=== PATIENT | female | born 1945 | race Caucasian/White ===

== ENCOUNTER → 2017-11-04 13:08 | Outpatient (CLI) | payer MEDICARE, OTHER, SELFPAY ==
--- NOTE | 2017-11-04 | DI.RAD.S_ITS ---
PROCEDURE: XR CHEST 2V INDICATIONS: FEVER/FATIGUE TECHNIQUE: 2 views of the chest were acquired. COMPARISON: [facility], , CHEST 2 VIEW, 04/10/2016, 11:17. FINDINGS: Surgical changes and devices: None. Lungs and pleura: No pleural effusions or pneumothorax. Lungs are clear. Mediastinum: Mediastinal contours are normal. Heart size is normal. Aortic calcification. Bones and chest wall: No suspicious bony abnormalities. Lower thoracic spondylosis. Soft tissues appear unremarkable. IMPRESSION: No acute cardiopulmonary abnormality Dictated by: Lazarus Roper M.D. on 11/04/2017 at 14:12 Approved by: Lazarus Roper M.D. on 11/04/2017 at 14:13
== END ==
PROVIDERS: PCP Physician Assistant; Visit Provider Physician Assistant
DX: R53.83 Other fatigue (principal); R50.9 Fever, unspecified; M47.814 Spondylosis without myelopathy or radiculopathy, thoracic region
CPT/HCPCS: 71046

== ENCOUNTER → 2018-01-07 14:06 | Outpatient (CLI) | payer MEDICARE, OTHER, SELFPAY ==
--- NOTE | 2018-01-07 | DI.RAD.S_ITS ---
PROCEDURE: XR FOOT RT MIN 3V INDICATIONS: GANGLION RIGHT ANKLE AND FOOT TECHNIQUE: 3 views of the foot were acquired. COMPARISON: [facility], , FOOT 3V RIGHT, 01/15/2017, 9:04. FINDINGS: Bones: No fractures or dislocations. No suspicious bony lesions. First metatarsal-phalangeal and diffuse interphalangeal degenerative joint disease. No focal osseous destruction is seen. There is pes cavus appearance all weight-bearing views would be more consistent mild spurring of the posterior calcaneus. There is also tarsometatarsal joint degeneration Soft tissues: No tibiotalar joint effusion. Achilles tendon appears normal. IMPRESSION: Chronic degenerative changes as above. If there is clinical necessity, contrast-enhanced MRI of the foot could be performed to better assess soft tissues. Dictated by: Jose Reaves M.D. on 01/07/2018 at 14:45 Approved by: Jose Reaves M.D. on 01/07/2018 at 14:48
== END ==
PROVIDERS: Family Provider Podiatrist; PCP Physician Assistant; Visit Provider Physician Assistant
DX: M67.471 Ganglion, right ankle and foot (principal); M19.071 Primary osteoarthritis, right ankle and foot
CPT/HCPCS: 73630

== ENCOUNTER → 2018-01-19 09:35 | Outpatient (CLI) | payer MEDICARE, OTHER, SELFPAY ==
--- NOTE | 2018-01-19 | DI.US.S_ITS ---
PROCEDURE: US EXTREMITY NONVASC LOWER RT INDICATIONS: PAIN AND SWELLING RIGHT FOOT TECHNIQUE: Real-time scanning was performed of the right foot between the first and second metatarsals, with image documentation. COMPARISON: [facility], [place], XR FOOT RT MIN 3V, 01/07/2018, 13:49. FINDINGS: No ultrasound abnormalities are identified and are of interest. No soft tissue mass or fluid collection. IMPRESSION: Normal ultrasound exam in the area of interest. Dictated by: Sharonda Jimenez M.D. on 01/19/2018 at 10:42 Approved by: Sharonda Jimenez M.D. on 01/19/2018 at 10:43
[2018-01-19 10:31] LABS: Uric Acid 3.3 mg/dL (2.5-6.2)
== END ==
PROVIDERS: Family Provider Podiatrist; PCP Physician Assistant; Visit Provider Podiatrist
DX: M79.671 Pain in right foot (principal); M79.89 Other specified soft tissue disorders; M10.9 Gout, unspecified
CPT/HCPCS: 36415; 76882; 84550

== ENCOUNTER → 2018-04-09 12:56 | Outpatient (CLI) | payer MEDICARE, OTHER, SELFPAY ==
--- NOTE | 2018-04-09 | DI.CT.S_ITS ---
PROCEDURE: CT CHEST W CON INDICATIONS: COUGH TECHNIQUE: After the administration of intravenous contrast, 5 mm thick sections acquired from the pulmonary apices to the posterior costophrenic angles. 7 mm thick coronal and sagittal MIP reformats were acquired. For radiation dose reduction, the following was used: automated exposure control, adjustment of mA and/or kV according to patient size. COMPARISON: None. FINDINGS: Image quality: Excellent. Lungs and pleura: No acute air space opacities. No pleural effusions or pneumothorax. Central and peripheral airways are patent and normal in caliber. Mediastinum: Heart size is normal. No pericardial effusion. No mediastinal or hilar adenopathy by size criteria. Thoracic aorta and central pulmonary arteries are normal in size. Esophagus is normal in caliber. No hiatal hernia. Bones and chest wall: No suspicious bony lesions. No vertebral body compression fractures. No axillary or supraclavicular adenopathy by size criteria. Thyroid gland contains a multitude of small nodules, and is asymmetrically enlarged right on the left than the right with secondary narrowing of the transverse dimension of the trachea through this area, without likelihood of aerodynamically significant stenosis. Abdomen: Visualized upper abdominal solid organs appear normal. Upper abdominal bowel loops are normal in caliber. Prior cholecystectomy. IMPRESSION: A pulmonary source for recurrent cough is not identified. Note is made of asymmetric enlargement of the thyroid gland, left greater than right, by a multitude of small nodules with secondary mild stenosis of the transverse dimension of the upper trachea in this area. Followup thyroid ultrasound is recommended. Impingement on the trachea by the thyroid gland may explain the cough symptoms reported by the patient. Dictated by: Braulio Anaya M.D. on 04/09/2018 at 14:10 Approved by: Braulio Anaya M.D. on 04/09/2018 at 14:13
== END ==
PROVIDERS: Family Provider Otolaryngology Facial Plastic Surgery; PCP Physician Assistant; Visit Provider Physician Assistant
DX: R05 Cough (principal); E04.2 Nontoxic multinodular goiter; J39.8 Other specified diseases of upper respiratory tract
CPT/HCPCS: 71260; Q9967

== ENCOUNTER → 2018-04-23 09:48 | Outpatient (CLI) | payer MEDICARE, OTHER, SELFPAY ==
--- NOTE | 2018-04-23 | DI.US.S_ITS ---
PROCEDURE: US THYROID INDICATIONS: THYROID NODULE TECHNIQUE: Real-time scanning was performed of the thyroid gland, with image documentation. COMPARISON: None. FINDINGS: Right: Thyroid lobe measures 5.0 x 1.8 x 1.8 cm, and is homogeneous in echotexture. Left: Thyroid lobe measures 5.5 x 2.4 x 2.0 cm, and is homogenous in echotexture. Isthmus: 4.0 mm thick. Nodule number: 1 Location: Right mid lateral Size: 1.8 x 0.9 x 1.0 cm. Composition: Predominant solid Echogenicity: Hypoechoic Shape: wider than tall. Margins: Smooth Echogenic foci: None Total points: 4 ACR TI-RADS category: Moderately suspicious Nodule number: 2 Location: Right mid Size: 0.8 x 0.6 x 0.6 cm. Composition: Predominately solid Echogenicity: Isoechoic Shape: wider than tall. Margins: Smooth Echogenic foci: Punctate internal echogenic foci Total points: 6 ACR TI-RADS category: Moderately suspicious Nodule number: 3 Location: Right inferior Size: 1.2 x 0.6 x 1.6 cm. Composition: Predominately solid Echogenicity: Isoechoic Shape: wider than tall. Margins: Smooth Echogenic foci: Internal echogenic punctate foci. Total points: 6 ACR TI-RADS category: Moderately suspicious Nodule number: 4 Location: Left mid inferior Size: 4.3 x 2.2 x 2.0 cm. Composition: Predominately solid Echogenicity: Isoechoic Shape: wider than tall. Margins: Smooth Echogenic foci: Internal echogenic punctate foci Total points: 6 ACR TI-RADS category: Moderately suspicious Nodule number: 5 Location: Left superior Size: 1.0 x 0.8 x 0.7 cm. Composition: Spongiform Echogenicity: Hypoechoic Shape: wider than tall. Margins: Smooth Echogenic foci: Internal echogenic punctate foci Total points: 5 ACR TI-RADS category: Moderately suspicious Nodule number: 6 Location: Left inferior Size: 0.8 x 0.8 x 0.7 cm. Composition: Predominately solid Echogenicity: Isoechoic Shape: wider than tall. Margins: Smooth Echogenic foci: Internal echogenic punctate foci Total points: 6 ACR TI-RADS category: Moderately suspicious IMPRESSION: Bilateral thyroid nodules as above. Recommend sonographically directed fine needle aspiration of the # 4 left mid inferior nodule and continued sonographic surveillance of the additional nodules as detailed below. ACR TI-RADS definitions and recommendations: TI-RADS 1 (benign): 0 points. FNA not needed. TI-RADS 2 (not suspicious): 2 points. FNA not needed. TI-RADS 3 (mildly suspicious): 3 points. * FNA if 2.5 cm or larger, follow up if 1.5 cm or larger (at 1, 3, and 5 years). TI-RADS 4 (moderately suspicious): 4-6 points. * FNA if 1.5 cm or larger, follow up if 1 cm or larger (at 1, 2, 3, and 5 years). TI-RADS 5 (highly suspicious): 7 points or more. * FNA if 1 cm or larger, follow up if 0.5 cm or larger (every year for 5 years). Dictated by: Donal BARBOSA Interpreted: Manuel Cobian MD on 04/23/2018 at 12:05 Approved by: Manuel Cobian M.D. on 04/23/2018 at 14:28
== END ==
PROVIDERS: Family Provider Otolaryngology Facial Plastic Surgery; PCP Physician Assistant; Visit Provider Physician Assistant
DX: E04.2 Nontoxic multinodular goiter (principal)
CPT/HCPCS: 76536

== ENCOUNTER → 2018-11-24 08:30 | Outpatient (CLI) | payer MEDICARE, OTHER, SELFPAY ==
--- NOTE | 2018-11-24 | DI.NM.S_ITS ---
PROCEDURE: NM BONE 3 PHASE RADIOPHARMACEUTICAL: 21.0 mCi Tc-99m MDP IV. INDICATIONS: STRESS FRACTURE RIGHT TECHNIQUE: Multiple bone scintigrams were obtained after intravenous injection of Tc-99m MDP, including flow, blood pool, and delayed images centered to the region of interest. COMPARISON: [facility], [place], XR FOOT 3 VIEWS WEIGHT BEARING RIGHT, 11/08/2018, 10:37. [facility], [place], XR FOOT 3+ VIEWS RIGHT, 10/22/2018, 13:15. FINDINGS: There is asymmetric hyperperfusion of the right hindfoot and midfoot on flow imaging. There is asymmetrically increased blood pool activity/hyperemia in the right hindfoot and midfoot. Delayed bone phase imaging demonstrates diffuse asymmetrically increased radiotracer uptake within the right hindfoot and midfoot, with greatest focal uptake at the right second and third cuneiforms. IMPRESSION: Hyperperfusion, hyperemia, and delayed bone radionuclide uptake within the right hindfoot and midfoot compatible with potential right midfoot or hindfoot stress fracture with resultant altered biomechanics. Radiotracer uptake is greatest at the second and third cuneiforms of the right foot; suggest correlation with point tenderness for further evaluation. Dictated by: Robel Vega M.D. on 11/24/2018 at 17:43 Approved by: Robel Vega M.D. on 11/24/2018 at 18:03
== END ==
PROVIDERS: PCP Internal Medicine; Visit Provider Podiatrist
DX: M84.374A Stress fracture, right foot, initial encounter for fracture (principal)
CPT/HCPCS: 78315; A9503

== ENCOUNTER → 2019-06-20 10:51 | Outpatient (CLI) | payer MEDICARE, OTHER, SELFPAY ==
--- NOTE | 2019-06-20 | DI.RAD.S_ITS ---
PROCEDURE: XR CHEST 2V INDICATIONS: chronic cough TECHNIQUE: 2 views of the chest were acquired. COMPARISON: [facility], [place], XR CHEST 2V, 11/04/2017, 12:51. FINDINGS: Surgical changes and devices: None. Lungs and pleura: Lungs are clear. No pleural effusions or pneumothorax. Lungs are hyperinflated suggestive of COPD. Mediastinum: Mediastinal contours are normal. Heart size is normal. Bones and chest wall: No suspicious bony abnormalities. Soft tissues appear unremarkable. IMPRESSION: No acute pulmonary process. Dictated by: Della Russell M.D. on 06/20/2019 at 16:02 Approved by: Della Russell M.D. on 06/20/2019 at 16:02
== END ==
PROVIDERS: PCP Student in an Organized Health Care Education/Training Program; Referring Provider Student in an Organized Health Care Education/Training Program; Visit Provider Student in an Organized Health Care Education/Training Program
DX: R05 Cough (principal)
CPT/HCPCS: 71046

== ENCOUNTER 2019-07-19 11:44 | Day surgery (SDC) | payer MEDICARE, OTHER, SELFPAY ==
--- NOTE | 2019-07-19 | PATH_ITS ---
[facility] Accession Number: [id number] . 01 Material submitted: . colon - COLON POLYP AT 55 CM . 02 Diagnosis: Colon at 55 cm, Polyp: Tubular adenoma. MRV 07/20/2019 1215 Local . 02 Electronically signed: . Kush Frances MD, PhD, Pathologist NPI- [id number] . 01 Gross description: . COLON POLYP AT 55 CM: Received in formalin is 1 fragment(s) of wang, soft tissue measuring 0.2 x 0.2 x 0.2 cm submitted entirely in 1 cassette(s) /[facility] [place] 07/19/2019 2109 Local . 02 Pathologist provided ICD-10: D12.6 . 02 CPT . 505899 Performed at: 01 [facility] [address] [place] [address], [place], [place] [id number] MD David Pederson MD Phone: [phone] Performed at: 02 [facility] [address] [place], [place] [id number] MD Neelam Faria MD Phone: [phone]
[2019-07-19 12:18] VITALS: BMI 21.5
[2019-07-19 12:24] VITALS: BP 144/79; PULSE 93; RESP 18; TEMP 37.1; O2SAT 98
[2019-07-19] MEDS: SODIUM CHLORIDE 0.9% 1,000 ML 200 ML IV (12:33)
--- NOTE | 2019-07-19 12:55 | PM.HP.1 ---
History of Present Illness History of Present Illness Date Patient Seen: 07/19/19 Time Patient Seen: 12:55 Chief complaint: [id number] Narrative: This is a 73-year-old woman with history of arthritis, knee replacement, shoulder surgery, gallbladder surgery. She had a prior colonoscopy roughly 10 years ago which was normal. She is here for follow-up screening colonoscopy. She denies any melena, hematochezia, unexplained weight loss, or unexplained abdominal pain. She denies any significant family history of colon cancers or colon polyps. She says she feels well and denies any active medical problems. ROS: Thirteen system review is otherwise negative other than as mentioned below and in HPI. PE: GENERAL: Well groomed and cooperative. Appears stated age. Answers questions promptly and appropriately. Vital signs noted. HENT: Normocephalic, atraumatic. Hearing intact. Oral mucosa is pink and moist. EYES: Conjunctiva pink, sclera white, no periorbital swelling. CARDIOVASCULAR: Regular rate. No pedal edema. RESPIRATORY: Non-tachypneic, breathing comfortably on room air. GASTROINTESTINAL: Abdomen soft and non-distended GENITALURINARY: No flank tenderness. MUSCULOSKELETAL: Equal tone and mass bilaterally. SKIN: Warm, dry, soft, appropriate color for ethnicity. No other lesions, rashes, or wounds. NEURO: Alert and Oriented X 3. No gross sensory deficits, or cognitive issues. PSYCH: Appropriate affect and mood. Patient History Family & Social History Social History: household members spouse Tobacco & Substance use: Smoking Status Never smoker alcohol intake current alcohol intake frequency 0-2 drinks per day Substance Use Type does not use Meds Home Medications and Allergies Home Medications Medication Instructions Recorded Confirmed Type tramadol 50 mg PO QID #0 05/14/12 07/19/19 History mirabegron [Myrbetriq] 50 mg PO DAILY 07/19/19 07/19/19 History ropinirole 0.5 mg PO BEDTIME 07/19/19 07/19/19 History trazodone 150 mg PO BEDTIME 07/19/19 07/19/19 History Allergies Allergy/AdvReac Type Severity Reaction Status Date / Time Penicillins Allergy Unknown Rash Verified 07/19/19 12:13 Exam Vital Signs (past 8 hours): - 07/19/19 12:24 Temperature 98.8 F Pulse Rate 93 H Respiratory Rate 18 Blood Pressure 144/79 H Pulse Oximetry 98 Oxygen Delivery Method Room Air Assessment & Plan Assessment and plan (1) At average risk for colon cancer: Current visit: Yes Status: Acute Assessment & Plan narrative: Risks and benefits of screening colonoscopy and possible polypectomy were discussed with the patient including risk of bleeding, perforation, need for additional procedures, risks of anesthesia. The patient desires to proceed with the colonoscopy procedure. Time Spent With Patient Time with patient: 15-24 minutes Quality VTE Deep Vein Thrombosis/Pulmonary Embolism Present on Admission: No
--- NOTE | 2019-07-19 13:21 | PM.OP.ENDO ---
Operative Date/Time/Diagnoses Date of procedure: 07/19/19 Time of procedure: 13:21 Pre-op diagnosis: Average risk for colon cancer, due for follow-up screening colonoscopy Post-op diagnosis: other (One tiny polyp, extensive diverticulosis, with thickening of the colon consistent with history of diverticulitis) Procedure & Clinicians Study performed: Screening colonoscopy, polypectomy with cold forceps Same procedure as scheduled: Yes Indications: Average risk for colon cancer, due for screening colonoscopy Surgeon: Marla Astorga Procedure Notes SCOAP/Timeout: Performed Procedure in detail: The patient was brought to the room and placed in left lateral decubitus position with all bony prominences padded. A time-out was performed and then the patient was given procedural sedation starting with 2 mg of Versed and [100] mcg of fentanyl. Total of 4 mg of Versed and 150 micro g of fentanyl were given for the entire procedure. Vitals were monitored throughout the procedure and remained stable. Once adequately sedated the procedure was begun. A rectal exam was performed revealing [no abnormalities]. The colonoscope was then introduced to the rectum and advanced to the cecum in the usual fashion. []The cecum was identified by the appendiceal orifice, the mucosal tri-fold, and the ileocecal valve. A small polyp was seen at 55 cm, and was removed entirely with forceps. The scope was then retracted while rotating side to side and examining each mucosal fold. There was diverticulosis throughout the colon, with significant diverticulosis in the descending and sigmoid colon, with thickening of the sigmoid colon and evidence of prior episodes of diverticulitis. [] At the conclusion of the procedure retroflexion was performed and [small grade 1-2 internal hemorrhoids without stigmata of bleeding were seen]. The scope was then withdrawn from the rectum the procedure was concluded. The patient tolerated the procedure well and was transferred to the PACU in stable condition. Scope withdrawal time: 8 Sedation minutes: 20 Findings: diverticulosis and polyp Specimen(s): other (Polyp from 55 cm) Complications: none Impression: Extensive diverticulosis with evidence of prior diverticulitis Post-procedure Recommendations: Colonscopy in 10 years (Is healthy enough for colonoscopy at that time) and Start medication(s) (Use a fiber supplement such as Metamucil or Benefiber to help bulk up the stool make it easier for the colon to pass, with a goal of reducing formation of diverticulosis and episodes of diverticulitis) Follow up: as needed Disposition: PACU
[2019-07-19] MEDS: ONDANSETRON 4 MG/2 ML INJ IV (13:23)
[2019-07-19] MEDS: fentaNYL 250 MCG/5 ML INJ IV (13:24)
[2019-07-19] MEDS: MIDAZOLAM 5 MG/5 ML VIAL IV (13:24)
[2019-07-19 13:25] VITALS: BP 115/66; PULSE 77; RESP 21; TEMP 36.2; O2SAT 98
[2019-07-19 13:30] VITALS: BP 121/66; PULSE 88; RESP 13; O2SAT 98
[2019-07-19 13:36] VITALS: BP 119/69; PULSE 89; RESP 15; O2SAT 98
[2019-07-19 13:51] VITALS: BP 120/59; PULSE 75; RESP 17; O2SAT 98
[2019-07-19 14:05] VITALS: BP 124/71; PULSE 76; RESP 14; TEMP 36.6; O2SAT 97
--- NOTE | 2019-07-19 14:12 | SUR.PHASEII ---
Patient denies pain or nausea at this time. VSS. GCS 15. Awaiting to arrive so that patient can be discharged home.
== END 2019-07-19 14:37 | disposition home or self-care (01) ==
PROVIDERS: PCP Student in an Organized Health Care Education/Training Program; Referring Provider Student in an Organized Health Care Education/Training Program; Visit Provider Surgery
PROC: 0DJD8ZZ Inspection of Lower Intestinal Tract, Via Natural or Artificial Opening Endoscopic (ICD-10-PCS; CPT 45378; principal; 2019-07-19 13:00)
DX: Z12.11 Encounter for screening for malignant neoplasm of colon (principal); K57.30 Diverticulosis of large intestine without perforation or abscess without bleeding; D12.6 Benign neoplasm of colon, unspecified
CPT/HCPCS: 45380; 99152; J2250; J2405; J3010

== ENCOUNTER → 2019-11-10 18:30 | Outpatient (ROUT) | payer MEDICARE, OTHER, SELFPAY ==
[2019-11-10 18:46] LABS: BUN Creatinine Ratio 29.9 (6-22); Blood Urea Nitrogen 20 mg/dL (7-17); Calcium 9.1 mg/dL (8.4-10.2); Carbon Dioxide 27 mmol/L (22-32); Chloride 102 mmol/L (98-107); Estimated Glomerular Filt Rate > 60.0 mL/min (>60); Glucose 112 mg/dL (80-110); HEMOLYSIS < 15 (0-50); Potassium 4.2 mmol/L (3.4-5.1); Sodium 136 mmol/L (137-145)
[2019-11-10 18:54] LABS: Add Manual Diff / Slide Review NO; Basophils Absolute Auto 0 /uL (0-100); Basophils Percent Auto 0.2 % (0-2); Eosinophils Absolute Auto 0 /uL (0-450); Eosinophils Percent Auto 0.9 % (2-4); Hematocrit 43.3 % (36-46); Hemoglobin 14.9 g/dL (12.0-16.0); Lymphocytes Absolute Auto 900 /uL (1100-4500); Lymphocytes Percent Auto 23.2 % (25-40); Mean Corpuscular HGB Conc 34.5 % (30-36); Mean Corpuscular Hemoglobin 30.8 PG (26-34); Mean Corpuscular Volume 89.4 fL (80-100); Monocytes Absolute Auto 400 /uL (0-900); Monocytes Percent Auto 10.4 % (3-14); Neutrophils Absolute Auto 2600 /uL (1500-7000); Neutrophils Percent Auto 65.3 % (50-75); Platelet Count 176 X10^3/uL (150-400); Red Blood Cell Count 4.85 X10^6/uL (4.0-5.2); Red Cell Distribution Width 13.2 % (11.6-14.8); White Blood Cell Count 3.9 X10^3/uL (4.5-11.0)
== END ==
PROVIDERS: PCP Student in an Organized Health Care Education/Training Program; Visit Provider Student in an Organized Health Care Education/Training Program
DX: Z01.818 Encounter for other preprocedural examination (principal)
CPT/HCPCS: 36415; 80048; 85025

== ENCOUNTER → 2019-12-06 13:55 | Outpatient (CLI) | payer MEDICARE, OTHER, SELFPAY ==
[2019-12-08 03:05] LABS: COVID19 Sendout Not Detected (Not Detect)
== END ==
PROVIDERS: PCP Student in an Organized Health Care Education/Training Program; Visit Provider Physician Assistant
DX: Z01.812 Encounter for preprocedural laboratory examination (principal)
CPT/HCPCS: 87635

== ENCOUNTER 2019-12-09 07:43 | Day surgery (SDC) | payer MEDICARE, OTHER, SELFPAY ==
[2019-12-07 07:16] VITALS: BMI 21.7
[2019-12-09] VITALS (8 sets, daily range): BP systolic 104–147; BP diastolic 44–87; PULSE 86–101; RESP 12–16; TEMP 36.3–36.8; O2SAT 95–99; BMI 22.3
--- NOTE | 2019-12-09 | DI.RAD.S_ITS ---
PROCEDURE: XR FOOT RT MIN 3V INDICATIONS: FLATFOOT REPAIR TECHNIQUE: 9 views of the foot were acquired. COMPARISON: [facility], , XR FOOT RT MIN 3V, 01/07/2018, 13:49. [facility], , FOOT 3V RIGHT, 01/15/2017, 9:04. FINDINGS: Bones: No fractures or dislocations. No suspicious bony lesions. The 9 images show cannulated cancellous screws establishing fusion across to ostea out a me at the posterior calcaneus and also metatarsal base cancellous fixation screws establishing anatomic fusion between the tarsal-metatarsal articulations of the 1st, 2nd and 3rd rays. Soft tissues: No tibiotalar joint effusion. Achilles tendon appears normal. IMPRESSION: Podiatry related fusion fixation devices establishing normal alignment postoperatively. Dictated by: Braulio Anaya M.D. on 12/09/2019 at 12:51 Approved by: Braulio Anaya M.D. on 12/09/2019 at 12:53
[2019-12-09] MEDS: LACTATED RINGERS 1,000 ML 42 ML IV ×2 (08:27→13:04)
--- NOTE | 2019-12-09 08:56 | PM.PREOP ---
Pre-operative Note COVID-19 COVID-19 status: Negative Interval Note History & Physical reviewed/Exam performed by Physician: Yes Changes to H&P: No
[2019-12-09] MEDS: MIDAZOLAM 2 MG/2 ML VIAL IV ×2 (09:03→09:09)
[2019-12-09] MEDS: fentaNYL 100 MCG/2 ML INJ 50 MCG IV ×2 (09:03→09:14)
--- NOTE | 2019-12-09 09:19 | P.OP_ITS ---
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 These are reasonably flexible hindfoot and posterior tibialis tendon dysfunction. She has failed conservative treatment with orthotics and braces. She has desired operative treatment. The risks and benefits of the procedure have been discussed with the patient even opportunity to ask questions. The risks of surgery include but are not limited to infection, malunion, nonunion, over correction, under correction, wound healing problems persistence of pain, damage to nerves and blood vessels, posttraumatic arthritis, DVT, PE, cardiopulmonary complications and . The patient expressed a thorough understanding of the risks and benefits of surgery and has elected to proceed. Consent was signed in the office. She has been counseled the importance of elevation above the heart level for the 1st 2 weeks after surgery to minimize swelling and pain. Surgeon: Pat Castellanos Licensing And Registration Director: Good Nathan Anesthesia Type: General and Peripheral nerve block Operative Notes Findings: Examination under anesthesia the knee flexed and extended demonstrated a Achilles contracture. Gerardo Achilles lengthening was completed. Medial displaced calcaneus osteotomy was completed stabilized by 2 x 6.7 Arthrex cannulated screws. FDL transfer was completed and held in place with a 4.75 bio tenodesis screw through the navicular. The spring ligament was inspected and was intact. The 1st 2nd and 3rd tarsometatarsal joints were prepared and fused with 4.0 cannulated screws. 5 cc of cortical fibers were used for aloe graft bone graft to aid fusion. Care was taken to plantar flex the 1st tarsometatarsal joint infusion position to correct the forefoot supination. Closure Type: primary Specimen(s): none sent Prosthetic devices, grafts, tissues, transplants, or devices: Arthrex 6.7 mm can nulated screws (50 and 55 mm) Arthrex 4.0 mm cannulated screws x 4 Arthrex 4.75 bio tenodesis screw Estimated Blood Loss (mL): 25 Blood products transfused: none Tourniquet time (min): 130 Procedure in detail: Patient was seen in the preoperative area the site of surgery was marked informed consent confirmed. The patient underwent a regional block with the anesthesia team for postoperative pain control. Patient was then brought back to the operating room by the anesthesia team positioned supine on the operative table. All bony prominences were well-padded. Well-padded thigh tourniquet was placed. An SCD was placed on the contralateral lower extremity. A ipsilateral thigh bump was placed. The right lower extremity prepped and draped in the standard sterile fashion. A formal time-out procedure was performed confirming the patient's side and site of surgery administration of appropriate preoperative antibiotics. All were in agreement. Implants were in the room accounted for. Attention was turned to the right lower extremity. Bony landmarks and planned incision was drawn out on the foot. A lap was then placed over the zarco. The Esmarch was used for exsanguination the tourniquet raised on the thigh to 250 mm mercury. The stayed there for 130 minutes and was then let down and not re- inflated. Tendo-Achilles lengthening: Exam under anesthesia was completed patient had a Achilles contracture demonstrated by no appreciable change in dorsiflexion with knee flexion and knee extension once the hindfoot valgus was corrected. Therefore a Mitchell style lengthening of the tendo Achilles tendon was completed with the 3 small incisions the distal and proximal most were taken through the midline and then to the outside and the middle incision was taken through the middle of the tendon and cut the medial 50%. This set lowered a audible and palpable stretch and we were able to get 20? of dorsiflexion with the knee extended. Again of no examined under anesthesia and there was adequate motion of the hindfoot to support the joint sparing osteotomy correction. Medial displacement calcaneal osteotomy: Attention was then turned to the medial displacement calcaneal osteotomy. An oblique incision was made along the lateral border of the calcaneus staying posterior to the sural nerve and peroneal tendons. Dissection was carried through the skin and subcutaneous tissue and down bluntly to the lateral wall calcaneus. Subperiosteal dissection was then completed for exposure and baby Hohmann retractors were placed around the calcaneus. A osteotomy across the calcaneus was completed using a K-wire as a guidewire. This was also checked on fluoroscopy. This was taken gently through the medial wall completed with the osteotomes. A Halstad was then used to release the periosteum medially. The calcaneus was translated approximately 8 mm. The slight was then percutaneously fixed with 2 x 6.7 mm Arthrex cannulated screws. Excellent fixation was obtained. Guidewires were removed and the excess bone from the distal fragment was then trimmed and saved for bone graft and then impacted appropriately. X-rays in at calcaneal asked heel and lateral confirmed adequate hardware placement. The tissues were closed with 2 O Vicryl suture, 4 0 Monocryl and 3 O nylon suture. Percutaneous posterior sites were closed with 3 O nylon. FDL tendon transfer: Attention was then turned to the medial aspect of the foot and the FDL tendon transfer. The leg was externally rotated and a medial incision was made along the course of the posterior tibialis tendon extending distally along the medial border toward the 1st TMT joint. A tenosynovectomy of the posterior tibial tendon was performed and the tendon sheath opened. There was mild tendinosis that was debrided but the overall width and size of the tendon was not too disease so this was preserved. The FDL was exposed just deep to the posterior tibialis tendon and was followed distally to the knot of Reid. Careful coagulation of vessels in this area was completed using the Bovie cautery. The FDL was isolated and harvested and tagged with a fiber loop. This fit easily through a 5 mm Sizer with trimming. Dissection was made and completed on the navicular and a guide wire and a 5 mm tunnel were made across the navicular with the pin at exiting out the dorsum of the foot. Was confirmed on fluoroscopy to be well away from the joint surfaces. This was then over drawn with a 5 mm drill and 4.75 bio tenodesis screw was selected for an interference screw. Of note on the exposure inspection of the spring ligament was completed and this was found to be intact. Next the fiber loops of for the FDL tendon transfer were brought through the navicular now dorsally and then the of tendon was brought into the drill hole. This was held tight correcting the deformity and then the bio tenodesis screw was secured. This provided a stable repair and set the tension. Motion fixation was excellent. The patient was noted to have residual supination so plantar flexion 1st TMT fusions were going to be planned. At the end of the procedure the posterior tibialis tendon was found to have decent excursion so this was tenodesed to the FDL. Midfoot fusions 1st through 3rd tarsometatarsal fusion: Inter 2 complete maximal as skin bridges the a medial incision was extended distally to accommodate the 1st TMT fusion and then a separate dorsal incision centered over the lateral aspect of the 3rd tarsometatarsal joint was utilized to access the 2nd and 3rd tarsometatarsal joints. Dissections were taken down through the skin and subcutaneous tissues. The tendons were protected dorsally at the 1st TMT joint. The cartilage was removed with more bone removed plantarly for plantar flexion are fusion. The joints sites were prepped thoroughly with the bur drill and then secured with the DBS bone fibers and tendon place with guidewires for the 4 0 cannulated screws. Similar procedure was completed for the 2nd and 3rd tarsometatarsal joints through this hole dorsal lateral incision. Again these were found to be extremely arthritic joints and the osteophytes to remove the bone surfaces were prepared using a bone bur and the 2 other drill. Then a DCS fibers were placed in. The 2nd and 3rd tarsometatarsal joints were transfixed with a single 4.0 mm cannulated lag screws and the 1st tarsometatarsal joint was stabilized with 2 cross 4.0 cannulated lag screws. This obtained excellent fixation and alignment. Current was released and hemostasis was achieved. Gelfoam and thrombin were used. A 2 O Vicryl 4 0 Monocryl and 3 O nylon was used for skin closure. Sterile bulky dressing was placed with Xeroform gauze and Webril focally Gramajo dressing and a posterior and U splint. Patient was woken from anesthesia and taken to recovery room in good condition. There no immediate complications from this procedure. All counts were correct. Additional 20 cc of 0.5% Marcaine was injected for local anesthetic. Complications: none Post-operative Condition: stable Plan for aftercare: Nonweightbearing right lower extremity minimum 8 weeks. Elevate above the heart level 1st 2 weeks after surgery strictly. Will start taking aspirin 325 mg on postop day 1 for DVT prophylaxis. Sutures will remain minimum 2 weeks but to not uncommon to remain 4-5 weeks if necessary.
--- NOTE | 2019-12-09 09:33 | SUR.PREOP ---
902 medicated as ordered for nerve block by Dr. Ruffin. Pt in sinus rhythm (continuous monitoring). On o2 at 2lNP, maintained sat of 99%, HR 90-91, bp stable. Error in printing strips. Pt was awake, drowsy, responsive throughout the procedure without complaints of pain. procedure end 924. Taken to the OR shortly after. pt comfortable, talking. Stable
[2019-12-09] MEDS: CEFAZOLIN 2 GM/100 ML FROZ.PIGGY IV (09:40)
--- NOTE | 2019-12-09 10:22 | SUR.OPER ---
Supine on padded OR bed, head on pillow, arms secured on padded arm boards at <90 degrees abduction, legs uncrossed, safety belt at abdomen, right leg prepped in sterile field stacked on blankets, bump under right hip, tape over blanket over left lower leg.
[2019-12-09] MEDS: BUPIVACAINE 0.25% W/ EPI 30 ML VIAL INJ (10:34)
--- NOTE | 2019-12-09 12:12 | PM.PROC.1 ---
Procedures Date/Time Date of procedure: 12/09/19 Time of procedure: 09:23 Nerve Block Time out performed: Yes Amount of anesthesia used (mL): 20 Nerve blocks: other (Sciatic/Popliteal Nerve Block) Procedure successful: Yes Patient tolerated procedure: well Complications: none Additional comments: Patient for surgical correction of right flat foot deformity, acquired. Surgeon requests nerve block for post op pain relief. Discussed this option with patient, including procedure, risks and benefits. Questions answered and patient signed consent for the procedure. Procedure: Right Sciatic (popliteal) nerve block. Indication: Post op pain relief. Patient placed in prone postion, monitors and O2 per NC applied. IV sedation titrated: total given was fentanyl 100mck and midazolam 2mg. Site and side reconfirmed and landmarks identified. Chloroprep applied and sterile drape placed. Ultrasound visualization utilized as well as nerve stimulator. Lidocaine 1% local wheal with 25g needle. 50mm 22g sheath needle advanced to achieve + twitch; optimized needle position to get twitch (dorsiflexion) to 5mAmp. Negative 2ml test dose after negative aspiration. Total volume of 20 ml given: Ropivacaine 0.5%-17ml and Lidocaine 2% with epinephrine-3ml. Patient tolerated the procedure well without complications.
[2019-12-09] MEDS: THROMBIN (RECOMBINANT) 5,000 UNIT VIAL 5000 UNIT TOP (12:30)
--- NOTE | 2019-12-09 14:10 | SUR.PHASEII ---
Pt rcvd in pacu 2 in stable condition, VSS, wanting to sleep for now. denies pain or nausea but refuses po fluids for now.
--- NOTE | 2019-12-09 14:34 | SUR.PHASEII ---
Pt awake now and drinking po fluids without problems, all dc instructions and rxs given and pt verbalizes understanding. VSS and pt states would like to try go home, ride called. able to move right foot but not toes yet, right foot normal temp and 2t capillary refill toes.
--- NOTE | 2019-12-09 14:55 | SUR.PHASEII ---
Pt assisted to get dressed now sitting up back in bed with right foot elevated on pillows waiting for to arrive
--- NOTE | 2019-12-09 15:22 | SUR.PHASEII ---
Pt dcd in stable condition via wc to curbside private vehicle and .
== END 2019-12-09 15:23 | disposition home or self-care (01) ==
PROVIDERS: PCP Student in an Organized Health Care Education/Training Program; Referring Provider Orthopaedic Surgery Foot and Ankle Surgery; Visit Provider Orthopaedic Surgery Foot and Ankle Surgery
PROC: (CPT 28735; principal; 2019-12-09 07:45)
PROC: (CPT 27691; 2019-12-09 07:45)
DX: M21.41 Flat foot [pes planus] (acquired), right foot (principal); M76.829 Posterior tibial tendinitis, unspecified leg; M19.072 Primary osteoarthritis, left ankle and foot; M67.01 Short Achilles tendon (acquired), right ankle
CPT/HCPCS: 28730; 27691; 28300; 64450; 73630; 76000; J0690; J1100; J2250; J2405; J2704; J3010

== ENCOUNTER 2020-12-28 19:58 | Emergency (ER) | payer MEDICARE, OTHER, SELFPAY ==
--- NOTE | 2020-12-28 20:20 | DI.RAD.S_ITS ---
PROCEDURE: XR SHOULDER RT MIN 2V INDICATIONS: fall with deformity TECHNIQUE: 3 views of the shoulder were acquired. COMPARISON: [facility], CR, XR CHEST 2V, 06/20/2019, 10:51. FINDINGS: Suboptimal evaluation secondary to positioning. Bones: No definite fracture seen. There is superior subluxation of the lateral clavicle relative to the acromion measuring almost 1 shaft width. Soft tissues: No suspicious soft tissue calcifications. IMPRESSION: Superior subluxation of the lateral clavicle relative to the acromion suggestive of AC separation injury. Dictated by: Jose Reaves M.D. on 12/28/2020 at 21:07 Approved by: Jose Reaves M.D. on 12/28/2020 at 21:08
[2020-12-28 20:23] VITALS: BP 135/65; PULSE 83; RESP 17; TEMP 36.6; O2SAT 98; BMI 23.6
[2020-12-28 20:42] LABS: COVID19 -Nasal RAPID Negative (Negative)
--- NOTE | 2020-12-28 21:14 | ED.FALL ---
HPI - Fall General Chief Complaint: Fall Stated Complaint: Dislocated Shoulder Time Seen by Provider: 12/28/20 20:10 Source: patient Mode of arrival: Ambulatory History of Present Illness HPI Narrative: Patient is a 75-year-old female who admits to drinking some alcohol this evening when she tripped and fell landing on her shoulder. She states that she had surgery on her foot over a year ago and has had some difficulty ambulating since then. No head injury no loss consciousness. Complaining of a left shoulder injury only. No numbness or tingling in her hand no injury in her elbow or wrist. Related Data Home Medications Medication Instructions Recorded Confirmed mirabegron 50 mg tablet,extended 50 mg PO DAILY 07/19/19 12/07/19 release 24 hr (Myrbetriq) ropinirole 0.5 mg tablet 0.5 mg PO BEDTIME 07/19/19 12/07/19 trazodone 150 mg tablet 150 mg PO BEDTIME 07/19/19 12/07/19 Previous Rx's Medication Instructions Recorded ondansetron 4 mg disintegrating 4 mg PO Q8H PRN #7 tab 12/09/19 tablet oxycodone 5 mg tablet 5 mg PO Q4H PRN #42 tab 12/09/19 hydrocodone 5 mg-acetaminophen 325 1 tab PO Q6H PRN #10 tab 12/28/20 mg tablet Allergies Allergy/AdvReac Type Severity Reaction Status Date / Time Penicillins Allergy Unknown Rash Verified 12/06/19 14:34 Review of Systems Review of Systems Narrative: GENERAL: Denies chills, fatigue, malaise, fever, sweats, travel HEENT: Denies sinus pain, ear pain, sore throat, difficulty swallowing, neck pain RESPIRATORY: Denies dyspnea, cough, wheezing, hemoptysis, sputum. CARDIOVASCULAR: Denies chest pain, palpitations, orthopnea, edema GASTROINTESTINAL: Denies nausea, vomiting, abdominal pain, diarrhea, constipation, melena. : Denies dysuria, frequency, incontinence, hematuria, urinary retention, flank pain. MUSCULOSKELETAL: See HPI SKIN: No rash, no erythema, no pruritus NEUROLOGIC: Denies weakness, dizziness, headache, numbness, change in speech, confusion PSYCHIATRIC: No concerning psychosocial issues. 12 point review of systems is negative except for those stated above and HPI Patient History Medical History (Updated 08/20/21 @ 23:02 by Emmy Chand DO) Arthritis Surgical History (Updated 12/07/19 @ 07:32 by Tiara Horton RN) History of knee replacement Hx of appendectomy Hx of arthroscopic knee surgery Hx of cholecystectomy Hx of colonoscopy Hx of shoulder surgery Social History household members: spouse Smoking Status: Never smoker alcohol intake: current Smoking Status: Never smoker alcohol intake frequency: 0-2 drinks per day Substance Use Type: does not use Exam Initial Vital Signs Initial Vital Signs: Vital Signs Temperature 97.9 F 12/28/20 20:23 Pulse Rate 83 12/28/20 20:23 Respiratory Rate 17 12/28/20 20:23 Blood Pressure 135/65 12/28/20 20:23 Pulse Oximetry 98 12/28/20 20:23 GENERAL: Alert 75-year-old no acute distress HEENT: Head atraumatic,EOMI, pupils reactive, face symmetric, [moist] mucous membranes CARDIOVASCULAR: Regular rate and rhythm without murmurs, rubs or gallops. RESPIRATORY: Breath sounds equal bilaterally, no wheezes rales or rhonchi. ABDOMEN: Soft, nontender. Normoactive bowel sounds all 4 quadrants. No guarding or rebound. EXTREMITIES: Normal range of motion, no clubbing or edema. Neurovascularly intact Slight step-off between clavicle and shoulder. Pain with shoulder movement sensation and deltoid intact. Flexion extend elbow without difficulty wrist is within normal limits strong distal radial pulse is noted. She states it hurts her shoulder when my stethoscope rest on the right side of her chest. NEUROLOGICAL: Alert and oriented x4.Normal gait and speech. SKIN: Warm, dry, no laceration, no petechiae, no rashes or lesions. Course Orders Ordered: ED Orders 12/28/20 20:20 XR shoulder RT min 2V Stat 12/28/20 20:25 COVID19 -Nasal swab/Pre-Proc Stat Discontinued Medications Hydrocodone Bitart/Acetaminophen (Hydrocodone/Acet 5/325 Prepack) 1 bottle MISC SEEINSTR ONE Stop: 12/28/20 23:15 Last Admin: 12/28/20 23:21 Dose: 1 bottle Documented by: CARMENZA Ketorolac Tromethamine (Ketorolac 30 Mg/Ml Vial) 15 mg IV NOW ONE Stop: 12/28/20 21:23 Last Admin: 12/28/20 21:33 Dose: 15 mg Documented by: CARMENZA Morphine Sulfate (Morphine 2 Mg/Ml Inj) 2 mg IV NOW ONE Stop: 12/28/20 21:23 Last Admin: 12/28/20 21:34 Dose: 2 mg Documented by: CARMENZA Morphine Sulfate (Morphine 2 Mg/Ml Inj) 2 mg IV NOW ONE Stop: 12/28/20 22:38 Last Admin: 12/28/20 22:43 Dose: 2 mg Documented by: CARMENZA Vital Signs Vital signs: Vital Signs - 8 hr 12/28/20 20:23 12/28/20 21:38 12/28/20 22:46 Temperature 97.9 F Pulse Rate 83 87 84 Respiratory Rate 17 Blood Pressure 135/65 139/66 Pulse Oximetry 98 97 99 12/28/20 23:13 Temperature Pulse Rate 80 Respiratory Rate 16 Blood Pressure 130/60 Pulse Oximetry 94 MDM - Fall Lab Data Labs: Lab Results 12/28/20 Range/Units 20:25 SARS-CoV-2 (PCR) Negative (Negative) Imaging Data Extremity x-ray #1: Radiologist's Impression: PROCEDURE: XR SHOULDER RT MIN 2V INDICATIONS: fall with deformity TECHNIQUE: 3 views of the shoulder were acquired. COMPARISON: [facility], CR, XR CHEST 2V, 06/20/2019, 10:51. FINDINGS: Suboptimal evaluation secondary to positioning. Bones: No definite fracture seen. There is superior subluxation of the lateral clavicle relative to the acromion measuring almost 1 shaft width. Soft tissues: No suspicious soft tissue calcifications. IMPRESSION: Superior subluxation of the lateral clavicle relative to the acromion suggestive of AC separation injury. Dictated by: Jose Reaves M.D. on 12/28/2020 at 21:07 [facility] Narrative Medical decision making narrative: Patient is put in a sling given Toradol and 2 doses of morphine along with the prepack. Pain is overall better controlled. She is ambulatory to the restroom. At this time no fracture or dislocation she does have an AC separation. Recommend orthopedics outpatient follow-up. Discharge Plan Departure Patient Disposition: Home Clinical Impression: AC separation Qualifiers: Encounter type: initial encounter Laterality: right Qualified Code(s): S43.101A - Unspecified dislocation of right acromioclavicular joint, initial encounter Instructions: DI for AC Joint Separation Activity Restrictions/Additional Instructions: *You have been diagnosed with right AC joint separation *What to do: At this time there are no broken bones. Your shoulder has but at this time does not need any procedure. Please follow-up with orthopedics. Wear sling as needed for pain and comfort. Be sure to take arm out and move around a few times a day. May ice 20-30 minutes at a time. *Continue to take medications as directed Danevang 1 tablet every 6 hours if needed for severe pain do not combine with tramadol *Follow up with your primary care provider in 2-3 days May call Orthopedics on Thursday to schedule follow-up appointment in 1-2 weeks *Return to ER if you should have increasing pain numbness tingling weakness or any new, worsening or concerning symptoms CONTROLLED SUBSTANCE DISCHARGE (Narcotoic/benzodiazepine/Flexeril/Phenergan) 1. You have been prescribed narcotic medications, it does have acetaminophen/Tylenol/paracetamol in it, DO NOT TAKE MORE THAN 4,00mg in 24 hours of Tylenol. TRAMADOL DOES NOT CONTAIN TYLENOL 2. Please understand that we cannot provide further refills of narcotics, benzodiazepines or controlled substances through the ED and her pain management will need to be through your provider. 3. While on these medications you cannot drive or operate heavy machinery. 4. You cannot sign legal documents or perform any duties such as this. 5. As long as you're taking opiate pain medications he should also be taking a stool softener such as Colace, Dulcolax, MiraLAX or prune juice, to help avoid constipation. Prescriptions: New hydrocodone-acetaminophen 5-325 mg tablet 1 tab PO Q6H PRN (Reason: pain) Qty: 10 RF: 0 No Action trazodone 150 mg Tablet 150 mg PO BEDTIME RF: 0 ropinirole 0.5 mg Tablet 0.5 mg PO BEDTIME RF: 0 Myrbetriq 50 mg Tablet Extended Release 24 Hr 50 mg PO DAILY RF: 0 oxycodone 5 mg tablet 5 mg PO Q4H PRN (Reason: pain) Qty: 42 RF: 0 ondansetron 4 mg tablet,disintegrating 4 mg PO Q8H PRN (Reason: nausea and vomiting) Qty: 7 RF: 1 Referrals: [facility] [Provider Group] Cinthia Beatty PA-C [Primary Care Provider] -
[2020-12-28] MEDS: KETOROLAC 30 MG/ML VIAL 15 MG IV (21:33)
[2020-12-28] MEDS: MORPHINE 2 MG/ML INJ IV ×2 (21:34→22:43)
[2020-12-28 21:38] VITALS: BP 139/66; PULSE 87; O2SAT 97
[2020-12-28 22:46] VITALS: PULSE 84; O2SAT 99
[2020-12-28 23:13] VITALS: BP 130/60; PULSE 80; RESP 16; O2SAT 94
[2020-12-28] MEDS: HYDROCODONE/ACET 5/325 PREPACK 1 BOTTLE MISC (23:21)
== END 2020-12-28 23:43 | disposition home or self-care (01) ==
PROVIDERS: Emergency Provider Emergency Medicine; PCP Student in an Organized Health Care Education/Training Program
DX: S43.101A Unspecified dislocation of right acromioclavicular joint, initial encounter (principal); W19.XXXA Unspecified fall, initial encounter; Z20.822 Contact with and (suspected) exposure to COVID-19
CPT/HCPCS: 36415; 73030; 87635; 96374; 96375; 96376; 99284; C9803; J1885; J2270

== ENCOUNTER → 2021-01-11 13:07 | Outpatient (CLI) | payer MEDICARE, OTHER, SELFPAY ==
[2021-01-11 14:24] LABS: Uric Acid 3.4 mg/dL (2.5-6.2)
== END ==
PROVIDERS: PCP Student in an Organized Health Care Education/Training Program; Referring Provider Podiatrist; Visit Provider Podiatrist
DX: M10.9 Gout, unspecified (principal)
CPT/HCPCS: 36415; 84550

== ENCOUNTER → 2021-03-07 14:34 | Outpatient (CLI) | payer MEDICARE, OTHER, SELFPAY ==
--- NOTE | 2021-03-07 14:36 | DI.CT.S_ITS ---
PROCEDURE: CT LE RT WO CON INDICATIONS: RIGHT FOOT SWELLING TECHNIQUE: Noncontrast 1-1.5 mm axial sections acquired from above the tibiotalar joint to the bottom of the calcaneus, with coronal and sagittal reformats. COMPARISON: [facility], CR, XR FOOT 3+ VIEWS RIGHT, 12/13/2020, 14:14. FINDINGS: Image quality: Excellent. Bones: There is extensive diffuse osteopenia and decreased bone mineralization. Postsurgical changes related to screw arthrodesis of multiple tarsal metatarsal joints again noted and unchanged alignment. There appears to be bridging ossification. Calcaneal osteotomy also noted with intact screw fixation. There is bridging ossification. Hardware appears intact. Evaluation for hardware loosening is suboptimal secondary to severe decreased bone mineralization. No definite focal osseous destruction or acute fracture seen although suboptimal evaluation secondary to osteopenia. Unfused accessory navicular incidentally noted.. Residual metallic density measuring 2 mm seen in the soft tissues between the 3rd and 4th metatarsals on image 102/3. Soft tissues: There is diffuse muscle atrophy. Subcutaneous edema throughout the hindfoot. No focal fluid collection identified. Severe 1st MTP joint degeneration. IMPRESSION: Severely suboptimal examination secondary to decreased bone mineralization and postsurgical changes. No definite focal bone destruction to suggest advanced osteomyelitis although if there is persistent clinical concern consider further evaluation with triple phase bone scan. Dictated by: Jose Reaves M.D. on 03/07/2021 at 17:06 Approved by: Jose Reaves M.D. on 03/07/2021 at 17:11
== END ==
PROVIDERS: PCP Student in an Organized Health Care Education/Training Program; Referring Provider Podiatrist; Visit Provider Podiatrist
DX: M79.89 Other specified soft tissue disorders (principal); M85.871 Other specified disorders of bone density and structure, right ankle and foot; M19.071 Primary osteoarthritis, right ankle and foot
CPT/HCPCS: 73700

== ENCOUNTER → 2021-03-20 10:50 | Outpatient (CLI) | payer MEDICARE, OTHER, SELFPAY | PROVIDERS: PCP Student in an Organized Health Care Education/Training Program; Visit Provider Urology | DX: N39.0 Urinary tract infection, site not specified (principal); N32.81 Overactive bladder; R35.1 Nocturia; R35.0 Frequency of micturition | CPT/HCPCS: 81002; 87086; 99215 ==

== ENCOUNTER → 2021-09-02 13:23 | Outpatient (CLI) | payer MEDICARE, OTHER, SELFPAY ==
--- NOTE | 2021-09-02 | DI.RAD.S_ITS ---
PROCEDURE: XR LUMBAR SPINE 2-3V INDICATIONS: LOW BACK PAIN TECHNIQUE: 3 views of the lumbar spine were acquired. COMPARISON: [facility], , L-SPINE 2-3 VIEWS, 06/16/2012, 12:49. FINDINGS: Bones: 5 [id number] vertebrae are present. Grade 1 anterolisthesis at L4-5 redemonstrated, measuring approximately 6 mm which appears increased from the prior study. There is also minimal anterolisthesis at L3-L4 which is new from the prior study. Minimal retrolisthesis at L1-L2 and L2-L3 appear similar to the prior exam. There is multilevel disc space narrowing throughout the lumbar spine including moderate to severe degeneration at L5-S1 with endplate sclerosis, osteophytosis, and vacuum disc phenomenon which appears increased from the prior study. There is mild to moderate facet arthropathy in the lower lumbar spine which appears increased. No vertebral body compression fractures. No suspicious bony lesions. Soft tissues: Overlying bowel gas pattern is normal. No suspicious soft tissue calcifications. IMPRESSION: 1. Grade 1 anterolisthesis at L4-5 appears increased from the prior study. 2. New minimal anterolisthesis at L3-L4. 3. Multilevel degenerative disc disease including moderate to severe degeneration at L5-S1 appears increased from the prior study. 4. Mild to moderate facet arthropathy in the lower lumbar spine also appears increased. Dictated by: David Bailey M.D. on 09/02/2021 at 17:16 Approved by: David Bailey M.D. on 09/02/2021 at 17:19
== END ==
PROVIDERS: PCP Student in an Organized Health Care Education/Training Program; Referring Provider Student in an Organized Health Care Education/Training Program; Visit Provider Student in an Organized Health Care Education/Training Program
DX: M51.37 Other intervertebral disc degeneration, lumbosacral region (principal); M51.36 Other intervertebral disc degeneration, lumbar region; M47.816 Spondylosis without myelopathy or radiculopathy, lumbar region; M43.16 Spondylolisthesis, lumbar region; M54.50 Low back pain, unspecified; G89.29 Other chronic pain
CPT/HCPCS: 72100

== ENCOUNTER 2021-10-05 11:59 | Emergency (ER) | payer MEDICARE, OTHER, SELFPAY ==
[2021-10-05 12:02] VITALS: BP 142/75
[2021-10-05 12:06] VITALS: BP 142/75; PULSE 82; RESP 16; TEMP 36.4; O2SAT 100; BMI 23.1
--- NOTE | 2021-10-05 12:06 | DI.RAD.S_ITS ---
PROCEDURE: XR LUMBAR SPINE 2-3V INDICATIONS: back pain, bending over, low back SI region TECHNIQUE: 3 views of the lumbar spine were acquired. COMPARISON: [facility], , XR LUMBAR SPINE 2-3V, 09/02/2021, 13:45. FINDINGS: Bones: 5 [id number] vertebrae are present. There is trace anterolisthesis of L4 on L5 and trace retrolisthesis L3 on L4. Moderate to severe disc space narrowing is present L4-5, L5-S1 with moderate to severe foraminal narrowing at L3-4, L5-S1. No vertebral body compression fractures. No suspicious bony lesions. Soft tissues: Overlying bowel gas pattern is normal. No suspicious soft tissue calcifications. IMPRESSION: Degenerative changes most notable at L5-S1, stable compared to prior exam. Dictated by: Della Russell M.D. on 10/05/2021 at 12:30 Approved by: Della Russell M.D. on 10/05/2021 at 12:31
--- NOTE | 2021-10-05 12:06 | ED.BACK ---
HPI - Back Pain/Injury General Chief Complaint: Back Pain/Injury Stated Complaint: back pain Time Seen by Provider: 10/05/21 12:06 Source: patient Mode of arrival: EMS Limitations: no limitations History of Present Illness HPI Narrative: This is a 75-year-old female who presents with low back pain. Patient states she is on tramadol daily and Tylenol but no other daily medications. She has had prior orthopedic surgeries on her foot but denies any back surgeries. She has had some mild discomfort in the past but today bent over while sitting in a chair had sudden pain in her low back SI region and was unable to ambulate. She denies any radiation down her legs. No numbness or tingling. No weakness. She states she was not able to ambulate secondary to pain. No loss of bowel or bladder control. No saddle anesthesia. She has not had significant issues in the past. She has had a x-ray month or 2 ago and told she had some changes. She chest states she is allergic to penicillin. Her primary care is Cinthia Beatty. She lives independently with her spouse and walks without a walker. Related Data Home Medications Medication Instructions Recorded Confirmed ropinirole 1 mg tablet 1 mg PO BID tab 03/20/21 06/12/21 tramadol 50 mg tablet 50 mg PO QID tab 03/20/21 06/12/21 trazodone 100 mg tablet 300 mg PO DAILY tab 03/20/21 06/12/21 eszopiclone 3 mg tablet mg PO 06/12/21 06/12/21 Previous Rx's Medication Instructions Recorded diazepam 5 mg tablet (Valium) 5 mg PO TID PRN #10 tab 10/05/21 Allergies Allergy/AdvReac Type Severity Reaction Status Date / Time Penicillins Allergy Unknown Rash Verified 06/12/21 15:34 Review of Systems Review of Systems ROS Unobtainable: All systems reviewed & are unremarkable except as noted in HPI and below Patient History Medical History Arthritis Nocturia Overactive bladder Urinary frequency Surgical History History of knee replacement Hx of appendectomy Hx of arthroscopic knee surgery Hx of cholecystectomy Hx of colonoscopy Hx of shoulder surgery Social History (Reviewed 05/28/22 @ 12:08 by NIHARIKA Hernadez marital status: number of children: 2 household members: spouse 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 HEENT: Head normocephalic, atraumatic, EOMI, pupils reactive, face symmetric, moist mucous membranes NECK: Supple, full range of motion CARDIOVASCULAR: Regular rate and rhythm without murmurs, rubs or gallops. RESPIRATORY: Breath sounds equal bilaterally, no wheezes rales or rhonchi. ABDOMEN: Soft, nontender. Normoactive bowel sounds all 4 quadrants. No guarding or rebound, rigidity, no mass : No CVA tenderness BACK: No cervical, thoracic or lumbar vertebral point tenderness. Discomfort over the right SI, lumbar region none over the bone. Has mildly decreased range of motion. Patient's gait is not tested. No saddle anesthesia. Muscle strength is 5/5 in lower extremities, no increased pain with leg lift,. DTRs are 2/4 and lower extremities. Dorsalis pedis and tibialis pulses are 2+ and lower extremities. Sensation is intact in the lower extremities. EXTREMITIES: Normal range of motion, no clubbing or edema. Neurovascularly intact NEUROLOGICAL: Cranial nerves II through XII grossly intact. Moving all extremities SKIN: Warm, dry, no petechiae, no rashes or lesions. Initial Vital Signs Initial Vital Signs: Vital Signs Blood Pressure 142/75 H 10/05/21 12:02 Course Orders Ordered: Discontinued Medications Diazepam (Diazepam 5 Mg Tablet) 5 mg PO NOW ONE Stop: 10/05/21 12:07 Last Admin: 10/05/21 12:35 Dose: 5 mg Documented by: ROLANDO Ketorolac Tromethamine (Ketorolac 30 Mg/Ml Vial) 30 mg IM NOW ONE Stop: 10/05/21 12:07 Last Admin: 10/05/21 12:34 Dose: 30 mg Documented by: ROLANDO Reevaluation(s) Reevaluation #1: Patient ambulating in department and to bathroom. Patient is feeling improved. Sitting on the edge of the bed comfortably when I go to re-evaluate her. We did discuss return precautions, red flag symptoms. She was supposed to be set up for cortisone injections after seeing Dr. Cobian from Orthopedic surgery likely with the physiatry or PMR doc and name was given help her set this up. Time: 14:01 Vital Signs Vital signs: Vital Signs - 8 hr 10/05/21 12:02 10/05/21 12:06 10/05/21 12:08 Temperature 97.6 F Pulse Rate 82 82 Respiratory Rate 16 Blood Pressure 142/75 H 142/75 H Pulse Oximetry 100 99 10/05/21 12:30 10/05/21 13:00 10/05/21 13:30 Temperature Pulse Rate 79 78 77 Respiratory Rate Blood Pressure Pulse Oximetry 100 99 100 MDM - Back Pain/Injury Imaging Data Lspine xray: Radiologist's Impression: [address] [address] XRay Report Signed Patient: Mery Reed MR#: [id number] : 1945 Acct:[id number] Age/Sex: 75 / F Date of Service: 10/05/21 Loc: ED Accession Number: [id number] ?? Procedure: XR lumbar spine 2-3V Ordering Provider: Shira Benoit D.O. PROCEDURE:? XR LUMBAR SPINE 2-3V ? INDICATIONS:? back pain, bending over, low back SI region ? TECHNIQUE:? 3 views of the lumbar spine were acquired.? ? COMPARISON:? [facility], CR, XR LUMBAR SPINE 2-3V, 09/02/2021, 13:45. ? FINDINGS:? ? Bones:? 5 [id number] vertebrae are present.? There is trace anterolisthesis of L4 on L5 and trace retrolisthesis L3 on L4.? Moderate to severe disc space narrowing is present L4-5, L5-S1 with moderate to severe foraminal narrowing at L3-4, L5-S1.? No vertebral body compression fractures.? No suspicious bony lesions.? ? Soft tissues:? Overlying bowel gas pattern is normal.? No suspicious soft tissue calcifications.? ? ? IMPRESSION:? Degenerative changes most notable at L5-S1, stable compared to prior exam. ? ? Dictated by: Della Russell M.D. on 10/05/2021 at 12:30 ? ? Approved by: Della Russell M.D. on 10/05/2021 at 12:31 [facility] Narrative Medical decision making narrative: This is a 75-year-old female with acute onset of low back pain while bending over in a chair. Patient has pain but no radiation, no weakness, numbness or tingling. Patient does take tramadol for chronic hip pain but no other prescription medications. No acute changes on imaging. Patient does not have any other red flag symptoms. She is much improved after Valium and Toradol plan for ibuprofen/Tylenol in her home tramadol as well as as needed via Valium. Return precautions discussed all questions answered. Discharge Plan Departure Patient Disposition: Home Clinical Impression: Low back pain Instructions: DI for Low Back Pain Activity Restrictions/Additional Instructions: Follow up with your physician. Below is included the contact number for pain management who does provide injections into the back. This is likely who Dr. Dai was referring to. You may take Tylenol up to a 1000 mg every 6 hours and/or ibuprofen up to 600 mg every 6 hours. You can continue to take your regular tramadol 1 tablet every 6 hours as needed with both of these medications. You can take Valium 1 tablet every 8 hours as needed for muscle relaxation. This medication can make you sleepy do not drive, perform hazardous activities or make any major decisions while taking it. Tramadol and Valium can together make you very sleepy so use these together with caution. Prescription sent to [facility] in [place]. Please return for fevers, rapidly worsening symptoms, loss of bowel or bladder control, new weakness, loss of sensation in the to lift move your leg, inability ambulate or other new or concerning symptoms. Prescriptions: New diazepam [Valium] 5 mg tablet 5 mg PO TID PRN (Reason: muscle spasm) Qty: 10 0RF No Action eszopiclone 3 mg tablet PO 0RF trazodone 100 mg tablet 300 mg PO DAILY 0RF tramadol 50 mg tablet 50 mg PO QID 0RF ropinirole 1 mg tablet 1 mg PO BID 0RF Referrals: Cinthia Beatty PA-C [Primary Care Provider] -
[2021-10-05 12:08] VITALS: PULSE 82; O2SAT 99
[2021-10-05 12:30] VITALS: PULSE 79; O2SAT 100
[2021-10-05] MEDS: KETOROLAC 30 MG/ML VIAL IM (12:34)
[2021-10-05] MEDS: diazePAM 5 MG TABLET PO (12:35)
[2021-10-05 13:00] VITALS: PULSE 78; O2SAT 99
[2021-10-05 13:30] VITALS: PULSE 77; O2SAT 100
--- NOTE | 2021-10-05 13:51 | PC.NURSE ---
ambulated with steady gait to bathroom. Reports improvement of pain
== END 2021-10-05 14:10 | disposition home or self-care (01) ==
PROVIDERS: Emergency Provider Emergency Medicine; PCP Student in an Organized Health Care Education/Training Program
DX: M54.50 Low back pain, unspecified (principal)
CPT/HCPCS: 72100; 96372; 99283; 99284; J1885

== ENCOUNTER 2021-12-05 19:11 | Observation (INO) | payer MEDICARE, OTHER, SELFPAY ==
--- NOTE | 2021-12-05 19:05 | DI.RAD.S_ITS ---
PROCEDURE: XR CHEST 1V INDICATIONS: chest pain TECHNIQUE: One view of the chest was acquired. COMPARISON: [facility], CT, CT HEAD/BRAIN WO CON, 12/05/2021, 19:17. [facility], CR, XR CHEST 2V, 06/20/2019, 10:51. FINDINGS: Surgical changes and devices: None. Lungs and pleura: On this semiupright portable chest examination, no large pneumothorax or large pleural effusions are seen. No focal infiltrates are seen. Mediastinum: Mediastinal contours appear normal. Heart size is normal. Atherosclerotic calcification of the aortic arch is noted. Bones and chest wall: No suspicious bony lesions. Age-appropriate bony degenerative changes are seen. Overlying soft tissues appear unremarkable. IMPRESSION: Unremarkable portable chest study for age. Dictated by: Triston Ivory M.D. on 12/05/2021 at 18:43 Approved by: Triston Iovry M.D. on 12/05/2021 at 18:46
--- NOTE | 2021-12-05 19:05 | DI.CT.S_ITS ---
PROCEDURE: CT HEAD/BRAIN WO CON INDICATIONS: dizzy, not feeling right TECHNIQUE: Noncontrast 4.5 mm thick angled axial sections acquired from the foramen magnum to the vertex, with coronal and sagittal reformats. For radiation dose reduction, the following was used: automated exposure control, adjustment of mA and/or kV according to patient size. COMPARISON: [facility], CR, XR CHEST 1V, 12/05/2021, 19:37. [facility], MR, BRAIN (IAC) W&WO CONTRAST, 08/31/2012, 10:20. FINDINGS: Image quality: Excellent. CSF spaces: Basal cisterns are patent. No extra-axial fluid collections. The ventricles are symmetric in size and shape. Brain: No intracranial bleeds or masses. There is cerebral volume loss for age, with resultant ventricular and sulcal prominence. There are periventricular and deep white matter chronic small vessel ischemic changes. There is intracranial internal carotid artery atherosclerosis. Skull and face: Calvarium and visualized facial bones appear intact, without suspicious lesions. Sinuses: Visualized sinuses and mastoids are clear. IMPRESSION: Unremarkable noncontrast head CT for age. Dictated by: Triston Ivory M.D. on 12/05/2021 at 18:46 Approved by: Triston Ivory M.D. on 12/05/2021 at 18:47
[2021-12-05 19:14] VITALS: BP 124/62; PULSE 72; RESP 18; TEMP 36.9; O2SAT 98; BMI 21.2
--- NOTE | 2021-12-05 19:23 | ED.SYNCOPE ---
HPI - Syncope General Chief Complaint: Dizziness Stated Complaint: Dizziness Time Seen by Provider: 12/05/21 19:22 Source: EMS Mode of arrival: EMS History of Present Illness HPI narrative: 76-year-old female nonsmoker with history of nocturia and overactive bladder presents by EMS for evaluation of a dizzy episode and near syncope while sitting at a table preparing to have dinner. She denies any obvious provoking symptoms such as standing up, turning her head. She denies any recent illness and felt fine prior to this episode. She has had no changes in her medications. She denies any chest pain or shortness of breath. She denies any exertional symptoms and has had no decreased exercise tolerance over the past few days to weeks. She denies nausea, vomiting or diarrhea. She is had no change in her diet or appetite but does admit that over the last year she is lost about 10 lb without effort. She states it seemed that sitting up made her worse Related Data Home Medications Medication Instructions Recorded Confirmed ropinirole 1 mg tablet 2 mg PO DAILY 03/20/21 12/05/21 tramadol 50 mg tablet 50 mg PO QID PRN Pain (Scale Score 03/20/21 12/05/21 1-3) trazodone 100 mg tablet 100 mg PO BEDTIME 03/20/21 12/05/21 eszopiclone 3 mg tablet 3 mg PO BEDTIME PRN Sleep 06/12/21 12/05/21 Allergies Allergy/AdvReac Type Severity Reaction Status Date / Time Penicillins Allergy Unknown Rash Verified 12/05/21 19:17 Review of Systems Review of Systems Narrative: GENERAL: See HPI HEENT: Denies sinus pain, ear pain, sore throat, difficulty swallowing, dizziness. RESPIRATORY: See HPI CARDIOVASCULAR: See HPI GASTROINTESTINAL: Denies nausea, vomiting, abdominal pain, diarrhea, constipation, melena. : Denies dysuria, frequency, incontinence, hematuria, urinary retention. MUSCULOSKELETAL: denies weakness, joint pain, or bony pain SKIN: Denies rash, skin lesions, or other NEUROLOGIC: Denies weakness, headache, numbness, change in speech, confusion, seizures, incoordination. PSYCHIATRIC: No concerning psychosocial issues. 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 Well-developed patient, in mild distress. GCS 15 HEAD: Atraumatic. Normocephalic. EYES: Pupils equal round and reactive. Extraocular motions intact. No scleral icterus. No injection or drainage. ENT: Nose without bleeding, purulent drainage. Throat without erythema, tonsillar hypertrophy or exudate. Airway patent. NECK: Trachea midline. Non tender CARDIOVASCULAR: Regular rate and rhythm without murmurs, gallops, or rubs. RESPIRATORY: Clear to auscultation. Breath sounds equal bilaterally. No wheezes, rales, or rhonchi. GASTROINTESTINAL: Abdomen soft, non-tender, nondistended. EXTREMITIES: No edema or joint tenderness. BACK: Nontender without deformity or crepitance. No flank tenderness. NEURO: AOx3. SKIN: No rash or erythema of visible areas Initial Vital Signs Initial Vital Signs: Vital Signs Temperature 98.4 F 12/05/21 19:14 Pulse Rate 72 12/05/21 19:14 Respiratory Rate 18 12/05/21 19:14 Blood Pressure 124/62 12/05/21 19:14 Pulse Oximetry 98 12/05/21 19:14 Oxygen Delivery Method 12/05/21 19:14 Course Orders Ordered: ED Orders 12/05/21 19:45 Complete Blood Count AUTO DIFF Stat Comprehensive Metabolic Panel Stat D Dimer Stat Lipase Stat NT-proBNP (BNP-Adult 18+) Stat Procalcitonin Stat Prothrombin Time INR Stat Troponin & CK Cardiac Panel Stat 12/05/21 21:57 COVID19 -Nasal RAPID/Pre-Proc Stat 12/05/21 22:07 EC echo doppler complete Urgent 12/06/21 05:00 Basic Metabolic Panel Routine Complete Blood Count AUTO DIFF Routine Troponin I Routine Acetaminophen (Acetaminophen 325 Mg Tablet) 650 mg PO Q6HR PRN PRN Reason: Fever/Mild Pain (1-3) Heparin Sodium (Porcine) (Heparin 5,000 Unit/Ml Vial) 5,000 unit SUBCUT BID [place] Ondansetron HCl (Ondansetron 4 Mg/2 Ml Inj) 4 mg IV Q8HR PRN PRN Reason: Nausea And Vomiting Ropinirole HCl (Ropinirole 1 Mg Tablet) 2 mg PO DAILY [place] Trazodone HCl (Trazodone 100 Mg Tablet) 100 mg PO BEDTIME [place] Last Admin: 12/06/21 00:14 Dose: 100 mg Documented By: Zolpidem Tartrate (Zolpidem 5 Mg Tablet) 5 mg PO BEDTIME PRN PRN Reason: Sleep Last Admin: 12/06/21 00:14 Dose: 5 mg Documented By: Discontinued Medications Sodium Chloride (Normal Saline 0.9%) 1,000 mls @ 1,000 mls/hr IV BOLUS ONE Stop: 12/05/21 20:04 Last Infusion: 12/05/21 20:42 Dose: 0 mls/hr Documented By: Admin: 12/05/21 19:38 Dose: 1,000 mls/hr Documented By: [facility] Vital Signs Vital signs: Vital Signs - 8 hr 12/05/21 21:00 12/05/21 21:30 12/05/21 22:00 Pulse Rate 78 78 79 Respiratory Rate 18 Blood Pressure 155/74 H 134/69 148/77 H Pulse Oximetry 99 99 99 Oxygen Delivery Method Room Air Room Air Room Air MDM - Syncope Lab Data Result diagrams: 12/05/21 19:45 12/05/21 19:45 Labs: Lab Results 12/05/21 12/05/21 12/05/21 Range/Units 19:45 19:45 19:45 WBC 5.0 (4.5-11.0) X10^3/uL RBC 4.30 (4.0-5.2) X10^6/uL Hgb 13.1 (12.0-16.0) g/dL Hct 39.1 (36-46) % MCV 90.9 (80-100) fL MCH 30.5 (26-34) PG MCHC 33.5 (30-36) % RDW 12.6 (11.6-14.8) % Plt Count 213 (150-400) X10^3/uL Neut % (Auto) 56.1 (50-75) % Lymph % (Auto) 29.1 (25-40) % Island % (Auto) 10.5 (3-14) % Eos % (Auto) 3.7 (2-4) % Baso % (Auto) 0.6 (0-2) % Neut # (Auto) 2800 (7201-2362) /uL Lymph # (Auto) 1500 (4724-0590) /uL [place] # (Auto) 500 (0-900) /uL Eos # (Auto) 200 (0-450) /uL Baso # (Auto) 0 (0-100) /uL PT 10.8 (10.1-12.7) SECONDS INR 1.0 (0.9-1.3) D-Dimer < 200 (<230) ng/mL Sodium 139 (137-145) mmol/L Potassium 4.1 (3.4-5.1) mmol/L Chloride 105 (98-107) mmol/L Carbon Dioxide 22 (22-32) mmol/L BUN 26 H (7-17) mg/dL Creatinine 0.54 (0.52-1.04) mg/dL Estimated GFR > 60 (>60) mL/min BUN/Creatinine Ratio 48.1 H (6-22) Glucose 89 (80-110) mg/dL Calcium 8.6 (8.4-10.2) mg/dL Total Bilirubin 0.5 (0.2-1.3) mg/dL AST 34 (14-36) IU/L ALT 16 (<35) IU/L Alkaline Phosphatase 71 (38-126) U/L Total Creatine Kinase < 20 L (30-135) U/L CK-MB (CK-2) TNP CK-MB (CK-2) Rel Index TNP Troponin I < 0.012 (0.01-0.034) ng/mL NT-Pro-B Natriuret Pep (<450) pg/mL Total Protein 6.4 (6.3-8.2) g/dL Albumin 4.0 (3.5-5.0) g/dL Globulin 2.4 (1.7-4.1) g/dL Albumin/Globulin Ratio 1.7 (1.0-2.8) Lipase 49 (23-300) U/L Procalcitonin 0.05 (<0.5) ng/mL SARS-CoV-2 (PCR) (Negative) 12/05/21 12/05/21 Range/Units 19:45 21:57 WBC (4.5-11.0) X10^3/uL RBC (4.0-5.2) X10^6/uL Hgb (12.0-16.0) g/dL Hct (36-46) % MCV (80-100) fL MCH (26-34) PG MCHC (30-36) % RDW (11.6-14.8) % Plt Count (150-400) X10^3/uL Neut % (Auto) (50-75) % Lymph % (Auto) (25-40) % Island % (Auto) (3-14) % Eos % (Auto) (2-4) % Baso % (Auto) (0-2) % Neut # (Auto) (7390-8643) /uL Lymph # (Auto) (9596-0046) /uL Island # (Auto) (0-900) /uL Eos # (Auto) (0-450) /uL Baso # (Auto) (0-100) /uL PT (10.1-12.7) SECONDS INR (0.9-1.3) D-Dimer (<230) ng/mL Sodium (137-145) mmol/L Potassium (3.4-5.1) mmol/L Chloride (98-107) mmol/L Carbon Dioxide (22-32) mmol/L BUN (7-17) mg/dL Creatinine (0.52-1.04) mg/dL Estimated GFR (>60) mL/min BUN/Creatinine Ratio (6-22) Glucose (80-110) mg/dL Calcium (8.4-10.2) mg/dL Total Bilirubin (0.2-1.3) mg/dL AST (14-36) IU/L ALT (<35) IU/L Alkaline Phosphatase (38-126) U/L Total Creatine Kinase (30-135) U/L CK-MB (CK-2) CK-MB (CK-2) Rel Index Troponin I (0.01-0.034) ng/mL NT-Pro-B Natriuret Pep 60 (<450) pg/mL Total Protein (6.3-8.2) g/dL Albumin (3.5-5.0) g/dL Globulin (1.7-4.1) g/dL Albumin/Globulin Ratio (1.0-2.8) Lipase (23-300) U/L Procalcitonin (<0.5) ng/mL SARS-CoV-2 (PCR) Negative (Negative) Imaging Data Chest x-ray: Radiologist's Impression: Close Chest X-Ray (Signed) Triston Ivory - 12/05/[address] 12/05/21 Launch?[place] [address] XRay Report Signed Patient: Mery Reed MR#: [id number] : 1945 Acct:[id number] Age/Sex: 76 / F Date of Service: 12/05/21 Loc: ED Accession Number: [id number] ?? Procedure: XR chest 1V Ordering Provider: Nathen Neff D.O. PROCEDURE:? XR CHEST 1V ? INDICATIONS:? chest pain ? TECHNIQUE:? One view of the chest was acquired.? ? COMPARISON:? [facility], CT, CT HEAD/BRAIN WO CON, 12/05/2021, 19:17. ? [facility], CR, XR CHEST 2V, 06/20/2019, 10:51. ? FINDINGS:? ? Surgical changes and devices:? None.? ? Lungs and pleura:? On this semiupright portable chest examination, no large pneumothorax or large pleural effusions are seen.? No focal infiltrates are seen.? ? Mediastinum:? Mediastinal contours appear normal.? Heart size is normal.? Atherosclerotic calcification of the aortic arch is noted.? ? Bones and chest wall:? No suspicious bony lesions.? Age-appropriate bony degenerative changes are seen. ? Overlying soft tissues appear unremarkable.? IMPRESSION:? Unremarkable portable chest study for age. ? ? Dictated by: Triston Ivory M.D. on 12/05/2021 at 18:43 ? ? Approved by: Triston Ivory M.D. on 12/05/2021 at 18:46 ? CT scan - head: Radiologist's Impression: [address] [id number] Scan ReportSigned Patient: Whitney Meyer#: [id number]: 5Acct:[id number]/Sex: 66 / MDate of Service: 12/05/21Loc: EDAccession Number: [id number] Procedure: CT Stroke Ordering Provider: Shira Benoit D.O. PROCEDURE: CT STROKE INDICATIONS: Positive BE-FAST, Stroke symptoms TECHNIQUE: Noncontrast 4.5 mm thick angled axial sections acquired from the foramen magnum to the vertex, with coronal reformats. For radiation dose reduction, the following was used: automated exposure control, adjustment of mA and/or kV according to patient size. COMPARISON: None. FINDINGS: Image quality: Excellent. CSF spaces: Basal cisterns are patent. No extra-axial fluid collections. The ventricles are symmetric in size and shape. Brain: No intracranial bleeds or masses. There is mild cerebral volume loss for age, with resultant ventricular and sulcal prominence. There are periventricular and deep white matter chronic small vessel ischemic changes. There is intracranial internal carotid artery atherosclerosis. Skull and face: Calvarium and visualized facial bones appear intact, without suspicious lesions. Sinuses: There is a small mucous retention cyst in the right maxillary sinus. The mastoids are clear. IMPRESSION: 1. No acute intracranial abnormalities. 2. Cerebral volume loss and chronic microvascular ischemic changes. 3. A mucous retention cyst in the right maxillary sinus. The result was discussed with Dr. Benoit. This study fulfills neurological imaging criteria for inclusion or exclusion of acute stroke therapies based on available published neurological guidelines. Dictated by: Sharonda Jimenez M.D. on 12/05/2021 at 16:23 Approved by: Sharonda Jimenez M.D. on 12/05/2021 at 16:25 [facility] Narrative Medical decision making narrative: 76-year-old female presents with syncope that is unprovoked. She had been in her normal state of health and without any obvious cause, while sitting at a dinner table had syncopal/unresponsive episode that resolve after seconds. EKG shows no obvious block or arrhythmia, labs are unremarkable and physical exam has no significant findings. Unprovoked syncope under these circumstances is concerning for concerning rhythm and patient will require hospitalization for telemetry and further evaluation Discharge Plan Departure Patient Disposition: Admitted As Inpatient Clinical Impression: Syncope and collapse Admit Date/Time: 12/05/21 22:09 Admit Provider: Juve Zazueta
[2021-12-05] MEDS: SODIUM CHLORIDE 0.9% 1,000 ML 1000 ML IV (19:38)
[2021-12-05 19:55] LABS: Add Manual Diff / Slide Review NO; Basophils Absolute Auto 0 /uL (0-100); Basophils Percent Auto 0.6 % (0-2); Eosinophils Absolute Auto 200 /uL (0-450); Eosinophils Percent Auto 3.7 % (2-4); Hematocrit 39.1 % (36-46); Hemoglobin 13.1 g/dL (12.0-16.0); Lymphocytes Absolute Auto 1500 /uL (1100-4500); Lymphocytes Percent Auto 29.1 % (25-40); Mean Corpuscular HGB Conc 33.5 % (30-36); Mean Corpuscular Hemoglobin 30.5 PG (26-34); Mean Corpuscular Volume 90.9 fL (80-100); Monocytes Absolute Auto 500 /uL (0-900); Monocytes Percent Auto 10.5 % (3-14); Neutrophils Absolute Auto 2800 /uL (1500-7000); Neutrophils Percent Auto 56.1 % (50-75); Platelet Count 213 X10^3/uL (150-400); Red Cell Distribution Width 12.6 % (11.6-14.8)
[2021-12-05 20:04] LABS: Prothrombin Time 10.8 SECONDS (10.1-12.7)
[2021-12-05 20:09] LABS: Alanine Aminotransferase 16 IU/L (<35); Albumin Globulin Ratio 1.7 (1.0-2.8); Alkaline Phosphatase 71 U/L (38-126); Aspartate Aminotransferase 34 IU/L (14-36); BUN Creatinine Ratio 48.1 (6-22); Bilirubin Total 0.5 mg/dL (0.2-1.3); Blood Urea Nitrogen 26 mg/dL (7-17); Calcium 8.6 mg/dL (8.4-10.2); Carbon Dioxide 22 mmol/L (22-32); Chloride 105 mmol/L (98-107); Creatine Kinase < 20 U/L (30-135); Estimated Glomerular Filt Rate > 60 mL/min (>60); Globulin 2.4 g/dL (1.7-4.1); Glucose 89 mg/dL (80-110); HEMOLYSIS 48 (0-50); Lipase 49 U/L (23-300); Potassium 4.1 mmol/L (3.4-5.1); Sodium 139 mmol/L (137-145); Total Protein 6.4 g/dL (6.3-8.2)
[2021-12-05 20:13] LABS: D Dimer < 200 ng/mL (<230)
[2021-12-05 20:18] LABS: NT-proBNP (BNP-Adult 18+) 60 pg/mL (<450)
[2021-12-05 20:20] LABS: Troponin I < 0.012 ng/mL (0.01-0.034)
[2021-12-05 20:25] LABS: Procalcitonin 0.05 ng/mL (<0.5)
[2021-12-05 21:00] VITALS: BP 155/74; PULSE 78; O2SAT 99
[2021-12-05 21:30] VITALS: BP 134/69; PULSE 78; O2SAT 99
[2021-12-05 22:00] VITALS: BP 148/77; PULSE 79; RESP 18; O2SAT 99
--- NOTE | 2021-12-05 22:07 | DI.ECHO.S_ITS ---
[place] +---------+ Hospital +---------+ : : [address] : : : : [id number] : : : : Phone: [phone]+ Echocardiogram Report + + :Name: ROSE MARIE MATIAS Study Date: 12/06/2021 Height: 68 in : :[facility] ReadingLocation: Weight: 140 lb : : Gender: Female BSA: 1.8 m2 : :: 1945 Age: 76 yrs BP: 124/64 mmHg: :Reason For Study: Syncope : :Ordering Physician: : :MINE SANZ Performed By: Yemi Hurd : :Referring: MINE SANZ : + + Interpretation Summary 1) Normal left ventricular thickness, size, wall motion, and systolic function (EF 55-60%). 2) Normal right ventricular size and function. 3) No significant valvular abnormalities. 4) No prior Echo available for comparison. Procedure: A two-dimensional transthoracic echocardiogram with color flow and Doppler was performed. The study quality was technically adequate. There is no prior echocardiogram noted for this patient. The patient was in normal sinus rhythm during the exam. Left Ventricle: The left ventricle is normal in size and wall thickness. Left ventricular systolic function is normal. The ejection fraction is estimated to be 55-60%. There are no focal wall motion abnormalities. Diastolic parameters suggest probable normal left ventricular diastolic function and normal filling pressures. Right Ventricle: The right ventricle is normal in size and function. Atria: Both atria are normal in size. The interatrial septum grossly appears intact with no obvious evidence for an atrial septal defect. Mitral Valve: There is mild mitral annular calcification. There is trace mitral regurgitation. Aortic Valve: The aortic valve is normal in structure and function. There is no aortic valve stenosis. No aortic regurgitation is present. Tricuspid Valve: The tricuspid valve is normal in structure and function. There is a trace or physiologic amount of tricuspid regurgitation. The right ventricular systolic pressure is estimated to be at least 32 mmHg based on an estimated right atrial pressure of 3 mm Hg. Pulmonic Valve: The pulmonic valve is not well visualized. There is no pulmonic valvular regurgitation. Great Vessels: The aortic root is normal size. The ascending aorta could not be visualized. The IVC is of normal diameter and collapses greater than 50% with a sniff. This suggests a low right atrial pressure of 3 mm Hg. Pericardium/ Pleura There is no pericardial effusion. There is no pleural effusion. MMode/2D Measurements & Calculations LVIDd: 4.2 cm LVOT diam: 2.0 cm LVIDs: 3.0 cm Ao root diam: 2.8 cm FS: 28.0 % IVSd: 1.0 cm LVPWd: 0.91 cm LV sanchez. diameter/BSA (cm/m^2): 2.4 LV sys. diameter/BSA (cm/m^2): 1.7 LA A2 area: 17.8 cm2 RA long axis: 4.7 cm LA A4 area: 17.7 cm2 RA area: 10.6 cm2 LA length (vol): 5.8 cm RA vol: 20.0 ml LA vol: 46.4 ml RA : 11.4 ml/m2 LA vol index: 26.4 ml/m2 TAPSE: 2.2 cm Doppler Measurements & Calculations Ao V2 max: 129.3 cm/sec LVOT Max Matty: 112.7 cm/sec Ao V2 mean: 88.3 cm/sec LV V1 max P.1 mmHg Ao max P.7 mmHg LV V1 VTI: 24.0 cm Ao mean P.5 mmHg ROVERTO(I,D): 2.8 cm2 Ao V2 VTI: 25.9 cm ROVERTO(V,D): 2.6 cm2 sev ratio: 0.93 ROVERTO indexed to BSA (cm^2/m^2): 1.6 MV E max matty: 88.7 cm/sec TR max matty: 267.4 cm/sec MV A max matty: 98.1 cm/sec TR max P.6 mmHg MV E/A: 0.90 Med Peak E' Matty: 8.4 cm/sec E/E' med: 10.5 Lat Peak E' Matty: 8.4 cm/sec E/E' lat: 10.5 E/e' average: 10.5 MV dec time: 0.23 sec SV(LVOT): 72.6 ml Reading Physician:08:58 AM
[2021-12-05 22:16] LABS: COVID19 -Nasal RAPID Negative (Negative)
[2021-12-05 22:30] VITALS: BP 155/78; BP 157/77; BP 159/76; PULSE 84; PULSE 86; PULSE 94; RESP 14; TEMP 36.2; O2SAT 97
[2021-12-05 22:59] VITALS: BMI 19.8
--- NOTE | 2021-12-05 23:44 | PM.HP.1 ---
History of Present Illness History of Present Illness Date Patient Seen: 12/05/21 Time Patient Seen: 22:00 Chief complaint: Dizziness Narrative: Ms. Reed is a 76W with PMH urinary incontinence, restless leg syndrome who presents with dizziness and near syncope. She states she was seated and eating dinner and without provocation she felt significant dizziness and either passed out briefly or nearly passed out. She had no chest pain, palpitations, shortness of breath. She has been eating and drinking normal amounts. She has not felt dehydrated or spent much time outside in the heat. In the ED workup was done, vitals were unremarkable. Labs notable for WBC 5.0, hgb 13.1, plts 213, BUN 26, creatinine 0.54. Troponin negative. Procal negative. Chest xray negative. CT head negative. EKG showed normal sinus rhythm. She was ordered for IV fluid and admitted for further treatment. Family history: denies any cardiac history in family Patient History Medical History Arthritis Nocturia Overactive bladder Urinary frequency Surgical History History of knee replacement Hx of appendectomy Hx of arthroscopic knee surgery Hx of cholecystectomy Hx of colonoscopy Hx of shoulder surgery Family & Social History Social History: household members spouse Prior Living Arrangements House Safety & Behavioral: Feels Safe in Current Yes Environment Been Physically Hurt or No Threatened By a Person Tobacco & Substance use: Smoking Status Never smoker alcohol intake current alcohol intake frequency 0-2 drinks per day Substance Use Type does not use Meds Home Medications and Allergies Home Medications Medication Instructions Recorded Confirmed Type ropinirole 1 mg tablet 2 mg PO DAILY 03/20/21 12/05/21 History tramadol 50 mg tablet 50 mg PO QID PRN Pain (Scale Score 03/20/21 12/05/21 History 1-3) trazodone 100 mg tablet 100 mg PO BEDTIME 03/20/21 12/05/21 History eszopiclone 3 mg tablet 3 mg PO BEDTIME PRN Sleep 06/12/21 12/05/21 History Allergies Allergy/AdvReac Type Severity Reaction Status Date / Time Penicillins Allergy Unknown Rash Verified 12/05/21 19:17 Review of Systems Review of Systems Narrative: 14 systems reviewed and negative aside from what is noted in HPI Exam Vital Signs (past 8 hours): - 12/05/21 19:14 12/05/21 21:00 12/05/21 21:30 Temperature 98.4 F Pulse Rate 72 78 78 Pulse Rate [Orthostatic Lying] Pulse Rate [Orthostatic Sitting] Pulse Rate [Orthostatic Standing] Respiratory Rate 18 Blood Pressure 124/62 155/74 H 134/69 Blood Pressure [Orthostatic Lying] Blood Pressure [Orthostatic Sitting] Blood Pressure [Orthostatic Standing] Pulse Oximetry 98 99 99 Oxygen Delivery Method Room Air Room Air Room Air Oxygen Flow Rate 12/05/21 22:00 12/05/21 22:30 12/05/21 22:30 Temperature 97.1 F L Pulse Rate 79 84 Pulse Rate [Orthostatic Lying] 84 Pulse Rate [Orthostatic Sitting] 86 Pulse Rate [Orthostatic Standing] 94 H Respiratory Rate 18 14 Blood Pressure 148/77 H 157/77 H Blood Pressure [Orthostatic Lying] 157/77 H Blood Pressure [Orthostatic Sitting] 159/76 H Blood Pressure [Orthostatic Standing] 155/78 H Pulse Oximetry 99 97 Oxygen Delivery Method Room Air Oxygen Flow Rate 0 Oxygen Delivery Method Room Air Oxygen Flow Rate 0 Narrative Exam Narrative: GEN: no acute distress HEENT: moist mucous membranes, PERRL NECK: trachea midline, no JVD PULM: clear bilaterally, no wheezes, rhonchi, rales CV: regular rate and rhythm, no murmurs ABD: soft, nontender, nondistended, no organomegaly EXT: warm and well perfused with no edema NEURO: awake, alert, oriented, no focal deficits Objective Labs Result Diagrams: 12/05/21 19:45 12/05/21 19:45 Labs: Laboratory Results - last 24 hr 12/05/21 12/05/21 12/05/21 19:45 19:45 19:45 WBC 5.0 RBC 4.30 Hgb 13.1 Hct 39.1 MCV 90.9 MCH 30.5 MCHC 33.5 RDW 12.6 Plt Count 213 Neut % (Auto) 56.1 Lymph % (Auto) 29.1 [place] % (Auto) 10.5 Eos % (Auto) 3.7 Baso % (Auto) 0.6 Neut # (Auto) 2800 Lymph # (Auto) 1500 [place] # (Auto) 500 Eos # (Auto) 200 Baso # (Auto) 0 PT 10.8 INR 1.0 D-Dimer < 200 Sodium 139 Potassium 4.1 Chloride 105 Carbon Dioxide 22 BUN 26 H Creatinine 0.54 Estimated GFR > 60 BUN/Creatinine Ratio 48.1 H Glucose 89 Calcium 8.6 Total Bilirubin 0.5 AST 34 ALT 16 Alkaline Phosphatase 71 Total Creatine Kinase < 20 L CK-MB (CK-2) TNP CK-MB (CK-2) Rel Index TNP Troponin I < 0.012 NT-Pro-B Natriuret Pep Total Protein 6.4 Albumin 4.0 Globulin 2.4 Albumin/Globulin Ratio 1.7 Lipase 49 Procalcitonin 0.05 SARS-CoV-2 (PCR) 12/05/21 12/05/21 19:45 21:57 WBC RBC Hgb Hct MCV MCH MCHC RDW Plt Count Neut % (Auto) Lymph % (Auto) [place] % (Auto) Eos % (Auto) Baso % (Auto) Neut # (Auto) Lymph # (Auto) [place] # (Auto) Eos # (Auto) Baso # (Auto) PT INR D-Dimer Sodium Potassium Chloride Carbon Dioxide BUN Creatinine Estimated GFR BUN/Creatinine Ratio Glucose Calcium Total Bilirubin AST ALT Alkaline Phosphatase Total Creatine Kinase CK-MB (CK-2) CK-MB (CK-2) Rel Index Troponin I NT-Pro-B Natriuret Pep 60 Total Protein Albumin Globulin Albumin/Globulin Ratio Lipase Procalcitonin SARS-CoV-2 (PCR) Negative Assessment & Plan Assessment & Plan narrative: Ms. Reed is a 76W who presents with syncopal or near syncopal episode. 1. Dizziness -no obvious provoking factors -BUN is slightly high, may be slightly dehydrated -did have bradycardia per report prior to arrival possibly due to significant arrhythmia or bradycardia from vasovagal cause -trend troponins -keep on telemetry -ECHO ordered CODE: Full Proxy: Magno Ferris, I have utilized all available resources to reconcile the patient's home medications. Time Spent With Patient Critical Care time: I spent a total of [] minutes of critical care time on this patient's care today; this time is exclusive of procedural time.
[2021-12-06] MEDS: ZOLPIDEM 5 MG TABLET PO (00:14)
[2021-12-06] MEDS: TRAZODONE 100 MG TABLET PO (00:14)
[2021-12-06 02:00] VITALS: BP 148/68; PULSE 88; RESP 18; TEMP 36.4; O2SAT 96
[2021-12-06 06:04] LABS: Add Manual Diff / Slide Review NO; Basophils Absolute Auto 0 /uL (0-100); Basophils Percent Auto 0.5 % (0-2); Eosinophils Absolute Auto 200 /uL (0-450); Eosinophils Percent Auto 2.9 % (2-4); Hemoglobin 12.4 g/dL (12.0-16.0); Lymphocytes Absolute Auto 1700 /uL (1100-4500); Lymphocytes Percent Auto 29.5 % (25-40); Mean Corpuscular HGB Conc 34.6 % (30-36); Mean Corpuscular Hemoglobin 31.1 PG (26-34); Mean Corpuscular Volume 89.9 fL (80-100); Monocytes Absolute Auto 500 /uL (0-900); Monocytes Percent Auto 8.8 % (3-14); Neutrophils Absolute Auto 3300 /uL (1500-7000); Neutrophils Percent Auto 58.3 % (50-75); Platelet Count 198 X10^3/uL (150-400); Red Cell Distribution Width 12.3 % (11.6-14.8); White Blood Cell Count 5.6 X10^3/uL (4.5-11.0)
[2021-12-06 06:20] VITALS: BP 124/64; PULSE 81; RESP 16; TEMP 36.4; O2SAT 97
[2021-12-06 06:47] LABS: BUN Creatinine Ratio 41.3 (6-22); Blood Urea Nitrogen 19 mg/dL (7-17); Calcium 8.1 mg/dL (8.4-10.2); Carbon Dioxide 25 mmol/L (22-32); Chloride 107 mmol/L (98-107); Estimated Glomerular Filt Rate > 60 mL/min (>60); Glucose 94 mg/dL (80-110); HEMOLYSIS < 15 (0-50); Potassium 3.9 mmol/L (3.4-5.1); Sodium 137 mmol/L (137-145)
[2021-12-06 06:56] LABS: Troponin I < 0.012 ng/mL (0.01-0.034)
[2021-12-06 07:36] VITALS: O2SAT 98
[2021-12-06 07:55] VITALS: BP 147/76; PULSE 83; RESP 16; TEMP 36.6; O2SAT 98
--- NOTE | 2021-12-06 08:51 | CM.DANOTE ---
DCP: Case received, EMR reviewed and met with patient. Introduced self and role. Was able to obtain information regarding patient's baseline activity level prior to hospitalization. DCP assessment completed with information currently available. Patient is a 76 year old female who admitted yesterday evening to the care of the hospitalist team. PCP: Dr. Beatty Payer: confirmed: Medicare/[facility]. Patient came to the hospital via ambulance secondary to having dizziness, near syncope episode, while patient was having dinner. Patient denied any recent illness prior to this episode. Patient is admitted for her dizziness, and is expected to have an echo today, and her troponin will be monitored. Met with patient in her room. She was sitting up in bed, alert and oriented. She resides in [place] with her spouse, Magno Ferris. She is independent at her baseline, and drives. P: DCP to continue to follow. Patient should be able to go home when she is deemed medically stable. Mily Morales RN/Portfolio Assistant Discharge Planning/Care Management CM Discharge Assessment Start: 12/06/21 08:48 Freq: Status: Active Protocol: Document 12/06/21 08:48 (Rec: 12/06/21 08:51 [id number]) Discharge Planning Assessment Assigned Detention Deputy Mily Morales RN/Portfolio Assistant Advance Directives? Yes Advance Directives on File No History Provided By Patient,Medical Record Prior Living Arrangements House Household Members spouse Type of transporation used prior to Drives own vehicle admit Independent with ADL's Yes Is patient alert and oriented? Yes Caregiver for Another No Barriers to Discharge No Discharge Plan Home Transportation Arrangement Spouse Referrals Initiated None needed Whiteboard Updated in Patient Room with Yes name and ext. # of Detention Deputy Review Status In Process Next Review Type Continued Stay Review
--- NOTE | 2021-12-06 10:37 | P.DS_ITS ---
History of Present Illness History of Present Illness Date Patient Seen: 12/06/21 Chief complaint: Dizziness Narrative: Per Dr. Zazueta, Emma Reed is a 76W with H urinary incontinence, restless leg syndrome who presents with dizziness and near syncope. She states she was seated and eating dinner and without provocation she felt significant dizziness and either passed out briefly or nearly passed out. She had no chest pain, palpitations, shortness of breath. She has been eating and drinking normal amounts. She has not felt dehydrated or spent much time outside in the heat. In the ED workup was done, vitals were unremarkable. Labs notable for WBC 5.0, hgb 13.1, plts 213, BUN 26, creatinine 0.54. Troponin negative. Procal negative. Chest xray negative. CT head negative. EKG showed normal sinus rhythm. She was ordered for IV fluid and admitted for further treatment. Family history: denies any cardiac history in family Discharge Providers Provider Date of admission: 12/05/21 22:09 Discharge Date: 12/06/21 Primary care physician: Cinthia Beatty PA-C Discharge provider: Garfield Garcia DO Summary Hospital Course Discharge Diagnosis: 1. possible cardiac syncope or dizziness Hospital Course: This is a 76-year-old female who was admitted for further evaluation of possible cardiac syncope or presyncope. Symptoms over the course of her stay, and her cardiogram showed no significant valvular disease and her ejection fraction was within normal limits. Telemetry monitoring showed normal sinus rhythm without any significant events. The patient is discharged home the following morning after completion of her echocardiogram. Follow-up with her primary care prov ider for possible Holter monitoring as an outpatient. Exam Vital Signs (past 8 hours): - 12/06/21 06:20 12/06/21 07:36 12/06/21 07:55 Temperature 97.5 F L 98 F Pulse Rate 81 83 Respiratory Rate 16 16 Blood Pressure 124/64 147/76 H Pulse Oximetry 97 98 98 Oxygen Delivery Method Room Air Oxygen Flow Rate 0 Oxygen Delivery Method Room Air Oxygen Flow Rate 0 Narrative Exam Narrative: GEN: no acute distress HEENT: moist mucous membranes NECK: trachea midline, no JVD PULM: clear bilaterally, no wheezes, rhonchi, rales CV: regular rate and rhythm, no murmurs ABD: soft, nontender, nondistended, no organomegaly EXT: warm and well perfused with no edema NEURO: awake, alert, oriented, no focal deficits Objective Labs Result Diagrams: 12/06/21 05:46 12/06/21 05:46 Labs: Laboratory Results - last 24 hr 12/05/21 12/05/21 12/05/21 19:45 19:45 19:45 WBC 5.0 RBC 4.30 Hgb 13.1 Hct 39.1 MCV 90.9 MCH 30.5 MCHC 33.5 RDW 12.6 Plt Count 213 Neut % (Auto) 56.1 Lymph % (Auto) 29.1 [place] % (Auto) 10.5 Eos % (Auto) 3.7 Baso % (Auto) 0.6 Neut # (Auto) 2800 Lymph # (Auto) 1500 [place] # (Auto) 500 Eos # (Auto) 200 Baso # (Auto) 0 PT 10.8 INR 1.0 D-Dimer < 200 Sodium 139 Potassium 4.1 Chloride 105 Carbon Dioxide 22 BUN 26 H Creatinine 0.54 Estimated GFR > 60 BUN/Creatinine Ratio 48.1 H Glucose 89 Calcium 8.6 Total Bilirubin 0.5 AST 34 ALT 16 Alkaline Phosphatase 71 Total Creatine Kinase < 20 L CK-MB (CK-2) TNP CK-MB (CK-2) Rel Index TNP Troponin I < 0.012 NT-Pro-B Natriuret Pep Total Protein 6.4 Albumin 4.0 Globulin 2.4 Albumin/Globulin Ratio 1.7 Lipase 49 Procalcitonin 0.05 SARS-CoV-2 (PCR) 12/05/21 12/05/21 12/06/21 19:45 21:57 05:46 WBC 5.6 RBC 4.00 Hgb 12.4 Hct 36.0 MCV 89.9 MCH 31.1 MCHC 34.6 RDW 12.3 Plt Count 198 Neut % (Auto) 58.3 Lymph % (Auto) 29.5 [place] % (Auto) 8.8 Eos % (Auto) 2.9 Baso % (Auto) 0.5 Neut # (Auto) 3300 Lymph # (Auto) 1700 [place] # (Auto) 500 Eos # (Auto) 200 Baso # (Auto) 0 PT INR D-Dimer Sodium Potassium Chloride Carbon Dioxide BUN Creatinine Estimated GFR BUN/Creatinine Ratio Glucose Calcium Total Bilirubin AST ALT Alkaline Phosphatase Total Creatine Kinase CK-MB (CK-2) CK-MB (CK-2) Rel Index Troponin I NT-Pro-B Natriuret Pep 60 Total Protein Albumin Globulin Albumin/Globulin Ratio Lipase Procalcitonin SARS-CoV-2 (PCR) Negative 12/06/21 12/06/21 05:46 05:46 WBC RBC Hgb Hct MCV MCH MCHC RDW Plt Count Neut % (Auto) Lymph % (Auto) [place] % (Auto) Eos % (Auto) Baso % (Auto) Neut # (Auto) Lymph # (Auto) [place] # (Auto) Eos # (Auto) Baso # (Auto) PT INR D-Dimer Sodium 137 Potassium 3.9 Chloride 107 Carbon Dioxide 25 BUN 19 H Creatinine 0.46 L Estimated GFR > 60 BUN/Creatinine Ratio 41.3 H Glucose 94 Calcium 8.1 L Total Bilirubin AST ALT Alkaline Phosphatase Total Creatine Kinase CK-MB (CK-2) CK-MB (CK-2) Rel Index Troponin I < 0.012 NT-Pro-B Natriuret Pep Total Protein Albumin Globulin Albumin/Globulin Ratio Lipase Procalcitonin SARS-CoV-2 (PCR) PFSH Medical History Arthritis Nocturia Overactive bladder Urinary frequency Surgical History History of knee replacement Hx of appendectomy Hx of arthroscopic knee surgery Hx of cholecystectomy Hx of colonoscopy Hx of shoulder surgery Social History marital status: number of children: 2 household members: spouse 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 Unclear as to what the cause is at this time but your heart monitor while here showed no abnormal activity and your echocardiogram or heart ultrasound is normal. Please follow up with your primary care provider in the next couple of weeks as she may recommend a heart monitor (holter) to see over a longer period of time if there is an arrythmia. Discharge orders & Medications Prescriptions: Continued eszopiclone 3 mg tablet 3 mg PO BEDTIME PRN (Reason: Sleep) trazodone 100 mg tablet 100 mg PO BEDTIME tramadol 50 mg tablet 50 mg PO QID PRN (Reason: Pain (Scale Score 1-3)) ropinirole 1 mg tablet 2 mg PO DAILY Follow up/Referrals: Cinthia Beatty PA-C [Primary Care Provider] - Diet/Activity/Treatments Diet: Diet as Tolerated Activity: As tolerated Visit Report/Discharge Packet Instructions: DI for Syncope in Adults (Fainting), Fainting, How to Prevent Falls Discharge Data Primary Care Provider: Cinthia Beatty Attending Provider: Juve Zazueta
--- NOTE | 2021-12-06 11:16 | PC.NURSE ---
Addendum entered by Lea Hadley R.N. 12/06/21 11:56: Left unit via WC at approx 1150. Her Spouse came up to the room. ROSANNA Woo took Pt to car. Original Note: Day shift: paperwork signed and all questions answered. VS remain WNL. RA 98%. OOB to BR with no light headedness. Denies pain, chest pain, and nausea. She called her Spouse but he didn't answer. He will be the one picking her up today. Awaiting his arrival. Will continue to monitor Pt at this time.
== END 2021-12-06 11:56 | disposition home or self-care (01) ==
LOC: ED 21:20 → AC 22:10
PROVIDERS: Admitting Provider Internal Medicine; Emergency Provider Emergency Medicine; PCP Student in an Organized Health Care Education/Training Program; Referring Provider Emergency Medicine; Visit Provider Internal Medicine
DX: R42 Dizziness and giddiness (principal); R55 Syncope and collapse; Z20.822 Contact with and (suspected) exposure to COVID-19
CPT/HCPCS: 36415; 70450; 71045; 80048; 80053; 82550; 83690; 83880; 84145; 84484; 85025; 85379; 85610; 87635; 93005; 93306; 96360; 99284; C9803; G0378

== ENCOUNTER → 2021-12-11 12:23 | Outpatient (CLI) | payer MEDICARE, OTHER, SELFPAY ==
[2021-12-05 22:59] VITALS: BMI 19.8
--- NOTE | 2021-12-11 12:25 | DI.CT.S_ITS ---
PROCEDURE: CT ABDOMEN PELVIS W CON INDICATIONS: Generalized abdominal pain TECHNIQUE: After the administration of oral and intravenous contrast, axial sections were acquired from the lung bases to the pubic symphysis. Coronal and sagittal reformats were performed. For radiation dose reduction, the following was used: automated exposure control, adjustment of mA and/or kV according to patient size. COMPARISON:[facility], CT, ABDOMEN/PELVIS WITH CONTRAST, 05/14/2012, 12:09. FINDINGS: Image quality: Excellent. Lung bases: No pleural effusion. ABDOMEN: Liver: Unremarkable. Gallbladder: Surgically absent. Biliary ducts: Similar prominence of the extrahepatic bile duct measuring up to 9 mm with tapering of the duct distally and absence of intrahepatic ductal dilation. This is probably related to the postcholecystectomy state. Pancreas: Unremarkable. Spleen: Unremarkable. Adrenal Glands: Unremarkable. Kidneys and Ureters: No hydronephrosis. Approximately 4 small nonobstructing stones present within the right kidney, in the range of 2-3 mm in size. Scattered subcentimeter hypodensities are present which are too small to characterize but are statistically likely to represent benign cysts. Stomach and Bowel: No evidence of mechanical bowel obstruction. Severe predominantly sigmoid colonic diverticulosis without evidence of acute diverticulitis. Peritoneum: No abnormal intraperitoneal fluid. No free air. Ventral Wall: No hernia. Abdominal Nodes: No retroperitoneal or mesenteric adenopathy by size criteria. Vessels: Aorta and inferior vena cava are normal in size. PELVIS: Pelvic Organs: Unremarkable. Bladder: Unremarkable. Pelvic Nodes: No enlarged lymph nodes. Miscellaneous: No inguinal hernias are seen. Bones: Multilevel degenerative change of the visualized spine. Grade 1 anterolisthesis of L4 on L5. IMPRESSION: 1. No acute abnormality visualized within the abdomen or pelvis. 2. Severe colonic diverticulosis without evidence of acute diverticulitis. 3. Several small nonobstructing right renal stones are present. No hydronephrosis. Dictated by: Danyel Gentile M.D. on 12/11/2021 at 17:32 Approved by: Danyel Gentile M.D. on 12/11/2021 at 17:47
== END ==
PROVIDERS: PCP Student in an Organized Health Care Education/Training Program; Referring Provider Student in an Organized Health Care Education/Training Program; Visit Provider Student in an Organized Health Care Education/Training Program
DX: K57.30 Diverticulosis of large intestine without perforation or abscess without bleeding (principal); N20.0 Calculus of kidney; R10.84 Generalized abdominal pain; R63.4 Abnormal weight loss; R11.0 Nausea
CPT/HCPCS: 74177; Q9967

== ENCOUNTER 2021-12-27 09:02 | Emergency (ER) | payer MEDICARE, OTHER, SELFPAY ==
[2021-12-27 09:10] VITALS: BP 154/75; PULSE 86; RESP 14; TEMP 37.1; O2SAT 97; BMI 18.8
--- NOTE | 2021-12-27 09:38 | DI.RAD.S_ITS ---
PROCEDURE: XR ABDOMEN MIN 2V INDICATIONS: pain ? constipation TECHNIQUE: 2 views of the abdomen were acquired. COMPARISON: [facility], CT, CT ABDOMEN PELVIS W CON, 12/11/2021, 13:50. FINDINGS: Surgical changes and devices: Cholecystectomy clips are seen. Bowel: No pneumoperitoneum. The bowel gas pattern is normal. There is a ubta-ic-wrdrnvir amount of stool seen within the colon. Soft tissues: No masses; visualized solid organ contours appear normal in size. No suspicious abdominal calcifications. Bones: No suspicious bony abnormalities. Age-appropriate bony degenerative changes are seen. IMPRESSION: There is a nonobstructive bowel gas pattern. A wabc-li-qzmovefc amount of stool is seen within colon, which may be related to mild constipation. Postoperative and degenerative changes are seen. Dictated by: Triston Ivory M.D. on 12/27/2021 at 9:07 Approved by: Triston Ivory M.D. on 12/27/2021 at 9:09
--- NOTE | 2021-12-27 11:12 | ED_ITS ---
HPI - Abdominal Pain General Chief Complaint: Abdominal Pain Stated Complaint: enema - sent by Dr. Beatty Time Seen by Provider: 12/27/21 09:38 Source: patient Mode of arrival: Ambulatory History of Present Illness HPI narrative: Patient is a 76-year-old healthy female who presents with abdominal pain and pressure ongoing for last 4 months. She feels like she has not had a bowel movement for the last 4 months she takes MiraLax daily. She finally went to her primary care provider today who said that she needed to go to the emergency department for evaluation and enema. She denies any rectal pressure or pain. No nausea or vomiting although she says she is belching a lot. No chest pain shortness breath palpitations fever or chills. Related Data Home Medications Medication Instructions Recorded Confirmed ropinirole 1 mg tablet 2 mg PO DAILY 03/20/21 12/05/21 tramadol 50 mg tablet 50 mg PO QID PRN Pain (Scale Score 03/20/21 12/05/21 1-3) trazodone 100 mg tablet 100 mg PO BEDTIME 03/20/21 12/05/21 eszopiclone 3 mg tablet 3 mg PO BEDTIME PRN Sleep 06/12/21 12/05/21 Previous Rx's Medication Instructions Recorded lactulose 10 gram/15 mL oral 10 g (15 mL) PO DAILY PRN 12/27/21 solution constipation #237 mL lactulose 10 gram/15 mL oral 10 g (15 mL) PO DAILY PRN 12/27/21 solution constipation #473 mL Allergies Allergy/AdvReac Type Severity Reaction Status Date / Time Penicillins Allergy Unknown Rash Verified 12/27/21 09:15 Review of Systems Review of Systems Narrative: GENERAL: Denies chills, fatigue, malaise, fever, sweats, travel HEENT: Denies sinus pain, ear pain, sore throat, difficulty swallowing, neck pain RESPIRATORY: Denies dyspnea, cough, wheezing, hemoptysis, sputum. CARDIOVASCULAR: Denies chest pain, palpitations, orthopnea, edema GASTROINTESTINAL: see HPI : Denies dysuria, frequency, incontinence, hematuria, urinary retention, flank pain. MUSCULOSKELETAL: Denies weakness, joint pain, or bony pain SKIN: No rash, no erythema, no pruritus NEUROLOGIC: Denies weakness, dizziness, headache, numbness, change in speech, confusion PSYCHIATRIC: No concerning psychosocial issues. 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 HEENT: Head atraumatic,EOMI, pupils reactive, face symmetric, moist mucous membranes CARDIOVASCULAR: Regular rate and rhythm without murmurs, rubs or gallops. RESPIRATORY: Breath sounds equal bilaterally, no wheezes rales or rhonchi. ABDOMEN: Soft, nontender. Minimal suprapubic EXTREMITIES: Normal range of motion, no clubbing or edema. Neurovascularly intact NEUROLOGICAL: Alert and oriented x4.Normal gait and speech. SKIN: Warm, dry, no laceration, no petechiae, no rashes or lesions. Course Orders Ordered: ED Orders 12/27/21 09:38 XR abdomen min 2V Stat 12/27/21 11:19 CT abdomen pelvis wo con Stat 12/27/21 11:45 CBC Auto Diff [Complete Blood Count AUTO DIFF] Stat CMP [Comprehensive Metabolic Panel] Stat Lipase Stat Vital Signs Vital signs: Vital Signs - 8 hr 12/27/21 09:10 Temperature 98.7 F Pulse Rate 86 Respiratory Rate 14 Blood Pressure 154/75 H Pulse Oximetry 97 Oxygen Delivery Method Room Air MDM - Abdominal Pain Lab Data Result diagrams: 12/27/21 11:45 12/27/21 11:45 Labs: Lab Results 12/27/21 12/27/21 Range/Units 11:45 11:45 WBC 5.6 (4.5-11.0) X10^3/uL RBC 4.48 (4.0-5.2) X10^6/uL Hgb 13.7 (12.0-16.0) g/dL Hct 40.1 (36-46) % MCV 89.5 (80-100) fL MCH 30.7 (26-34) PG MCHC 34.3 (30-36) % RDW 12.4 (11.6-14.8) % Plt Count 173 (150-400) X10^3/uL Neut % (Auto) 81.5 H (50-75) % Lymph % (Auto) 12.4 L (25-40) % [place] % (Auto) 5.6 (3-14) % Eos % (Auto) 0.2 L (2-4) % Baso % (Auto) 0.3 (0-2) % Neut # (Auto) 4600 (2828-1751) /uL Lymph # (Auto) 700 L (3478-9134) /uL [place] # (Auto) 300 (0-900) /uL Eos # (Auto) 0 (0-450) /uL Baso # (Auto) 0 (0-100) /uL Sodium 137 (137-145) mmol/L Potassium 4.1 (3.4-5.1) mmol/L Chloride 104 (98-107) mmol/L Carbon Dioxide 28 (22-32) mmol/L BUN 21 H (7-17) mg/dL Creatinine 0.58 (0.52-1.04) mg/dL Estimated GFR > 60 (>60) mL/min BUN/Creatinine Ratio 36.2 H (6-22) Glucose 86 (80-110) mg/dL Calcium 8.7 (8.4-10.2) mg/dL Total Bilirubin 0.7 (0.2-1.3) mg/dL AST 21 (14-36) IU/L ALT 13 (<35) IU/L Alkaline Phosphatase 66 (38-126) U/L Total Protein 6.6 (6.3-8.2) g/dL Albumin 3.9 (3.5-5.0) g/dL Globulin 2.7 (1.7-4.1) g/dL Albumin/Globulin Ratio 1.4 (1.0-2.8) Lipase 22 L (23-300) U/L Imaging Data Abdominal x-ray: Radiologist's Impression: XRay Report Signed Patient: Mery Reed MR#: [id number] : 1945 Acct:[id number] Age/Sex: 76 / F Date of Service: 12/27/21 Loc: ED Accession Number: [id number] ?? Procedure: XR abdomen min 2V Ordering Provider: Emmy Chand D.O. PROCEDURE:? XR ABDOMEN MIN 2V ? INDICATIONS:? pain ? constipation ? TECHNIQUE:? 2 views of the abdomen were acquired.? ? COMPARISON:? [facility], CT, CT ABDOMEN PELVIS W CON, 12/11/2021, 13:50. ? FINDINGS:? Surgical changes and devices:? Cholecystectomy clips are seen.? ? Bowel:? No pneumoperitoneum.? The bowel gas pattern is normal.? There is a gntu-zr-igiycglp amount of stool seen within the colon. ? Soft tissues:? No masses; visualized solid organ contours appear normal in size.? No suspicious abdominal calcifications.? ? Bones:? No suspicious bony abnormalities.? Age-appropriate bony degenerative changes are seen. ? ? IMPRESSION:? There is a nonobstructive bowel gas pattern. ? A ewlb-ce-txgxjfdk amount of stool is seen within colon, which may be related to mild constipation.? ? Postoperative and degenerative changes are seen.? ? ? Dictated by: Triston Ivory M.D. on 12/27/2021 at 9:07 ? ? CT scan - abdomen/pelvis: Radiologist's Impression: Signed Patient: Mery Reed MR#: [id number] : 1945 Acct:[id number] Age/Sex: 76 / F Date of Service: 12/27/21 Loc: ED Accession Number: [id number] ?? Procedure: CT abdomen pelvis wo con Ordering Provider: Emmy Chand D.O. PROCEDURE:? CT ABDOMEN PELVIS WO CON ? INDICATIONS:? pain x 4 months and constipation ? ? TECHNIQUE:? Noncontrast 5 mm thick sections acquired from the diaphragms to the symphysis.? 5 mm coronal and sagittal reformats were then performed.? For radiation dose reduction, the following was used:? automated exposure control, adjustment of mA and/or kV according to patient size.? ? COMPARISON:? None. ? FINDINGS:? Image quality:? Excellent.? ? ABDOMEN:? Lung bases:? Dependent atelectasis in posterior aspect of bilateral lung bases are seen.? Heart size is mildly enlarged, no pericardial effusion.? ? Solid organs:? Liver is normal in size.? Gallbladder surgically absent.? Pancreas is normal in contours.? Spleen is normal in size.? No adrenal nodules.? Bilateral kidneys are normal in size.? No hydronephrosis.? Bilateral nonobstructing renal calculi are seen measures up to 3 mm in size in midpole of right kidney.? No perinephric fat stranding or fluid. ? Peritoneum and bowel:? There is no bowel obstruction.? No stomach or small bowel wall thickening.? Extensive colonic diverticulosis is seen without colonic wall thickening or mesenteric fat stranding.? No abscess collection.? No free fluid or free air.? Postsurgical changes also seen in right lower quadrant abdomen which may chip david prior appendectomy.? Moderate fecal stasis throughout the colon is seen. ? ? Nodes and vessels:? No retroperitoneal or mesenteric adenopathy by size criteria.? Aorta and inferior vena cava are normal in caliber.? ? Miscellaneous:? No ventral hernias.? ? ? PELVIS:? Genitourinary:? Bladder wall thickness is normal.? ? Miscellaneous:? No inguinal hernias or adenopathy.? ? Bones:? No suspicious bony lesions.? Minimal anterolisthesis of L4 on L5 is seen measures 4 mm in distance.? Degenerative endplate changes at L4-5 and L5-S1 levels are seen.? No vertebral body compression fractures.? ? IMPRESSION:? 1.? Mild to moderate constipation.? No bowel obstruction or abnormal bowel wall thickening.? Extensive colonic diverticulosis without CT evidence of acute diverticulitis.? No free fluid or free air. 2. Bilateral nonobstructing renal calculi.? No hydronephrosis or hydroureter.? Normal appearing urinary bladder. 3.? Prior cholecystectomy.? 4. Degenerative disc disease in lower lumbar spine as above.? ? ? Dictated by: Manuel Cobian M.D. on 12/27/2021 at 11:53 ? ? Approved by: Manuel Cobian M.D. on 12/27/2021 at 12:05 ? [facility] Narrative Medical decision making narrative: Patient complains of constipation for last 4 months. X-ray shows mild constipation. She overall appears well abdomen is really not distended or very painful. Concern for possible other etiology. CT confirms constipation blood work is overall reassuring. Discharge Plan Departure Patient Disposition: Home Clinical Impression: Constipation Instructions: DI for Constipation Activity Restrictions/Additional Instructions: *You have been diagnosed with constipation *What to do: Increase your water intake along with fruits and vegetables. Walking also help constipation. *Continue to take medications as directed Lactulose 10 g once a day as needed for constipation--> SENT TO [facility] *Follow up with your primary care provider in 2-3 days or call [phone] *Return to ER if you should have persistent vomiting increasing abdominal pain fever or any new, worsening or concerning symptoms Prescriptions: New lactulose 10 gram/15 mL solution 10 g PO DAILY PRN (Reason: constipation) Qty: 473 0RF lactulose 10 gram/15 mL solution 10 g PO DAILY PRN (Reason: constipation) Qty: 237 0RF No Action eszopiclone 3 mg tablet 3 mg PO BEDTIME PRN (Reason: Sleep) trazodone 100 mg tablet 100 mg PO BEDTIME tramadol 50 mg tablet 50 mg PO QID PRN (Reason: Pain (Scale Score 1-3)) ropinirole 1 mg tablet 2 mg PO DAILY Referrals: Cinthia Beatty PA-C [Primary Care Provider] - Visit Report Forms: Patient Portal/API
--- NOTE | 2021-12-27 11:19 | DI.CT.S_ITS ---
PROCEDURE: CT ABDOMEN PELVIS WO CON INDICATIONS: pain x 4 months and constipation ? TECHNIQUE: Noncontrast 5 mm thick sections acquired from the diaphragms to the symphysis. 5 mm coronal and sagittal reformats were then performed. For radiation dose reduction, the following was used: automated exposure control, adjustment of mA and/or kV according to patient size. COMPARISON: None. FINDINGS: Image quality: Excellent. ABDOMEN: Lung bases: Dependent atelectasis in posterior aspect of bilateral lung bases are seen. Heart size is mildly enlarged, no pericardial effusion. Solid organs: Liver is normal in size. Gallbladder surgically absent. Pancreas is normal in contours. Spleen is normal in size. No adrenal nodules. Bilateral kidneys are normal in size. No hydronephrosis. Bilateral nonobstructing renal calculi are seen measures up to 3 mm in size in midpole of right kidney. No perinephric fat stranding or fluid. Peritoneum and bowel: There is no bowel obstruction. No stomach or small bowel wall thickening. Extensive colonic diverticulosis is seen without colonic wall thickening or mesenteric fat stranding. No abscess collection. No free fluid or free air. Postsurgical changes also seen in right lower quadrant abdomen which may indicate prior appendectomy. Moderate fecal stasis throughout the colon is seen. Nodes and vessels: No retroperitoneal or mesenteric adenopathy by size criteria. Aorta and inferior vena cava are normal in caliber. Miscellaneous: No ventral hernias. PELVIS: Genitourinary: Bladder wall thickness is normal. Miscellaneous: No inguinal hernias or adenopathy. Bones: No suspicious bony lesions. Minimal anterolisthesis of L4 on L5 is seen measures 4 mm in distance. Degenerative endplate changes at L4-5 and L5-S1 levels are seen. No vertebral body compression fractures. IMPRESSION: 1. Mild to moderate constipation. No bowel obstruction or abnormal bowel wall thickening. Extensive colonic diverticulosis without CT evidence of acute diverticulitis. No free fluid or free air. 2. Bilateral nonobstructing renal calculi. No hydronephrosis or hydroureter. Normal appearing urinary bladder. 3. Prior cholecystectomy. 4. Degenerative disc disease in lower lumbar spine as above. Dictated by: Manuel Cobian M.D. on 12/27/2021 at 11:53 Approved by: Manuel Cobian M.D. on 12/27/2021 at 12:05
[2021-12-27 12:04] LABS: Add Manual Diff / Slide Review NO; Basophils Absolute Auto 0 /uL (0-100); Basophils Percent Auto 0.3 % (0-2); Eosinophils Absolute Auto 0 /uL (0-450); Eosinophils Percent Auto 0.2 % (2-4); Hematocrit 40.1 % (36-46); Hemoglobin 13.7 g/dL (12.0-16.0); Lymphocytes Absolute Auto 700 /uL (1100-4500); Lymphocytes Percent Auto 12.4 % (25-40); Mean Corpuscular HGB Conc 34.3 % (30-36); Mean Corpuscular Hemoglobin 30.7 PG (26-34); Mean Corpuscular Volume 89.5 fL (80-100); Monocytes Absolute Auto 300 /uL (0-900); Monocytes Percent Auto 5.6 % (3-14); Neutrophils Absolute Auto 4600 /uL (1500-7000); Neutrophils Percent Auto 81.5 % (50-75); Platelet Count 173 X10^3/uL (150-400); Red Blood Cell Count 4.48 X10^6/uL (4.0-5.2); Red Cell Distribution Width 12.4 % (11.6-14.8); White Blood Cell Count 5.6 X10^3/uL (4.5-11.0)
[2021-12-27 12:24] LABS: Alanine Aminotransferase 13 IU/L (<35); Albumin 3.9 g/dL (3.5-5.0); Albumin Globulin Ratio 1.4 (1.0-2.8); Alkaline Phosphatase 66 U/L (38-126); Aspartate Aminotransferase 21 IU/L (14-36); BUN Creatinine Ratio 36.2 (6-22); Bilirubin Total 0.7 mg/dL (0.2-1.3); Blood Urea Nitrogen 21 mg/dL (7-17); Calcium 8.7 mg/dL (8.4-10.2); Carbon Dioxide 28 mmol/L (22-32); Chloride 104 mmol/L (98-107); Estimated Glomerular Filt Rate > 60 mL/min (>60); Globulin 2.7 g/dL (1.7-4.1); Glucose 86 mg/dL (80-110); HEMOLYSIS < 15 (0-50); Lipase 22 U/L (23-300); Potassium 4.1 mmol/L (3.4-5.1); Sodium 137 mmol/L (137-145); Total Protein 6.6 g/dL (6.3-8.2)
== END 2021-12-27 13:18 | disposition home or self-care (01) ==
PROVIDERS: Emergency Provider Emergency Medicine; PCP Student in an Organized Health Care Education/Training Program
DX: K59.00 Constipation, unspecified (principal)
CPT/HCPCS: 36415; 74019; 74176; 80053; 83690; 85025; 99281; 99284

== ENCOUNTER 2022-01-02 08:59 | Emergency (ER) | payer MEDICARE, OTHER, SELFPAY ==
[2022-01-02 09:03] VITALS: BP 143/60; PULSE 97; RESP 14; TEMP 36.8; O2SAT 98; BMI 18.8
--- NOTE | 2022-01-02 09:17 | ED.ABDPAIN ---
HPI - Abdominal Pain General Chief Complaint: Abdominal Pain Stated Complaint: CONSTIPATED 5 MONTHS Time Seen by Provider: 01/02/22 09:07 Source: patient Mode of arrival: Ambulatory History of Present Illness HPI narrative: Patient is a 76-year-old female presents for the 2nd time this week for constipation. She states that she is convinced she has not had a bowel movement for 5 months last week it was for 4 months. She actually had a complete workup 6 days ago including x-ray CT and blood work. She was given a prescription for lactulose. She says she is taking 1 tbsp a day (15mL) and he says it is not working she says that she has not had a bowel movement. She feels like she has pressure in her rectum. She has no nausea no vomiting. Her abdomen is not distended. She continues to eat and drink. Related Data Home Medications Medication Instructions Recorded Confirmed ropinirole 1 mg tablet 2 mg PO DAILY 03/20/21 12/05/21 tramadol 50 mg tablet 50 mg PO QID PRN Pain (Scale Score 03/20/21 12/05/21 1-3) trazodone 100 mg tablet 100 mg PO BEDTIME 03/20/21 12/05/21 eszopiclone 3 mg tablet 3 mg PO BEDTIME PRN Sleep 06/12/21 12/05/21 Previous Rx's Medication Instructions Recorded lactulose 10 gram/15 mL oral 10 g (15 mL) PO DAILY PRN 12/27/21 solution constipation #237 mL lactulose 10 gram/15 mL oral 10 g (15 mL) PO DAILY PRN 12/27/21 solution constipation #473 mL lactulose 10 gram/15 mL oral 15 ml PO TID PRN constipation #473 01/02/22 solution mL Allergies Allergy/AdvReac Type Severity Reaction Status Date / Time Penicillins Allergy Unknown Rash Verified 01/02/22 09:06 Review of Systems Review of Systems Narrative: GENERAL: Denies chills,fever HEENT: Denies throat pain RESPIRATORY: Denies dyspnea, cough, wheezing CARDIOVASCULAR: Denies chest pain, palpitations GASTROINTESTINAL: PH MUSCULOSKELETAL: Denies extremity pain, injury SKIN: No rash, no laceration, no pruritus NEUROLOGIC: Denies weakness, dizziness, headache, numbness 8 point review of systems is negative except for those stated above and HPI Patient History Medical History Arthritis Nocturia Overactive bladder Urinary frequency Surgical History History of knee replacement Hx of appendectomy Hx of arthroscopic knee surgery Hx of cholecystectomy Hx of colonoscopy Hx of shoulder surgery Social History marital status: number of children: 2 household members: spouse 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 HEENT: Head atraumatic,EOMI, pupils reactive, face symmetric, moist mucous membranes CARDIOVASCULAR: Regular rate and rhythm without murmurs, rubs or gallops. RESPIRATORY: Breath sounds equal bilaterally, no wheezes rales or rhonchi. ABDOMEN: Soft, nontender. Normoactive bowel sounds all 4 quadrants. No guarding or rebound. No distention EXTREMITIES: Normal range of motion, no clubbing or edema. Neurovascularly intact NEUROLOGICAL: Alert and oriented x4.Normal gait and speech. SKIN: Warm, dry, no laceration, no petechiae, no rashes or lesions. Course Orders Ordered: Discontinued Medications Magnesium Citrate (Magnesium Citrate 300 Ml Solution) 300 ml PO NOW ONE Stop: 01/02/22 10:36 Last Admin: 01/02/22 11:26 Dose: Not Given Documented By: ANGIE Mineral Oil (Mineral Oil 1 Each Enema) 1 each VT NOW ONE Stop: 01/02/22 09:26 Last Admin: 01/02/22 10:08 Dose: 1 each Documented By: ANGIE Vital Signs Vital signs: Vital Signs - 8 hr 01/02/22 09:03 Temperature 98.3 F Pulse Rate 97 H Respiratory Rate 14 Blood Pressure 143/60 H Pulse Oximetry 98 Oxygen Delivery Method Room Air MDM - Abdominal Pain MDM Narrative Medical decision making narrative: Patient has had ongoing constipation. She had a full workup a few days ago. Not convinced that she has not had a bowel movement in 4-5 months. He adamantly soft nontender and nondistended without nausea or vomiting. She she is given an enema which was unsuccessful in the ED. She was put on lactulose daily. Will increase the lactulose and add magnesium citrate, unfortunately apparently there is a shortage of magnesium citrate. At this time she needs further outpatient follow-up, possible colonoscopy. Discharge Plan Departure Patient Disposition: Home Clinical Impression: Constipation Instructions: DI for Constipation Activity Restrictions/Additional Instructions: *You have been diagnosed with constipation *What to do: Increased water intake, increase fiber increased movement. Please see your primary care provider about this. You may need a colonoscopy and GI referral if this does not work *Continue to take medications as directed Lactulose you may take 15 mL (1 tbsp) up to 3 times a day as needed untill bowel movement-> SENT TO [facility] Magnesium citrate 1 bottle *Follow up with your primary care provider in 2-3 days or call [phone] *Return to ER if you should have any new, worsening or concerning symptoms Prescriptions: New lactulose 10 gram/15 mL solution 15 ml PO TID PRN (Reason: constipation) Qty: 473 0RF No Action lactulose 10 gram/15 mL solution 10 g PO DAILY PRN (Reason: constipation) Qty: 473 0RF lactulose 10 gram/15 mL solution 10 g PO DAILY PRN (Reason: constipation) Qty: 237 0RF eszopiclone 3 mg tablet 3 mg PO BEDTIME PRN (Reason: Sleep) trazodone 100 mg tablet 100 mg PO BEDTIME tramadol 50 mg tablet 50 mg PO QID PRN (Reason: Pain (Scale Score 1-3)) ropinirole 1 mg tablet 2 mg PO DAILY Referrals: Cinthia Beatty PA-C [Primary Care Provider] - Visit Report Forms: Patient Portal/API
[2022-01-02] MEDS: MINERAL OIL 1 EACH ENEMA PR (10:08)
== END 2022-01-02 10:45 | disposition home or self-care (01) ==
PROVIDERS: Emergency Provider Emergency Medicine; PCP Student in an Organized Health Care Education/Training Program
DX: K59.00 Constipation, unspecified (principal)
CPT/HCPCS: 99283; 99284

== ENCOUNTER → 2022-09-02 10:36 | Outpatient (CLI) | payer MEDICARE, OTHER, SELFPAY ==
[2022-03-24 14:52] VITALS: BMI 19.8
--- NOTE | 2022-09-02 | DI.RAD.S_ITS ---
PROCEDURE: XR SACRUM COCCYX MIN 2V INDICATIONS: Sacrococcygeal disorders, not elsewhere classified TECHNIQUE: 3 views of the sacrum and coccyx acquired. COMPARISON: [facility] [place], CR, XR PELVIS WITH LATERAL HIP RIGHT, 07/31/2017, 14:22. CR, XR LUMBAR SPINE 2-3V, 10/05/2021, 12:05. FINDINGS: Bones: No fractures or dislocations. No suspicious bony lesions. Mild periarticular sclerosis and small periarticular osteophytes ([place] grade 2). No bony erosion or ankylosis. Soft tissues: Visualized bowel gas pattern is normal. No suspicious soft tissue densities. IMPRESSION: [place] grade 2 SI joint. No ankylosis. Dictated by: Sharonda Jimenez M.D. on 09/02/2022 at 13:14 Approved by: Sharonda Jimenez M.D. on 09/02/2022 at 13:18
== END ==
PROVIDERS: PCP Student in an Organized Health Care Education/Training Program; Referring Provider Student in an Organized Health Care Education/Training Program; Visit Provider Student in an Organized Health Care Education/Training Program
DX: M53.3 Sacrococcygeal disorders, not elsewhere classified (principal)
CPT/HCPCS: 72220

== ENCOUNTER 2022-10-13 14:49 | Emergency (ER) | payer MEDICARE, OTHER, SELFPAY ==
[2022-03-24 14:52] VITALS: BMI 19.8
[2022-10-13 15:08] VITALS: BP 146/69; PULSE 94; RESP 16; TEMP 36.8; O2SAT 99; BMI 17.0
--- NOTE | 2022-10-13 15:16 | DI.RAD.S_ITS ---
PROCEDURE: XR ACUTE ABDOMEN SERIES INDICATIONS: c/o no bm x 6 days TECHNIQUE: One view chest and two views of the abdomen were acquired. COMPARISON: None. FINDINGS: Surgical changes and devices: None. Chest: Hyperinflation and chronic interstitial changes present. Atherosclerotic vascular calcification noted in the aortic arch. Abdomen: Moderate fecal debris throughout the colon. Surgical clips present in the right upper quadrant. Bones: No suspicious bony lesions. Generalized decreased osseous mineralization noted. IMPRESSION: Moderate fecal debris without evidence of obstruction Approved by: Jeremiah Grady M.D. on 10/13/2022 at 16:47
[2022-10-13 18:30] VITALS: BP 151/67; PULSE 100; RESP 20; O2SAT 98
--- NOTE | 2022-10-13 19:38 | ED_ITS ---
HPI - General Adult General Chief complaint: Abdominal Pain Stated complaint: walk in clinic ref bowel obstruction Time Seen by Provider: 10/13/22 18:31 Source: patient Mode of arrival: Ambulatory History of Present Illness HPI narrative: 76-year-old woman who comes in complaining of abdominal pain with no bowel movement essentially for the last 2 weeks. She has been using MiraLax daily and is noted some slightly runny stool but certainly not feeling that she is completely evacuated. She does not report that constipation is a usual problem for her. There has been no new medications changes otherwise. She complains of no fevers, cough, chills. She is had no abdominal surgeries to suggest possibility of bowel obstruction. No complaints of unintentional weight gain or weight loss recently. Related Data Home Medications Medication Instructions Recorded Confirmed ropinirole 1 mg tablet 2 mg PO DAILY 03/20/21 03/27/22 tramadol 50 mg tablet 50 mg PO QID PRN Pain (Scale Score 03/20/21 03/27/22 1-3) trazodone 100 mg tablet 100 mg PO BEDTIME 03/20/21 03/27/22 eszopiclone 3 mg tablet 3 mg PO BEDTIME PRN Sleep 06/12/21 03/27/22 Allergies Allergy/AdvReac Type Severity Reaction Status Date / Time Penicillins Allergy Unknown Rash Verified 10/13/22 15:13 Review of Systems Review of Systems Narrative: Remainder of complete review of systems is otherwise unremarkable except for that included in the HPI. 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: Never smoker alcohol intake: current caffeine: Yes Type(s) of exercise: walking frequency: daily Smoking Status: Never smoker alcohol intake frequency: 0-2 drinks per day Alcohol type: hard liquor Substance Use Type: does not use Exam Initial Vital Signs Initial Vital Signs: Vital Signs Temperature 98.2 F 10/13/22 15:08 Pulse Rate 94 H 10/13/22 15:08 Respiratory Rate 16 10/13/22 15:08 Blood Pressure 146/69 H 10/13/22 15:08 Pulse Oximetry 99 10/13/22 15:08 Oxygen Delivery Method Room Air 10/13/22 15:08 General: Alert appropriate in no acute distress Respiratory: Able to speak in full sentences, no obvious respiratory distress Skin: No obvious rashes, warm and dry Abdomen: Mild diffuse tenderness to palpation without rebound or guarding. Abdomen overall is soft. Neurologic: Grossly intact no obvious asymmetries or abnormalities Psych: appropriate insight and affect, cooperative Course Orders Ordered: Discontinued Medications Magnesium Citrate (Magnesium Citrate 300 Ml Solution) 300 ml PO NOW ONE Stop: 10/13/22 19:39 Last Admin: 10/13/22 19:46 Dose: 300 ml Documented By: Vital Signs Vital signs: Vital Signs - 8 hr 10/13/22 15:08 10/13/22 18:30 Temperature 98.2 F Pulse Rate 94 H 100 H Respiratory Rate 16 20 Blood Pressure 146/69 H 151/67 H Pulse Oximetry 99 98 Oxygen Delivery Method Room Air Room Air Medical Decision Making Lab Data Labs: Urine Dip Bedside Urine Glucose Negative Bedside Urine Bilirubin - Negative Bedside Urine Ketone - Negative Urine Specific [place] 1.015 Bedside Urine Occult Blood - Negative Bedside Urine pH 6.0 Bedside Urine Protein - Negative Bedside Urine Urobilinogen - Negative Bedside Urine Nitrite - Negative Bedside Urine Leukocytes - Negative Esterase Point of care testing: Urine Dip Bedside Urine Glucose Negative Bedside Urine Bilirubin - Negative Bedside Urine Ketone - Negative Urine Specific [place] 1.015 Bedside Urine Occult Blood - Negative Bedside Urine pH 6.0 Bedside Urine Protein - Negative Bedside Urine Urobilinogen - Negative Bedside Urine Nitrite - Negative Bedside Urine Leukocytes - Negative Esterase MDM Narrative Medical decision making narrative: CC: Abdominal pain with constipation for 2 weeks. This is an acute problem uncertain prognosis Data collected from: patient, Differential considered: Constipation, bowel obstruction, neoplastic process Exam documented above, pertinent findings include: Mild abdominal tenderness without rebound or guarding Lab Test are not indicated with today's visitIndependently reviewed EKG as above Imaging studies independently reviewed: Upright abdominal x-ray suggest quite a bit of stool in the right side of the colon with gas in the rectum. Discussion: 76-year-old woman with 2 weeks of constipation. She does not report the urge to defecate or stool feeling like it is in her rectum. Abdominal x-ray with confirm this. We talked about the use of magnesium citrate to try to mobilize some of the stool in the right side of her colon. We also talked about increasing MiraLax and the fact there really is no upper limit to MiraLax dosing. We also discussed the importance of returning to the emergency department if she continues to have no bowel movement. If the magnesium citrate is ineffective then more thorough workup including blood work and advanced gerry ging of the abdomen would likely be appropriate. She understands questions are answered and is safe for discharge home Discharge Plan Departure Patient Disposition: Home Clinical Impression: Constipation Qualifiers: Constipation type: unspecified constipation type Qualified Code(s): K59.00 - Constipation, unspecified Abdominal pain Qualifiers: Abdominal location: generalized Qualified Code(s): R10.84 - Generalized abdominal pain Instructions: DI for Constipation Activity Restrictions/Additional Instructions: Thank you for coming in today With no bowel movement in almost 2 weeks certainly makes sense that you are having some abdominal pain. The x-ray of your abdomen suggested quite a bit of stool particularly on the right side of your colon. I have given you a bottle of magnesium citrate, I would recommend drinking the entire bottle this evening and expecting significant results in terms of bowel movements in relieving your abdominal pain. If this is not effective, then a more complete workup is going to be required. This would involve returning to the emergency department, blood work and an abdominal CT to make sure there isn't some type of process that is obstructing your bowels and causing your constipation. After the magnesium citrate has done its job, it is okay to continue using MiraLax daily. You can not overdose on MiraLax. Taking 1 scoop a day is absolutely appropriate and if you have not had a bowel movement that day I would recommend taking a 2nd. If you go another day then take 3 scoops, and so on. Again, if your symptoms are worse, your pain is uncontrolled or your developing new findings you do need to return to the emergency department I wish you the best Prescriptions: No Action eszopiclone 3 mg tablet 3 mg PO BEDTIME PRN (Reason: Sleep) trazodone 100 mg tablet 100 mg PO BEDTIME tramadol 50 mg tablet 50 mg PO QID PRN (Reason: Pain (Scale Score 1-3)) ropinirole 1 mg tablet 2 mg PO DAILY Referrals: Cinthia Beatty PA-C [Primary Care Provider] - Stand Alone Forms: Patient Portal/API
[2022-10-13] MEDS: MAGNESIUM CITRATE 300 ML SOLUTION PO (19:46)
== END 2022-10-13 19:47 | disposition home or self-care (01) ==
PROVIDERS: Emergency Provider Emergency Medicine; PCP Student in an Organized Health Care Education/Training Program
DX: R10.84 Generalized abdominal pain (principal); K59.00 Constipation, unspecified
CPT/HCPCS: 74022; 81003; 99283

== ENCOUNTER → 2022-10-21 13:51 | Outpatient (CLI) | payer MEDICARE, OTHER, SELFPAY ==
[2022-03-24 14:52] VITALS: BMI 19.8
--- NOTE | 2022-10-21 | DI.CT.S_ITS ---
PROCEDURE: CT ABDOMEN PELVIS W CON INDICATIONS: Constipation, Left lower quadrant pain TECHNIQUE: After the administration of oral and intravenous contrast, axial sections were acquired from the lung bases to the pubic symphysis. Coronal and sagittal reformats were performed. For radiation dose reduction, the following was used: automated exposure control, adjustment of mA and/or kV according to patient size. COMPARISON:[facility], CT, CT ABDOMEN PELVIS W CON, 12/11/2021, 13:50. FINDINGS: Image quality: Excellent. Lung bases: Lung bases are clear. Heart size is normal. Solid organs: Liver: The liver has no mass or intrahepatic biliary ductal dilatation. The portal vein and hepatic veins are patent. Biliary: Status post cholecystectomy. Pancreas: The pancreas has no mass or ductal dilatation. There is no surrounding inflammation. Spleen: Normal size. There are no masses. Adrenals: No hypertrophy or nodules. Kidneys: No obstructive calculus or hydronephrosis. Subcentimeter hypodensity in the right lateral midpole is unchanged. No cystic mass. Multiple punctate nonobstructing calcifications in the right kidney. Peritoneum and bowel: The distal esophagus and stomach are normal. The small bowel has a normal caliber and appearance. The terminal ileum is normal. The large bowel has diverticulosis with no evidence of diverticulitis. There is increased stool throughout the large bowel consistent with constipation. Status post appendectomy. No free fluid or air. Nodes and vessels: No retroperitoneal or mesenteric adenopathy by size criteria. The aorta has atherosclerosis with no aneurysmal dilatation. Miscellaneous: No abdominal wall mass or hernia. PELVIS: Genitourinary: The bladder has no wall thickening or mass. No bladder calcifications. Bones: Degenerative disc disease of L5-S1. Diffuse disc bulge of L4-5. No vertebral body compression fractures. IMPRESSION: 1. No acute abnormality of the abdomen or pelvis. 2. Constipation. 3. Sigmoid diverticulosis without evidence of acute diverticulitis. Dictated by: Daren Wilson M.D. on 10/21/2022 at 16:36 Approved by: Daren Wilson M.D. on 10/21/2022 at 16:49
== END ==
PROVIDERS: PCP Student in an Organized Health Care Education/Training Program; Referring Provider Internal Medicine; Visit Provider Internal Medicine
DX: K59.00 Constipation, unspecified (principal); R10.32 Left lower quadrant pain; Z90.49 Acquired absence of other specified parts of digestive tract; K57.30 Diverticulosis of large intestine without perforation or abscess without bleeding
CPT/HCPCS: 74177; Q9967

== ENCOUNTER → 2022-10-29 14:04 | Outpatient (CLI) | payer MEDICARE, OTHER, SELFPAY ==
[2022-03-24 14:52] VITALS: BMI 19.8
--- NOTE | 2022-10-29 | DI.US.S_ITS ---
PROCEDURE: US PERIPH VENOUS LOW EXTREM LT INDICATIONS: LEFT FOOT SWELLING TECHNIQUE: Real-time imaging, as well as color and pulse Doppler interrogation, were performed of the lower extremity deep veins from the inguinal ligament to the popliteal fossa. COMPARISON: None. FINDINGS: The common femoral, femoral and popliteal veins are normally compressible, and free of intraluminal thrombus. Color and pulse Doppler demonstrate normal phasic intraluminal flow. There is normal augmentation response to distal compression maneuver. IMPRESSION: Negative for deep venous thrombosis. Dictated by: Triston Ivory M.D. on 10/29/2022 at 15:27 Approved by: Triston Ivory M.D. on 10/29/2022 at 15:29
== END ==
PROVIDERS: PCP Student in an Organized Health Care Education/Training Program; Referring Provider Internal Medicine; Visit Provider Internal Medicine
DX: R22.42 Localized swelling, mass and lump, left lower limb (principal)
CPT/HCPCS: 93971

== ENCOUNTER → 2022-11-18 13:22 | Outpatient (CLI) | payer MEDICARE, OTHER, SELFPAY ==
[2022-03-24 14:52] VITALS: BMI 19.8
--- NOTE | 2022-11-18 | DI.MRI.S_ITS ---
PROCEDURE: MRFOOT LT WO CON INDICATIONS: Arthropathy TECHNIQUE: Noncontrast sagittal T1 spin echo and T2 fast spin echo with fat saturation, long-axis T1 spin echo and STIR, short-axis T1 spin echo and T2 fast spin echo with fat saturation through the forefoot. COMPARISON: [facility], CR, XR FOOT 3+ VIEWS LEFT, 10/23/2022, 9:37. [facility], CR, XR FOOT 3+ VIEWS LEFT, 11/07/2022, 10:42. FINDINGS: Image quality: Excellent. Bones and joints: No bone marrow contusions or metatarsal stress fractures. The sesamoid bones appear in expected positions, without internal edema. Mild degenerative changes at the 1st metatarsophalangeal joint and throughout the interphalangeal joints of the toes. No intraosseous lesions. Soft tissues: Nonspecific subcutaneous edema throughout the dorsum of the foot. The visualized plantar foot muscles demonstrate normal signal and bulk. Visualized flexor and extensor tendons appear intact, without tenosynovitis. The distal insertions of the peroneus brevis and longus tendons appear intact. The principal Lisfranc ligament appears intact. No soft tissue ganglion cysts or bursal fluid collections. Sagittal images demonstrate no evidence for plantar plate tears. IMPRESSION: 1. Mild nonspecific subcutaneous soft tissue edema throughout the dorsum of the foot. No acute trabecular bone injury. No significant ligament or tendon injury. 2. Mild degenerative changes at the 1st metatarsophalangeal joint and the interphalangeal joints of the toes. Approved by: Danyel Urbina M.D. on 11/19/2022 at 10:13
--- NOTE | 2022-11-18 | DI.MRI.S_ITS ---
PROCEDURE: MR ANKLE LT WO CON INDICATIONS: Arthropathy TECHNIQUE: Noncontrast sagittal T1 spin echo and T2 fast spin echo with fat saturation, axial proton density fast spin echo and T2 fast spin echo with fat saturation, coronal T1 spin echo and T2 fast spin echo with fat saturation through the ankle/hindfoot. COMPARISON: [facility], CR, XR ANKLE 3+ VIEWS LEFT, 10/23/2022, 9:37. [facility], CR, XR FOOT 3+ VIEWS LEFT, 10/23/2022, 9:37. [facility], CR, XR FOOT 3+ VIEWS LEFT, 11/07/2022, 10:42. FINDINGS: Image quality: Excellent. Bones and joints: No bone marrow contusions or fractures. No hindfoot coalitions. No osteochondral injuries of the talar dome. Mild nonspecific subcutaneous soft tissue edema is seen surrounding the ankle. Medial structures: The deep and superficial layers of the deltoid ligament appear intact. The spring ligament components are intact. The posterior tibialis, flexor digitorum longus, and flexor hallucis longus tendons are intact. The posterior tibial neurovascular bundle appears normal within the tarsal tunnel, without extrinsic mass effect. Lateral structures: Remote prior low-grade sprain of the anterior talofibular ligament. The calcaneofibular ligament and the posterior talofibular ligament are intact. The anterior and posterior tibiofibular ligaments appear intact. The peroneus longus and brevis tendons demonstrate normal location and morphology. The sinus tarsi demonstrates normal fatty signal. Anterior structures: The tibialis anterior, extensor hallucis longus, and extensor digitorum longus tendons appear intact. The dorsal talonavicular ligament appears intact. Posterior and plantar structures: Nonedematous plantar and posterior calcaneal enthesophytes. Achilles tendon is intact. Mild thickening of the proximal plantar fascia without surrounding edema. No abductor digiti quinti muscle atrophy to suggest Blanca neuropathy. IMPRESSION: 1. Mild nonspecific subcutaneous edema surrounding the ankle. No acute trabecular bone injury. No significant tendon injury is seen. 2. Remote prior low-grade sprain of the anterior talofibular ligament. 3. Mild chronic proximal plantar fasciitis. Approved by: Danyel Urbina M.D. on 11/19/2022 at 10:13
== END ==
PROVIDERS: PCP Student in an Organized Health Care Education/Training Program; Referring Provider Podiatrist; Visit Provider Podiatrist
DX: S93.492A Sprain of other ligament of left ankle, initial encounter (principal); M72.2 Plantar fascial fibromatosis; M12.9 Arthropathy, unspecified
CPT/HCPCS: 73718; 73721

== ENCOUNTER → 2022-12-18 13:10 | Outpatient (CLI) | payer MEDICARE, OTHER, SELFPAY ==
[2022-03-24 14:52] VITALS: BMI 19.8
[2022-12-18 14:21] LABS: Add Manual Diff / Slide Review NO; Basophils Absolute Auto 0 /uL (0-100); Basophils Percent Auto 0.3 % (0-2); Eosinophils Absolute Auto 100 /uL (0-450); Eosinophils Percent Auto 1.6 % (2-4); Hematocrit 41.3 % (36-46); Hemoglobin 13.6 g/dL (12.0-16.0); Lymphocytes Absolute Auto 1100 /uL (1100-4500); Mean Corpuscular HGB Conc 33.1 % (30-36); Mean Corpuscular Hemoglobin 29.9 PG (26-34); Mean Corpuscular Volume 90.3 fL (80-100); Monocytes Absolute Auto 500 /uL (0-900); Monocytes Percent Auto 8.9 % (3-14); Neutrophils Absolute Auto 4100 /uL (1500-7000); Neutrophils Percent Auto 70.2 % (50-75); Platelet Count 186 X10^3/uL (150-400); Red Blood Cell Count 4.57 X10^6/uL (4.0-5.2); Red Cell Distribution Width 12.9 % (11.6-14.8); White Blood Cell Count 5.8 X10^3/uL (4.5-11.0)
[2022-12-18 14:46] LABS: Alanine Aminotransferase 14 IU/L (<35); Albumin 4.1 g/dL (3.5-5.0); Albumin Globulin Ratio 1.6 (1.0-2.8); Alkaline Phosphatase 64 U/L (38-126); Aspartate Aminotransferase 22 IU/L (14-36); Bilirubin Total 0.4 mg/dL (0.2-1.3); Blood Urea Nitrogen 25 mg/dL (7-17); Calcium 8.8 mg/dL (8.4-10.2); Carbon Dioxide 32 mmol/L (22-32); Chloride 100 mmol/L (98-107); Estimated Glomerular Filt Rate > 60 mL/min (>60); Globulin 2.6 g/dL (1.7-4.1); Glucose 98 mg/dL (80-110); HEMOLYSIS 16 (0-50); Potassium 4.2 mmol/L (3.4-5.1); Sodium 137 mmol/L (137-145); Total Protein 6.7 g/dL (6.3-8.2)
[2022-12-18 15:02] LABS: Free T4, Direct Thyroxine 1.02 ng/dL (0.78-2.19)
[2022-12-18 15:16] LABS: Thyroid Stimulating Hormone 2.15 uIU/mL (0.47-4.68)
== END ==
PROVIDERS: PCP Student in an Organized Health Care Education/Training Program; Referring Provider Internal Medicine Endocrinology, Diabetes & Metabolism; Visit Provider Internal Medicine Endocrinology, Diabetes & Metabolism
DX: E05.90 Thyrotoxicosis, unspecified without thyrotoxic crisis or storm (principal)
CPT/HCPCS: 36415; 80053; 84439; 84443; 85025

== ENCOUNTER → 2023-01-26 10:49 | Outpatient (CLI) | payer MEDICARE, OTHER, SELFPAY ==
[2022-03-24 14:52] VITALS: BMI 19.8
--- NOTE | 2023-01-26 | DI.CT.S_ITS ---
PROCEDURE: CT ABDOMEN PELVIS W CON INDICATIONS: lower abdominal pain TECHNIQUE: After the administration of intravenous contrast, axial sections acquired from the lung bases to the pubic symphysis. Coronal and sagittal reformats were performed. For radiation dose reduction, the following was used: automated exposure control, adjustment of mA and/or kV according to patient size. COMPARISON: [facility], CT, CT ABDOMEN PELVIS W CON, 10/21/2022, 15:28. FINDINGS: Lower thorax: The lung bases are clear. Heart size normal. No hiatal hernia. Liver: Normal in size and attenuation. No contour deformity present. Biliary system: Cholecystectomy. No intra or extrahepatic bile duct dilation. Pancreas: Unremarkable without mass or inflammation evident. Spleen: Normal in size and density. Adrenals: Normal morphology and density. Reproductive system: Unremarkable as visualized. Urinary system: Normal renal size and attenuation. Small bilateral renal cysts measure less than 1 cm. Nonobstructing right renal calculi, unchanged. No renal calculi, hydronephrosis, or solid mass present. Urinary bladder unremarkable. Gastrointestinal system: The bowel is unremarkable without evidence of bowel obstruction or inflammation. The stomach appears unremarkable. Multiple diverticula arise from the colon without evidence of diverticulitis. Moderate fecal debris throughout the colon Appendix: Appendectomy Peritoneal spaces: No mesenteric or retroperitoneal adenopathy. No free air. No free fluid. Vasculature: Aortic atherosclerotic vascular calcification noted without evidence of aneurysm. Auto text kidneys Abdominal wall: Abdominal wall intact without evidence of ventral or inguinal hernias. Musculoskeletal: Normal bone mineralization. Degenerative disc disease and arthropathy noted in lower lumbar spine. Moderate L4-5 central stenosis. No acute fractures. IMPRESSION: 1. Colonic diverticulosis and moderate fecal debris throughout the colon without evidence of acute diverticulitis 2. Additional chronic findings as above Approved by: Jeremiah Grady M.D. on 01/26/2023 at 16:19
[2023-01-26 11:45] LABS: Estimated Glomerular Filt Rate > 60 mL/min (>60)
== END ==
PROVIDERS: Radiology Diagnostic Radiology; PCP Student in an Organized Health Care Education/Training Program; Referring Provider Internal Medicine; Visit Provider Internal Medicine
DX: K57.90 Diverticulosis of intestine, part unspecified, without perforation or abscess without bleeding (principal); R10.30 Lower abdominal pain, unspecified; M51.36 Other intervertebral disc degeneration, lumbar region; M47.816 Spondylosis without myelopathy or radiculopathy, lumbar region; M48.061 Spinal stenosis, lumbar region without neurogenic claudication; I70.0 Atherosclerosis of aorta; N28.1 Cyst of kidney, acquired; N20.0 Calculus of kidney; Z90.49 Acquired absence of other specified parts of digestive tract
CPT/HCPCS: 36415; 74177; 82565; Q9967

== ENCOUNTER 2023-03-22 09:34 | Emergency (ER) | payer MEDICARE, OTHER, SELFPAY ==
[2022-03-24 14:52] VITALS: BMI 19.8
[2023-03-22] VITALS (20 sets, daily range): BP systolic 151–180; BP diastolic 70–103; PULSE 79–101; RESP 13–29; TEMP 36.8; O2SAT 97–99; BMI 19.6
--- NOTE | 2023-03-22 10:06 | DI.RAD.S_ITS ---
PROCEDURE: XR CHEST 1V INDICATIONS: chest pain TECHNIQUE: One view of the chest was acquired. COMPARISON: [facility], CR, XR CHEST 1V, 12/05/2021, 19:37. FINDINGS: Surgical changes and devices: None. Lungs and pleura: Lungs are clear. No pleural effusions or pneumothorax. Mediastinum: Mediastinal contours appear normal. Heart size is normal. Bones and chest wall: No suspicious bony lesions. Overlying soft tissues appear unremarkable. IMPRESSION: No acute cardiopulmonary findings Approved by: Jeremiah Grady M.D. on 03/22/2023 at 9:44
[2023-03-22 10:12] LABS: Ictotest Urine Negative (Negative)
--- NOTE | 2023-03-22 10:14 | PC.NURSE ---
Strong pedal pulses auscultated by doppler as pt's feet are too tender to touch.
[2023-03-22 10:20] LABS: Add Manual Diff / Slide Review NO; Basophils Absolute Auto 0 /uL (0-100); Basophils Percent Auto 0.6 % (0-2); Eosinophils Absolute Auto 100 /uL (0-450); Eosinophils Percent Auto 1.3 % (2-4); Hematocrit 40.1 % (36-46); Hemoglobin 13.4 g/dL (12.0-16.0); Lymphocytes Absolute Auto 1300 /uL (1100-4500); Mean Corpuscular HGB Conc 33.6 % (30-36); Mean Corpuscular Hemoglobin 29.9 PG (26-34); Mean Corpuscular Volume 89.2 fL (80-100); Monocytes Absolute Auto 400 /uL (0-900); Monocytes Percent Auto 9.1 % (3-14); Neutrophils Absolute Auto 3000 /uL (1500-7000); Platelet Count 153 X10^3/uL (150-400); Red Blood Cell Count 4.49 X10^6/uL (4.0-5.2); Red Cell Distribution Width 13.7 % (11.6-14.8); White Blood Cell Count 4.8 X10^3/uL (4.5-11.0)
[2023-03-22 10:26] LABS: Bacteria Urine Occasional (0-1); Calcium Oxalate Crystals Urine Moderate; RBC Urine 0-1/HPF (0-5/HPF); Squamous Epithelial Cell Urine 1-5 /HPF (0-5/HPF); WBC Urine 0-1/HPF (0-5/HPF)
[2023-03-22 10:28] LABS: INR 0.9 (0.9-1.3); Prothrombin Time 10.5 SECONDS (10.1-12.7)
[2023-03-22 10:31] LABS: PTT Partial Thromboplastin Tim 27 SECONDS (26-36)
[2023-03-22 10:33] LABS: Alanine Aminotransferase 15 IU/L (<35); Albumin 3.9 g/dL (3.5-5.0); Albumin Globulin Ratio 1.4 (1.0-2.8); Alkaline Phosphatase 82 U/L (38-126); Aspartate Aminotransferase 22 IU/L (14-36); BUN Creatinine Ratio 46.2 (6-22); Bilirubin Total 0.6 mg/dL (0.2-1.3); Blood Urea Nitrogen 24 mg/dL (7-17); Calcium 8.9 mg/dL (8.4-10.2); Carbon Dioxide 32 mmol/L (22-32); Chloride 101 mmol/L (98-107); Creatine Kinase 23 U/L (30-135); Estimated Glomerular Filt Rate > 60 mL/min (>60); Globulin 2.8 g/dL (1.7-4.1); Glucose 110 mg/dL (80-110); HEMOLYSIS < 15 (0-50); Lipase 27 U/L (23-300); Magnesium 2.1 mg/dL (1.6-2.3); Potassium 3.7 mmol/L (3.4-5.1); Sodium 136 mmol/L (137-145); Total Protein 6.7 g/dL (6.3-8.2)
--- NOTE | 2023-03-22 10:37 | ED.EXTPRO ---
HPI - Extremity Problem General Chief complaint: Extremity Problem,Nontraumatic Stated complaint: Swollen Feet and Legs 1 month Time Seen by Provider: 03/22/23 09:54 Source: patient Mode of arrival: Ambulatory History of Present Illness HPI Narrative: Patient is a 77-year-old female history of overactive bladder presenting today with ongoing leg swelling. She reports it as progressively gotten worse over the last 1 week. It started just in her feet it has gone up into her legs. Her legs are extremely sensitive to touch mildly erythematous. She denies any fever or chills. She is no history of congestive heart failure. He denies any orthopnea shortness of breath with exertion or chest pain. She denies any fever or chills. She states that she is able to get around her house but it is difficult to walk. She is able to sleep in a bed. She does not notice any difference between when she goes to bed and when she wakes up in the morning if the swelling has gone down. She denies any abdominal pain swelling nausea or vomiting. Related Data Home Medications Medication Instructions Recorded Confirmed ropinirole 1 mg tablet 2 mg PO DAILY 03/20/21 03/27/22 tramadol 50 mg tablet 50 mg PO QID PRN Pain (Scale Score 03/20/21 03/27/22 1-3) trazodone 100 mg tablet 100 mg PO BEDTIME 03/20/21 03/27/22 eszopiclone 3 mg tablet 3 mg PO BEDTIME PRN Sleep 06/12/21 03/27/22 Previous Rx's Medication Instructions Recorded furosemide 20 mg tablet (Lasix) 20 mg PO DAILY #3 tabs 03/22/23 Allergies Allergy/AdvReac Type Severity Reaction Status Date / Time Penicillins Allergy Unknown Rash Verified 03/22/23 09:45 Review of Systems Review of Systems ROS Unobtainable: All systems reviewed & are unremarkable except as noted in HPI and below Patient History Medical History Obstructive sleep apnea of adult PVCs (premature ventricular contractions) Urinary frequency Nocturia Overactive bladder Arthritis Surgical History Hx of appendectomy Hx of colonoscopy Hx of cholecystectomy Hx of shoulder surgery Hx of arthroscopic knee surgery History of knee replacement Social History (Reviewed 03/22/23 @ 10:39 by NIHARIKA Cervantes marital status: number of children: 2 household members: spouse 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 Status: Never smoker alcohol intake: current caffeine: Yes Type(s) of exercise: walking frequency: daily Smoking Status: Never smoker alcohol intake frequency: 0-2 drinks per day Alcohol type: hard liquor Substance Use Type: does not use Exam Initial Vital Signs Initial Vital Signs: Vital Signs Temperature 98.3 F 03/22/23 09:40 Pulse Rate 99 H 03/22/23 09:40 Respiratory Rate 18 03/22/23 09:40 Blood Pressure 169/70 H 03/22/23 09:40 Pulse Oximetry 97 03/22/23 09:40 Oxygen Delivery Method Room Air 03/22/23 09:40 GENERAL: Alert pleasant well-appearing 77-year-old female HEENT: Head atraumatic,EOMI, pupils reactive, face symmetric, CARDIOVASCULAR: Regular rate and rhythm without murmurs, rubs or gallops. RESPIRATORY: Breath sounds equal bilaterally, no wheezes rales or rhonchi. Speaks in full sentences no respiratory distress ABDOMEN: Soft, nontender. Normoactive bowel sounds all 4 quadrants. No guarding or rebound. EXTREMITIES: No gross bony deformities. Significant bilateral lower extremity edema +3. She is extremely sensitive to touch. There is some mild the nursing staff was unable to palpate distal pedal pulses but due to pain but they were easily dopplered. NEUROLOGICAL: Alert and oriented x4.Normal gait and speech. C SKIN: Warm, dry, no laceration, no petechiae, no rashes or lesions. Course Orders Ordered: ED Orders 03/22/23 10:00 Ictotest Urine Stat Urine Microscopic Stat 03/22/23 10:06 XR chest 1V Stat EKG-12 Lead Stat 03/22/23 10:13 Complete Blood Count AUTO DIFF Stat Comprehensive Metabolic Panel Stat D Dimer Stat Lipase Stat Magnesium Stat NT-proBNP (BNP-Adult 18+) Stat PTT Partial Thromboplastin Jony Stat Prothrombin Time INR Stat TSH w/ Reflex to FT4 Stat Troponin & CK Cardiac Panel Stat Discontinued Medications Aspirin (Aspirin 81 Mg Chew Tab) 324 mg PO NOW ONE Stop: 03/22/23 10:07 Last Admin: 03/22/23 11:28 Dose: Not Given Documented By: REX Furosemide (Furosemide 40 Mg/4 Ml Vial) 20 mg IV NOW ONE Stop: 03/22/23 11:12 Last Admin: 03/22/23 11:20 Dose: 20 mg Documented By: REX Vital Signs Vital signs: Vital Signs - 8 hr 03/22/23 09:40 03/22/23 09:58 03/22/23 10:00 Temperature 98.3 F Pulse Rate 99 H 94 H Pulse Rate [Bilateral Dorsalis Pedis] Respiratory Rate 18 17 Blood Pressure 169/70 H 168/79 H Pulse Oximetry 97 99 Oxygen Delivery Method Room Air 03/22/23 10:00 03/22/23 10:12 03/22/23 10:12 Temperature Pulse Rate 92 H 87 Pulse Rate [Bilateral Dorsalis Pedis] Respiratory Rate 14 21 Blood Pressure 162/77 H Pulse Oximetry 99 99 Oxygen Delivery Method 03/22/23 10:15 03/22/23 10:15 03/22/23 10:21 Temperature Pulse Rate 86 Pulse Rate [Bilateral Dorsalis Pedis] 80 Respiratory Rate 18 Blood Pressure 158/76 H Pulse Oximetry 99 Oxygen Delivery Method 03/22/23 10:30 03/22/23 10:30 03/22/23 10:45 Temperature Pulse Rate 89 Pulse Rate [Bilateral Dorsalis Pedis] Respiratory Rate 17 Blood Pressure 156/79 H 155/78 H Pulse Oximetry 99 Oxygen Delivery Method 03/22/23 10:45 03/22/23 11:00 03/22/23 11:00 Temperature Pulse Rate 79 83 Pulse Rate [Bilateral Dorsalis Pedis] Respiratory Rate 13 17 Blood Pressure 153/72 H Pulse Oximetry 98 99 Oxygen Delivery Method 03/22/23 11:15 03/22/23 11:15 03/22/23 11:30 Temperature Pulse Rate 80 84 Pulse Rate [Bilateral Dorsalis Pedis] Respiratory Rate 13 24 Blood Pressure 154/78 H Pulse Oximetry 99 99 Oxygen Delivery Method 03/22/23 11:30 03/22/23 11:37 03/22/23 11:37 Temperature Pulse Rate 88 Pulse Rate [Bilateral Dorsalis Pedis] Respiratory Rate 21 Blood Pressure 151/78 H 180/79 H Pulse Oximetry 97 Oxygen Delivery Method 03/22/23 11:45 03/22/23 11:45 03/22/23 11:57 Temperature Pulse Rate 81 Pulse Rate [Bilateral Dorsalis Pedis] Respiratory Rate 17 Blood Pressure 165/82 H 171/103 H Pulse Oximetry 97 Oxygen Delivery Method 03/22/23 11:57 03/22/23 12:00 03/22/23 12:00 Temperature Pulse Rate 87 83 Pulse Rate [Bilateral Dorsalis Pedis] Respiratory Rate 29 H 20 Blood Pressure 180/94 H Pulse Oximetry 97 98 Oxygen Delivery Method 03/22/23 12:14 03/22/23 12:15 03/22/23 12:30 Temperature Pulse Rate 87 86 Pulse Rate [Bilateral Dorsalis Pedis] Respiratory Rate 23 20 Blood Pressure 176/101 H Pulse Oximetry 98 98 Oxygen Delivery Method 03/22/23 12:30 03/22/23 12:45 03/22/23 12:45 Temperature Pulse Rate 85 Pulse Rate [Bilateral Dorsalis Pedis] Respiratory Rate 20 Blood Pressure 168/80 H 163/77 H Pulse Oximetry 98 Oxygen Delivery Method 03/22/23 13:00 03/22/23 13:00 Temperature Pulse Rate 101 H Pulse Rate [Bilateral Dorsalis Pedis] Respiratory Rate 24 Blood Pressure 166/76 H Pulse Oximetry 98 Oxygen Delivery Method MDM - Extremity (Nontraumatic) Lab Data 03/22/23 10:13 03/22/23 10:13 Labs: Lab Results 03/22/23 03/22/23 Range/Units 10:00 10:13 WBC 4.8 (4.5-11.0) X10^3/uL RBC 4.49 (4.0-5.2) X10^6/uL Hgb 13.4 (12.0-16.0) g/dL Hct 40.1 (36-46) % MCV 89.2 (80-100) fL MCH 29.9 (26-34) PG MCHC 33.6 (30-36) % RDW 13.7 (11.6-14.8) % Plt Count 153 (150-400) X10^3/uL Neut % (Auto) 62.0 (50-75) % Lymph % (Auto) 27.0 (25-40) % [place] % (Auto) 9.1 (3-14) % Eos % (Auto) 1.3 L (2-4) % Baso % (Auto) 0.6 (0-2) % Neut # (Auto) 3000 (3508-1747) /uL Lymph # (Auto) 1300 (8179-2138) /uL [place] # (Auto) 400 (0-900) /uL Eos # (Auto) 100 (0-450) /uL Baso # (Auto) 0 (0-100) /uL PT 10.5 (10.1-12.7) SECONDS INR 0.9 (0.9-1.3) APTT 27 (26-36) SECONDS D-Dimer 251 (<500) ng/ml Sodium 136 L (137-145) mmol/L Potassium 3.7 (3.4-5.1) mmol/L Chloride 101 (98-107) mmol/L Carbon Dioxide 32 (22-32) mmol/L BUN 24 H (7-17) mg/dL Creatinine 0.52 (0.52-1.04) mg/dL Estimated GFR > 60 (>60) mL/min BUN/Creatinine Ratio 46.2 H (6-22) Glucose 110 (80-110) mg/dL Calcium 8.9 (8.4-10.2) mg/dL Magnesium 2.1 (1.6-2.3) mg/dL Total Bilirubin 0.6 (0.2-1.3) mg/dL AST 22 (14-36) IU/L ALT 15 (<35) IU/L Alkaline Phosphatase 82 (38-126) U/L Total Creatine Kinase 23 L (30-135) U/L Troponin I < 0.012 (0.01-0.034) ng/mL NT-Pro-B Natriuret Pep 152 (<450) pg/mL Total Protein 6.7 (6.3-8.2) g/dL Albumin 3.9 (3.5-5.0) g/dL Globulin 2.8 (1.7-4.1) g/dL Albumin/Globulin Ratio 1.4 (1.0-2.8) Lipase 27 (23-300) U/L TSH 2.50 (0.47-4.68) uIU/mL Ur Bilirubin Confirm Negative (Negative) Urine RBC 0-1/hpf (0-5/HPF) Urine WBC 0-1/hpf (0-5/HPF) Ur Squamous Epith Cells 1-5 /hpf (0-5/HPF) Calcium Oxalate Crystal Moderate H Urine Bacteria Occasional (0-1) (None) Urine Dip Bedside Urine Glucose Negative Bedside Urine Bilirubin + 1 Bedside Urine Ketone - Negative Urine Specific [place] 1.030 Bedside Urine Occult Blood - Negative Bedside Urine pH 6.0 Bedside Urine Protein +/- 15 Bedside Urine Urobilinogen - Negative Bedside Urine Nitrite - Negative Bedside Urine Leukocytes +/- 15 Esterase Imaging Data Chest x-ray: Radiologist's Impression: PROCEDURE: XR CHEST 1V INDICATIONS: chest pain TECHNIQUE: One view of the chest was acquired. COMPARISON: [facility], CR, XR CHEST 1V, 12/05/2021, 19:37. FINDINGS: Surgical changes and devices: None. Lungs and pleura: Lungs are clear. No pleural effusions or pneumothorax. Mediastinum: Mediastinal contours appear normal. Heart size is normal. Bones and chest wall: No suspicious bony lesions. Overlying soft tissues appear unremarkable. IMPRESSION: No acute cardiopulmonary findings Approved by: Jeremiah Grady M.D. on 03/22/2023 at 9:44 ECG Data Interpretation: Sinus rhythm rate 88 MD interval 160 QRS [address] changes MDM Narrative Medical decision making narrative: Patient is 77-year-old female with history of overactive bladder presenting today with significant swelling of lower extremities. They are quite swollen tender to touch. She is no history of congestive heart failure no difficulty breathing. Blood work has been reviewed: No leukocytosis no anemia thrombocytopenia, sodium 136 potassium 3.7 chloride 1 0 CO2 32 BUN 24 creatinine 0.52 which is baseline, negative troponin TSH 2.5 BNP 152. D-dimer is also undetectable Urinalysis shows calcium oxalate crystals and occasional bacteria no leukocytes no nitrates Chest x-ray negative At this time patient clinically presents with fluid retention in her lower extremities. There is some very mild erythema that I think is likely secondary to swelling. She is responded well to 20 mg Lasix. No evidence of congestive heart failure at this time. Urinalysis is not convincing of a UTI at this time. She also has no abdominal pain nausea or vomiting to suggest kidney stone. At this time I think reasonable to start Lasix 20 mg once a day for couple days and have her follow-up. D-dimer is negative this is highly unusual presentation for DVT and do not believe she needs an ultrasound. Considered antibiotics however she has no fever or chills. She also has no leukocytosis, also erythema is just very mild bilaterally. Discharge Plan Departure Patient Disposition: Home Clinical Impression: Bilateral lower extremity edema Instructions: DI for Peripheral Edema -- Bilateral Activity Restrictions/Additional Instructions: *You have been diagnosed with lower extremity edema *What to do: At this time will hold off antibiotics. I do recommend compression socks if you are able. Will try a couple days of a water pill. He will urinate quite a bit but this should help the swelling. Please have your electrolytes and legs rechecked this week with your primary care provider *Continue to take medications as directed Lasix 20 mg once a day for 3 days--> SEnt to ny negin crow *Follow up with your primary care provider in 2-3 days or call [phone] *Return to ER if you should have increasing swelling redness pain fever inability to walk chest pain shortness of breath or any new, worsening or concerning symptoms Prescriptions: New furosemide [Lasix] 20 mg tablet 20 mg PO DAILY Qty: 3 0RF No Action eszopiclone 3 mg tablet 3 mg PO BEDTIME PRN (Reason: Sleep) trazodone 100 mg tablet 100 mg PO BEDTIME tramadol 50 mg tablet 50 mg PO QID PRN (Reason: Pain (Scale Score 1-3)) ropinirole 1 mg tablet 2 mg PO DAILY Referrals: Cinthia Beatty PA-C [Primary Care Provider] - Stand Alone Forms: Patient Portal/API
[2023-03-22 10:42] LABS: NT-proBNP (BNP-Adult 18+) 152 pg/mL (<450)
[2023-03-22 10:45] LABS: Troponin I < 0.012 ng/mL (0.01-0.034)
[2023-03-22 10:58] LABS: D Dimer 251 ng/ml (<500)
[2023-03-22] MEDS: FUROSEMIDE 40 MG/4 ML VIAL 20 MG IV (11:20)
== END 2023-03-22 13:14 | disposition home or self-care (01) ==
PROVIDERS: Emergency Provider Emergency Medicine; PCP Student in an Organized Health Care Education/Training Program
DX: R60.0 Localized edema (principal); R07.9 Chest pain, unspecified
CPT/HCPCS: 36415; 71045; 80053; 81003; 81015; 82550; 83690; 83735; 83880; 84443; 84484; 85025; 85379; 85610; 85730; 93005; 93010; 96374; 99284; J1940

== ENCOUNTER 2023-04-09 18:15 | Emergency (ER) | payer MEDICARE, OTHER, SELFPAY ==
[2022-03-24 14:52] VITALS: BMI 19.8
[2023-04-09] VITALS (10 sets, daily range): BP systolic 106–136; BP diastolic 57–70; PULSE 80–88; RESP 14–21; TEMP 36.4–36.5; O2SAT 95–99; BMI 21.5
--- NOTE | 2023-04-09 18:33 | DI.RAD.S_ITS ---
PROCEDURE: XR CHEST 1V INDICATIONS: fall TECHNIQUE: One view of the chest was acquired. COMPARISON: [facility], CR, XR CHEST 1V, 03/22/2023, 10:28. FINDINGS: Surgical changes and devices: None. Lungs and pleura: Lungs are clear. No pleural effusions or pneumothorax. Mediastinum: Mediastinal contours appear normal. Heart size is normal. Bones and chest wall: No suspicious bony lesions. Overlying soft tissues appear unremarkable. IMPRESSION: No acute cardiopulmonary abnormality is seen. Dictated by: Jarrod Vidal M.D. on 04/09/2023 at 19:36 Approved by: Jarrod Vidal M.D. on 04/09/2023 at 19:37
--- NOTE | 2023-04-09 18:33 | DI.CT.S_ITS ---
PROCEDURE: CT HEAD/BRAIN WO CON INDICATIONS: fall TECHNIQUE: Noncontrast 4.5 mm thick angled axial sections acquired from the foramen magnum to the vertex, with coronal and sagittal reformats. For radiation dose reduction, the following was used: automated exposure control, adjustment of mA and/or kV according to patient size. COMPARISON: [facility], CT, CT CERVICAL SPINE WO CON, 04/09/2023, 18:49. [facility], CT, CT HEAD/BRAIN WO CON, 12/05/2021, 19:17. FINDINGS: Image quality: Mild streak artifact can be seen through the skull base. CSF spaces: Basal cisterns are patent. No extra-axial fluid collections. The ventricles are symmetric in size and shape. Brain: No intracranial bleeds or masses. There is cerebral volume loss for age, with resultant ventricular and sulcal prominence. There are periventricular and deep white matter chronic small vessel ischemic changes. There is intracranial internal carotid artery atherosclerosis. Skull and face: Mild right temporal and right superior scalp hematoma can be seen. No associated calvarial fracture can be seen. Calvarium and visualized facial bones appear intact, without suspicious lesions. Sinuses: Visualized sinuses and mastoids are clear. IMPRESSION: No acute intracranial pathology. No acute intracranial hemorrhage is seen. Right-sided scalp hematomas, without fracture identified. Dictated by: Triston Ivory M.D. on 04/09/2023 at 17:58 Approved by: Triston Ivory M.D. on 04/09/2023 at 18:00
--- NOTE | 2023-04-09 18:33 | DI.CT.S_ITS ---
PROCEDURE: CT CERVICAL SPINE WO CON INDICATIONS: fall TECHNIQUE: Noncontrast 3 mm thick sections acquired from the skull base to the T4 level. Sagittal and coronal reformats were then constructed. For radiation dose reduction, the following was used: automated exposure control, adjustment of mA and/or kV according to patient size. COMPARISON: None. FINDINGS: Image quality: There is artifact associated with the metallic dental work. Bones: No fractures or dislocations. Visualized superior ribs are intact. Focal degenerative change is seen involving the C1-C2 interface anteriorly. There is at least moderate disc space narrowing seen at C5-C6 and C6-C7. Soft tissues: Prevertebral soft tissues are normal in thickness. No paravertebral hematomas. No apical pneumothoraces. IMPRESSION: Negative for acute cervical spine fracture. Cervical spine degenerative changes are seen, which are worst inferiorly. Dictated by: Triston Ivory M.D. on 04/09/2023 at 18:00 Approved by: Tritson Ivory M.D. on 04/09/2023 at 18:02
--- NOTE | 2023-04-09 18:39 | ED_ITS ---
HPI - Fall General Chief Complaint: Fall Stated Complaint: GLF Time Seen by Provider: 04/09/23 18:16 Source: patient, family and EMS Mode of arrival: EMS History of Present Illness HPI Narrative: Patient is a 77-year-old female with chronic pain history of chronic opiate use, urinary frequency, PVCs presenting today with slurring speech and ground level fall. reports that he got home he noticed that she had some garbled speech was shows a little bit more than normal she went to the bathroom and fell down. There is no obvious injury from the fall. She is not on anticoagulation. She is awake alert oriented but does have some slurring of speech she is able to follow commands. No facial droop. I previously saw her on March 21 with bilateral peripheral edema. No history of congestive heart failure. She was given a couple days of Lasix legs today are mildly swollen but overall look improved. She does have a bruise on her right medial knee and right anterior smith. He reports that the knee seems new but the smith is from a garbage can couple days ago Related Data Home Medications Medication Instructions Recorded Confirmed ropinirole 1 mg tablet 2 mg PO DAILY 03/20/21 03/27/22 tramadol 50 mg tablet 50 mg PO QID PRN Pain (Scale Score 03/20/21 03/27/22 1-3) trazodone 100 mg tablet 100 mg PO BEDTIME 03/20/21 03/27/22 eszopiclone 3 mg tablet 3 mg PO BEDTIME PRN Sleep 06/12/21 03/27/22 Previous Rx's Medication Instructions Recorded furosemide 20 mg tablet (Lasix) 20 mg PO DAILY #3 tabs 03/22/23 Allergies Allergy/AdvReac Type Severity Reaction Status Date / Time Penicillins Allergy Unknown Rash Verified 04/09/23 18:29 Patient History Medical History Obstructive sleep apnea of adult PVCs (premature ventricular contractions) Urinary frequency Nocturia Overactive bladder Arthritis Surgical History Hx of appendectomy Hx of colonoscopy Hx of cholecystectomy Hx of shoulder surgery Hx of arthroscopic knee surgery History of knee replacement Social History marital status: number of children: 2 household members: spouse 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 HEENT: Head atraumatic,EOMI, pupils reactive, face symmetric, moist mucous membranes CARDIOVASCULAR: Regular rate and rhythm without murmurs, rubs or gallops. RESPIRATORY: Breath sounds equal bilaterally, no wheezes rales or rhonchi. ABDOMEN: Soft, nontender. Normoactive bowel sounds all 4 quadrants. No guarding or rebound. EXTREMITIES: Normal range of motion, no clubbing or edema. Neurovascularly intact NEUROLOGICAL: Alert and oriented x4.Normal gait, slight slurring of speech Cranial nerves II through XII grossly intact. Bilateral ataxia with both arms and legs, strength equal bilaterally, no dysarthria or aphasia, sensation in tact to soft touch bilaterally, no visual changes, no facial droop SKIN: Warm, dry, no laceration, no petechiae, no rashes or lesions. Course Orders Ordered: ED Orders 04/09/23 18:33 CT cervical spine wo con Stat CT head/brain wo con Stat Chest [XR chest 1V] Stat 04/09/23 19:00 Complete Blood Count AUTO DIFF Stat Comprehensive Metabolic Panel Stat ETOH [Ethanol (ETOH)] Stat Lipase Stat NT-proBNP (BNP-Adult 18+) Stat PTT Partial Thromboplastin Jony Stat Prothrombin Time INR Stat Troponin & CK Cardiac Panel Stat 04/09/23 19:12 EKG-12 Lead Stat 04/09/23 19:50 Urine Drug Screen, Rapid Stat Vital Signs Vital signs: Vital Signs - 8 hr 04/09/23 19:30 04/09/23 19:30 04/09/23 19:53 Temperature Pulse Rate 82 Respiratory Rate 21 Blood Pressure 106/64 136/70 Pulse Oximetry 98 Oxygen Delivery Method 04/09/23 19:53 04/09/23 20:00 04/09/23 20:00 Temperature Pulse Rate 81 80 Respiratory Rate 14 15 Blood Pressure 123/58 L Pulse Oximetry 97 99 Oxygen Delivery Method 04/09/23 20:15 04/09/23 20:15 04/09/23 20:30 Temperature Pulse Rate 88 Respiratory Rate 18 Blood Pressure 125/60 111/63 Pulse Oximetry 95 Oxygen Delivery Method 04/09/23 20:30 04/09/23 21:00 04/09/23 21:00 Temperature 97.5 F L Pulse Rate 84 87 Respiratory Rate 16 21 Blood Pressure 126/59 L Pulse Oximetry 98 Oxygen Delivery Method Room Air - Fall Lab Data 04/09/23 19:00 04/09/23 19:00 Labs: Lab Results 04/09/23 04/09/23 Range/Units 19:00 19:50 WBC 7.7 (4.5-11.0) X10^3/uL RBC 4.60 (4.0-5.2) X10^6/uL Hgb 13.9 (12.0-16.0) g/dL Hct 41.0 (36-46) % MCV 89.2 (80-100) fL MCH 30.1 (26-34) PG MCHC 33.8 (30-36) % RDW 13.5 (11.6-14.8) % Plt Count 220 (150-400) X10^3/uL Neut % (Auto) 68.2 (50-75) % Lymph % (Auto) 22.7 L (25-40) % Kemper % (Auto) 7.8 (3-14) % Eos % (Auto) 1.0 L (2-4) % Baso % (Auto) 0.3 (0-2) % Neut # (Auto) 5300 (4308-3507) /uL Lymph # (Auto) 1700 (6763-7085) /uL Kemper # (Auto) 600 (0-900) /uL Eos # (Auto) 100 (0-450) /uL Baso # (Auto) 0 (0-100) /uL PT 10.3 (9.4-12.5) SECONDS INR 0.9 (0.9-1.3) APTT 25 L (25.1-36.5) SECONDS Sodium 136 L (137-145) mmol/L Potassium 3.4 (3.4-5.1) mmol/L Chloride 97 L (98-107) mmol/L Carbon Dioxide 31 (22-32) mmol/L BUN 25 H (7-17) mg/dL Creatinine 0.56 (0.52-1.04) mg/dL Estimated GFR > 60 (>60) mL/min BUN/Creatinine Ratio 44.6 H (6-22) Glucose 126 H (80-110) mg/dL Calcium 9.3 (8.4-10.2) mg/dL Total Bilirubin 0.4 (0.2-1.3) mg/dL AST 27 (14-36) IU/L ALT 19 (<35) IU/L Alkaline Phosphatase 78 (38-126) U/L Total Creatine Kinase 83 (30-135) U/L Troponin I < 0.012 (0.01-0.034) ng/mL NT-Pro-B Natriuret Pep 85 (<450) pg/mL Total Protein 7.2 (6.3-8.2) g/dL Albumin 4.2 (3.5-5.0) g/dL Globulin 3.0 (1.7-4.1) g/dL Albumin/Globulin Ratio 1.4 (1.0-2.8) Lipase 39 (23-300) U/L U Opiates 300ng/mL cut Negative (Negative) Ur Oxycodone Screen Negative (Negative) Urine Methadone Screen Negative (Negative) Ur Barbiturates Screen Negative (Negative) U Tricyclic Antidepress Negative (Negative) Ur Phencyclidine Scrn Negative (Negative) Ur Amphetamines Screen Negative (Negative) U Methamphetamines Scrn Negative (Negative) Ur MDMA Scrn (Ecstasy) Negative (Negative) U Benzodiazepines Scrn Negative (Negative) Urine Cocaine Screen Negative (Negative) U Marijuana (THC) Screen Negative (Negative) Ethyl Alcohol 181 H ( - 10) mg/dL Point of Care Testing Glucose POC [address] scan - head: Radiologist's Impression: PROCEDURE: CT HEAD/BRAIN WO CON INDICATIONS: fall TECHNIQUE: Noncontrast 4.5 mm thick angled axial sections acquired from the foramen magnum to the vertex, with coronal and sagittal reformats. For radiation dose reduction, the following was used: automated exposure control, adjustment of mA and/or kV according to patient size. COMPARISON: [facility], CT, CT CERVICAL SPINE WO CON, 04/09/2023, 18:49. [facility], CT, CT HEAD/BRAIN WO CON, 12/05/2021, 19:17. FINDINGS: Image quality: Mild streak artifact can be seen through the skull base. CSF spaces: Basal cisterns are patent. No extra-axial fluid collections. The ventricles are symmetric in size and shape. Brain: No intracranial bleeds or masses. There is cerebral volume loss for age, with resultant ventricular and sulcal prominence. There are periventricular and deep white matter chronic small vessel ischemic changes. There is intracranial internal carotid artery atherosclerosis. Skull and face: Mild right temporal and right superior scalp hematoma can be seen. No associated calvarial fracture can be seen. Calvarium and visualized facial bones appear intact, without suspicious lesions. Sinuses: Visualized sinuses and mastoids are clear. IMPRESSION: No acute intracranial pathology. No acute intracranial hemorrhage is seen. Right-sided scalp hematomas, without fracture identified. Dictated by: Triston Ivory M.D. on 04/09/2023 at 17:58 Approved by: Tirston Ivory M.D. on 04/09/2023 at 18:00 CT - cervical spine: Radiologist's Impression: PROCEDURE: CT CERVICAL SPINE WO CON INDICATIONS: fall TECHNIQUE: Noncontrast 3 mm thick sections acquired from the skull base to the T4 level. Sagittal and coronal reformats were then constructed. For radiation dose reduction, the following was used: automated exposure control, adjustment of mA and/or kV according to patient size. COMPARISON: None. FINDINGS: Image quality: There is artifact associated with the metallic dental work. Bones: No fractures or dislocations. Visualized superior ribs are intact. Focal degenerative change is seen involving the C1-C2 interface anteriorly. There is at least moderate disc space narrowing seen at C5-C6 and C6-C7. Soft tissues: Prevertebral soft tissues are normal in thickness. No paravertebral hematomas. No apical pneumothoraces. IMPRESSION: Negative for acute cervical spine fracture. Cervical spine degenerative changes are seen, which are worst inferiorly. Dictated by: Triston Ivory M.D. on 04/09/2023 at 18:00 Chest x-ray: Radiologist's Impression: PROCEDURE: XR CHEST 1V INDICATIONS: fall TECHNIQUE: One view of the chest was acquired. COMPARISON: [facility], CR, XR CHEST 1V, 03/22/2023, 10:28. FINDINGS: Surgical changes and devices: None. Lungs and pleura: Lungs are clear. No pleural effusions or pneumothorax. Mediastinum: Mediastinal contours appear normal. Heart size is normal. Bones and chest wall: No suspicious bony lesions. Overlying soft tissues appear unremarkable. IMPRESSION: No acute cardiopulmonary abnormality is seen. Dictated by: Jarrod Vidal M.D. on 04/09/2023 at 19:36 ECG Data Interpretation: Normal sinus rhythm rate 83 NE interval 152 QRS [address] changes MDM Narrative Medical decision making narrative: Patient is 77-year-old female presents today with fall slurring speech. reports that she has polypharmacy chronic pain medications on tramadol sleeping pills and drinks out. Patient reports that she only has 1 cocktail daily however alcohol level today is 181. During her stay and reassessment slurring of speech has improved. Head CT, cervical spine CT and chest x-ray are negative. Other blood work reassuring without evidence of infection anemia hypoglycemia or elevated troponin. Patient has ambulated with a walker. She reports that she normally walks with a cane. She is some bruising on her right leg. She is still can boost. She states that she gets an injection in her knee for the an obvious medial contusion. At this time she clinically has improved I think presentation of fall with some slurring of speech is likely secondary to polysubstance rather than CVA. Discharge Plan Departure Patient Disposition: Home Clinical Impression: Fall, Alcohol intoxication Instructions: Alcohol Use Disorder Activity Restrictions/Additional Instructions: *You have been diagnosed with alcohol intoxication *What to do: At this time I think he fell today due to medications and alcohol. I would decrease alcohol slowly so you do not go through withdrawal. Ice on bruising if there significant swelling *Continue to take medications as directed *Follow up with your primary care provider in 2-3 days or call [phone] *Return to ER if you should have increased falls increased confusion or any new, worsening or concerning symptoms Prescriptions: No Action furosemide [Lasix] 20 mg tablet 20 mg PO DAILY Qty: 3 0RF eszopiclone 3 mg tablet 3 mg PO BEDTIME PRN (Reason: Sleep) trazodone 100 mg tablet 100 mg PO BEDTIME tramadol 50 mg tablet 50 mg PO QID PRN (Reason: Pain (Scale Score 1-3)) ropinirole 1 mg tablet 2 mg PO DAILY Referrals: Cinthia Beatty PA-C [Primary Care Provider] - Stand Alone Forms: Patient Portal/API
[2023-04-09 19:16] LABS: Add Manual Diff / Slide Review NO; Basophils Absolute Auto 0 /uL (0-100); Basophils Percent Auto 0.3 % (0-2); Eosinophils Absolute Auto 100 /uL (0-450); Hemoglobin 13.9 g/dL (12.0-16.0); Lymphocytes Absolute Auto 1700 /uL (1100-4500); Lymphocytes Percent Auto 22.7 % (25-40); Mean Corpuscular HGB Conc 33.8 % (30-36); Mean Corpuscular Hemoglobin 30.1 PG (26-34); Mean Corpuscular Volume 89.2 fL (80-100); Monocytes Absolute Auto 600 /uL (0-900); Monocytes Percent Auto 7.8 % (3-14); Neutrophils Absolute Auto 5300 /uL (1500-7000); Neutrophils Percent Auto 68.2 % (50-75); Platelet Count 220 X10^3/uL (150-400); Red Cell Distribution Width 13.5 % (11.6-14.8); White Blood Cell Count 7.7 X10^3/uL (4.5-11.0)
[2023-04-09 19:26] LABS: INR 0.9 (0.9-1.3); Prothrombin Time 10.3 SECONDS (9.4-12.5)
[2023-04-09 19:27] LABS: Ethanol (ETOH) 181 mg/dL
[2023-04-09 19:28] LABS: Alanine Aminotransferase 19 IU/L (<35); Albumin 4.2 g/dL (3.5-5.0); Albumin Globulin Ratio 1.4 (1.0-2.8); Alkaline Phosphatase 78 U/L (38-126); Aspartate Aminotransferase 27 IU/L (14-36); BUN Creatinine Ratio 44.6 (6-22); Bilirubin Total 0.4 mg/dL (0.2-1.3); Blood Urea Nitrogen 25 mg/dL (7-17); Calcium 9.3 mg/dL (8.4-10.2); Carbon Dioxide 31 mmol/L (22-32); Chloride 97 mmol/L (98-107); Creatine Kinase 83 U/L (30-135); Estimated Glomerular Filt Rate > 60 mL/min (>60); Glucose 126 mg/dL (80-110); HEMOLYSIS < 15 (0-50); Lipase 39 U/L (23-300); Potassium 3.4 mmol/L (3.4-5.1); Sodium 136 mmol/L (137-145); Total Protein 7.2 g/dL (6.3-8.2)
[2023-04-09 19:29] LABS: PTT Partial Thromboplastin Tim 25 SECONDS (25.1-36.5)
[2023-04-09 19:39] LABS: NT-proBNP (BNP-Adult 18+) 85 pg/mL (<450); Troponin I < 0.012 ng/mL (0.01-0.034)
[2023-04-09 20:08] LABS: Ur Creatinine Normal (Normal); Ur Specific Gravity Normal (Normal); Urine pH Normal (Normal)
[2023-04-09 20:09] LABS: UR Morphine/Opiate cutoff 300 Negative (Negative); Urine Amphetamines Negative (Negative); Urine Barbiturates Negative (Negative); Urine Benzodiazepines Negative (Negative); Urine Cocaine Negative (Negative); Urine MDMA Negative (Negative); Urine Methadone Negative (Negative); Urine Methamphetamines Negative (Negative); Urine Oxycodone Negative (Negative); Urine Phencyclidine Negative (Negative); Urine Tetrahydrocannabinol Negative (Negative); Urine Tricyclic Antidepressant Negative (Negative)
== END 2023-04-09 21:23 | disposition home or self-care (01) ==
PROVIDERS: Emergency Provider Emergency Medicine; PCP Student in an Organized Health Care Education/Training Program
DX: F10.129 Alcohol abuse with intoxication, unspecified (principal); Y90.6 Blood alcohol level of 120-199 mg/100 ml
CPT/HCPCS: 36415; 70450; 71045; 72125; 80053; 80305; 80320; 82550; 82962; 83690; 83880; 84484; 85025; 85610; 85730; 93005; 99284

== ENCOUNTER → 2023-04-21 13:44 | Outpatient (CLI) | payer MEDICARE, OTHER, SELFPAY ==
[2022-03-24 14:52] VITALS: BMI 19.8
--- NOTE | 2023-04-21 | DI.RAD.S_ITS ---
PROCEDURE: XR SHOULDER RT MIN 2V INDICATIONS: Pain in right shoulder TECHNIQUE: 3 views of the shoulder were acquired. COMPARISON: [facility], CR, XR CHEST 1V, 03/22/2023, 10:28. [facility], CT, CT CERVICAL SPINE WO CON, 04/09/2023, 18:49. [facility], CR, XR CHEST 1V, 04/09/2023, 18:51. [facility], CR, XR SHOULDER RT MIN 2V, 12/28/2020, 20:23. FINDINGS: Bones: There is a distal clavicular shaft fracture with superior angulation. No suspicious bony lesions. Mild degenerative joint disease in right shoulder. Visualized ribs appear intact. Soft tissues: No suspicious soft tissue calcifications. IMPRESSION: 1. Distal clavicular shaft fracture with superior angulation. 2. 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 Dictated by: Sharonda Jimenez M.D. on 04/21/2023 at 16:19 Approved by: Sharonda Jimenez M.D. on 04/21/2023 at 16:23
== END ==
PROVIDERS: PCP Student in an Organized Health Care Education/Training Program; Referring Provider Internal Medicine; Visit Provider Internal Medicine
DX: S42.021A Displaced fracture of shaft of right clavicle, initial encounter for closed fracture (principal); M25.511 Pain in right shoulder
CPT/HCPCS: 73030

== ENCOUNTER 2023-07-03 20:07 | Emergency (ER) | payer MEDICARE, OTHER, SELFPAY ==
[2022-03-24 14:52] VITALS: BMI 19.8
[2023-07-03] VITALS (8 sets, daily range): BP systolic 117–123; BP diastolic 56–59; PULSE 71–85; RESP 13–54; O2SAT 96–99; BMI 19.0
--- NOTE | 2023-07-03 20:14 | DI.RAD.S_ITS ---
PROCEDURE: XR CHEST 1V INDICATIONS: chest pain TECHNIQUE: One view of the chest was acquired. COMPARISON: [facility], CR, XR CHEST 1V, 04/09/2023, 18:51. FINDINGS: Surgical changes and devices: None. Lungs and pleura: Lungs are clear. No pleural effusions or pneumothorax. Mediastinum: Mediastinal contours appear normal. Heart size is normal. Bones and chest wall: No suspicious bony lesions. Overlying soft tissues appear unremarkable. IMPRESSION: Stable radiographic evaluation of the chest without acute cardiopulmonary abnormalities or focal airspace disease. Dictated by: Jarrod Vidal M.D. on 07/03/2023 at 21:07 Approved by: Jarrod Vidal M.D. on 07/03/2023 at 21:07
--- NOTE | 2023-07-03 20:19 | ED.SYNCOPE ---
HPI - Syncope General Chief Complaint: Syncope Stated Complaint: syncope Time Seen by Provider: 07/03/23 20:14 Source: patient and EMS Mode of arrival: EMS Limitations: no limitations History of Present Illness HPI narrative: 77-year-old female with history of chronic opiate use for chronic pain, PVCs, chronic alcohol use who presents with complaint of syncopal episode. Patient was at home had dinner this evening was reportedly standing and passed out. EMS states her pressure was 60 systolic initially improved when she was laid down and started on fluids. Patient denies any issues currently states she did not feel bad before the episode occurred. She does not recall the episode. Denies headache, denies neck pain, no chest pain or shortness of breath, no nausea or vomiting, no numbness tingling or weakness of extremities, no diarrhea constipation, no dysuria urgency or frequency, no swelling of extremities. Patient states she is on medication to help with swelling in her legs, tramadol and other medication. Patient states allergic to penicillin. Remote history of knee surgery. Denies tobacco, states she had some wine as well as some bourbon this evening. Denies any recreation drugs. Related Data Home Medications Medication Instructions Recorded Confirmed ropinirole 1 mg tablet 2 mg PO DAILY 03/20/21 03/27/22 tramadol 50 mg tablet 50 mg PO QID PRN Pain (Scale Score 03/20/21 03/27/22 1-3) trazodone 100 mg tablet 100 mg PO BEDTIME 03/20/21 03/27/22 eszopiclone 3 mg tablet 3 mg PO BEDTIME PRN Sleep 06/12/21 03/27/22 Previous Rx's Medication Instructions Recorded furosemide 20 mg tablet (Lasix) 20 mg PO DAILY #3 tabs 03/22/23 Allergies Allergy/AdvReac Type Severity Reaction Status Date / Time Penicillins Allergy Unknown Rash Verified 04/09/23 18:29 Review of Systems Review of Systems ROS Unobtainable: All systems reviewed & are unremarkable except as noted in HPI and below Patient History Medical History Obstructive sleep apnea of adult PVCs (premature ventricular contractions) Urinary frequency Nocturia Overactive bladder Arthritis Surgical History Hx of appendectomy Hx of colonoscopy Hx of cholecystectomy Hx of shoulder surgery Hx of arthroscopic knee surgery History of knee replacement Social History marital status: number of children: 2 household members: spouse 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 HEAD: No evidence of trauma, no raccoon/Love sign. NECK: Nontender, painless range of motion, trachea midline Negative Nexus criteria, there is no midline line tenderness, distracting injury, altered mental status, neuro deficit, recent EtOH. EYES: PERRLA, EOMI ENT: External inspection normal, trachea is midline, TM's are normal no hemotypanum, Nares are clear, no septal hematoma, no dental or oral injury, airway is normal and with normal occlusion, No bony tenderness RESP: Chest is nontender and has symmetric movement, no ecchymosis, breath sounds are normal no crackles, wheezes or rales CVS: Heart sounds are normal, no murmur noted, No JVD. ABG/GI: Nontender, soft, normal bowel sounds, no distention, no organomegaly, pelvic rock is negative NEURO: Oriented AOx3, neuro is grossly intact, sensation and motor is normal all 4 extremities moving, cranial nerves II through XII are intact, GCS is 15 PSYCH: Normal mood and affect SKIN: Intact, warm and dry, no crepitus and without decubitus BACK: No CVA tenderness, no vertebral tenderness, no step-off's, no crepitus EXT: Atraumatic, hips are nontender, no pedal edema, normal color and temperature, normal range of motion of extremities with normal tendon exam, 2+ pulses in all four extremities Initial Vital Signs Initial Vital Signs: Vital Signs Pulse Rate 72 07/03/23 20:08 Respiratory Rate 18 07/03/23 20:08 Blood Pressure 117/58 L 07/03/23 20:08 Pulse Oximetry 99 07/03/23 20:08 Oxygen Delivery Method Room Air 07/03/23 20:08 Scores GCS [place] coma scale eye opening: Spontaneous [place] coma scale verbal response: Orientated [place] coma scale motor response: Obey commands [place] coma scale total score: 15 Course Orders Ordered: ED Orders 07/03/23 20:13 BNP [NT-proBNP (BNP-Adult 18+)] Stat Complete Blood Count AUTO DIFF Stat Comprehensive Metabolic Panel Stat ETOH [Ethanol (ETOH)] Stat Lipase Stat Magnesium Stat PTT Partial Thromboplastin Jony Stat Prothrombin Time INR Stat Troponin & CK Cardiac Panel Stat 07/03/23 20:14 XR chest 1V Stat EKG-12 Lead Stat Discontinued Medications Aspirin (Aspirin 81 Mg Chew Tab) 324 mg PO NOW ONE Stop: 07/03/23 20:15 Vital Signs Vital signs: Vital Signs - 8 hr 07/03/23 20:08 07/03/23 20:10 07/03/23 20:12 Pulse Rate 72 71 Respiratory Rate 18 41 H Blood Pressure 117/58 L 117/58 L Pulse Oximetry 99 Oxygen Delivery Method Room Air 07/03/23 20:30 07/03/23 20:30 07/03/23 21:00 Pulse Rate 74 Respiratory Rate 13 Blood Pressure 117/56 L 123/56 L Pulse Oximetry 98 Oxygen Delivery Method 07/03/23 21:00 07/03/23 21:30 07/03/23 21:30 Pulse Rate 76 76 Respiratory Rate 39 H 44 H Blood Pressure 121/59 L Pulse Oximetry 98 97 Oxygen Delivery Method 07/03/23 22:00 07/03/23 22:00 07/03/23 22:30 Pulse Rate 80 85 Respiratory Rate 54 H 13 Blood Pressure 119/57 L Pulse Oximetry 96 97 Oxygen Delivery Method Room Air MDM - Syncope Lab Data 07/03/23 20:13 07/03/23 20:13 Labs: Lab Results 07/03/23 Range/Units 20:13 WBC 10.2 (4.5-11.0) X10^3/uL RBC 4.50 (4.0-5.2) X10^6/uL Hgb 13.6 (12.0-16.0) g/dL Hct 40.4 (36-46) % MCV 89.8 (80-100) fL MCH 30.2 (26-34) PG MCHC 33.6 (30-36) % RDW 14.5 (11.6-14.8) % Plt Count 227 (150-400) X10^3/uL Neut % (Auto) 42.7 L (50-75) % Lymph % (Auto) 48.3 H (25-40) % [place] % (Auto) 8.1 (3-14) % Eos % (Auto) 0.6 L (2-4) % Baso % (Auto) 0.3 (0-2) % Neut # (Auto) 4400 (1324-8305) /uL Lymph # (Auto) 4900 H (0224-5756) /uL [place] # (Auto) 800 (0-900) /uL Eos # (Auto) 100 (0-450) /uL Baso # (Auto) 0 (0-100) /uL PT 10.7 (9.4-12.5) SECONDS INR 0.9 (0.9-1.3) APTT 29 (25.1-36.5) SECONDS Sodium 138 (137-145) mmol/L Potassium 4.1 (3.4-5.1) mmol/L Chloride 101 (98-107) mmol/L Carbon Dioxide 25 (22-32) mmol/L BUN 30 H (7-17) mg/dL Creatinine 0.78 (0.52-1.04) mg/dL Estimated GFR > 60 (>60) mL/min BUN/Creatinine Ratio 38.5 H (6-22) Glucose 114 H (80-110) mg/dL Calcium 9.5 (8.4-10.2) mg/dL Magnesium 2.3 (1.6-2.3) mg/dL Total Bilirubin 0.4 (0.2-1.3) mg/dL AST 28 (14-36) IU/L ALT 20 (<35) IU/L Alkaline Phosphatase 64 (38-126) U/L Total Creatine Kinase < 20 L (30-135) U/L Troponin I < 0.012 (0.01-0.034) ng/mL NT-Pro-B Natriuret Pep 125 (<450) pg/mL Total Protein 7.3 (6.3-8.2) g/dL Albumin 4.4 (3.5-5.0) g/dL Globulin 2.9 (1.7-4.1) g/dL Albumin/Globulin Ratio 1.5 (1.0-2.8) Lipase 65 (23-300) U/L Ethyl Alcohol 53 H ( - 10) mg/dL Imaging Data Chest x-ray: Radiologist's Impression: [address] [address] XRay Report Signed Patient: Mery Reed MR#: [id number] : 1945 Acct:[id number] Age/Sex: 77 / F Date of Service: 07/03/23 Loc: ED Accession Number: [id number] Procedure: XR chest 1V Ordering Provider: Shira Benoit D.O. PROCEDURE: XR CHEST 1V INDICATIONS: chest pain TECHNIQUE: One view of the chest was acquired. COMPARISON: [facility], CR, XR CHEST 1V, 04/09/2023, 18:51. FINDINGS: Surgical changes and devices: None. Lungs and pleura: Lungs are clear. No pleural effusions or pneumothorax. Mediastinum: Mediastinal contours appear normal. Heart size is normal. Bones and chest wall: No suspicious bony lesions. Overlying soft tissues appear unremarkable. IMPRESSION: Stable radiographic evaluation of the chest without acute cardiopulmonary abnormalities or focal airspace disease. Dictated by: Jarrod Vidal M.D. on 07/03/2023 at 21:07 Approved by: Jarrod Vidal M.D. on 07/03/2023 at 21:07 ECG Data Attestation: I personally reviewed and interpreted this ECG as follows: Prior ECG tracings: not available for review Interpretation: Sinus rhythm rate of 74 PA 156 QRS 84 QTC 459. No acute ST elevation depression noted. Patient has prior from 04/09/2023 with no acute changes. [facility] Narrative Medical decision making narrative: 77 year old female presents with complaint of possible syncopal episode. Has been who is also now at bedside states that she did not actually fall down but was was looking altered and sort of lost tone. He states blood pressure was very low with EMS when they arrived. Patient did have several drinks this evening he describes wine as well as bourbon and states more than she typically drinks. Patient's pressure here has been appropriate, patient had about 500mL fluids with EMS. CBC shows normal white count, hemoglobin and platelets. Coags are negative, sodium is 138 potassium is 4 1 CO2 is 25 BUN elevated at 30 with a creatinine of 0.78, glucose is 114- LFTs total CK is less than 20 with a negative troponin. ETOH is 53. Chest x-ray is negative for acute change EKG shows sinus rhythm with no acute ST changes. Patient was able to ambulate here without any issue, no acute changes on telemetry blood pressure is appropriate she feels improved at this time. Discussed with patient and family could be a combination of little bit of dehydration at alcohol. Patient did not have any falls or trauma was not felt to necessitate a head CT. She is alert, appropriate patient and feel comfortable returning home she is felt appropriate for discharge home. Discharge Plan Departure Patient Disposition: Home Clinical Impression: Syncope Activity Restrictions/Additional Instructions: Follow up with your physician for recheck. I would recommend decreasing your alcohol intake, this can sometimes lead to altered mental status or passing out. Please return for recurrent episodes, new changes to mental status, new chest pain, shortness of breath, difficulty with movement, fevers, persistent vomiting or other new or concerning changes. Prescriptions: No Action furosemide [Lasix] 20 mg tablet 20 mg PO DAILY Qty: 3 0RF eszopiclone 3 mg tablet 3 mg PO BEDTIME PRN (Reason: Sleep) trazodone 100 mg tablet 100 mg PO BEDTIME tramadol 50 mg tablet 50 mg PO QID PRN (Reason: Pain (Scale Score 1-3)) ropinirole 1 mg tablet 2 mg PO DAILY Referrals: Cinthia Beatty PA-C [Primary Care Provider] - Stand Alone Forms: Patient Portal/API
[2023-07-03 20:21] LABS: Add Manual Diff / Slide Review NO; Basophils Absolute Auto 0 /uL (0-100); Basophils Percent Auto 0.3 % (0-2); Eosinophils Absolute Auto 100 /uL (0-450); Eosinophils Percent Auto 0.6 % (2-4); Hematocrit 40.4 % (36-46); Hemoglobin 13.6 g/dL (12.0-16.0); Lymphocytes Absolute Auto 4900 /uL (1100-4500); Lymphocytes Percent Auto 48.3 % (25-40); Mean Corpuscular HGB Conc 33.6 % (30-36); Mean Corpuscular Hemoglobin 30.2 PG (26-34); Mean Corpuscular Volume 89.8 fL (80-100); Monocytes Absolute Auto 800 /uL (0-900); Monocytes Percent Auto 8.1 % (3-14); Neutrophils Absolute Auto 4400 /uL (1500-7000); Neutrophils Percent Auto 42.7 % (50-75); Platelet Count 227 X10^3/uL (150-400); Red Cell Distribution Width 14.5 % (11.6-14.8); White Blood Cell Count 10.2 X10^3/uL (4.5-11.0)
[2023-07-03 20:30] LABS: INR 0.9 (0.9-1.3); Prothrombin Time 10.7 SECONDS (9.4-12.5)
[2023-07-03 20:37] LABS: Alanine Aminotransferase 20 IU/L (<35); Albumin 4.4 g/dL (3.5-5.0); Albumin Globulin Ratio 1.5 (1.0-2.8); Alkaline Phosphatase 64 U/L (38-126); Aspartate Aminotransferase 28 IU/L (14-36); BUN Creatinine Ratio 38.5 (6-22); Bilirubin Total 0.4 mg/dL (0.2-1.3); Blood Urea Nitrogen 30 mg/dL (7-17); Calcium 9.5 mg/dL (8.4-10.2); Carbon Dioxide 25 mmol/L (22-32); Chloride 101 mmol/L (98-107); Creatine Kinase < 20 U/L (30-135); Estimated Glomerular Filt Rate > 60 mL/min (>60); Globulin 2.9 g/dL (1.7-4.1); Glucose 114 mg/dL (80-110); HEMOLYSIS 16 (0-50); Lipase 65 U/L (23-300); Magnesium 2.3 mg/dL (1.6-2.3); Potassium 4.1 mmol/L (3.4-5.1); Sodium 138 mmol/L (137-145); Total Protein 7.3 g/dL (6.3-8.2)
[2023-07-03 20:39] LABS: PTT Partial Thromboplastin Tim 29 SECONDS (25.1-36.5)
[2023-07-03 20:48] LABS: Troponin I < 0.012 ng/mL (0.01-0.034)
[2023-07-03 20:59] LABS: NT-proBNP (BNP-Adult 18+) 125 pg/mL (<450)
[2023-07-03 23:36] LABS: Ethanol (ETOH) 53 mg/dL
== END 2023-07-03 22:57 | disposition home or self-care (01) ==
PROVIDERS: Emergency Provider Emergency Medicine; PCP Student in an Organized Health Care Education/Training Program
DX: R55 Syncope and collapse (principal); R07.9 Chest pain, unspecified; F10.129 Alcohol abuse with intoxication, unspecified; Y90.2 Blood alcohol level of 40-59 mg/100 ml
CPT/HCPCS: 71045; 80053; 80320; 82550; 83690; 83735; 83880; 84484; 85025; 85610; 85730; 99283; 99284

== ENCOUNTER 2023-08-05 20:48 | Emergency (ER) | payer MEDICARE, OTHER, SELFPAY ==
[2022-03-24 14:52] VITALS: BMI 19.8
[2023-08-05 20:51] VITALS: PULSE 75; O2SAT 98
[2023-08-05 20:54] VITALS: BP 145/65; PULSE 74; RESP 17; TEMP 36.7; O2SAT 98; BMI 18.2
--- NOTE | 2023-08-05 20:55 | DI.RAD.S_ITS ---
PROCEDURE: XR CHEST 1V INDICATIONS: chest pain TECHNIQUE: One view of the chest was acquired. COMPARISON: [facility], CR, XR CHEST 1V, 07/03/2023, 20:17. [facility], CR, XR CHEST 1V, 04/09/2023, 18:51. FINDINGS: Surgical changes and devices: None. Lungs and pleura: Lungs are clear. No pleural effusions or pneumothorax. Mediastinum: Mediastinal contours appear normal. Heart size is normal. Bones and chest wall: No suspicious bony lesions. Overlying soft tissues appear unremarkable. IMPRESSION: No acute cardiopulmonary abnormality is seen. Dictated by: Ryan Frey M.D. on 08/05/2023 at 21:49 Approved by: Ryan Frey M.D. on 08/05/2023 at 21:49
[2023-08-05 21:00] VITALS: BP 135/55; PULSE 74; RESP 14; O2SAT 98
[2023-08-05 21:18] LABS: PTT Partial Thromboplastin Tim 29 SECONDS (25.1-36.5)
[2023-08-05 21:19] LABS: Alanine Aminotransferase 56 IU/L (<35); Albumin Globulin Ratio 1.5 (1.0-2.8); Alkaline Phosphatase 69 U/L (38-126); Aspartate Aminotransferase 64 IU/L (14-36); BUN Creatinine Ratio 53.9 (6-22); Bilirubin Total 0.4 mg/dL (0.2-1.3); Blood Urea Nitrogen 41 mg/dL (7-17); Calcium 9.4 mg/dL (8.4-10.2); Carbon Dioxide 24 mmol/L (22-32); Chloride 105 mmol/L (98-107); Creatine Kinase 24 U/L (30-135); Estimated Glomerular Filt Rate > 60 mL/min (>60); Globulin 2.7 g/dL (1.7-4.1); Glucose 123 mg/dL (80-110); HEMOLYSIS 15 (0-50); Lipase 40 U/L (23-300); Magnesium 2.2 mg/dL (1.6-2.3); Potassium 4.5 mmol/L (3.4-5.1); Sodium 136 mmol/L (137-145); Total Protein 6.7 g/dL (6.3-8.2)
[2023-08-05 21:20] LABS: Add Manual Diff / Slide Review NO; Basophils Absolute Auto 0 /uL (0-100); Basophils Percent Auto 0.1 % (0-2); Eosinophils Absolute Auto 100 /uL (0-450); Hematocrit 36.3 % (36-46); Hemoglobin 12.2 g/dL (12.0-16.0); Lymphocytes Absolute Auto 3500 /uL (1100-4500); Lymphocytes Percent Auto 42.3 % (25-40); Mean Corpuscular HGB Conc 33.5 % (30-36); Mean Corpuscular Hemoglobin 30.8 PG (26-34); Mean Corpuscular Volume 91.9 fL (80-100); Monocytes Absolute Auto 600 /uL (0-900); Monocytes Percent Auto 7.4 % (3-14); Neutrophils Absolute Auto 4100 /uL (1500-7000); Neutrophils Percent Auto 49.2 % (50-75); Platelet Count 244 X10^3/uL (150-400); Red Blood Cell Count 3.95 X10^6/uL (4.0-5.2); Red Cell Distribution Width 15.6 % (11.6-14.8); White Blood Cell Count 8.4 X10^3/uL (4.5-11.0)
[2023-08-05 21:30] VITALS: BP 127/60; PULSE 70; RESP 12; O2SAT 98
[2023-08-05 21:31] LABS: Troponin I < 0.012 ng/mL (0.01-0.034)
--- NOTE | 2023-08-05 21:52 | PC.NURSE ---
MD Espitia at bedside.
--- NOTE | 2023-08-05 21:58 | ED.GENADULT ---
HPI - General Adult General Chief complaint: Syncope Stated complaint: syncope Time Seen by Provider: 08/05/23 21:08 Source: patient, family and EMS Mode of arrival: EMS Limitations: no limitations History of Present Illness HPI narrative: Patient is a 77-year-old female who is here for evaluation by EMS of a syncopal episode. It appears the patient was in her normal state of health. She was at her house. She states that she laid her head down on the counter and apparently lost consciousness. Her was with her and helped her to the ground. She did not fall. Did not hit her head. Per she was unconscious for approximately 30 seconds. No seizure-like activity. Upon awaking she was alert and oriented. Blood sugar by EMS was in the 130s. This has happened to her in the past. No specific diagnosis has been made. States prior to the event this evening she was not having chest pain or shortness of breath lightheadedness or headache or vision changes or nausea or vomiting. She did have ?1/2 glass? of wine this evening at the time of my initial exam patient was asymptomatic Related Data Home Medications Medication Instructions Recorded Confirmed ropinirole 1 mg tablet 2 mg PO DAILY 03/20/21 03/27/22 tramadol 50 mg tablet 50 mg PO QID PRN Pain (Scale Score 03/20/21 03/27/22 1-3) trazodone 100 mg tablet 100 mg PO BEDTIME 03/20/21 03/27/22 eszopiclone 3 mg tablet 3 mg PO BEDTIME PRN Sleep 06/12/21 03/27/22 Previous Rx's Medication Instructions Recorded furosemide 20 mg tablet (Lasix) 20 mg PO DAILY #3 tabs 03/22/23 Allergies Allergy/AdvReac Type Severity Reaction Status Date / Time Penicillins Allergy Unknown Rash Verified 04/09/23 18:29 Review of Systems Review of Systems Narrative: See HPI Patient History Medical History Obstructive sleep apnea of adult PVCs (premature ventricular contractions) Urinary frequency Nocturia Overactive bladder Arthritis Surgical History Hx of appendectomy Hx of colonoscopy Hx of cholecystectomy Hx of shoulder surgery Hx of arthroscopic knee surgery History of knee replacement Social History (Reviewed 08/06/23 @ 02:16 by NIHARIKA Snell marital status: number of children: 2 household members: spouse 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 Status: Never smoker alcohol intake: current caffeine: Yes Type(s) of exercise: walking frequency: daily Smoking Status: Never smoker alcohol intake frequency: 0-2 drinks per day Alcohol type: wine and hard liquor Substance Use Type: does not use Exam Initial Vital Signs Initial Vital Signs: Vital Signs Pulse Rate 75 08/05/23 20:51 Pulse Oximetry 98 08/05/23 20:51 Const General: cooperative, comfortable and No ill appearing HENMT Head: normal to inspection and normocephalic Resp Effort & Inspection: normal respiratory effort Auscultation: clear to auscultation bilaterally Cardio Rate: regular rate Rhythm: regular rhythm Skin General: no rashes or lesions noted Neuro General: patient alert, patient awake and moves all extremities Extrem General: capillary refill normal Scores GCS [place] coma scale eye opening: Spontaneous [place] coma scale verbal response: Orientated [place] coma scale motor response: Obey commands [place] coma scale total score: 15 Course Orders Ordered: ED Orders 08/05/23 20:50 Complete Blood Count AUTO DIFF Stat Comprehensive Metabolic Panel Stat Lipase Stat Magnesium Stat PTT Partial Thromboplastin Jony Stat Prothrombin Time INR Stat Troponin & CK Cardiac Panel Stat 08/05/23 20:55 XR chest 1V Stat EKG-12 Lead Stat Vital Signs Vital signs: Vital Signs - 8 hr 08/05/23 20:51 08/05/23 20:54 08/05/23 21:00 Temperature 98.1 F Pulse Rate 75 74 Respiratory Rate 17 Blood Pressure 145/65 H 135/55 L Pulse Oximetry 98 98 Oxygen Delivery Method Room Air 08/05/23 21:00 08/05/23 21:30 08/05/23 21:30 Temperature Pulse Rate 74 70 Respiratory Rate 14 12 Blood Pressure 127/60 Pulse Oximetry 98 98 Oxygen Delivery Method Room Air Room Air 08/05/23 22:00 Temperature Pulse Rate 80 Respiratory Rate 13 Blood Pressure Pulse Oximetry 97 Oxygen Delivery Method Room Air Medical Decision Making Lab Data Lab results reviewed: Yes I reviewed the patient's lab results. 08/05/23 20:50 08/05/23 20:50 Labs: Lab Results 08/05/23 Range/Units 20:50 WBC 8.4 (4.5-11.0) X10^3/uL RBC 3.95 L (4.0-5.2) X10^6/uL Hgb 12.2 (12.0-16.0) g/dL Hct 36.3 (36-46) % MCV 91.9 (80-100) fL MCH 30.8 (26-34) PG MCHC 33.5 (30-36) % RDW 15.6 H (11.6-14.8) % Plt Count 244 (150-400) X10^3/uL Neut % (Auto) 49.2 L (50-75) % Lymph % (Auto) 42.3 H (25-40) % [place] % (Auto) 7.4 (3-14) % Eos % (Auto) 1.0 L (2-4) % Baso % (Auto) 0.1 (0-2) % Neut # (Auto) 4100 (4460-1604) /uL Lymph # (Auto) 3500 (2487-1931) /uL [place] # (Auto) 600 (0-900) /uL Eos # (Auto) 100 (0-450) /uL Baso # (Auto) 0 (0-100) /uL PT 11.0 (9.4-12.5) SECONDS INR 1.0 (0.9-1.3) APTT 29 (25.1-36.5) SECONDS Sodium 136 L (137-145) mmol/L Potassium 4.5 (3.4-5.1) mmol/L Chloride 105 (98-107) mmol/L Carbon Dioxide 24 (22-32) mmol/L BUN 41 H (7-17) mg/dL Creatinine 0.76 (0.52-1.04) mg/dL Estimated GFR > 60 (>60) mL/min BUN/Creatinine Ratio 53.9 H (6-22) Glucose 123 H (80-110) mg/dL Calcium 9.4 (8.4-10.2) mg/dL Magnesium 2.2 (1.6-2.3) mg/dL Total Bilirubin 0.4 (0.2-1.3) mg/dL AST 64 H (14-36) IU/L ALT 56 H (<35) IU/L Alkaline Phosphatase 69 (38-126) U/L Total Creatine Kinase 24 L (30-135) U/L Troponin I < 0.012 (0.01-0.034) ng/mL Total Protein 6.7 (6.3-8.2) g/dL Albumin 4.0 (3.5-5.0) g/dL Globulin 2.7 (1.7-4.1) g/dL Albumin/Globulin Ratio 1.5 (1.0-2.8) Lipase 40 (23-300) U/L Imaging Data Chest x-ray: Radiologist's Impression: PROCEDURE: XR CHEST 1V INDICATIONS: chest pain TECHNIQUE: One view of the chest was acquired. COMPARISON: [facility], CR, XR CHEST 1V, 07/03/2023, 20:17. [facility], CR, XR CHEST 1V, 04/09/2023, 18:51. FINDINGS: Surgical changes and devices: None. Lungs and pleura: Lungs are clear. No pleural effusions or pneumothorax. Mediastinum: Mediastinal contours appear normal. Heart size is normal. Bones and chest wall: No suspicious bony lesions. Overlying soft tissues appear unremarkable. IMPRESSION: No acute cardiopulmonary abnormality is seen. ECG Data Attestation: I personally reviewed and interpreted this ECG as follows: Interpretation: Sinus rhythm Ventricular rate is 72 Normal axis Normal QRS Normal QTC No ST T wave changes MDM Narrative Medical decision making narrative: Patient is now asymptomatic. Low suspicion for seizure. Low suspicion for CVA/TIA. No ectopy on the EKG or monitor during her stay here in the ER. Labs are unremarkable. This seems to have happened multiple times in the past. Does not appear that she has been evaluated by her primary doctor for these events. I advised that she contact her primary doctor for a follow-up to discuss potential referral to see specialist in these areas. Patient is safe for discharge home. Both her and her were given return precautions and follow-up instructions. They expressed understanding and agreement with the plan. Discharge Plan Departure Patient Disposition: Home Clinical Impression: Syncope Instructions: Fainting Activity Restrictions/Additional Instructions: Recommend that you continue to take all of your medications as directed. Also recommend that you contact your primary doctor to discuss further evaluation of these episodes that you were having. You may need a referral to see Cardiology or neurology or even ear nose and throat providers. Be sure that you were increasing your fluid intake. Return to the emergency department for new or worsening symptoms. Prescriptions: No Action furosemide [Lasix] 20 mg tablet 20 mg PO DAILY Qty: 3 0RF eszopiclone 3 mg tablet 3 mg PO BEDTIME PRN (Reason: Sleep) trazodone 100 mg tablet 100 mg PO BEDTIME tramadol 50 mg tablet 50 mg PO QID PRN (Reason: Pain (Scale Score 1-3)) ropinirole 1 mg tablet 2 mg PO DAILY Referrals: Cinthia Beatty, AKANKSHA [Primary Care Provider] - Stand Alone Forms: Patient Portal/API
[2023-08-05 22:00] VITALS: PULSE 80; RESP 13; O2SAT 97
--- NOTE | 2023-08-05 22:13 | PC.NURSE ---
Pt ambulated well without standby assist. Pt and say she is walking at her baseline, though this is a slight shuffle. Pt denies any dizziness, lightheadedness, blurry vision, SOB, CP, or any other symptoms. Pt now back in bed, denying any needs at this time.
== END 2023-08-05 22:23 | disposition home or self-care (01) ==
PROVIDERS: Emergency Provider Emergency Medicine; PCP Student in an Organized Health Care Education/Training Program
DX: R55 Syncope and collapse (principal)
CPT/HCPCS: 36415; 71045; 80053; 82550; 83690; 83735; 84484; 85025; 85610; 85730; 93005; 99283; 99284

== ENCOUNTER → 2023-12-07 13:41 | Outpatient (CLI) | payer MEDICARE, OTHER, SELFPAY ==
[2022-03-24 14:52] VITALS: BMI 19.8
--- NOTE | 2023-12-07 15:00 | DI.MRI.S_ITS ---
PROCEDURE: MR HEAD/BRAIN WO/W CON INDICATIONS: PARKINSONIAN SYNDROME TECHNIQUE: Noncontrast axial T1 spin echo, axial T2 fast spin echo, sagittal and axial FLAIR, coronal T2 fast spin echo, axial gradient echo, axial diffusion and ADC through the brain. After the administration of contrast, axial and coronal and sagittal T1 spin echo with fat saturation through the brain. COMPARISON: [facility], CT, CT HEAD/BRAIN WO CON, 12/05/2021, 19:17. FINDINGS: Image quality: Excellent. CSF spaces: Basal cisterns are patent. No extra-axial fluid collections. Ventricles are normal in size and shape. Brain: No midline shift. No intracranial bleeds or masses. No abnormal intracranial enhancement. There is cerebral volume loss for age. There is periventricular white matter chronic small vessel ischemic change. The brainstem appears normal. Diffusion-weighted images demonstrate no acute infarct. No chronic ischemic insults. Normal intravascular flow voids are present. Skull and face: Calvarial marrow is normal in signal. Orbits appear normal. Sinuses: Sinuses and mastoids appear clear. IMPRESSION: 1. No acute intracranial process. 2. Moderate atrophy and chronic microvascular ischemic changes. Dictated by: Della Russell M.D. on 12/07/2023 at 20:26 Approved by: Della Russell M.D. on 12/07/2023 at 20:27
== END ==
PROVIDERS: PCP Family Medicine; Referring Provider Family Medicine; Visit Provider Family Medicine
DX: G31.84 Mild cognitive impairment of uncertain or unknown etiology; G31.9 Degenerative disease of nervous system, unspecified
CPT/HCPCS: 70553; A9579

== ENCOUNTER → 2023-12-08 13:04 | Outpatient (CLI) | payer MEDICARE, OTHER, SELFPAY ==
[2022-03-24 14:52] VITALS: BMI 19.8
--- NOTE | 2023-12-08 13:05 | DI.US.S_ITS ---
PROCEDURE: US EXTREMITY NONVASC LOWER RT INDICATIONS: R/O TENDONOSIS VS ARTERIAL MALFORMATION VS JOINT TECHNIQUE: Real-time scanning was performed of the right knee, with image documentation. COMPARISON: [facility], CR, XR KNEE 4+ VIEWS RIGHT, 10/30/2022, 12:03. [facility], , US EXTREMITY NONVASC LOWER RT, 01/19/2018, 9:52. FINDINGS: Ultrasound examination of medial right knee at patient's reported area of pain shows ill-defined area of echogenic foci and trace amount of fluid within deep soft tissue adjacent to the osseous structure. IMPRESSION: Trace amount of fluid and echogenic foci seen in medial right knee soft tissue which may represent soft tissue calcifications and fluid likely related to prior history of right total knee arthroplasty. No discrete soft tissue mass or vascular malformation is seen. No drainable fluid collection. Dictated by: Manuel Cobian M.D. on 12/08/2023 at 16:10 Approved by: Manuel Cobian M.D. on 12/08/2023 at 16:13
== END ==
PROVIDERS: PCP Family Medicine; Referring Provider Family Medicine; Visit Provider Family Medicine
DX: M25.561 Pain in right knee (principal); G89.29 Other chronic pain; Z96.651 Presence of right artificial knee joint
CPT/HCPCS: 76882

== ENCOUNTER → 2023-12-24 13:26 | Outpatient (CLI) | payer MEDICARE, OTHER, SELFPAY ==
[2022-03-24 14:52] VITALS: BMI 19.8
--- NOTE | 2023-12-24 13:27 | DI.MG.S_ITS ---
BILATERAL DIGITAL DIAGNOSTIC MAMMOGRAM 3D/2D: 12/24/2023 CLINICAL: Palpable left breast lumps. Comparison is made to exams dated: 04/07/2018 mammogram, 10/02/2016 mammogram, and 09/28/2015 mammogram - [facility]. Both breasts are extremely dense, which lowers the sensitivity of mammography (category d />75% glandular tissue). No significant masses, calcifications, or other findings are seen in either breast. IMPRESSION: INCOMPLETE: NEEDS ADDITIONAL IMAGING EVALUATION There are no abnormalities seen in the left breast to correspond with the palpable nodularities, however, ultrasound is recommended. Based on the Tyrer Cuzick model (a risk assessment model) the patient's lifetime risk is 6.6% and her 10 year risk is 0.0%. According to the ACR, ACS, and NCCN guidelines, an annual breast MRI exam along with mammogram is recommended if the patient's lifetime risk is 20% or greater. This exam was interpreted at Station ID: [id number]. NOTE: For mammograms, a report in lay terms will be sent to the patient. Approximately 15% of breast malignancies will not be visualized mammographically. In the management of a palpable breast mass, a negative mammogram must not discourage biopsy of a clinically suspicious lesion. Electronically Signed By: Danyel niño/montrell:12/24/2023 15:43:32 ACR BI-RADS Category 0: Incomplete [id number]
--- NOTE | 2023-12-24 13:28 | DI.US.S_ITS ---
LIMITED ULTRASOUND OF LEFT BREAST: 12/24/2023 CLINICAL: Palpable left breast lump. Comparison is made to exams dated: 12/24/2023 mammogram - [facility], 04/07/2018 mammogram, 10/02/2016 mammogram, and 09/28/2015 mammogram - [facility]. Color flow and real-time ultrasound of the left breast 12-2 o'clock region were performed. Griffin scale images of the real-time examination were reviewed. No significant abnormalities were seen sonographically in the left breast. IMPRESSION: NEGATIVE There is no sonographic evidence of malignancy. There are no abnormalities seen in the left breast to correspond with the palpable nodularities, however, clinical followup is recommended. Return to annual mammogram screening schedule is recommended. This exam was interpreted at Station ID: [id number]. Electronically Signed By: Danyel niño/montrell:12/24/2023 15:46:20 letter sent: Clinical Evaluation Ultrasound BI-RADS: 1 Negative
== END ==
LOC: MAMMO 13:27
PROVIDERS: PCP Family Medicine; Referring Provider Physician Assistant; Visit Provider Physician Assistant
DX: R92.2 Inconclusive mammogram; N63.0 Unspecified lump in unspecified breast; R92.343 Mammographic extreme density, bilateral breasts
CPT/HCPCS: 76642; 77066; G0279

== ENCOUNTER → 2024-04-05 13:05 | Outpatient (CLI) | payer MEDICARE, OTHER, SELFPAY ==
[2022-03-24 14:52] VITALS: BMI 19.8
--- NOTE | 2024-04-05 13:09 | DI.RAD.S_ITS ---
PROCEDURE: XR RIBS LT 2V INDICATIONS: RIB PAIN TECHNIQUE: 2 views of the ribs were acquired. COMPARISON: None. FINDINGS: Surgical changes and devices: None. Bones and chest wall: No fractures or dislocations. No suspicious bony lesions. Overlying soft tissues appear unremarkable. Lungs and pleura: The visualized lung appears clear. No pleural effusions or pneumothorax are visible. IMPRESSION: No displaced rib fracture or pneumothorax. Dictated by: Manuel Cobian M.D. on 04/05/2024 at 16:30 Approved by: Manuel Cobian M.D. on 04/05/2024 at 16:31
== END ==
PROVIDERS: PCP Family Medicine; Referring Provider Family Medicine; Visit Provider Family Medicine
DX: M94.0 Chondrocostal junction syndrome [Tietze] (principal)
CPT/HCPCS: 71100

== ENCOUNTER → 2024-04-18 12:46 | Outpatient (CLI) | payer MEDICARE, OTHER, SELFPAY ==
[2022-03-24 14:52] VITALS: BMI 19.8
--- NOTE | 2024-04-18 12:50 | DI.RAD.S_ITS ---
PROCEDURE: XR KNEE RT 3V INDICATIONS: KNEE PAIN TECHNIQUE: 3 views of the knee were acquired. COMPARISON: [facility] [place], CR, XR KNEE 4+ VIEWS RIGHT, 10/30/2022, 12:03. FINDINGS: Bones: Postsurgical changes are seen from total knee arthroplasty with hardware components in expected positions. Small ossification lateral to the patella is likely related to remote prior injury. No acute osseous fracture is seen. Soft tissues: Small joint effusion. No suspicious soft tissue calcifications. IMPRESSION: Postsurgical changes from a total knee arthroplasty. No acute osseous abnormality. Small joint effusion. Approved by: Danyel Urbina M.D. on 04/18/2024 at 16:45
== END ==
PROVIDERS: PCP Family Medicine; Referring Provider Family Medicine; Visit Provider Family Medicine
DX: S80.01XA Contusion of right knee, initial encounter (principal); M25.461 Effusion, right knee; Z96.651 Presence of right artificial knee joint; X58.XXXA Exposure to other specified factors, initial encounter
CPT/HCPCS: 73562

== ENCOUNTER 2024-08-15 03:28 | Emergency (ER) | payer MEDICARE, OTHER, SELFPAY ==
[2022-03-24 14:52] VITALS: BMI 19.8
[2024-08-15] VITALS (18 sets, daily range): BP systolic 150–184; BP diastolic 70–93; PULSE 101–118; RESP 11–41; TEMP 36.6; O2SAT 97–100
--- NOTE | 2024-08-15 03:36 | EKG_ITS ---
[address] [address] Test Date: 2024-08-15 Pat Name: Mery Reed Department: 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
--- NOTE | 2024-08-15 03:56 | DI.RAD.S_ITS ---
PROCEDURE: XR CHEST 1V INDICATIONS: chest pain TECHNIQUE: One view of the chest was acquired. COMPARISON: [facility], CR, XR CHEST 1V, 08/05/2023, 20:57. FINDINGS: Surgical changes and devices: None. Lungs and pleura: Lungs are clear. No pleural effusions or pneumothorax. Mediastinum: Mediastinal contours appear normal. Heart size is normal. Bones and chest wall: No suspicious bony lesions. Overlying soft tissues appear unremarkable. IMPRESSION: No acute cardiopulmonary abnormalities or focal consolidation. No significant discrepancy with the styrene dehydration reactor operator radiology preliminary report. Dictated by: Jarrod Vidal M.D. on 08/15/2024 at 7:31 Approved by: Jarrod Vidal M.D. on 08/15/2024 at 7:31
[2024-08-15 04:03] LABS: INR 0.9 (0.9-1.3); Prothrombin Time 10.5 SECONDS (9.4-12.5)
[2024-08-15 04:04] LABS: Add Manual Diff / Slide Review NO; Basophils Absolute Auto 0 /uL (0-100); Basophils Percent Auto 0.3 % (0-2); Eosinophils Absolute Auto 200 /uL (0-450); Hematocrit 40.7 % (36-46); Hemoglobin 13.7 g/dL (12.0-16.0); Lymphocytes Absolute Auto 1900 /uL (1100-4500); Lymphocytes Percent Auto 30.9 % (25-40); Mean Corpuscular HGB Conc 33.8 % (30-36); Mean Corpuscular Hemoglobin 31.4 PG (26-34); Monocytes Absolute Auto 600 /uL (0-900); Monocytes Percent Auto 9.7 % (3-14); Neutrophils Absolute Auto 3400 /uL (1500-7000); Neutrophils Percent Auto 55.1 % (50-75); Platelet Count 249 X10^3/uL (150-400); Red Blood Cell Count 4.37 X10^6/uL (4.0-5.2); Red Cell Distribution Width 14.9 % (11.6-14.8); White Blood Cell Count 6.1 X10^3/uL (4.5-11.0)
[2024-08-15 04:06] LABS: PTT Partial Thromboplastin Tim 30 SECONDS (25.1-36.5)
--- NOTE | 2024-08-15 04:06 | ED_ITS ---
HPI - Dizziness General Chief Complaint: Dizziness Stated Complaint: Dizziness Time Seen by Provider: 08/15/24 03:56 Source: EMS Mode of arrival: EMS History of Present Illness HPI Narrative: 78-year-old female history of dementia, and insomnia, presents via EMS tonight with difficulty urinating, feeling dizzy, she last urinated at 9:30 p.m. last night. Patient is a poor historian unable to give further details of why she is here in the ER. EMS report and at bedside to obtain further details from. Other than what is stated 14 point review is system is negative. Related Data Home Medications Medication Instructions Recorded Confirmed ropinirole 1 mg tablet 3 mg PO BEDTIME 03/20/21 08/15/24 tramadol 50 mg tablet 50 mg PO QID PRN Pain (Scale Score 03/20/21 03/27/22 1-3) trazodone 100 mg tablet 100 mg PO BEDTIME 03/20/21 03/27/22 furosemide 20 mg tablet 20 mg PO DAILY PRN swelling 08/15/24 08/15/24 gabapentin 300 mg capsule 600 mg PO BEDTIME 08/15/24 08/15/24 methimazole 5 mg tablet 5 mg PO DAILY 08/15/24 08/15/24 mirtazapine 7.5 mg tablet 7.5 mg PO ONCE PM 08/15/24 08/15/24 Allergies Allergy/AdvReac Type Severity Reaction Status Date / Time Penicillins Allergy Unknown Rash Verified 04/09/23 18:29 Review of Systems Review of Systems ROS Unobtainable: All systems reviewed & are unremarkable except as noted in HPI and below Patient History Medical History Obstructive sleep apnea of adult PVCs (premature ventricular contractions) Urinary frequency Nocturia Overactive bladder Arthritis Surgical History Hx of appendectomy Hx of colonoscopy Hx of cholecystectomy Hx of shoulder surgery Hx of arthroscopic knee surgery History of knee replacement Social History marital status: number of children: 2 household members: spouse 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 Well-developed patient, in mild distress. HEAD: Atraumatic. Normocephalic. EYES: Pupils equal round and reactive. Extraocular motions intact. No scleral icterus. No injection or drainage. ENT: Nose without bleeding, purulent drainage. Throat without erythema, tonsillar hypertrophy or exudate. Airway patent. NECK: Trachea midline. Non tender CARDIOVASCULAR: Regular rate and rhythm without murmurs, gallops, or rubs. RESPIRATORY: Clear to auscultation. Breath sounds equal bilaterally. No wheezes, rales, or rhonchi. GASTROINTESTINAL: Abdomen soft, non-tender, nondistended. EXTREMITIES: No edema or joint tenderness. BACK: Nontender without deformity or crepitance. No flank tenderness. NEURO: AOx2. Nonfocal neuro exam. GCS 15. Neg pronator drift. SKIN: No rash or erythema of visible areas Initial Vital Signs Initial Vital Signs: Vital Signs Temperature 97.8 F 08/15/24 03:45 Pulse Rate 114 H 08/15/24 03:45 Respiratory Rate 18 08/15/24 03:45 Blood Pressure 181/93 H 08/15/24 03:45 Pulse Oximetry 98 08/15/24 03:45 Oxygen Delivery Method Room Air 08/15/24 03:45 Course Orders Ordered: ED Orders 08/15/24 03:36 EKG-12 Lead Stat 08/15/24 03:40 Complete Blood Count AUTO DIFF Stat Comprehensive Metabolic Panel Stat Lipase Stat Magnesium Stat NT-proBNP (BNP-Adult 18+) Stat PTT Partial Thromboplastin Jony Stat Prothrombin Time INR Stat Troponin & CK Cardiac Panel Stat 08/15/24 03:56 XR chest 1V Stat Vital Signs Vital signs: Vital Signs - 8 hr 08/15/24 03:45 Temperature 97.8 F Pulse Rate 114 H Respiratory Rate 18 Blood Pressure 181/93 H Pulse Oximetry 98 Oxygen Delivery Method Room Air MDM - Dizziness Lab Data 08/15/24 03:40 08/15/24 03:[address] scan - head: Radiologist's Impression: [address] [address] [address] Scan Report Signed Patient: Mery Reed MR#: [id number] : 1945 Acct:[id number] Age/Sex: 78 / F Date of Service: 08/15/24 Loc: ED Accession Number: [id number] Procedure: CT head/brain wo con Ordering Provider: Harjeet Hay D.O. PROCEDURE: CT HEAD/BRAIN WO CON INDICATIONS: dizziness TECHNIQUE: Noncontrast 4.5 mm thick angled axial sections acquired from the foramen magnum to the vertex, with coronal and sagittal reformats. For radiation dose reduction, the following was used: automated exposure control, adjustment of mA and/or kV according to patient size. COMPARISON: [facility], CT, CT HEAD/BRAIN WO CON, 04/09/2023, 18:49. [facility], CT, CT HEAD/BRAIN WO CON, 12/05/2021, 19:17. FINDINGS: Image quality: Diagnostic. CSF spaces: Basal cisterns are patent. No extra-axial fluid collections. The ventricles are symmetric in size and shape. Brain: No acute intracranial hemorrhage or mass effect. There is cerebral volume loss for age, with resultant ventricular and sulcal prominence. There are periventricular and deep white matter chronic small vessel ischemic changes. There is intracranial internal carotid artery atherosclerosis. Skull and face: Calvarium and visualized facial bones appear intact, without suspicious lesions. Sinuses: Visualized sinuses and mastoids are clear. IMPRESSION: No acute intracranial pathology. There is no significant discrepancy when compared to the overnight preliminary report. Approved by: Danyel Urbina M.D. on 08/15/2024 at 8:20 [place] [address] CT Scan Report Signed Patient: Mery Reed MR#: [id number] : 1945 Acct:[id number] Age/Sex: 78 / F Date of Service: 08/15/24 Loc: ED Accession Number: [id number] Procedure: CT angio head and neck Ordering Provider: Harjeet Hay D.O. PROCEDURE: CT ANGIO HEAD AND NECK INDICATIONS: dizziness TECHNIQUE: After the administration of intravenous contrast, 1 mm thick sections acquired from the aortic arch through the [place] of [place]. 3-dimensional sauceut-frwujaaff-cfqkqwzlyz (MIP) and/or volume rendering reformats were acquired of the central intracranial vasculature and neck separately. For radiation dose reduction, the following was used: automated exposure control, adjustment of mA and/or kV according to patient size. COMPARISON: None. FINDINGS: Image quality: Diagnostic. BRAIN: CSF spaces: Ventricles are normal in size and shape. Basal cisterns are patent. No extra-axial fluid collections. Brain: No significant abnormality of the brain can be seen. Skull and face: Calvarium and facial bones appear intact, without suspicious lesions. Orbits appear normal. Sinuses: Sinuses and mastoids are clear. HEAD CT ANGIOGRAPHY: Anterior circulation: Intracranial internal carotid arteries are normal in size and flow. The flow within the paired anterior cerebral arteries is normal and symmetric. The flow within the middle cerebral arteries is normal and symmetric. The anterior communicating artery is seen. No aneurysms are seen. Posterior circulation: Visualized portions of the vertebral arteries demonstrate normal caliber, and join to form a normal appearing basilar artery. Fenestrated appearance of the intracranial left vertebral artery, a normal anatomic variant. Flow within the posterior cerebral arteries is normal and symmetric. No aneurysms are seen. NECK CT ANGIOGRAPHY: Carotid system: The great vessels demonstrate a conventional anatomy as they arise from the aortic arch. The origins of the common carotid arteries appear patent. The common carotid arteries demonstrate normal caliber and courses. Mild atherosclerotic calcifications at the carotid bifurcations without hemodynamically significant stenosis. The internal carotid arteries demonstrate normal calibers and courses. Posterior circulation: Mild atherosclerotic calcifications at the origin of the right vertebral artery without hemodynamically significant stenosis. Right vertebral artery is mildly congenitally dominant. The more superior extracranial portions of both vertebral arteries also demonstrate normal courses and calibers. They join to form a normal appearing basilar artery. Soft tissues: Heterogeneous multinodular thyroid. No acute soft tissue abnormality in the neck. Bones: No suspicious bony lesions. Visualized cervical spine appears normally aligned. Mild degenerative changes in the included spine. IMPRESSION: 1. No significant intracranial arterial abnormality is seen. 2. No significant abnormality is seen within the arteries of the neck. 3. Heterogeneous multinodular thyroid. Recommend outpatient thyroid ultrasound for further evaluation if not previously performed. Any quantitative measurements of stenosis were performed using NASCET criteria. There is no significant discrepancy when compared to the overnight preliminary report. [address] [address] [address] Scan Report Signed Patient: Mery Reed MR#: [id number] : 1945 Acct:[id number] Age/Sex: 78 / F Date of Service: 08/15/24 Loc: ED Accession Number: [id number] Procedure: CT angio chest PE protocol Ordering Provider: Harjeet Hay D.O. PROCEDURE: CT ANGIO CHEST PE PROTOCOL INDICATIONS: sob/tachy TECHNIQUE: After the administration of intravenous contrast, 2 mm thick sections acquired from the pulmonary apices to the posterior costophrenic angles. 3-dimensional maximum intensity projection (MIP) coronal and sagittal reformats were then acquired through the thorax. For radiation dose reduction, the following was used: automated exposure control, adjustment of mA and/or kV according to patient size. COMPARISON: [facility], CR, XR CHEST 1V, 08/15/2024, 4:00. FINDINGS: Image quality: Diagnostic. Pulmonary arteries: Pulmonary arteries are normal in size, and demonstrate no intraluminal filling defects to suggest central pulmonary embolism. Lower Neck: No enlarged lymph nodes. Thyroid: Heterogeneous multinodular thyroid. Axillae: No enlarged lymph nodes. Chest Wall: Unremarkable. Bones: Unremarkable. Lungs and Pleura: No pneumothorax or pleural effusions. No consolidation or suspicious nodules. Heart: Heart size is normal. No pericardial effusion. Moderate coronary artery calcifications. Thoracic Vessels: No aortic aneurysm. Mediastinum and Mariam: No enlarged lymph nodes. Esophagus: No wall thickening. No hiatal hernia. Upper Abdomen: Visualized upper abdomen solid organs and bowel loops appear normal. IMPRESSION: 1. No acute pulmonary embolus. No acute abnormality is seen in the chest. 2. Heterogeneous multinodular thyroid. Recommend outpatient thyroid ultrasound for further evaluation if not previously performed. Approved by: Danyel Urbina M.D. on 08/15/2024 at 8:34 There is no significant discrepancy when compared to the overnight preliminary report. ECG Data Attestation: I personally reviewed and interpreted this ECG as follows: Interpretation: Sinus Tach HR 111 CT 158 QRS [address]-t wave change Change from 07/03/[address] [facility] Narrative Medical decision making narrative: All lab work EKG chest x-ray CT scans all reviewed. Patient given IV fluids 1.5L here but refused thyroid US. Patient had urinary retention of 600 mL on bladder scan d/c home on pinedo catheter and to f/u to urology MD this coming week. Vital signs medication list nurse triage note old records all reviewed. Differential diagnosis includes CVA, subarachnoid hemorrhage, epidural hemorrhage, hyperthyroidism, dehydration, urinary retention, anxiety, PE. Return with new or worsening symptoms follow up PCP this week. Discharge Plan Departure Patient Disposition: Home Clinical Impression: Dizziness, Tachycardia, Acute urinary retention, Enlarged thyroid gland Instructions: DI for Dizziness-Nonvertigo Activity Restrictions/Additional Instructions: Return with new or worsening symptoms. Follow up with Urologist MD this week. Prescriptions: No Action gabapentin 300 mg capsule 600 mg PO BEDTIME furosemide 20 mg tablet 20 mg PO DAILY PRN (Reason: swelling) mirtazapine 7.5 mg tablet 7.5 mg PO ONCE PM methimazole 5 mg tablet 5 mg PO DAILY trazodone 100 mg tablet 100 mg PO BEDTIME tramadol 50 mg tablet 50 mg PO QID PRN (Reason: Pain (Scale Score 1-3)) ropinirole 1 mg tablet 3 mg PO BEDTIME Referrals: Donnell Boswell DO [Physician] - As soon as possible Rom Mast MD [Primary Care Provider] - Stand Alone Forms: Patient Portal/API/Survey
[2024-08-15 04:15] LABS: Alanine Aminotransferase 23 IU/L (<35); Albumin 4.4 g/dL (3.5-5.0); Albumin Globulin Ratio 1.4 (1.0-2.8); Alkaline Phosphatase 97 U/L (38-126); Aspartate Aminotransferase 28 IU/L (14-36); BUN Creatinine Ratio 43.8 (6-22); Bilirubin Total 0.4 mg/dL (0.2-1.3); Blood Urea Nitrogen 28 mg/dL (7-17); Calcium 9.3 mg/dL (8.4-10.2); Carbon Dioxide 23 mmol/L (22-32); Chloride 106 mmol/L (98-107); Creatine Kinase < 20 U/L (30-135); Estimated Glomerular Filt Rate > 60 mL/min (>60); Globulin 3.2 g/dL (1.7-4.1); Glucose 115 mg/dL (80-110); HEMOLYSIS < 15 (0-50); Lipase 46 U/L (23-300); Magnesium 2.2 mg/dL (1.6-2.3); Potassium 3.7 mmol/L (3.4-5.1); Sodium 138 mmol/L (137-145); Total Protein 7.6 g/dL (6.3-8.2)
--- NOTE | 2024-08-15 04:15 | DI.CT.S_ITS ---
PROCEDURE: CT HEAD/BRAIN WO CON INDICATIONS: dizziness TECHNIQUE: Noncontrast 4.5 mm thick angled axial sections acquired from the foramen magnum to the vertex, with coronal and sagittal reformats. For radiation dose reduction, the following was used: automated exposure control, adjustment of mA and/or kV according to patient size. COMPARISON: [facility], CT, CT HEAD/BRAIN WO CON, 04/09/2023, 18:49. [facility], CT, CT HEAD/BRAIN WO CON, 12/05/2021, 19:17. FINDINGS: Image quality: Diagnostic. CSF spaces: Basal cisterns are patent. No extra-axial fluid collections. The ventricles are symmetric in size and shape. Brain: No acute intracranial hemorrhage or mass effect. There is cerebral volume loss for age, with resultant ventricular and sulcal prominence. There are periventricular and deep white matter chronic small vessel ischemic changes. There is intracranial internal carotid artery atherosclerosis. Skull and face: Calvarium and visualized facial bones appear intact, without suspicious lesions. Sinuses: Visualized sinuses and mastoids are clear. IMPRESSION: No acute intracranial pathology. There is no significant discrepancy when compared to the overnight preliminary report. Approved by: Danyel Urbina M.D. on 08/15/2024 at 8:20
--- NOTE | 2024-08-15 04:15 | DI.CT.S_ITS ---
PROCEDURE: CT ANGIO HEAD AND NECK INDICATIONS: dizziness TECHNIQUE: After the administration of intravenous contrast, 1 mm thick sections acquired from the aortic arch through the [place] of [place]. 3-dimensional igbkekp-lpswzjawb-dajbnfiiuo (MIP) and/or volume rendering reformats were acquired of the central intracranial vasculature and neck separately. For radiation dose reduction, the following was used: automated exposure control, adjustment of mA and/or kV according to patient size. COMPARISON: None. FINDINGS: Image quality: Diagnostic. BRAIN: CSF spaces: Ventricles are normal in size and shape. Basal cisterns are patent. No extra-axial fluid collections. Brain: No significant abnormality of the brain can be seen. Skull and face: Calvarium and facial bones appear intact, without suspicious lesions. Orbits appear normal. Sinuses: Sinuses and mastoids are clear. HEAD CT ANGIOGRAPHY: Anterior circulation: Intracranial internal carotid arteries are normal in size and flow. The flow within the paired anterior cerebral arteries is normal and symmetric. The flow within the middle cerebral arteries is normal and symmetric. The anterior communicating artery is seen. No aneurysms are seen. Posterior circulation: Visualized portions of the vertebral arteries demonstrate normal caliber, and join to form a normal appearing basilar artery. Fenestrated appearance of the intracranial left vertebral artery, a normal anatomic variant. Flow within the posterior cerebral arteries is normal and symmetric. No aneurysms are seen. NECK CT ANGIOGRAPHY: Carotid system: The great vessels demonstrate a conventional anatomy as they arise from the aortic arch. The origins of the common carotid arteries appear patent. The common carotid arteries demonstrate normal caliber and courses. Mild atherosclerotic calcifications at the carotid bifurcations without hemodynamically significant stenosis. The internal carotid arteries demonstrate normal calibers and courses. Posterior circulation: Mild atherosclerotic calcifications at the origin of the right vertebral artery without hemodynamically significant stenosis. Right vertebral artery is mildly congenitally dominant. The more superior extracranial portions of both vertebral arteries also demonstrate normal courses and calibers. They join to form a normal appearing basilar artery. Soft tissues: Heterogeneous multinodular thyroid. No acute soft tissue abnormality in the neck. Bones: No suspicious bony lesions. Visualized cervical spine appears normally aligned. Mild degenerative changes in the included spine. IMPRESSION: 1. No significant intracranial arterial abnormality is seen. 2. No significant abnormality is seen within the arteries of the neck. 3. Heterogeneous multinodular thyroid. Recommend outpatient thyroid ultrasound for further evaluation if not previously performed. Any quantitative measurements of stenosis were performed using NASCET criteria. There is no significant discrepancy when compared to the overnight preliminary report. Approved by: Danyel Urbina M.D. on 08/15/2024 at 8:30
--- NOTE | 2024-08-15 04:22 | DI.CT.S_ITS ---
PROCEDURE: CT ANGIO CHEST PE PROTOCOL INDICATIONS: sob/tachy TECHNIQUE: After the administration of intravenous contrast, 2 mm thick sections acquired from the pulmonary apices to the posterior costophrenic angles. 3-dimensional maximum intensity projection (MIP) coronal and sagittal reformats were then acquired through the thorax. For radiation dose reduction, the following was used: automated exposure control, adjustment of mA and/or kV according to patient size. COMPARISON: [facility], CR, XR CHEST 1V, 08/15/2024, 4:00. FINDINGS: Image quality: Diagnostic. Pulmonary arteries: Pulmonary arteries are normal in size, and demonstrate no intraluminal filling defects to suggest central pulmonary embolism. Lower Neck: No enlarged lymph nodes. Thyroid: Heterogeneous multinodular thyroid. Axillae: No enlarged lymph nodes. Chest Wall: Unremarkable. Bones: Unremarkable. Lungs and Pleura: No pneumothorax or pleural effusions. No consolidation or suspicious nodules. Heart: Heart size is normal. No pericardial effusion. Moderate coronary artery calcifications. Thoracic Vessels: No aortic aneurysm. Mediastinum and Mariam: No enlarged lymph nodes. Esophagus: No wall thickening. No hiatal hernia. Upper Abdomen: Visualized upper abdomen solid organs and bowel loops appear normal. IMPRESSION: 1. No acute pulmonary embolus. No acute abnormality is seen in the chest. 2. Heterogeneous multinodular thyroid. Recommend outpatient thyroid ultrasound for further evaluation if not previously performed. Approved by: aDnyel Urbina M.D. on 08/15/2024 at 8:34 There is no significant discrepancy when compared to the overnight preliminary report.
[2024-08-15 04:26] LABS: NT-proBNP (BNP-Adult 18+) 114 pg/mL (<450); Troponin I < 0.012 ng/mL (0.01-0.034)
[2024-08-15] MEDS: SODIUM CHLORIDE 0.9% 1,000 ML 150 ML IV (05:24)
--- NOTE | 2024-08-15 07:45 | PC.NURSE ---
Pt able to ambulate in the hallway with a walker. Educated pt on her catheter and to remember to take it with you where you go. She does not usually ambulate with a walker. Pt remains tachycardic after ambulation in the 115's. I notified Dr. Hay and he requests 500cc NS bolus. I called pt's spouse Magno and he is coming to pick patient up at 0830. I educated Magno that pt will be sent home with urinary catheter and a walker and need to follow up with urology.
[2024-08-15] MEDS: SODIUM CHLORIDE 0.9% 500 ML 1000 ML IV (07:53)
== END 2024-08-15 09:10 | disposition home or self-care (01) ==
PROVIDERS: Emergency Provider Family Medicine; PCP Family Medicine
DX: R42 Dizziness and giddiness (principal); R00.0 Tachycardia, unspecified; R33.9 Retention of urine, unspecified; E04.9 Nontoxic goiter, unspecified
CPT/HCPCS: 36415; 51798; 70450; 70496; 70498; 71045; 71275; 80053; 81003; 82550; 83690; 83735; 83880; 84484; 85025; 85610; 85730; 93005; 96360; 96361; 99284; Q9967

== ENCOUNTER → 2024-08-17 11:02 | Outpatient (CLI) | payer MEDICARE, OTHER, SELFPAY ==
[2022-03-24 14:52] VITALS: BMI 19.8
--- NOTE | 2024-08-17 | DI.RAD.S_ITS ---
PROCEDURE: XR ABDOMEN MIN 2V INDICATIONS: Incontinence of feces TECHNIQUE: 2 views of the abdomen were acquired. COMPARISON: [facility], , XR ABDOMEN MIN 2V, 12/27/2021, 9:47. FINDINGS: Stool gas pattern: A large amount of colonic stool noted but no evidence of obstruction. No free intraperitoneal or extraperitoneal air. No gross evidence of ascites Soft tissues: No abnormal calcifications. No soft tissue masses. Organs: No gross evidence for organomegaly. IMPRESSION: Large amount of colonic stool and mild ileus Dictated by: Harjeet Luz M.D. on 08/18/2024 at 12:19 Approved by: Harjeet Luz M.D. on 08/18/2024 at 12:20
== END ==
PROVIDERS: PCP Family Medicine; Referring Provider Family Medicine; Visit Provider Family Medicine
DX: K56.7 Ileus, unspecified (principal); R15.9 Full incontinence of feces
CPT/HCPCS: 74019

== ENCOUNTER 2024-10-07 09:22 | Emergency (ER) | payer MEDICARE, OTHER, SELFPAY ==
[2022-03-24 14:52] VITALS: BMI 19.8
[2024-10-07] VITALS (12 sets, daily range): BP systolic 104–119; BP diastolic 57–89; PULSE 73–90; RESP 12–34; TEMP 36.5; O2SAT 97–100; BMI 19.0
--- NOTE | 2024-10-07 09:36 | DI.RAD.S_ITS ---
PROCEDURE: XR CHEST 1V INDICATIONS: URI TECHNIQUE: One view of the chest was acquired. COMPARISON: [facility], CT, CT ANGIO CHEST PE PROTOCOL, 08/15/2024, 4:43. [facility], CR, XR CHEST 1V, 08/15/2024, 4:00. FINDINGS: Surgical changes and devices: None. Lungs and pleura: Lungs are clear. No pleural effusions or pneumothorax. Mediastinum: Mediastinal contours appear normal. Heart size is normal. Bones and chest wall: No suspicious bony lesions. Overlying soft tissues appear unremarkable. IMPRESSION: No acute cardiopulmonary abnormality is seen. Dictated by: Jp Disla M.D. on 10/07/2024 at 11:53 Approved by: Jp Disla M.D. on 10/07/2024 at 11:54
[2024-10-07 10:32] LABS: Influenza A - CEPHEID Flu A NEGATIVE (NEGATIVE); Influenza B - CEPHEID Flu B NEGATIVE (NEGATIVE); Respiratory Syncytial Virus Negative (Negative)
[2024-10-07 10:33] LABS: COVID-19 CEPHEID 4-PLEX PCR Negative (Negative)
--- NOTE | 2024-10-07 10:47 | ED.URI ---
HPI - URI/Sore Throat General Chief Complaint: Upper Respiratory Symptoms Stated Complaint: Cough, Chills, Weakness Time Seen by Provider: 10/07/24 10:36 Mode of arrival: Ambulatory History of Present Illness HPI Narrative: 78-year-old female with history of PVCs, overactive bladder, obstructive sleep apnea and urinary retention, here with lightheadedness. Patient reports has had a cough for a week. relates that she has a chronic dry cough and runny nose due to seasonal allergies. Patient denies sore throat and reports nose has not been more runny anymore than usual. She denies dyspnea or pain in her chest. No abdominal pain vomiting or diarrhea. This morning required assistance getting out of bed due to lightheadedness and this is what triggered ED visit. No vertigo. Patient feels that she is dry and would like something to drink Related Data Home Medications Medication Instructions Recorded Confirmed ropinirole 1 mg tablet 3 mg PO BEDTIME 03/20/21 09/01/24 furosemide 20 mg tablet 20 mg PO DAILY PRN swelling 08/15/24 09/01/24 gabapentin 300 mg capsule 600 mg PO BEDTIME 08/15/24 09/01/24 methimazole 5 mg tablet 5 mg PO DAILY 08/15/24 09/01/24 Allergies Allergy/AdvReac Type Severity Reaction Status Date / Time Penicillins Allergy Unknown Rash Verified 04/09/23 18:29 Review of Systems Review of Systems Narrative: Negative except as stated in HPI. 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 Status: Never smoker alcohol intake: former caffeine: Yes Type(s) of exercise: walking and regular exercise frequency: daily Smoking Status: Never smoker alcohol intake frequency: 0-2 drinks per day Alcohol type: wine and hard liquor Exam Initial Vital Signs Initial Vital Signs: Vital Signs Blood Pressure 106/76 10/07/24 09:27 Constitutional: 70-year-old female resting comfortably on the bed, mask in place, no acute distress Head: NCAT, moist mucous membranes Cardiovascular: RRR, no murmur or rub Pulmonary: There may be very fine rales at the right base as compared to the left, no respiratory distress Abdominal: soft, non-tender Extremities: No LE edema no posterior calf pain Skin: warm and dry, no diaphoresis Neurological: Alert and oriented x3, no truncal ataxia, normal coordination Course Orders Ordered: Discontinued Medications Lactated Ringer's (Lactated Ringers) 1,000 mls @ 1,000 mls/hr IV BOLUS ONE Stop: 10/07/24 11:50 Last Infusion: 10/07/24 12:41 Dose: Infused Documented By: Admin: 10/07/24 11:16 Dose: 1,000 mls/hr Documented By: LM Vital Signs Vital signs: Vital Signs - 8 hr 10/07/24 09:27 10/07/24 09:28 10/07/24 09:30 Temperature 97.7 F Pulse Rate 90 89 Respiratory Rate 20 Blood Pressure 106/76 106/76 Pulse Oximetry 100 100 Oxygen Delivery Method Room Air 10/07/24 09:30 10/07/24 09:33 10/07/24 09:33 Temperature Pulse Rate 88 87 Respiratory Rate Blood Pressure 118/58 L Pulse Oximetry 99 99 Oxygen Delivery Method 10/07/24 10:00 10/07/24 10:00 10/07/24 10:30 Temperature Pulse Rate 85 Respiratory Rate Blood Pressure 109/57 L 119/59 L Pulse Oximetry 98 Oxygen Delivery Method 10/07/24 10:30 10/07/24 11:01 10/07/24 11:02 Temperature Pulse Rate 82 89 88 Respiratory Rate Blood Pressure Pulse Oximetry 99 98 97 Oxygen Delivery Method 10/07/24 11:02 10/07/24 11:30 10/07/24 11:30 Temperature Pulse Rate 75 Respiratory Rate 34 H Blood Pressure 107/89 112/57 L Pulse Oximetry 100 Oxygen Delivery Method 10/07/24 12:00 10/07/24 12:00 10/07/24 12:30 Temperature Pulse Rate 75 73 Respiratory Rate 13 12 Blood Pressure 114/59 L Pulse Oximetry 99 97 Oxygen Delivery Method 10/07/24 12:30 Temperature Pulse Rate Respiratory Rate Blood Pressure 104/59 L Pulse Oximetry Oxygen Delivery Method MDM - URI/Sore Throat Lab Data 10/07/24 11:10 10/07/24 11:10 Labs: Lab Results 10/07/24 10/07/24 10/07/24 Range/Units 09:27 11:03 11:10 WBC 11.2 H (4.5-11.0) X10^3/uL RBC 4.15 (4.0-5.2) X10^6/uL Hgb 13.2 (12.0-16.0) g/dL Hct 39.2 (36-46) % MCV 94.4 (80-100) fL MCH 31.7 (26-34) PG MCHC 33.6 (30-36) % RDW 12.9 (11.6-14.8) % Plt Count 177 (150-400) X10^3/uL Neut % (Auto) 83.5 H (50-75) % Lymph % (Auto) 8.2 L (25-40) % [place] % (Auto) 7.9 (3-14) % Eos % (Auto) 0.2 L (2-4) % Baso % (Auto) 0.2 (0-2) % Neut # (Auto) 9400 H (1654-2759) /uL Lymph # (Auto) 900 L (4163-4988) /uL [place] # (Auto) 900 (0-900) /uL Eos # (Auto) 0 (0-450) /uL Baso # (Auto) 0 (0-100) /uL Sodium 139 (137-145) mmol/L Potassium 3.9 (3.4-5.1) mmol/L Chloride 104 (98-107) mmol/L Carbon Dioxide 26 (22-32) mmol/L BUN 25 H (7-17) mg/dL Creatinine 0.80 (0.52-1.04) mg/dL Estimated GFR > 60 (>60) mL/min BUN/Creatinine Ratio 31.3 H (6-22) Glucose 103 H (70-99) mg/dL Calcium 8.9 (8.4-10.2) mg/dL Total Bilirubin 0.6 (0.2-1.3) mg/dL AST 90 H (14-36) IU/L ALT 142 H (<35) IU/L Alkaline Phosphatase 132 H (38-126) U/L Total Protein 7.0 (6.3-8.2) g/dL Albumin 4.1 (3.5-5.0) g/dL Globulin 2.9 (1.7-4.1) g/dL Albumin/Globulin Ratio 1.4 (1.0-2.8) TSH 0.259 L (0.47-4.68) uIU/mL Free T4 1.19 (0.78-2.19) ng/dL Urine Color Yellow Urine Appearance Clear Urine pH 6.0 (4.5-8.0) Ur Specific [place] 1.020 (1.000-1.035) Urine Protein Negative (Negative) Urine Glucose (UA) Negative (Negative) g/dL Urine Ketones Negative (NEGATIVE) Urine Occult Blood Negative (Negative) Urine Nitrate Negative (Negative) Urine Bilirubin Negative (NEGATIVE) Urine Urobilinogen 0.2 (0.2) E.U./dL Ur Leukocyte Esterase Trace H (NEGATIVE) Urine RBC 0-1/hpf (0-5/HPF) Urine WBC 1-5/hpf (0-5/HPF) Ur Squamous Epith Cells 0-1 /hpf (0-5/HPF) Urine Bacteria Occasional (0-1) (None) Ur Culture Indicated? Specimen cultured Vol Urine Centrifuged 10ml (spun) SARS-CoV-2 (PCR) Negative (Negative) Influenza A (RT-PCR) Flu a negative (NEGATIVE) Influenza B (RT-PCR) Flu b negative (NEGATIVE) RSV (PCR) Negative (Negative) MDM Narrative Medical decision making narrative: This is a 78-year-old female who presents with lightheadedness (no vertigo)/weakness in the setting of 1 week of cough and runny nose although later clarifies that these are more chronic symptoms and attributed to seasonal allergies. Here in ED vital signs were normal. The patient is well-appearing in no acute distress. Remainder of exam as above. Differential diagnoses considered include: dehydration, orthostatic hypotension, viral URI, rhinosinusitits, pneumonia, UTI, metabolic or electrolyte derangement, hypothyroidism, arrhythmia. WIll give fluid bolus pending workup. EKG 11 20: Normal sinus rhythm rate of 75, normal intervals IN 146, QRS 72, QTC 453. Normal axis. No ST segment elevation or depression. Chest x-ray does not show evidence of pneumonia. Urinalysis shows trace leukocytes without RBCs. There is modest leukocytosis of 11.2. Patient denies any UTI symptoms. BMP essentially benign. There is slight BUN elevation which is at baseline for her. There is elevation of AST ALT alk-phos. Patient has no abdominal tenderness. Furthermore relates that she had her gallbladder removed years ago. On rechecked the patient is alert, smiles. She says she is feeling much better after fluid bolus. The lightheadedness she was experiencing has completely resolved. She was able to ambulate with steady gate here. Did relate TSH was low today and tells me that she is following along with her thyroid doctor regarding this. She does not want to stay for the results of T4. Patient eager for discharge. Etiology of symptoms unclear, possibly related to dehydration. No emergent condition identified today. Will refer to PCP for recheck. Return precuations discussed and provided prior to discharge. Discharge Plan Departure Patient Disposition: Home Clinical Impression: Elevated LFTs, Cough Activity Restrictions/Additional Instructions: I am glad that you are feeling better. Please follow-up with your family doctor regarding your ED visit today, ideally on Thursday or Thursday. Return to the emergency department over the weekend if you are feeling unwell. No definite source of infection identified today although there were small amount of white blood cells in your urine. At the time of her discharge your urine was sent to culture and we will call you if you require antibiotics. Please be sure to drink plenty of fluids throughout the weekend and have good nutrition. As we discussed your liver function tests were elevated today. In the absence of abdominal pain this is something you can follow-up with your family doctor regarding Prescriptions: No Action gabapentin 300 mg capsule 600 mg PO BEDTIME furosemide 20 mg tablet 20 mg PO DAILY PRN (Reason: swelling) methimazole 5 mg tablet 5 mg PO DAILY ropinirole 1 mg tablet 3 mg PO BEDTIME Referrals: Rom Mast MD [Primary Care Provider] - Stand Alone Forms: Patient Portal/API/Survey
[2024-10-07] MEDS: LACTATED RINGERS 1,000 ML 1000 ML IV (11:16)
--- NOTE | 2024-10-07 11:20 | EKG_ITS ---
[address] [address] [address], [place] [address] Test Date: 2024-10-07 Pat Name: Mery Reed Department: Room: Gender: Female Male Impersonator: UMESH : 1945 Requested By: Order Number: [id number] Reading MD: Garfield Garcia Measurements Intervals [place] Rate: 75 P: 80 CT: 146 QRS: 62 QRSD: 72 T: 76 QT: 406 QTc: 453 Interpretive Statements Normal sinus rhythm Electronically Signed On 10-08-2024 16:24:14 PDT by Garfield Garcia
[2024-10-07 11:24] LABS: Add Manual Diff / Slide Review NO; Basophils Absolute Auto 0 /uL (0-100); Basophils Percent Auto 0.2 % (0-2); Eosinophils Absolute Auto 0 /uL (0-450); Eosinophils Percent Auto 0.2 % (2-4); Hematocrit 39.2 % (36-46); Hemoglobin 13.2 g/dL (12.0-16.0); Lymphocytes Absolute Auto 900 /uL (1100-4500); Lymphocytes Percent Auto 8.2 % (25-40); Mean Corpuscular HGB Conc 33.6 % (30-36); Mean Corpuscular Hemoglobin 31.7 PG (26-34); Mean Corpuscular Volume 94.4 fL (80-100); Monocytes Absolute Auto 900 /uL (0-900); Monocytes Percent Auto 7.9 % (3-14); Neutrophils Absolute Auto 9400 /uL (1500-7000); Neutrophils Percent Auto 83.5 % (50-75); Platelet Count 177 X10^3/uL (150-400); Red Blood Cell Count 4.15 X10^6/uL (4.0-5.2); Red Cell Distribution Width 12.9 % (11.6-14.8); White Blood Cell Count 11.2 X10^3/uL (4.5-11.0)
[2024-10-07 12:17] LABS: Alanine Aminotransferase 142 IU/L (<35); Albumin 4.1 g/dL (3.5-5.0); Albumin Globulin Ratio 1.4 (1.0-2.8); Alkaline Phosphatase 132 U/L (38-126); Aspartate Aminotransferase 90 IU/L (14-36); BUN Creatinine Ratio 31.3 (6-22); Bilirubin Total 0.6 mg/dL (0.2-1.3); Blood Urea Nitrogen 25 mg/dL (7-17); Calcium 8.9 mg/dL (8.4-10.2); Carbon Dioxide 26 mmol/L (22-32); Chloride 104 mmol/L (98-107); Estimated Glomerular Filt Rate > 60 mL/min (>60); Globulin 2.9 g/dL (1.7-4.1); Glucose 103 mg/dL (70-99); HEMOLYSIS < 15 (0-50); Potassium 3.9 mmol/L (3.4-5.1); Sodium 139 mmol/L (137-145)
[2024-10-07 12:29] LABS: Appearance Urine UA CLEAR; Bilirubin Urine UA NEGATIVE (NEGATIVE); Color Urine UA YELLOW; Glucose Urine UA NEGATIVE (Negative); Ketones Urine UA NEGATIVE (NEGATIVE); Leukocyte Esterase Urine UA TRACE (NEGATIVE); Nitrite Urine UA NEGATIVE (Negative); Occult Blood Urine UA NEGATIVE (Negative); Protein Urine UA NEGATIVE (Negative); Urobilinogen Urine UA 0.2 E.U./dL (0.2)
[2024-10-07 12:42] LABS: Bacteria Urine Occasional (0-1); Culture Indicated Urine Specimen Cultured; RBC Urine 0-1/HPF (0-5/HPF); Squamous Epithelial Cell Urine 0-1 /HPF (0-5/HPF); Urine Volume 10mL (spun); WBC Urine 1-5/HPF (0-5/HPF)
[2024-10-07 12:46] LABS: Thyroid Stimulating Hormone 0.259 uIU/mL (0.47-4.68)
[2024-10-07 15:10] LABS: Free T4, Direct Thyroxine 1.19 ng/dL (0.78-2.19)
== END 2024-10-07 13:12 | disposition home or self-care (01) ==
PROVIDERS: Emergency Provider Student in an Organized Health Care Education/Training Program; PCP Family Medicine
DX: R79.89 Other specified abnormal findings of blood chemistry (principal); R05.9 Cough, unspecified
CPT/HCPCS: 0241U; 71045; 80053; 81001; 84439; 84443; 85025; 87086; 93005; 96360; 99283; 99284

== ENCOUNTER 2024-11-07 09:21 | Inpatient (IN) | payer MEDICARE, OTHER, SELFPAY ==
[2022-03-24 14:52] VITALS: BMI 19.8
[2024-11-07] VITALS (13 sets, daily range): BP systolic 106–167; BP diastolic 51–66; PULSE 87–111; RESP 15–18; TEMP 36.4–36.9; O2SAT 91–99; BMI 17.4; BMI 17.1
--- NOTE | 2024-11-07 09:27 | ED_ITS ---
HPI - General Adult General Chief complaint: Back Pain/Injury Stated complaint: Back Pain Time Seen by Provider: 11/07/24 09:21 History of Present Illness HPI narrative: 78-year-old woman with a history of PVCs, sleep apnea, urinary retention apparently developed some back pain described more as right flank and into the right posterior rib area on the . On the she had a massage to see if that is would help. By the she was unable to move or get out of bed. With a past 48 hours she has been lying in bed, has not been eating or drinking because she can not get out of bed to void. Continues to complain of severe right-sided flank to posterior thorax pain she has significant pain with palpation of ribs, thoracic spine lumbar spine and abdominal pain. No fevers, no lower extremity edema. When asked why he she may had not had any food or drink, she simply said she was not hungry and did not want to have to go to the bathroom and get a bed. Related Data Home Medications ?Medication ?Instructions ?Recorded ?Confirmed ropinirole 1 mg tablet 3 mg PO DAILY 03/20/2111/07 furosemide 20 mg tablet 20 mg PO DAILY PRN swelling 08/15/24 11/07/24 gabapentin 300 mg capsule 1,200 mg PO BEDTIME 08/15/24 11/07/24 methimazole 5 mg tablet 5 mg PO DAILY 08/15/2411/07 benzonatate 200 mg capsule 200 mg PO 3XD PRN cough 11/07/24 mirtazapine 7.5 mg tablet 7.5 mg PO ONCE PM 11/07/24 0 11/07/24 pantoprazole 40 mg tablet,delayed 40 mg PO QPM 5 11/07/24 release Previous Rx's ?Medication ?Instructions ?Recorded fluticasone propionate 50 1 spray intranasal DAILY #16 grams 10/25/24 mcg/actuation nasal spray,suspension (Flonase Allergy Relief) Allergies Allergy/AdvReac Type Severity Reaction Status Date / Time Penicillins Allergy Unknown Rash Verified 11/07/24 09:43 Review of Systems Review of Systems Narrative: Pertinent positive and negative findings as per HPI Patient History Medical History Obstructive sleep apnea of adult PVCs (premature ventricular contractions) Urinary frequency Nocturia Overactive bladder Arthritis Surgical History History of colon surgery Hx of appendectomy Hx of colonoscopy Hx of cholecystectomy Hx of shoulder surgery Hx of arthroscopic knee surgery History of knee replacement Social History marital status: number of children: 2 household members: spouse 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 HEENT: Dry mucous membranes, normal sclera with reactive pupils, Respiratory: Lungs are clear to auscultation, no wheezing no rales no rhonchi. Full and symmetrical air movement Chest: Significant tenderness in his suggestion of fullness posterior ribs 10 11 12th Cardiac: Regular rate and rhythm no murmurs no bruits Abdomen: Soft, diffusely tender with right flank pain Skin: Pale, no obvious skin breakdown Neurologic: Globally weak but Grossly neurologically intact with no obvious asymmetries or abnormalities, any pain with movement beyond lying prone. Extremities: No trauma, no edema Psych: Cooperative, questionable insight and decision-making Course Orders Ordered: ED Orders 11/07/24 12:44 Lactate (Lactic Acid) Stat 11/07/24 12:54 Blood Culture Stat 11/07/24 14:40 Urinalysis and Microscopic Stat Acetaminophen (Acetaminophen 325 Mg Tablet) 650 mg PO Q6H PRN PRN Reason: Fever/Mild Pain (1-3) Last Admin: 11/07/24 14:13 Dose: 650 mg Documented By: ESSENCE Al Hydrox/Mg Hydrox/Simethicone (Mag Hydrox/Alum/Simeth 30 Ml Udc) 30 ml PO Q6HR PRN PRN Reason: Dyspepsia Benzonatate (Benzonatate 100 Mg Capsule) 200 mg PO Q8H PRN PRN Reason: Cough Fluticasone Propionate (Fluticasone 120 [place]/16 Gm [place].Susp) 1 spray NASAL DAILY [facility] Gabapentin (Gabapentin 400 Mg Capsule) 1,200 mg PO BEDTIME [facility] Heparin Sodium (Porcine) (Heparin 5,000 Unit/Ml Vial) 5,000 unit SUBCUT BID [place] Hydromorphone HCl (Hydromorphone 0.5 Mg Inj) 0.5 mg IV Q2H PRN PRN Reason: Pain, Severe (7-10) Sodium Chloride (Normal Saline 0.9%) 1,000 mls @ 100 mls/hr IV CONT [place] Last Admin: 11/07/24 14:04 Dose: 100 mls/hr Documented By: ESSENCE Ceftriaxone Sodium 1,000 mg/ (Sodium Chloride) 100 mls @ 200 mls/hr IV Q24H [facility] Stop: 11/11/24 12:00 Azithromycin 500 mg/ Dextrose 250 mls @ 250 mls/hr IV Q24H [facility] Stop: 11/09/24 00:00 Mirtazapine (Mirtazapine 15 Mg Tablet) 7.5 mg PO BEDTIME [facility] Naloxone HCl (Naloxone 0.4 Mg/Ml Vial) 0.2 mg IV Q2MIN PRN PRN Reason: Opiate Reversal Nf - Methimazole 5 (Mg Tablet) 5 mg PO DAILY [facility] Ondansetron HCl (Ondansetron 4 Mg/2 Ml Inj) 4 mg IV Q8HR PRN PRN Reason: Nausea And Vomiting Oxycodone HCl (Oxycodone Ir 5 Mg Tablet) 5 mg PO Q4HR PRN PRN Reason: Pain, Moderate (4-6) Last Admin: 11/07/24 16:31 Dose: 5 mg Documented By: ESSENCE Pantoprazole Sodium (Pantoprazole Dr 40 Mg Tablet) 40 mg PO 0600 [facility] Ropinirole HCl (Ropinirole 1 Mg Tablet) 3 mg PO DAILY [facility] Discontinued Medications Hydromorphone HCl (Hydromorphone 0.5 Mg Inj) 0.25 mg IV Q15MIN PRN PRN Reason: Pain, Last Admin: 11/07/24 10:13 Dose: 0.25 mg Documented By: IDA Ceftriaxone Sodium 2,000 mg/ (Sodium Chloride) 100 mls @ 200 mls/hr IV NOW ONE Stop: 11/07/24 12:28 Last Infusion: 11/07/24 13:28 Dose: Infused Documented By: Admin: 11/07/24 12:58 Dose: 200 mls/hr Documented By: IDA Azithromycin 500 mg/ Dextrose 250 mls @ 250 mls/hr IV NOW ONE Stop: 11/07/24 12:28 Last Infusion: 11/07/24 15:27 Dose: Infused Documented By: Admin: 11/07/24 14:14 Dose: 250 mls/hr Documented By: ESSENCE Vital Signs Vital signs: Vital Signs - 8 hr 11/07/24 11:30 11/07/24 11:30 11/07/24 12:00 Pulse Rate 88 91 H Blood Pressure 106/55 L Pulse Oximetry 97 97 11/07/24 12:00 11/07/24 12:30 11/07/24 12:30 Pulse Rate 97 H Blood Pressure 117/56 L 123/60 Pulse Oximetry 97 Medical Decision Making Lab Data 11/07/24 15:31 11/07/24 09:49 Labs: Lab Results 11/07/24 11/07/24 11/07/24 Range/Units 09:33 09:49 12:44 WBC 15.2 H (4.5-11.0) X10^3/uL RBC 4.02 (4.0-5.2) X10^6/uL Hgb 12.2 (12.0-16.0) g/dL Hct 36.4 (36-46) % MCV 90.5 (80-100) fL MCH 30.2 (26-34) PG MCHC 33.4 (30-36) % RDW 12.5 (11.6-14.8) % Plt Count 343 (150-400) X10^3/uL Neut % (Auto) 86.9 H (50-75) % Lymph % (Auto) 4.9 L (25-40) % [place] % (Auto) 7.8 (3-14) % Eos % (Auto) 0.1 L (2-4) % Baso % (Auto) 0.3 (0-2) % Neut # (Auto) 83864 H (3548-3894) /uL Lymph # (Auto) 700 L (6436-4140) /uL [place] # (Auto) 1200 H (0-900) /uL Eos # (Auto) 0 (0-450) /uL Baso # (Auto) 0 (0-100) /uL Sodium 134 L (137-145) mmol/L Potassium 4.2 (3.4-5.1) mmol/L Chloride 100 (98-107) mmol/L Carbon Dioxide 26 (22-32) mmol/L BUN 23 H (7-17) mg/dL Creatinine 0.64 (0.52-1.04) mg/dL Estimated GFR > 60 (>60) mL/min BUN/Creatinine Ratio 35.9 H (6-22) Glucose 114 H (70-99) mg/dL Lactate 0.8 0.9 (0.7-2.1) mmol/L Calcium 8.7 (8.4-10.2) mg/dL Magnesium 2.1 (1.6-2.3) mg/dL Total Bilirubin 0.7 (0.2-1.3) mg/dL AST 38 H (14-36) IU/L ALT 44 H (<35) IU/L Alkaline Phosphatase 212 H (38-126) U/L Troponin I < 0.012 (0.01-0.034) ng/mL NT-Pro-B Natriuret Pep 314 (<450) pg/mL Total Protein 7.1 (6.3-8.2) g/dL Albumin 3.7 (3.5-5.0) g/dL Globulin 3.4 (1.7-4.1) g/dL Albumin/Globulin Ratio 1.1 (1.0-2.8) Procalcitonin 78.7 H (<0.5) ng/mL MDM Narrative Medical decision making narrative: CC: Flank and left posterior chest pain 5 days, no movement or getting out of bed for the last 48 hours Data collected from: patient Social determinants of health that may influence the patients condition: Lives at home with her Medical records reviewed: Discharge summary from November of 2021 is reviewed. She was admitted for syncope workup Differential considered: Sepsis, ,right lower lobe pneumonia, kidney stone, metastatic disease, pneumonia, spontaneous fractures including vertebral fracture Exam documented above, pertinent findings include: As long as she is lying absolutely still she is pain-free. With any movement she has significant pain including abdominal pain right posterior rib pain. There was no light localizing pain along the thoracic lumbar spine or pelvis. Back pain is not exacerbated by raising her legs. She is alert, answers all questions Lab Test results independently reviewed as above. Pertinent findings: Leukocytosis at 15.2 no anemia, she does have a left shift platelets are normal Chemistries show normal renal function, ALT AST are actually bit lower when compared to labs from September Troponin is undetectable Procalcitonin is significantly elevated Imaging studies independently reviewed: CT scan of the chest abdomen and pelvis shows likely developing right lower lobe pneumonia. There is a moderate pleural effusion, possibility of empyema as well as mass is considered. No obvious intra-abdominal abscess, metastatic disease, fractures Treatments: Fluid, Dilaudid for pain, ceftriaxone and azithromycin for community-acquired pneumonia without evidence of sepsis Discussion: 78-year-old woman with back pain starting 5 days ago worse after massage so bad that she was unable to get out of bed she and her decided that lying in bed on moving with no food or water was appropriate for the last 48 hours. Now hurting so bad medics were called and she is tender with any palpation to her ribcage and particularly worse on the right side, and significant abdominal pain. No obvious trauma. Labs are relatively unremarkable, procalcitonin is elevated. There is not evidence of sepsis at this time. CT scan of the chest abdomen and pelvis shows a developing right lower lobe pneumonia without mass or other orthopedic injuries. At this point I believe the right lower lobe pneumonia is the source of her pain, because she is unable to move I am going to be in treatment for outpatient community-acquired pneumonia, without evidence of sepsis she will be admitted to our hospitalist service. Questions are answered and she is safe for transfer to the floor Discharge Plan Departure Patient Disposition: Admitted as Observation Clinical Impression: Bacterial lobar pneumonia, Pleural effusion, right Admit Date/Time: 11/07/24 12:50 Admit Provider: Frantz Cronin
--- NOTE | 2024-11-07 09:48 | DI.CT.S_ITS ---
PROCEDURE: CT CHEST ABD PEL W CON INDICATIONS: Unable to move due to right thoracic pain, abdominal pain TECHNIQUE: After the administration of intravenous contrast, 5 mm thick sections acquired from the lung apices to the symphysis. 5 mm coronal and sagittal reformats were performed, with additional 7 mm MIP reformats through the lungs. For radiation dose reduction, the following was used: automated exposure control, adjustment of mA and/or kV according to patient size. COMPARISON: [facility], CT, CT ANGIO CHEST PE PROTOCOL, 08/15/2024, 4:43. FINDINGS: Image quality: Excellent. CHEST: Lower Neck: No enlarged lymph nodes. Thyroid: Enlarged thyroid lobe with small hypodense thyroid nodules extending to superior anterior mediastinum. Axillae: No enlarged lymph nodes. Chest Wall: Unremarkable. Lungs and Pleura: Airspace consolidation in posterior medial aspect of right lower lobe is seen new since previous study. Small right pleural effusion is also noted. No pneumothorax. Left basilar dependent atelectasis is seen. Heart: Heart size is normal. No pericardial effusion. Thoracic Vessels: The aorta and pulmonary arteries demonstrate normal size. Mediastinum and [place]: No enlarged lymph nodes. Esophagus: No wall thickening. No significant hiatal hernia. ABDOMEN: Liver: No solid mass. Gallbladder: Gallbladder is surgically absent. Biliary ducts: No biliary dilation. Pancreas: No ductal dilation. Spleen: Size is within normal limits. Adrenal Glands: No adrenal nodules. Kidneys and Ureters: Multiple nonobstructing right renal calculi are seen. No hydronephrosis. No solid mass. No complex renal cystic lesion which requires follow up. Stomach and Bowel: Normal colonic caliber, without significant wall thickening. Colonic diverticulosis is seen without CT evidence of acute diverticulitis. No abscess collection. Peritoneum: No abnormal intraperitoneal fluid. No free air. Ventral Wall: No significant ventral hernia. Abdominal Nodes: No retroperitoneal or mesenteric adenopathy by size criteria. Vessels: Aorta and inferior vena cava are normal in size. PELVIS: Pelvic Organs: Unremarkable. Bladder: No bladder wall thickening, accounting for underdistention. Pelvic Nodes: No enlarged lymph nodes. Miscellaneous: No inguinal hernias are seen. Bones: No aggressive osseous abnormality. Spondylitic changes are noted in lower lumbar spine. IMPRESSION: 1. Small right pleural effusion with airspace consolidation in right lower lobe concerning for right lower lobe pneumonia new since previous study. Empyema cannot be excluded. Clinical correlation and follow-up is recommended. No left-sided pleural effusion. No pneumothorax. 2. No mediastinal or hilar lymphadenopathy. 3. Enlarged thyroid gland unchanged from prior study. 4. No acute inflammatory process is seen in abdomen or pelvis. Colonic diverticulosis without CT evidence of acute diverticulitis. No abscess collection. No free fluid or free air. Dictated by: Manuel Cobian M.D. on 11/07/2024 at 10:27 Approved by: Manuel Cobian M.D. on 11/07/2024 at 10:32
[2024-11-07] MEDS: HYDROMORPHONE 0.5 MG INJ 0.25 MG IV (10:13)
[2024-11-07 10:19] LABS: Add Manual Diff / Slide Review NO; Hematocrit 36.4 % (36-46); Hemoglobin 12.2 g/dL (12.0-16.0); Lymphocytes Absolute Auto 700 /uL (1100-4500); Mean Corpuscular HGB Conc 33.4 % (30-36); Mean Corpuscular Hemoglobin 30.2 PG (26-34); Mean Corpuscular Volume 90.5 fL (80-100); Platelet Count 343 X10^3/uL (150-400)
[2024-11-07 10:27] LABS: Alanine Aminotransferase 44 IU/L (<35); Albumin 3.7 g/dL (3.5-5.0); Albumin Globulin Ratio 1.1 (1.0-2.8); Alkaline Phosphatase 212 U/L (38-126); Blood Urea Nitrogen 23 mg/dL (7-17); Calcium 8.7 mg/dL (8.4-10.2); Carbon Dioxide 26 mmol/L (22-32); Chloride 100 mmol/L (98-107); Estimated Glomerular Filt Rate > 60 mL/min (>60); Globulin 3.4 g/dL (1.7-4.1); Glucose 114 mg/dL (70-99); HEMOLYSIS < 15 (0-50); Magnesium 2.1 mg/dL (1.6-2.3); Potassium 4.2 mmol/L (3.4-5.1); Sodium 134 mmol/L (137-145); Total Protein 7.1 g/dL (6.3-8.2)
[2024-11-07 10:27] LABS: Lactate (Lactic Acid) 0.8 mmol/L (0.7-2.1)
[2024-11-07 10:39] LABS: NT-proBNP (BNP-Adult 18+) 314 pg/mL (<450); Troponin I < 0.012 ng/mL (0.01-0.034)
[2024-11-07 10:44] LABS: Procalcitonin 78.7 ng/mL (<0.5)
[2024-11-07] MEDS: cefTRIAXone 2,000 MG in SODIUM CHLORIDE 0.9% 100 ML 200 MG IV (12:58)
--- NOTE | 2024-11-07 13:00 | PC.NURSE ---
Pt remains a&ox3. Denies pain at this time.
--- NOTE | 2024-11-07 13:11 | PM.HP.1 ---
History of Present Illness History of Present Illness Date Patient Seen: 11/07/24 Chief complaint: Back Pain Narrative: The patient was a 78-year-old female who is otherwise fairly healthy other than a history of hyperthyroidism and PVCs as well as sleep apnea and urinary retention. She presented today with pleuritic right flank pain. She was had a cough for about a month and progressive fatigue. The last several days she has been more weak, anorexic and was unable to get out of bed today because of pain and weakness. In the emergency department imaging indicated a right base infiltrate with a small parapneumonic effusion. She was admitted for IV fluids and IV antibiotics. She was no history of pneumonia. She was not had pneumonia before and her has not been ill. 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 caffeine: Yes Type(s) of exercise: walking and regular exercise frequency: daily Meds Home Medications and Allergies Home Medications ?Medication ?Instructions ?Recorded ?Confirmed ?Type ropinirole 1 mg tablet 3 mg PO BEDTIME 03/20/21 10/25/24 History furosemide 20 mg tablet 20 mg PO DAILY PRN swelling 08/15/24 10/25/24 History gabapentin 300 mg capsule 600 mg PO BEDTIME 08/15/24 10/25/24 History methimazole 5 mg tablet 5 mg PO DAILY 08/15/24 10/25/24 History fluticasone propionate 50 1 spray intranasal DAILY #16 grams 10/25/24 10/25/24 Rx mcg/actuation nasal spray,suspension (Flonase Allergy Relief) Allergies Allergy/AdvReac Type Severity Reaction Status Date / Time Penicillins Allergy Unknown Rash Verified 11/07/24 09:43 Review of Systems Review of Systems Narrative: All else reviewed and otherwise unremarkable except as noted in the history and physical. Exam Vital Signs (past 8 hours): - 11/07/24 09:22 11/07/24 09:24 11/07/24 09:30 Temperature 97.9 F Pulse Rate 91 H 94 H Respiratory Rate 16 Blood Pressure 115/58 L 115/57 L Pulse Oximetry 98 99 Oxygen Delivery Method Room Air 11/07/24 09:30 11/07/24 09:43 11/07/24 10:07 Temperature 97.6 F Pulse Rate 87 93 H 96 H Respiratory Rate 16 Blood Pressure 115/58 L Pulse Oximetry 99 98 91 Oxygen Delivery Method Room Air 11/07/24 10:08 11/07/24 10:08 11/07/24 10:30 Temperature Pulse Rate 96 H Respiratory Rate Blood Pressure 114/51 L 111/56 L Pulse Oximetry 97 Oxygen Delivery Method 11/07/24 10:30 11/07/24 11:00 11/07/24 11:00 Temperature Pulse Rate 92 H 94 H Respiratory Rate Blood Pressure 128/60 Pulse Oximetry 96 97 Oxygen Delivery Method 11/07/24 11:30 11/07/24 11:30 11/07/24 12:00 Temperature Pulse Rate 88 91 H Respiratory Rate Blood Pressure 106/55 L Pulse Oximetry 97 97 Oxygen Delivery Method 11/07/24 12:00 11/07/24 12:30 11/07/24 12:30 Temperature Pulse Rate 97 H Respiratory Rate Blood Pressure 117/56 L 123/60 Pulse Oximetry 97 Oxygen Delivery Method Oxygen Delivery Method Room Air Narrative Exam Narrative: NAD, alert and oriented, fluent speech, calm. Normocephalic skull, EOMI, anicteric sclera, symmetric pupils. Oropharynx unremarkable, no droop. Neck supple, midline trachea, no adenopathy. Lungs clear, normal rate and effort. Heart regular, no murmur gallop or rub. Abdomen is soft, non distended and non tender. Extremities are free of edema. Skin is free of rash or lesions. Joints are not swollen or deformed. Judgment appears to be normal. Objective Imaging Chest/Abdomen/Pelvis CT:: Radiologist's impression: CHEST: Lower Neck: No enlarged lymph nodes. Thyroid: Enlarged thyroid lobe with small hypodense thyroid nodules extending to superior anterior mediastinum. Axillae: No enlarged lymph nodes. Chest Wall: Unremarkable. Lungs and Pleura: Airspace consolidation in posterior medial aspect of right lower lobe is seen new since previous study. Small right pleural effusion is also noted. No pneumothorax. Left basilar dependent atelectasis is seen. Heart: Heart size is normal. No pericardial effusion. Thoracic Vessels: The aorta and pulmonary arteries demonstrate normal size. Mediastinum and Mariam: No enlarged lymph nodes. Esophagus: No wall thickening. No significant hiatal hernia. ABDOMEN: Liver: No solid mass. Gallbladder: Gallbladder is surgically absent. Biliary ducts: No biliary dilation. Pancreas: No ductal dilation. Spleen: Size is within normal limits. Adrenal Glands: No adrenal nodules. Kidneys and Ureters: Multiple nonobstructing right renal calculi are seen. No hydronephrosis. No solid mass. No complex renal cystic lesion which requires follow up. Stomach and Bowel: Normal colonic caliber, without significant wall thickening. Colonic diverticulosis is seen without CT evidence of acute diverticulitis. No abscess collection. Peritoneum: No abnormal intraperitoneal fluid. No free air. Ventral Wall: No significant ventral hernia. Abdominal Nodes: No retroperitoneal or mesenteric adenopathy by size criteria. Vessels: Aorta and inferior vena cava are normal in size. PELVIS: Pelvic Organs: Unremarkable. Bladder: No bladder wall thickening, accounting for underdistention. Pelvic Nodes: No enlarged lymph nodes. Miscellaneous: No inguinal hernias are seen. Bones: No aggressive osseous abnormality. Spondylitic changes are noted in lower lumbar spine. IMPRESSION: 1. Small right pleural effusion with airspace consolidation in right lower lobe concerning for right lower lobe pneumonia new since previous study. Empyema cannot be excluded. Clinical correlation and follow-up is recommended. No left-sided pleural effusion. No pneumothorax. 2. No mediastinal or hilar lymphadenopathy. 3. Enlarged thyroid gland unchanged from prior study. 4. No acute inflammatory process is seen in abdomen or pelvis. Colonic diverticulosis without CT evidence of acute diverticulitis. No abscess collection. No free fluid or free air. Labs 11/07/24 09:33 11/07/24 09:49 Labs: Laboratory Results - last 24 hr 11/07/24 11/07/24 09:33 09:49 WBC 15.2 H RBC 4.02 Hgb 12.2 Hct 36.4 MCV 90.5 MCH 30.2 MCHC 33.4 RDW 12.5 Plt Count 343 Neut % (Auto) 86.9 H Lymph % (Auto) 4.9 L [place] % (Auto) 7.8 Eos % (Auto) 0.1 L Baso % (Auto) 0.3 Neut # (Auto) 56947 H Lymph # (Auto) 700 L [place] # (Auto) 1200 H Eos # (Auto) 0 Baso # (Auto) 0 Sodium 134 L Potassium 4.2 Chloride 100 Carbon Dioxide 26 BUN 23 H Creatinine 0.64 Estimated GFR > 60 BUN/Creatinine Ratio 35.9 H Glucose 114 H Lactate 0.8 Calcium 8.7 Magnesium 2.1 Total Bilirubin 0.7 AST 38 H ALT 44 H Alkaline Phosphatase 212 H Troponin I < 0.012 NT-Pro-B Natriuret Pep 314 Total Protein 7.1 Albumin 3.7 Globulin 3.4 Albumin/Globulin Ratio 1.1 Procalcitonin 78.7 H Assessment & Plan Assessment & Plan narrative: 1. CAP: Present on admission and active. 2. Associated small parapneumonic right pleural effusion, present on admission and active. 3. Debilitation, present on admission and active. 4. MACO, stable. 5. Morbid obesity with BMI of 52, present on admission and active. Plan: -IV antibiotics, ceftriaxone for 5 days, azithromycin for 3 days. We will convert to oral antibiotics sooner if she improves clinically. -IV fluids. -PT evaluation. Anticipate 1 night of hospital care, supports observation status. Full code. She lives in [place] with her . Time-Based Coding :: 35 min spent with patient and on the chart (including review of chart, obtaining history, exam, reviewing outside data, placing orders, documenting exam and treatment plan, and counseling patient) on 11/07. Quality MIPS - Admit I confirm the patient?s Advance Care Plan is present, Code status is documented, Surrogate decision maker is in patient?s record [If Yes, STOP here]: Yes MIPS - Meds 'Current medications' to include all prescriptions, [id number] products, herbals, cannabis/cannabidiol products, and vitamin/mineral/dietary (nutritional) supplements. I have utilized all available resources to obtain, update, or review the patient?s current medications. [If Yes, STOP here]: Yes
[2024-11-07 13:15] LABS: Lactate (Lactic Acid) 0.9 mmol/L (0.7-2.1)
[2024-11-07] MEDS: SODIUM CHLORIDE 0.9% 1,000 ML 100 ML IV ×2 (14:04→23:15)
[2024-11-07] MEDS: ACETAMINOPHEN 325 MG TABLET 650 MG PO (14:13)
[2024-11-07] MEDS: AZITHROMYCIN 500 MG in DEXTROSE 5% IN WATER 250 ML 250 MG IV (14:14)
[2024-11-07 14:48] LABS: Appearance Urine UA CLEAR; Bilirubin Urine UA NEGATIVE (NEGATIVE); Color Urine UA YELLOW; Glucose Urine UA NEGATIVE (Negative); Ketones Urine UA 1+ (NEGATIVE); Leukocyte Esterase Urine UA NEGATIVE (NEGATIVE); Nitrite Urine UA NEGATIVE (Negative); Occult Blood Urine UA NEGATIVE (Negative); Protein Urine UA NEGATIVE (Negative); Specific Gravity Urine UA 1.015 (1.000-1.035); Urobilinogen Urine UA 0.2 E.U./dL (0.2); pH Urine UA 6.0 (4.5-8.0)
[2024-11-07 14:51] LABS: Culture Indicated Urine Cult Not Indicated
[2024-11-07 15:40] LABS: Add Manual Diff / Slide Review NO; Hematocrit 34.0 % (36-46); Hemoglobin 11.2 g/dL (12.0-16.0); Lymphocytes Absolute Auto 500 /uL (1100-4500); Mean Corpuscular HGB Conc 33.0 % (30-36); Mean Corpuscular Hemoglobin 30.1 PG (26-34); Mean Corpuscular Volume 91.4 fL (80-100); Platelet Count 320 X10^3/uL (150-400)
[2024-11-07] MEDS: OXYCODONE IR 5 MG TABLET PO ×2 (16:31→20:30)
--- NOTE | 2024-11-07 16:47 | PT.IIE ---
Current Diagnoses Morbid (severe) obesity due to excess calories (11/07/24) Surgical History (Last Reviewed 11/07/24 @ 13:11 by Frantz Cronin MD) History of colon surgery History of knee replacement Hx of appendectomy Hx of arthroscopic knee surgery Hx of cholecystectomy Hx of colonoscopy Hx of shoulder surgery Medical History (Last Reviewed 11/07/24 @ 13:11 by Frantz Cronin MD) Arthritis Nocturia Obstructive sleep apnea of adult Overactive bladder PVCs (premature ventricular contractions) Urinary frequency Physical Therapy Inpatient Evaluation/Re-Eval M1 PT/OT-IP Prior Functional Status Start: 11/07/24 16:26 Freq: NEEDED Status: Active Protocol: Document 11/07/24 16:28 AMB (Rec: 11/07/24 16:45 AMB [id number]) Medical Review Prior Functional Status Medical History Yes Reviewed Communication WFL Mobility and Gait Ambulated in the community without AD Social History Household Members spouse Living Arrangements House Number of Floors ( One Floor Floors) Number of Stairs To 0 Enter/Railing? Home Environment Standard Height Toilet Employment Status Retired Additional Social Mery thinks she may have a FWW from her previous TKA but History Comment isn't sure where it is M2 PT-IP Current Condition Start: 11/07/24 16:26 Freq: NEEDED Status: Active Protocol: Document 11/07/24 16:28 AMB (Rec: 11/07/24 16:45 AMB [id number]) Physical Therapy Current Condition Current Condition Evaluation Date 11/07/24 Treatment Diagnosis weakness s/p pneumonia Onset Date 11/07/ PT-IP Subjective Start: 11/07/24 16:26 Freq: NEEDED Status: Active Protocol: Document 11/07/24 16:28 AMB (Rec: 11/07/24 16:45 AMB [id number]) Subjective Physical Therapy Visit Type Type Initial Evaluation Visit Start Time 15:30 Visit Stop Time 16:00 Physical Therapy Visit Comments Patient Comments Patient does not want to get out of bed, she just started IV antibiotics and is hoping they really help. She states she was not able to get out of bed this morning and her activated EMS. She is expecting to d/c home tomorrow. Therapy Pain Assessment Pain When Pain Assessed At Rest Location right ribs Pain Behaviors Calling Out,Facial Grimacing,Guarding,Holding Area, Wincing M4 PT-IP Mobility and Gait Start: 11/07/24 16:26 Freq: NEEDED Status: Active Protocol: Document 11/07/24 16:28 AMB (Rec: 11/07/24 16:45 AMB [id number]) PT-Bed Mobility Assessment Rolling Type of Rolling Log Rolling,Roll to Left Level of Assist Moderate Assistance,1 Person Assistance PT-Transfer Assessment Comments Mobility Comments Took history, assess pt strength and sensation, got room ready to mobilize, but pt called out in pain with rolling and was not able to continue the evaluation at that time. M5 PT-IP Objective Assessments Start: 11/07/24 16:26 Freq: NEEDED Status: Active Protocol: Document 11/07/24 16:28 AMB (Rec: 11/07/24 16:45 AMB [id number]) Orientation Orientation/Cognition Level of Alertness Alert Strength Upper Extremity Strength Assessment Within Functional Limits Lower Extremity Strength Assessment Bilaterally Impaired Hip 3 Knee 3 Ankle 4 Sensation Assessment Sensation Gross Sensation WNL M6 PT-IP Treatment Start: 11/07/24 16:26 Freq: NEEDED Status: Active Protocol: Document 11/07/24 16:28 AMB (Rec: 11/07/24 16:45 AMB [id number]) Physical Therapy Treatment Exercises Exercises Ankle Pumps Education Education Provided Safety M7 PT-IP Assessment and Plan Start: 11/07/24 16:26 Freq: NEEDED Status: Active Protocol: Document 11/07/24 16:28 AMB (Rec: 11/07/24 16:45 AMB [id number]) PT Summary Assessment and Plan Potential Rehabilitation Good Potential Status of Condition Stable at Evaluation Summary Impairments Pain,Strength,Balance,Bed Mobility,Gait,Activity Tolerance Assessment Summary The patient is under the impression that she will be fine after IV antibiotics for 24 hours. She expects to d/c home with her tomorrow. This very well may be a valid d/c plan, but it is difficult to assess due to patient's inability to perform bed mobility due to pain. Patient was unable to get out of bed independently this morning in part due to right rib pain that is currently limiting her bed mobility. She is unsure if she has a FWW at home, and would need to have her gait assessed and appropriate ADs vended before d/c. Goals Bed Mobility Goal Independent Transfer Goal Standby Assistance Gait Goal Standby Assistance Gait Distance 100 Days to Meet Goals 3 Frequency of Treatment Frequency Of Once a Day Treatment Treatment Plan Physical Therapy Bed Mobility Training,Transfer Training,Gait Training, Treatment Plan Manual Therapy Recommendations To Nursing Amount of Assist 1 Person Assist Needed Discharge Recommendations PT Discharge Home with 01/12 Assist Available Recommendations Other Discharge Currently difficult to assess safety of home d/c due to Recommendations pain, but patient was independent until recent pneumonia and appears cognitively intact Transportation Needs Private Vehicle at Discharge
--- NOTE | 2024-11-07 18:49 | PC.NURSE ---
Pt with area of blanchable erythema on coccyx but resistant to repositioning, turning, and mobilization. Pt AOx4, removing pillows placed for repositioning and pressure offloading. Contacted Dr Cronin for increased pain medication regimen. Pt still refusing turning and mobilization despite pain control. Provided education on the benefits of repositioning, mobilization and education on the risks of remaining flat in bed. Sacral border dressing applied to area of blanchable erythema.
[2024-11-07] MEDS: HEPARIN 5,000 UNIT/ML VIAL 5000 UNIT SUBCUT (20:29)
[2024-11-07] MEDS: MIRTAZAPINE 15 MG TABLET 7.5 MG PO (20:29)
[2024-11-07] MEDS: GABAPENTIN 400 MG CAPSULE 1200 MG PO (20:30)
[2024-11-07] MEDS: ROPINIROLE 1 MG TABLET 3 MG PO (20:50)
[2024-11-08] MEDS: OXYCODONE IR 5 MG TABLET PO ×2 (05:10→12:21)
[2024-11-08] MEDS: PANTOPRAZOLE DR 40 MG TABLET PO (05:10)
[2024-11-08 05:58] LABS: Blood Urea Nitrogen 15 mg/dL (7-17); Calcium 8.3 mg/dL (8.4-10.2); Carbon Dioxide 19 mmol/L (22-32); Chloride 106 mmol/L (98-107); Estimated Glomerular Filt Rate > 60 mL/min (>60); Glucose 136 mg/dL (70-99); HEMOLYSIS < 15 (0-50); Potassium 4.0 mmol/L (3.4-5.1); Sodium 137 mmol/L (137-145)
[2024-11-08 08:00] VITALS: BP 147/69; PULSE 103; RESP 21; TEMP 36.5; O2SAT 96
--- NOTE | 2024-11-08 08:27 | PM.PN.1 ---
Subjective Subjective Date Patient Seen: 11/08/24 Interval history: She tells me that she has been coughing for a month and that no cause has been found. She goes to Dr. Barahona for primary care. Prior to this pneumonia she said she had an x-ray done because of the coughing but recalls it was normal. Yesterday she was not able to get out of bed so today we have physical therapy pending to make sure she would be safe to return home. Her right lower chest is painful when she breathes. The procalcitonin is 78.7 with an alk-phos of 212, ALT 44, AST 38 and a normal BNP. The white blood count was 17.1 yesterday. We will also check a D-dimer and respiratory panel due to the ongoing pleurisy. The blood pressure has been high at 169/67 with a heart rate of 101. Exam Vital Signs (past 8 hours): Oxygen Delivery Method Room Air Oxygen Flow Rate 0 Narrative Exam Narrative: Alert and oriented x3. Inquisitive and curious. No apparent distress. Heart is regular rate and rhythm without murmur Lungs are clear to auscultation bilaterally Extremities have no ankle edema Objective Labs 11/07/24 15:31 11/08/24 05:18 Labs: Laboratory Results - last 24 hr 11/07/24 11/07/24 11/07/24 09:33 09:49 12:44 WBC 15.2 H RBC 4.02 Hgb 12.2 Hct 36.4 MCV 90.5 MCH 30.2 MCHC 33.4 RDW 12.5 Plt Count 343 Neut % (Auto) 86.9 H Lymph % (Auto) 4.9 L [place] % (Auto) 7.8 Eos % (Auto) 0.1 L Baso % (Auto) 0.3 Neut # (Auto) 52657 H Lymph # (Auto) 700 L [place] # (Auto) 1200 H Eos # (Auto) 0 Baso # (Auto) 0 Sodium 134 L Potassium 4.2 Chloride 100 Carbon Dioxide 26 BUN 23 H Creatinine 0.64 Estimated GFR > 60 BUN/Creatinine Ratio 35.9 H Glucose 114 H Lactate 0.8 0.9 Calcium 8.7 Magnesium 2.1 Total Bilirubin 0.7 AST 38 H ALT 44 H Alkaline Phosphatase 212 H Troponin I < 0.012 NT-Pro-B Natriuret Pep 314 Total Protein 7.1 Albumin 3.7 Globulin 3.4 Albumin/Globulin Ratio 1.1 Procalcitonin 78.7 H Urine Color Urine Appearance Urine pH Ur Specific [place] Urine Protein Urine Glucose (UA) Urine Ketones Urine Occult Blood Urine Nitrate Urine Bilirubin Urine Urobilinogen Ur Leukocyte Esterase Urine RBC Urine WBC Ur Squamous Epith Cells Urine Bacteria Ur Culture Indicated? Vol Urine Centrifuged 11/07/24 11/07/24 11/08/24 14:40 15:31 05:18 WBC 17.1 H RBC 3.73 L Hgb 11.2 L Hct 34.0 L MCV 91.4 MCH 30.1 MCHC 33.0 RDW 12.9 Plt Count 320 Neut % (Auto) 90.1 H Lymph % (Auto) 3.1 L [place] % (Auto) 6.5 Eos % (Auto) 0.1 L Baso % (Auto) 0.2 Neut # (Auto) 57706 H Lymph # (Auto) 500 L [place] # (Auto) 1100 H Eos # (Auto) 0 Baso # (Auto) 0 Sodium 137 Potassium 4.0 Chloride 106 Carbon Dioxide 19 L BUN 15 Creatinine 0.53 Estimated GFR > 60 BUN/Creatinine Ratio 28.3 H Glucose 136 H Lactate Calcium 8.3 L Magnesium Total Bilirubin AST ALT Alkaline Phosphatase Troponin I NT-Pro-B Natriuret Pep Total Protein Albumin Globulin Albumin/Globulin Ratio Procalcitonin Urine Color Yellow Urine Appearance Clear Urine pH 6.0 Ur Specific [place] 1.015 Urine Protein Negative Urine Glucose (UA) Negative Urine Ketones 1+ H Urine Occult Blood Negative Urine Nitrate Negative Urine Bilirubin Negative Urine Urobilinogen 0.2 Ur Leukocyte Esterase Negative Urine RBC None seen Urine WBC 0-1/hpf Ur Squamous Epith Cells 0-1 /hpf Urine Bacteria None seen Ur Culture Indicated? 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 CAP with pre-existing 1 month of chronic cough: Elevated procalcitonin 78.7. White blood count 17.1. Begin PPI. Present on admission and active. 2. Associated small parapneumonic right pleural effusion with pleuritic right anterior lower chest pain, present on admission and active. 3. Debilitation, present on admission and active. 4. MACO, stable. 5. Morbid obesity with BMI of 52, present on admission and active. Plan: -IV antibiotics, ceftriaxone for 5 days, azithromycin for 3 days. We will convert to oral antibiotics sooner if she improves clinically. -IV fluids. -PT evaluation. -Check D-dimer, follow procalcitonin and white blood count -respiratory viral panel -begin PPI treatment Anticipate 1 more night of hospital care. Full code. She lives in [place] with her . Time-Based Coding :: [TOTAL MINUTES] spent with patient and on the chart (including review of chart, obtaining history, exam, reviewing outside data, placing orders, documenting exam and treatment plan, and counseling patient) on [DATE].
[2024-11-08] MEDS: HEPARIN 5,000 UNIT/ML VIAL 5000 UNIT SUBCUT ×2 (09:31→20:22)
--- NOTE | 2024-11-08 11:29 | DIET.CONS ---
Dietary Consultation Note Admission Date: 11/07/2024 12:50 Assessment: 78 y F presenting with pleuritic right flank pain and weakness. Dietitian consulted for MNA score. Met with pt at bedside who reports appetite was normal until this past Thursday and since then 25% or less of meals. Weight loss a few years back r/t to hyperthyroidism and unable to gain weight back since (now taking medication). Normal PO intakes: B-toast and jam L-yogurt, banana, granola D-homemade, meat, veg, rice/potato or pasta dish NFPE with severe muscle wasting in temples, deltoid, trapezius, interosseous and moderate subcutaneous fat loss in buccal and orbital fat pads Ht: 172.72 cm Wt: 51 kg BMI: 17.1 UBW: 130-140 lb (59-63.6 kg 1+ years ago), 53.07 kg on 09/01/24 (-4% weight loss within 3 months, non-severe), 56.699 kg on 07/03/23 Last BM: 11/05/24 (11/07/24 13:54) MNA: 11 Joe Score: 15 Diet: 11/07/24 Dinner General (Regular) Diet Diet Modifications: Nutrition Percent Meal Consumed 25% 11/08/24 08:55 Percent Meal Consumed 25% 11/07/24 18:00 Labs: RBC 3.73 X10^6/uL (4.0-5.2) L 11/07/24 15:31 Hgb 11.2 g/dL (12.0-16.0) L 11/07/24 15:31 Hct 34.0 % (36-46) L 11/07/24 15:31 Creatinine 0.53 mg/dL (0.52-1.04) 11/08/24 05:18 Lactate 0.9 mmol/L (0.7-2.1) 11/07/24 12:44 NT-Pro-B Natriuret Pep 314 pg/mL (<450) 11/07/24 09:49 Nutrition Diagnosis: Severe chronic protein calorie malnutrition r/t inadequate oral intakes as evidenced by unable to gain back weight loss, BMI severely underweight for age (17.1), and severe muscle mass wasting (temples, deltoid, trapezius, interosseous) and moderate subcutaneous fat loss (buccal and orbital fat pads) Interventions: -Open to doing Ensure plus BID here in hospital and when d/c to support weight gain EER: 8944-6502 kcals (30-35 kcals/kg per BMI) 60 g protein (1.2 g/kg per PCM) Monitoring/Evaluations: PO intakes, ONS tolerance Electronically Signed by: Agueda Cartwright 11/08/24 11:29 Clinical Dietitian [address] [id number]
--- NOTE | 2024-11-08 11:55 | PT.IPTN ---
Current Diagnoses Morbid (severe) obesity due to excess calories (11/07/24) Physical Therapy Treatment Note M2 PT-IP Current Condition Start: 11/07/24 16:26 Freq: NEEDED Status: Active Protocol: Document 11/07/24 16:28 AMB (Rec: 11/07/24 16:45 AMB [id number]) Physical Therapy Current Condition Current Condition Evaluation Date 11/07/24 Treatment Diagnosis weakness s/p pneumonia Onset Date PT-IP Subjective Start: 11/07/24 16:26 Freq: NEEDED Status: Active Protocol: Document 11/08/24 11:55 AB (Rec: 11/08/24 13:31 AB [id number]) Subjective Physical Therapy Visit Type Type Treatment Note Visit Start Time 11:55 Visit Stop Time 12:20 Number of ACROBATIC RIGGER Visits 0 Physical Therapy Visit Comments Patient Comments agreeable to do PT Therapy Pain Assessment Pain When Pain Assessed During Mobility Pain Present Pain Present Pain Reported Location right ribs Scale Used pain scale not stated Pain Management Distraction,Modification of Treatment,Re-positioning, Techniques Timing of Activity with Medications M4 PT-IP Mobility and Gait Start: 11/07/24 16:26 Freq: NEEDED Status: Active Protocol: Document 11/08/24 11:55 AB (Rec: 11/08/24 13:31 AB [id number]) PT-Bed Mobility Assessment Rolling Type of Rolling Roll to Left Level of Assist Minimal Assistance Supine to Sit Supine to Sit Maximum Assistance,Bedrails Sit to Supine Sit to Supine Maximum Assistance,1 Person Assistance,Bedrails PT-Transfer Assessment Sit to and From Stand Sit to and from Maximum Assistance,1 Person Assistance,Use of Upper Stand Extremities Equipment Transfer Assistive Gait Belt,Front Wheeled Walker Device Orthotic/Prosthetic No Devices or Brace: Transfers Transfer Destination Bed,Chair Transfer Technique Stand Step Pivot Transfer Ability Level of Assist Maximum Assistance,1 Person Assistance,Use of Upper Extremities Comments Mobility Comments pt in bed and agreed to do PT. log roll supine to sit max A and max cues. c/o increase R sided rib pain. sit to stand max A and step transfer to chair using fWW max A and cues. pt stated that she has increase R rib pain and does not want to stay up on chair for lunch due to pain and wants to go back to bed. sit to stand from chair x 2 attempts max A and max cues and step transfer to bed max A using fWW. able to take steps towards HOB using fWW max A. log roll sit to supine max A and max cues. positioned pt in bed. call light and table placed within reach. Gait Assessment Comments Gait Comments able to take a few steps only using FWW for positioning in bed. M5 PT-IP Objective Assessments Start: 11/07/24 16:26 Freq: NEEDED Status: Active Protocol: Document 11/07/24 16:28 AMB (Rec: 11/07/24 16:45 AMB [id number]) Orientation Orientation/Cognition Level of Alertness Alert Strength Upper Extremity Strength Assessment Within Functional Limits Lower Extremity Strength Assessment Bilaterally Impaired Hip 3 Knee 3 Ankle 4 Sensation Assessment Sensation Gross Sensation WNL M6 PT-IP Treatment Start: 11/07/24 16:26 Freq: NEEDED Status: Active Protocol: Document 11/08/24 11:55 AB (Rec: 11/08/24 13:31 AB [id number]) Physical Therapy Treatment Education Education Provided Safety M7 PT-IP Assessment and Plan Start: 11/07/24 16:26 Freq: NEEDED Status: Active Protocol: Document 11/08/24 11:55 AB (Rec: 11/08/24 13:31 AB [id number]) PT Summary Assessment and Plan Potential Rehabilitation Fair Potential Summary Impairments Pain,ROM,Strength,Balance,Coordination,Sensation,Tone, Cognition,Bed Mobility,Transfers,Gait,Activity Tolerance Progress Towards Slow Progress due to Pain,Slow Progress due to Activity Goals Tolerance Assessment Summary pt requiring max A for transfers using FWW and unable to tolerate much activities due to c/o increase R sided rib pain. pt will require SNF rehab at this time to improve overall mobility independence prior to going home. Goals Bed Mobility Goal Independent Transfer Goal Standby Assistance,Front Wheeled Walker Gait Goal Standby Assistance,Front Wheel Walker Gait Distance 100 Days to Meet Goals 10 Frequency of Treatment Frequency Of Once a Day Treatment Treatment Plan Physical Therapy Bed Mobility Training,Transfer Training,Gait Training, Treatment Plan Therapeutic Exercise,Balance Retraining,Discharge Planning,Neuromuscular Re-ed,Manual Therapy Recommendations To Nursing Amount of Assist 1 Person Assist Needed Discharge Recommendations PT Discharge Home with 01/12 Assist Available,Home Health,SNF Rehab, Recommendations Home vs SNF Transportation Needs Private Vehicle at Discharge - PT assist 1
[2024-11-08] MEDS: ACETAMINOPHEN 325 MG TABLET 650 MG PO ×2 (12:21→20:21)
[2024-11-08 16:09] LABS: Coronavirus NL 63 Not Detected (Not Detect); SARS- CoV-2 Not Detected (Not Detecte)
--- NOTE | 2024-11-08 16:11 | CM.DANOTE ---
DCP Assessment Note- Brief pt is a 78yo F admitted with pneumonia/PE. on IV abx for next few days. PCP Rom Mast Payer Medicare and [facility]. CONCRETE POURER reviewed EMR. per chart review, lives indep with spouse in [facility]. per PT rec home with assistance vs SNF. (3rd Midnight for SNF =Thurs 7/3). another day or so of IV abx prior to dc per provider note. CONCRETE POURER attempted to meet with pt in room, pt sleeping. allowed to rest. P: home vs SNF pending medial improvement in next day or so. if SNF, will coordinate with pt/send referrals. may be a good HH candidate. will continue to follow closely for DCP coordination PRATIMA Hall Discharge Planning/Care Management Advanced directive, confirm from FAMILY Start: 11/07/24 14:27 Freq: Q24H Status: Active Protocol: Document 11/07/24 14:27 SW (Rec: 11/07/24 17:18 SW [id number]) Advance Directive, confirm on record Time 17:12 Person contacted Magno, Copy received No CM Discharge Assessment Start: 11/07/24 13:54 Freq: Status: Active Protocol: Document 11/08/24 16:09 SL (Rec: 11/08/24 16:11 SL Desktop) Discharge Planning Assessment Assigned Discharge PRATIMA Cheatham Financial Investment Manager DPOA/Assigned Magno, spouse Designee Name Contact Information [phone] Advance Directives? Yes Advance Directives No on File History Provided By Patient,Medical Record Prior Living House Arrangements Household Members spouse Independent with ADL Yes 's Is patient alert and Yes oriented? Discharge Plan Home Transportation Spouse Arrangement Referrals Initiated None needed Review Status In Process Please Provide Date 11/08/24 Initial DC Assessment Was Performed Next Review Type Continued Stay Review
--- NOTE | 2024-11-08 18:55 | DI.CT.S_ITS ---
PROCEDURE: CT ANGIO CHEST PE PROTOCOL INDICATIONS: Elevated Ddimer and Pleurisy TECHNIQUE: After the administration of intravenous contrast, 2 mm thick sections acquired from the pulmonary apices to the posterior costophrenic angles. 3-dimensional maximum intensity projection (MIP) coronal and sagittal reformats were then acquired through the thorax. For radiation dose reduction, the following was used: automated exposure control, adjustment of mA and/or kV according to patient size. COMPARISON: [facility], CT, CT ANGIO CHEST PE PROTOCOL, 08/15/2024, 4:43. [facility], CT, CT CHEST ABD PEL W CON, 11/07/2024, 9:57. FINDINGS: Image quality: Diagnostic. Pulmonary arteries: Pulmonary arteries are normal in size, and demonstrate no intraluminal filling defects to suggest central pulmonary embolism. Lower Neck: No enlarged lymph nodes. Thyroid: Unchanged enlarged left thyroid. Axillae: No enlarged lymph nodes. Chest Wall: Unremarkable. Bones: Unremarkable. Lungs and Pleura: Mild left scratch mild right effusion progressive compared to prior exam. Increased appearance of superimposed consolidative opacity. Minimal left effusion and superimposed opacity slightly more prominent when compared to prior exam. Heart: Heart size is normal. No pericardial effusion. Thoracic Vessels: No aortic aneurysm. Mediastinum and Mariam: No enlarged lymph nodes. Esophagus: No wall thickening. Minimal hiatal hernia. Upper Abdomen: Visualized upper abdomen solid organs and bowel loops appear normal. IMPRESSION: No pulmonary embolus. Increased bilateral effusions and superimposed opacities. The could be related to infection/inflammation or atelectasis. Dictated by: Della Russell M.D. on 11/08/2024 at 20:07 Approved by: Della Russell M.D. on 11/08/2024 at 20:09
[2024-11-08 20:21] VITALS: TEMP 37.4
[2024-11-08] MEDS: GABAPENTIN 400 MG CAPSULE 1200 MG PO (20:21)
[2024-11-08] MEDS: ROPINIROLE 1 MG TABLET 3 MG PO (20:21)
[2024-11-08] MEDS: MIRTAZAPINE 15 MG TABLET 7.5 MG PO (20:21)
[2024-11-08 20:22] VITALS: BP 159/72; PULSE 120; RESP 16; TEMP 37.4; O2SAT 95
[2024-11-08] MEDS: AZITHROMYCIN 500 MG in DEXTROSE 5% IN WATER 250 ML 250 MG IV (22:59)
[2024-11-09 05:20] LABS: Add Manual Diff / Slide Review NO; Hematocrit 36.9 % (36-46); Hemoglobin 12.4 g/dL (12.0-16.0); Lymphocytes Absolute Auto 1700 /uL (1100-4500); Mean Corpuscular HGB Conc 33.7 % (30-36); Mean Corpuscular Hemoglobin 30.4 PG (26-34); Mean Corpuscular Volume 90.4 fL (80-100); Platelet Count 369 X10^3/uL (150-400)
[2024-11-09 05:40] LABS: Blood Urea Nitrogen 10 mg/dL (7-17); Calcium 8.3 mg/dL (8.4-10.2); Carbon Dioxide 26 mmol/L (22-32); Chloride 100 mmol/L (98-107); Estimated Glomerular Filt Rate > 60 mL/min (>60); Glucose 141 mg/dL (70-99); HEMOLYSIS < 15 (0-50); Potassium 4.0 mmol/L (3.4-5.1); Sodium 132 mmol/L (137-145)
[2024-11-09 05:57] LABS: Procalcitonin 48.8 ng/mL (<0.5)
[2024-11-09] MEDS: PANTOPRAZOLE DR 40 MG TABLET PO (06:52)
[2024-11-09] MEDS: ACETAMINOPHEN 325 MG TABLET 650 MG PO (06:54)
--- NOTE | 2024-11-09 07:43 | PM.PN.1 ---
Subjective Subjective Date Patient Seen: 11/09/24 Exam Vital Signs (past 8 hours): Oxygen Delivery Method Room Air Oxygen Flow Rate 0 Objective Labs 11/09/24 05:01 11/09/24 05:01 Labs: Laboratory Results - last 24 hr 11/08/24 11/08/24 11/09/24 15:00 18:10 05:01 WBC 19.3 H RBC 4.09 Hgb 12.4 Hct 36.9 MCV 90.4 MCH 30.4 MCHC 33.7 RDW 12.9 Plt Count 369 Neut % (Auto) 80.6 H Lymph % (Auto) 8.7 L Da[place]hin % (Auto) 10.0 Eos % (Auto) 0.1 L Baso % (Auto) 0.6 Neut # (Auto) 93133 H Lymph # (Auto) 1700 [place] # (Auto) 1900 H Eos # (Auto) 0 Baso # (Auto) 100 D-Dimer 675 H Sodium 132 L Potassium 4.0 Chloride 100 Carbon Dioxide 26 BUN 10 Creatinine 0.48 L Estimated GFR > 60 BUN/Creatinine Ratio 20.8 Glucose 141 H Calcium 8.3 L Procalcitonin 48.8 H Chlamy pneumoniae PCR Not detected Adenovirus (PCR) Not detected B. pertussis DNA (PCR) Not detected B.parapertussis DNA PCR Not detected Coronavirus OC43 (PCR) Not detected Coronavirus HKU1 (PCR) Not detected Coronavirus 229E (PCR) Not detected SARS-CoV-2 (PCR) Not detected Coronavirus NL63 (PCR) Not detected Human Metapneumovir PCR Not detected Influenza Type A (PCR) Not detected Influenza Type B (PCR) Not detected M. pneumoniae (PCR) Not detected Parainfluenza 1 (PCR) Not detected Parainfluenza 2 (PCR) Not detected Parainfluenza 3 (PCR) Not detected Parainfluenza 4 (PCR) Not detected RSV (PCR) Not detected Entero/Rhino (PCR) Not detected PFSH Medical History Obstructive sleep apnea of adult PVCs (premature ventricular contractions) Urinary frequency Nocturia Overactive bladder Arthritis Surgical History History of colon surgery Hx of appendectomy Hx of colonoscopy Hx of cholecystectomy Hx of shoulder surgery Hx of arthroscopic knee surgery History of knee replacement Social History marital status: number of children: 2 household members: spouse 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 CAP with pre-existing 1 month of chronic cough: Elevated procalcitonin 78.7. White blood count 17.1. Begin PPI. Present on admission and active. 2. Associated small parapneumonic right pleural effusion with pleuritic right anterior lower chest pain, present on admission and active. 3. Debilitation, present on admission and active. 4. MACO, stable. 5. Morbid obesity with BMI of 52, present on admission and active. Plan: -IV antibiotics, ceftriaxone for 5 days, azithromycin for 3 days. We will convert to oral antibiotics sooner if she improves clinically. -IV fluids. -PT evaluation. -Check D-dimer, follow procalcitonin and white blood count -respiratory viral panel -begin PPI treatment Anticipate 1 more night of hospital care. Full code. She lives in [place] with her . Time-Based Coding :: [TOTAL MINUTES] spent with patient and on the chart (including review of chart, obtaining history, exam, reviewing outside data, placing orders, documenting exam and treatment plan, and counseling patient) on [DATE].
[2024-11-09] MEDS: SODIUM CHLORIDE 0.9% 1,000 ML 100 ML IV (08:26)
[2024-11-09] MEDS: HEPARIN 5,000 UNIT/ML VIAL 5000 UNIT SUBCUT (08:26)
[2024-11-09] MEDS: FLUTICASONE 120 SPRAY/16 GM SPRAY.SUSP NASAL (08:26)
--- NOTE | 2024-11-09 08:27 | EKG_ITS ---
[address] [address] Test Date: 2024-11-09 Pat Name: Mery Reed Department: [facility] Room: 221 Gender: Female Color Paste Mixing Supervisor: SHIV : 1945 Requested By: Order Number: [id number] Reading MD: Harjeet Lobato MD Measurements Intervals [place] Rate: 113 P: 72 NH: 112 QRS: 48 QRSD: 72 T: 41 QT: 322 QTc: 441 Interpretive Statements Sinus tachycardia Electronically Signed On 11-09-2024 9:40:33 PDT by Harjeet Lobato MD
[2024-11-09 09:05] VITALS: BP 147/77; PULSE 122; RESP 22; TEMP 37.2; O2SAT 94
--- NOTE | 2024-11-09 10:05 | PT.IPTN ---
Current Diagnoses Morbid (severe) obesity due to excess calories (11/07/24) Physical Therapy Treatment Note M2 PT-IP Current Condition Start: 11/07/24 16:26 Freq: NEEDED Status: Active Protocol: Document 11/07/24 16:28 AMB (Rec: 11/07/24 16:45 AMB [id number]) Physical Therapy Current Condition Current Condition Evaluation Date 11/07/24 Treatment Diagnosis weakness s/p pneumonia Onset Date PT-IP Subjective Start: 11/07/24 16:26 Freq: NEEDED Status: Active Protocol: Document 11/09/24 10:05 AB (Rec: 11/09/24 12:57 AB [id number]) Subjective Physical Therapy Visit Type Type Treatment Note Visit Start Time 10:05 Visit Stop Time 10:20 Number of MECHANICAL PROJECT MANAGER Visits 0 Physical Therapy Visit Comments Patient Comments agreeable to do PT Therapy Pain Assessment Pain When Pain Assessed During Mobility Location right ribs Scale Used pain scale not stated Pain Management Distraction,Modification of Treatment Techniques M4 PT-IP Mobility and Gait Start: 11/07/24 16:26 Freq: NEEDED Status: Active Protocol: Document 11/09/24 10:05 AB (Rec: 11/09/24 12:57 AB [id number]) PT-Transfer Assessment Sit to and From Stand Sit to and from Minimal Assistance,1 Person Assistance,Use of Upper Stand Extremities Equipment Transfer Assistive Gait Belt,Front Wheeled Walker Device Orthotic/Prosthetic No Devices or Brace: Comments Mobility Comments pt sitting on the chair and agreeable to do PT. sit to stand min A and ambulated in room using FWW ~ 35 ft CGA. pt sat back on chair. agreed to ambulate again. pt completed ambulation without AD min A and cues ~ 30 ft. pt tends to reach and hold on to bed for support and presents with unsteady antalgic gait. pt sat back on chair. positioned pt on the chair. call light and table placed within reach. Gait Assessment Gait Gait Assistance Contact Guard Assist,Minimum Assistance,1 Person Assist Required: Distance (Feet) 35 Able to Maintain Yes Weight Bearing Status During Gait Assistive Devices Assistive Device None,Gait Belt,Front Wheeled Walker Orthotic/Prosthetic No Devices or Brace: Gait Deviations General Gait Pattern Decreased Stride Length,Decreased Feet Clearance Factors Limiting Gait Function Factors Limiting Decreased Activity Tolerance,Decreased Strength,Limited Gait Function Range of Motion,Pain,Poor Balance,Poor Safety Awareness M5 PT-IP Objective Assessments Start: 11/07/24 16:26 Freq: NEEDED Status: Active Protocol: Document 11/07/24 16:28 AMB (Rec: 11/07/24 16:45 AMB [id number]) Orientation Orientation/Cognition Level of Alertness Alert Strength Upper Extremity Strength Assessment Within Functional Limits Lower Extremity Strength Assessment Bilaterally Impaired Hip 3 Knee 3 Ankle 4 Sensation Assessment Sensation Gross Sensation WNL M6 PT-IP Treatment Start: 11/07/24 16:26 Freq: NEEDED Status: Active Protocol: Document 11/09/24 10:05 AB (Rec: 11/09/24 12:57 AB [id number]) Physical Therapy Treatment Education Education Provided Safety M7 PT-IP Assessment and Plan Start: 11/07/24 16:26 Freq: NEEDED Status: Active Protocol: Document 11/09/24 10:05 AB (Rec: 11/09/24 12:57 AB [id number]) PT Summary Assessment and Plan Potential Rehabilitation Good Potential Summary Impairments Pain,ROM,Strength,Balance,Coordination,Sensation,Tone, Cognition,Bed Mobility,Transfers,Gait,Activity Tolerance Progress Towards Slow Progress due to Pain,Slow Progress due to Activity Goals Tolerance Assessment Summary pt improving slowly with mobility and was able to ambulate today using FWW CGA ~ 35 ft. Assessed ambulation without AD and pt needing min A. Recommending use of FWW at this time. pt plans to go home and spouse to assist her. will continue to assess progress. pt will benefit from HHPT. Goals Bed Mobility Goal Independent Transfer Goal Standby Assistance,Front Wheeled Walker Gait Goal Standby Assistance,Front Wheel Walker Gait Distance 100 Days to Meet Goals 10 Frequency of Treatment Frequency Of Once a Day Treatment Treatment Plan Physical Therapy Bed Mobility Training,Transfer Training,Gait Training, Treatment Plan Therapeutic Exercise,Balance Retraining,Discharge Planning,Neuromuscular Re-ed,Manual Therapy Recommendations To Nursing Amount of Assist 1 Person Assist Needed Discharge Recommendations PT Discharge Home with 01/12 Assist Available,Home Health,SNF Rehab, Recommendations Home vs SNF Transportation Needs Private Vehicle at Discharge - PT assist 1
[2024-11-09] MEDS: METOPROLOL IR 25 MG TABLET PO (10:18)
[2024-11-09 11:09] LABS: TSH w/ Reflex to FT4 0.34 uIU/mL (0.47-4.68)
[2024-11-09 11:15] LABS: Magnesium 1.8 mg/dL (1.6-2.3)
[2024-11-09 11:35] LABS: Free T4, Direct Thyroxine 1.88 ng/dL (0.78-2.19)
--- NOTE | 2024-11-09 13:03 | P.DS_ITS ---
History of Present Illness History of Present Illness Date Patient Seen: 11/09/24 Time Patient Seen: 13:03 Chief complaint: Back Pain Narrative: The patient was a 78-year-old female who is otherwise fairly healthy other than a history of hyperthyroidism and PVCs as well as sleep apnea and urinary retention. She presented today with pleuritic right flank pain. She was had a cough for about a month and progressive fatigue. The last several days she has been more weak, anorexic and was unable to get out of bed today because of pain and weakness. In the emergency department imaging indicated a right base infiltrate with a small parapneumonic effusion. She was admitted for IV fluids and IV antibiotics. She was no history of pneumonia. She was not had pneumonia before and her has not been ill. Discharge Providers Provider Date of admission: 11/07/24 12:50 Discharge Date: 11/09/24 Primary care physician: Rom Mast MD Consults: 11/07/24 13:07 Consult to Physical Therapy Evaluate & Treat Comment: Physician Instructions: Evaluate and Treat Discharge provider: Clarence Mack MD Summary Hospital Course Hospital Course: 1. CAP with pre-existing 1 month of chronic cough: Elevated procalcitonin 78.7. White blood count 17.1. Begin PPI. 2. Right pleural effusion with pleuritic right anterior lower chest pain 3. Debility 4. MACO 5. Morbid obesity with BMI of 52 6. Hyperthyroidism - Tachycardic at 113, EKG with ST, on day of discharge. Low (probably chronic) TSH of 0.34, continued on Methimazole and started on Metoprolol on the day of discharge. 7. HTN - 171/80, started on Metoprolol Tartrate at 25 mg BID on the day of discharge. She came in with 1 month of coughing and sudden weakness the day of admission. She was not hypoxic. Chest x-ray and subsequent chest CT confirmed pleural effusion and pneumonia. She steadily improved and by the day of discharge was able to stand and walk. Her procalcitonin and her white count remained quite high but again she was not hypoxic and weakness was resolving with IV ceftriaxone. She will be discharging home on cefuroxime. She was started on metoprolol, in addition to her methimazole, for her known hyperthyroidism and mild sinus tachycardia. The high blood pressure was also addressed with the metoprolol. She will be referred to for PT. She will need to have a CBC done and a chest x-ray done to follow-up the leukocytosis and the right pleural effusion at her PCP appointment next week. Plan: -IV antibiotics, ceftriaxone, azithromycin for 3 days. Convert to Ceftin PO at discharge. -IV fluids initially used. Resuming Lasix at discharge. -PT evaluation with stand by assist, improving quickly, on the day of discharge -Elevated D-dimer with CTA ruled out PE, Very high procalcitonin 48.8(dropping) and white blood count 19.3 on the day of discharge, -respiratory viral panel negative -Continues on PPI -Started on metoprolol -follow-up CBC and chest x-ray at PCP. Status at Discharge Cognitive/behavioral status at discharge: at baseline, oriented Functional status at discharge: uses cane/walker Overall status at discharge: patient is progressing back to baseline Exam Vital Signs (past 8 hours): - 11/09/24 09:05 Temperature 98.9 F Pulse Rate 122 H Respiratory Rate 22 Blood Pressure 147/77 H Pulse Oximetry 94 Oxygen Flow Rate 0 Oxygen Delivery Method Room Air Oxygen Flow Rate 0 Narrative Exam Narrative: She is alert and oriented x3. She is sitting in the chair by her bed and has been up and walking. No apparent distress Heart is tachycardic with regular rhythm and no murmur. Lungs are clear to auscultation bilaterally There is no ankle edema Objective Labs 11/09/24 05:01 11/09/24 05:01 Labs: Laboratory Results - last 24 hr 11/08/24 11/08/24 11/09/24 15:00 18:10 05:01 WBC 19.3 H RBC 4.09 Hgb 12.4 Hct 36.9 MCV 90.4 MCH 30.4 MCHC 33.7 RDW 12.9 Plt Count 369 Neut % (Auto) 80.6 H Lymph % (Auto) 8.7 L G[place]pie % (Auto) 10.0 Eos % (Auto) 0.1 L Baso % (Auto) 0.6 Neut # (Auto) 68601 H Lymph # (Auto) 1700 [place]pie # (Auto) 1900 H Eos # (Auto) 0 Baso # (Auto) 100 D-Dimer 675 H Sodium 132 L Potassium 4.0 Chloride 100 Carbon Dioxide 26 BUN 10 Creatinine 0.48 L Estimated GFR > 60 BUN/Creatinine Ratio 20.8 Glucose 141 H Calcium 8.3 L Magnesium 1.8 Procalcitonin 48.8 H TSH 0.34 L Free T4 1.88 Chlamy pneumoniae PCR Not detected Adenovirus (PCR) Not detected B. pertussis DNA (PCR) Not detected B.parapertussis DNA PCR Not detected Coronavirus OC43 (PCR) Not detected Coronavirus HKU1 (PCR) Not detected Coronavirus 229E (PCR) Not detected SARS-CoV-2 (PCR) Not detected Coronavirus NL63 (PCR) Not detected Human Metapneumovir PCR Not detected Influenza Type A (PCR) Not detected Influenza Type B (PCR) Not detected M. pneumoniae (PCR) Not detected Parainfluenza 1 (PCR) Not detected Parainfluenza 2 (PCR) Not detected Parainfluenza 3 (PCR) Not detected Parainfluenza 4 (PCR) Not detected RSV (PCR) Not detected Entero/Rhino (PCR) Not detected PFSH Medical History Obstructive sleep apnea of adult PVCs (premature ventricular contractions) Urinary frequency Nocturia Overactive bladder Arthritis Surgical History History of colon surgery Hx of appendectomy Hx of colonoscopy Hx of cholecystectomy Hx of shoulder surgery Hx of arthroscopic knee surgery History of knee replacement Social History marital status: number of children: 2 household members: spouse 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 Mast in one week. You will need a follow up blood test - CBC and a follow up Chest Xray for the fluid in your right lung. Discharge orders & Medications Prescriptions: New metoprolol tartrate 25 mg Tablet 25 mg PO TID Qty: 60 0RF oxycodone 5 mg Tablet 5 mg PO Q4HR PRN (Reason: Pain, Moderate (4-6)) Qty: 10 0RF cefuroxime axetil 500 mg tablet 500 mg PO Q12H Qty: 20 0RF Continued gabapentin 300 mg capsule 1,200 mg PO BEDTIME furosemide 20 mg tablet 20 mg PO DAILY PRN (Reason: swelling) methimazole 5 mg tablet 5 mg PO DAILY benzonatate 200 mg capsule 200 mg PO 3XD PRN (Reason: cough) pantoprazole 40 mg tablet,delayed release (DR/EC) 40 mg PO QPM mirtazapine 7.5 mg tablet 7.5 mg PO ONCE PM fluticasone propionate [Flonase Allergy Relief] 50 mcg/actuation spray,suspension 1 spray intranasal DAILY Qty: 16 2RF Rx Instructions: administer into each nostril in the evening prior to CPAP machine use ropinirole 1 mg tablet 3 mg PO DAILY Rx Instructions: take at 1800 Follow up/Referrals: Rom Mast MD [Primary Care Provider, Family Practice] Diet/Activity/Treatments Diet: Regular Visit Report/Discharge Packet Stand Alone Forms: Patient Portal/API, Stroke Signs & Symptoms Discharge Data Primary Care Provider: Rom Mast
--- NOTE | 2024-11-09 13:15 | CM.DPNOTE ---
DCP note government guard reviewed EMR per provider, dc today home with spouse support and OP f/u. PT/OT=HH. FORGE HEATER met with pt in room. eager to dc. agreeable to HH. distant hx, does not remember name. no preference. referral made to [facility] based on rotating vendor calendar. reports spouse will get her a walker for home. denies other DCP/CM needs at this time. FORGE HEATER sent referral to [facility]. f2f/order complete. acceptance pending. P: dc today with spouse support OP f/u and HH pending [facility] acceptance. CM team will continue to follow as needed for DCP coordination PRATIMA Cervantes
--- NOTE | 2024-11-09 14:24 | PC.NURSE ---
Day shift: Discharge instructions gone over with patient and patient's spouse. All questions answered, patient stated understanding. PIV removed prior to d/c. All belongings with patient. DOUGLAS De La Torer escorted patient to exit via wheelchair.
== END 2024-11-09 14:25 | disposition home health service (06) | DRG 194 ==
LOC: ED 09:57 → AC 12:52
PROVIDERS: Family Medicine; Admitting Provider Hospitalist; Emergency Provider Emergency Medicine; PCP Family Medicine; Referring Provider Emergency Medicine; Visit Provider Hospitalist
DX: J18.9 Pneumonia, unspecified organism (principal); J91.8 Pleural effusion in other conditions classified elsewhere; Z68.43 Body mass index [BMI] 50.0-59.9, adult; E66.01 Morbid (severe) obesity due to excess calories; G47.33 Obstructive sleep apnea (adult) (pediatric); R53.81 Other malaise; R05.3 Chronic cough; E05.90 Thyrotoxicosis, unspecified without thyrotoxic crisis or storm; R00.0 Tachycardia, unspecified; I10 Essential (primary) hypertension
CPT/HCPCS: 36415; 71260; 71275; 74177; 80048; 80053; 81001; 83605; 83735; 83880; 84145; 84439; 84443; 84484; 85025; 85379; 87040; 87633; 93005; 93010; 96365; 96375; 97116; 97161; 97530; 99284; J0696; J1171; J1644; Q9967

== ENCOUNTER 2024-12-07 10:06 | Emergency (ER) | payer MEDICARE, OTHER, SELFPAY ==
[2024-11-29 09:50] VITALS: BMI 17.1
[2024-12-07] VITALS (9 sets, daily range): BP systolic 147–172; BP diastolic 69–100; PULSE 85–106; RESP 19–20; TEMP 36.3; O2SAT 95–99; BMI 18.2
--- NOTE | 2024-12-07 10:29 | EKG_ITS ---
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
--- NOTE | 2024-12-07 10:29 | DI.RAD.S_ITS ---
PROCEDURE: XR CHEST 1V INDICATIONS: Chest Pain TECHNIQUE: One view of the chest was acquired. COMPARISON: [facility], CR, XR CHEST 1V, 10/07/2024, 10:06. FINDINGS: Surgical changes and devices: None. Lungs and pleura: Blunting of right costophrenic angle is seen suggestive of small right pleural effusion with right basilar atelectasis/small infiltrate. Left lung is clear. No pneumothorax. Mediastinum: Mediastinal contours appear normal. Heart size is normal. Bones and chest wall: No suspicious bony lesions. Overlying soft tissues appear unremarkable. IMPRESSION: Interval development of small right pleural effusion with right basilar atelectasis/small infiltrate. No pneumothorax. Left lung is clear. Dictated by: Manuel Cobian M.D. on 12/07/2024 at 11:11 Approved by: Manuel Cobian M.D. on 12/07/2024 at 11:12
--- NOTE | 2024-12-07 10:54 | DI.CT.S_ITS ---
PROCEDURE: CT HEAD/BRAIN WO CON INDICATIONS: Syncope TECHNIQUE: Noncontrast 4.5 mm thick angled axial sections acquired from the foramen magnum to the vertex, with coronal and sagittal reformats. For radiation dose reduction, the following was used: automated exposure control, adjustment of mA and/or kV according to patient size. COMPARISON: [facility], CT, CT ANGIO CHEST PE PROTOCOL, 12/07/2024, 11:31. [facility], CR, XR CHEST 1V, 12/07/2024, 10:40. [facility], CT, CT HEAD/BRAIN WO CON, 08/15/2024, 4:29. FINDINGS: Image quality: Diagnostic. CSF spaces: Basal cisterns are patent. No extra-axial fluid collections. The ventricles are symmetric in size and shape. Brain: No intracranial bleeds or mass effect. There is cerebral volume loss, with resultant ventricular and sulcal prominence. There are periventricular and deep white matter chronic small vessel ischemic changes. There is intracranial internal carotid artery atherosclerosis. Skull and face: Calvarium and visualized facial bones appear intact, without suspicious lesions. Sinuses: Visualized sinuses and mastoids are clear. IMPRESSION: No imaging explanation is found for this patient's presenting symptoms. No acute intracranial hemorrhage is seen. Similar to prior. Dictated by: Triston Ivory M.D. on 12/07/2024 at 11:19 Approved by: Triston Ivory M.D. on 12/07/2024 at 11:19
--- NOTE | 2024-12-07 10:54 | ED.CHESTPAIN ---
HPI - Chest Pain General Chief Complaint: Chest Pain Stated Complaint: fainting spells Time Seen by Provider: 12/07/24 10:22 Source: patient Mode of arrival: Family Vehicle Limitations: no limitations History of Present Illness HPI narrative: Patient here for syncopal episode that lasted 3-5 seconds, occurred 2 days ago on her birthday evening/dinner. Patient was at a restaurant with her . She had no no no pre event chest pain headache palpitations shortness of breath back pain abdominal pain. She states this is not the 1st time. This is happened about 7 times in the past 5 years. She has never seen a provider for this. Patient denies any recent illness fever chills cough cold congestion black or bloody stools. No urinary complaints. Has not been under lot of stress. Denies any recent chest pain shortness of breath. No numbness tingling or weakness facial droop or slurred speech. Patient in no distress at this time. Denies any history of heart attack strokes diabetes. No arrhythmias. Patient states she was not intoxicated. EMS did arrive to the restaurant. Patient was not transferred to the ER. She has had no further symptoms since 2 days ago. Related Data Home Medications ?Medication ?Instructions ?Recorded ?Confirmed ropinirole 1 mg tablet 3 mg PO DAILY 03/20/21 11/07/24 furosemide 20 mg tablet 20 mg PO DAILY PRN swelling 08/15/24 11/07/24 gabapentin 300 mg capsule 1,200 mg PO BEDTIME 08/15/24 11/07/24 methimazole 5 mg tablet 5 mg PO DAILY 08/15/24 11/07/24 benzonatate 200 mg capsule 200 mg PO 3XD PRN cough 11/07/24 11/07/24 mirtazapine 7.5 mg tablet 7.5 mg PO ONCE PM 11/07/24 11/07/24 pantoprazole 40 mg tablet,delayed 40 mg PO QPM 11/07/24 11/07/24 release Previous Rx's ?Medication ?Instructions ?Recorded fluticasone propionate 50 1 spray intranasal DAILY #16 grams 10/25/24 mcg/actuation nasal spray,suspension (Flonase Allergy Relief) cefuroxime axetil 500 mg tablet 500 mg PO Q12H #20 tabs 11/09/24 metoprolol tartrate 25 mg tablet 25 mg PO TID #60 tabs 11/09/24 oxycodone 5 mg tablet 5 mg PO Q4HR PRN Pain, Moderate 11/09/24 (4-6) #10 tabs Allergies Allergy/AdvReac Type Severity Reaction Status Date / Time Penicillins Allergy Unknown Rash Verified 12/07/24 10:24 Review of Systems Review of Systems Narrative: GENERAL: Negative chills, fatigue, malaise, fever, sweats. HEENT: Negative sinus pain, ear pain, sore throat RESPIRATORY: Negative dyspnea, cough CARDIOVASCULAR: Negative chest pain, palpitations positive syncope GASTROINTESTINAL: Negative vomiting, nausea, abdominal pain : Negative dysuria, frequency, hematuria MUSCULOSKELETAL: Negative muscle or bony pain SKIN: Negative rash, skin lesions NEUROLOGIC: Negative weakness, numbness ROS Unobtainable: All systems reviewed & are unremarkable except as noted in HPI and below Patient History Medical History Obstructive sleep apnea of adult PVCs (premature ventricular contractions) Urinary frequency Nocturia Overactive bladder Arthritis Surgical History History of colon surgery Hx of appendectomy Hx of colonoscopy Hx of cholecystectomy Hx of shoulder surgery Hx of arthroscopic knee surgery History of knee replacement Social History marital status: number of children: 2 household members: spouse 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 EYES: Pupils equal round ENT: Mucous membranes moist. NECK: Trachea midline. CARDIOVASCULAR: Regular rate and rhythm RESPIRATORY: Clear to auscultation. Breath sounds equal bilaterally. No wheezes, rales, or rhonchi. GASTROINTESTINAL: Abdomen soft, non-tender EXTREMITIES: No gross deformities. BACK: No flank tenderness. NEURO: AOx4. Clear speech fast exam is negative SKIN: Warm and dry PSYCH: Not anxious, is cooperative Initial Vital Signs Initial Vital Signs: Vital Signs Pulse Rate 106 H 12/07/24 10:14 Blood Pressure 172/79 H 12/07/24 10:14 Pulse Oximetry 99 12/07/24 10:14 Course Orders Ordered: ED Orders 12/07/24 10:29 XR chest 1V Stat EKG-12 Lead Stat 12/07/24 10:51 Complete Blood Count AUTO DIFF Stat Comprehensive Metabolic Panel Stat D Dimer Stat Magnesium Stat PTT Partial Thromboplastin Jony Stat Prothrombin Time INR Stat Troponin & CK Cardiac Panel Stat 12/07/24 10:54 CT head/brain wo con Stat 12/07/24 11:27 CT angio chest PE protocol Stat 12/07/24 11:30 Urine Microscopic Stat 12/07/24 13:24 Consult to [facility] [employer] Routine Urine Drug Screen, Rapid Stat Discontinued Medications Aspirin (Aspirin 81 Mg Chew Tab) 324 mg PO NOW ONE Stop: 12/07/24 10:30 Last Admin: 12/07/24 10:42 Dose: Not Given Documented By: LUIGI Sodium Chloride (Normal Saline 0.9%) 500 mls @ 1,000 mls/hr IV BOLUS ONE Stop: 12/07/24 11:57 Last Infusion: 12/07/24 12:36 Dose: Infused Documented By: Admin: 12/07/24 12:00 Dose: 1,000 mls/hr Documented By: IDA Vital Signs Vital signs: Vital Signs - 8 hr 12/07/24 10:14 12/07/24 10:14 12/07/24 10:25 Temperature 97.3 F L Pulse Rate 106 H 101 H Respiratory Rate 20 Blood Pressure 172/79 H 172/79 H Pulse Oximetry 99 99 Oxygen Delivery Method Room Air 12/07/24 10:30 12/07/24 10:30 12/07/24 11:00 Temperature Pulse Rate 90 85 Respiratory Rate Blood Pressure 151/73 H Pulse Oximetry 98 99 Oxygen Delivery Method 12/07/24 11:00 12/07/24 11:30 12/07/24 11:30 Temperature Pulse Rate 101 H Respiratory Rate Blood Pressure 147/69 H 151/100 H Pulse Oximetry 95 Oxygen Delivery Method 12/07/24 11:58 12/07/24 11:58 12/07/24 12:00 Temperature Pulse Rate 87 89 Respiratory Rate Blood Pressure 158/72 H Pulse Oximetry 99 99 Oxygen Delivery Method 12/07/24 12:00 12/07/24 12:37 12/07/24 12:38 Temperature Pulse Rate 95 H 97 H Respiratory Rate 19 Blood Pressure 157/81 H Pulse Oximetry 95 99 Oxygen Delivery Method 12/07/24 12:38 Temperature Pulse Rate Respiratory Rate Blood Pressure 155/72 H Pulse Oximetry Oxygen Delivery Method MDM - Chest Pain Lab Data 12/07/24 10:51 12/07/24 10:51 Labs: Lab Results 12/07/24 12/07/24 Range/Units 10:51 11:30 WBC 6.2 (4.5-11.0) X10^3/uL RBC 4.15 (4.0-5.2) X10^6/uL Hgb 12.3 (12.0-16.0) g/dL Hct 36.6 (36-46) % MCV 88.2 (80-100) fL MCH 29.5 (26-34) PG MCHC 33.5 (30-36) % RDW 14.4 (11.6-14.8) % Plt Count 389 (150-400) X10^3/uL Neut % (Auto) 65.9 (50-75) % Lymph % (Auto) 22.3 L (25-40) % [place] % (Auto) 10.0 (3-14) % Eos % (Auto) 1.0 L (2-4) % Baso % (Auto) 0.8 (0-2) % Neut # (Auto) 4100 (0455-1397) /uL Lymph # (Auto) 1400 (6963-7382) /uL [place] # (Auto) 600 (0-900) /uL Eos # (Auto) 100 (0-450) /uL Baso # (Auto) 100 (0-100) /uL PT 12.4 (9.4-12.5) SECONDS INR 1.1 (0.9-1.3) APTT 26 (25.1-36.5) SECONDS D-Dimer 1720 H (<500) ng/ml Sodium 138 (137-145) mmol/L Potassium 4.0 (3.4-5.1) mmol/L Chloride 105 (98-107) mmol/L Carbon Dioxide 23 (22-32) mmol/L BUN 17 (7-17) mg/dL Creatinine 0.48 L (0.52-1.04) mg/dL Estimated GFR > 60 (>60) mL/min BUN/Creatinine Ratio 35.4 H (6-22) Glucose 106 H (70-99) mg/dL Calcium 9.0 (8.4-10.2) mg/dL Magnesium 2.1 (1.6-2.3) mg/dL Total Bilirubin 0.5 (0.2-1.3) mg/dL AST 29 (14-36) IU/L ALT 15 (<35) IU/L Alkaline Phosphatase 106 (38-126) U/L Total Creatine Kinase < 20 L (30-135) U/L Troponin I < 0.012 (0.01-0.034) ng/mL NT-Pro-B Natriuret Pep Cancelled Total Protein 7.9 (6.3-8.2) g/dL Albumin 4.3 (3.5-5.0) g/dL Globulin 3.6 (1.7-4.1) g/dL Albumin/Globulin Ratio 1.2 (1.0-2.8) Lipase Cancelled Urine RBC None seen (0-5/HPF) Urine WBC None seen (0-5/HPF) Ur Squamous Epith Cells 1-5 /hpf (0-5/HPF) Urine Bacteria None seen (None) Ur Culture Indicated? Cult not indicated Vol Urine Centrifuged 10ml (spun) Urine Dip Bedside Urine Glucose Negative Bedside Urine Bilirubin - Negative Bedside Urine Ketone - Negative Urine Specific [place] 1.015 Bedside Urine Occult Blood - Negative Bedside Urine pH 6.0 Bedside Urine Protein +/- 15 Bedside Urine Urobilinogen - Negative Bedside Urine Nitrite - Negative Bedside Urine Leukocytes - Negative Esterase MDM Narrative Medical decision making narrative: Patient here for syncopal episode that lasted 3-5 seconds, occurred 2 days ago on her birthday evening/dinner. Patient was at a restaurant with her . She had no no no pre event chest pain headache palpitations shortness of breath back pain abdominal pain. She states this is not the 1st time. This is happened about 7 times in the past 5 years. She has never seen a provider for this. Patient denies any recent illness fever chills cough cold congestion black or bloody stools. No urinary complaints. Has not been under lot of stress. Denies any recent chest pain shortness of breath. No numbness tingling or weakness facial droop or slurred speech. Patient in no distress at this time. Denies any history of heart attack strokes diabetes. No arrhythmias. Patient states she was not intoxicated. EMS did arrive to the restaurant. Patient was not transferred to the ER. She has had no further symptoms since 2 days ago. After history and exam, CBC CMP troponin PT INR PTT D-dimer chest x-ray CT head EKG MDM Differential considered: Includes but not limited to STEMI non-STEMI arrhythmia pulmonary embolism aortic dissection dehydration Medical records reviewed: No recent visit for this complaint Lab Test results independently reviewed as above. Pertinent findings: WBC 6.2 hemoglobin 12.3 INR 1.1 D-dimer 1720 sodium 138 potassium 4.0 troponin less than 0.012 Independently reviewed EKG sinus rhythm rate 97 PAC noted. Imaging studies independently reviewed: Chest x-ray CT chest head CT no acute finding Re-evaluations: 12:45 p.m.. Updated patient results but she refuses refuses to stay any longer for further workup and observation or testing. She is awake alert oriented x4. Informed her syncopal workup includes but not limited MRI echocardiogram and may need observation. Risk include but not limited to permanent injury seizure stroke loss of limb or life for tissue. She refuses to stay. Discussion: Patient has decided to leave against medical advice however patient refused any paperwork or decide anything. Diagnosis: Syncope Discharge Plan Departure Patient Disposition: Left Against Medical Advice Clinical Impression: Left against medical advice, Syncope and collapse Instructions: Refusal of Consent to Treatment (Against Medical Advice) Activity Restrictions/Additional Instructions: Return immediately if she change your decision to be admitted Prescriptions: No Action gabapentin 300 mg capsule 1,200 mg PO BEDTIME furosemide 20 mg tablet 20 mg PO DAILY PRN (Reason: swelling) methimazole 5 mg tablet 5 mg PO DAILY benzonatate 200 mg capsule 200 mg PO 3XD PRN (Reason: cough) pantoprazole 40 mg tablet,delayed release (DR/EC) 40 mg PO QPM mirtazapine 7.5 mg tablet 7.5 mg PO ONCE PM metoprolol tartrate 25 mg Tablet 25 mg PO TID Qty: 60 0RF oxycodone 5 mg Tablet 5 mg PO Q4HR PRN (Reason: Pain, Moderate (4-6)) Qty: 10 0RF cefuroxime axetil 500 mg tablet 500 mg PO Q12H Qty: 20 0RF fluticasone propionate [Flonase Allergy Relief] 50 mcg/actuation spray,suspension 1 spray intranasal DAILY Qty: 16 2RF Rx Instructions: administer into each nostril in the evening prior to CPAP machine use ropinirole 1 mg tablet 3 mg PO DAILY Rx Instructions: take at 1800 Referrals: Rom Mast MD [Primary Care Provider, Family Practice] Stand Alone Forms: Patient Portal/API, Against Med. Advice (Kyrgyz)
[2024-12-07 11:04] LABS: Add Manual Diff / Slide Review NO; Hematocrit 36.6 % (36-46); Hemoglobin 12.3 g/dL (12.0-16.0); Lymphocytes Absolute Auto 1400 /uL (1100-4500); Mean Corpuscular HGB Conc 33.5 % (30-36); Mean Corpuscular Hemoglobin 29.5 PG (26-34); Mean Corpuscular Volume 88.2 fL (80-100); Platelet Count 389 X10^3/uL (150-400)
[2024-12-07 11:11] LABS: INR 1.1 (0.9-1.3); Prothrombin Time 12.4 SECONDS (9.4-12.5)
[2024-12-07 11:14] LABS: PTT Partial Thromboplastin Tim 26 SECONDS (25.1-36.5)
[2024-12-07 11:16] LABS: Alanine Aminotransferase 15 IU/L (<35); Albumin 4.3 g/dL (3.5-5.0); Albumin Globulin Ratio 1.2 (1.0-2.8); Alkaline Phosphatase 106 U/L (38-126); Blood Urea Nitrogen 17 mg/dL (7-17); Calcium 9.0 mg/dL (8.4-10.2); Carbon Dioxide 23 mmol/L (22-32); Chloride 105 mmol/L (98-107); Creatine Kinase < 20 U/L (30-135); Estimated Glomerular Filt Rate > 60 mL/min (>60); Globulin 3.6 g/dL (1.7-4.1); Glucose 106 mg/dL (70-99); HEMOLYSIS 32 (0-50); Magnesium 2.1 mg/dL (1.6-2.3); Potassium 4.0 mmol/L (3.4-5.1); Sodium 138 mmol/L (137-145); Total Protein 7.9 g/dL (6.3-8.2)
[2024-12-07 11:27] LABS: Troponin I < 0.012 ng/mL (0.01-0.034)
--- NOTE | 2024-12-07 11:27 | DI.CT.S_ITS ---
PROCEDURE: CT ANGIO CHEST PE PROTOCOL INDICATIONS: Syncope/chest pain TECHNIQUE: After the administration of intravenous contrast, 2 mm thick sections acquired from the pulmonary apices to the posterior costophrenic angles. 3-dimensional maximum intensity projection (MIP) coronal and sagittal reformats were then acquired through the thorax. For radiation dose reduction, the following was used: automated exposure control, adjustment of mA and/or kV according to patient size. COMPARISON: [facility], CR, XR CHEST 1V, 12/07/2024, 10:40. [facility], CT, CT HEAD/BRAIN WO CON, 12/07/2024, 11:31. [facility], CT, CT CHEST ABD PEL W CON, 11/07/2024, 9:57. [facility], CT, CT ANGIO CHEST PE PROTOCOL, 11/08/2024, 19:49. [facility], CR, XR CHEST 1V, 08/15/2024, 4:00. [facility], CT, CT ANGIO CHEST PE PROTOCOL, 08/15/2024, 4:43. FINDINGS: Image quality: Diagnostic. Pulmonary arteries: Pulmonary arteries are normal in size, and demonstrate no intraluminal filling defects to suggest central pulmonary embolism. Lower Neck: No enlarged lymph nodes. Thyroid: The left thyroid is again prominent, with a partial substernal component. Axillae: No enlarged lymph nodes. Chest Wall: Unremarkable. Bones: Accentuated thoracic kyphosis is seen. Age-appropriate bony degenerative changes are seen. Lungs and Pleura: There is a small right-sided pleural effusion, with overlying atelectasis. The lungs otherwise appear clear. No pneumothorax or pleural effusions are seen. Heart: Heart size is normal. No pericardial effusion. Thoracic Vessels: No aortic aneurysm. Mediastinum and Mariam: No enlarged lymph nodes. Esophagus: No wall thickening. No hiatal hernia. Upper Abdomen: Cholecystectomy clips are seen. Visualized upper abdomen solid organs and bowel loops appear normal. IMPRESSION: No pulmonary embolus. There is a small right-sided pleural effusion, with overlying atelectasis. The pleural effusion heart is decreased in size compared to 11/08/2024. The previously seen left-sided pleural effusion has resolved. Additional findings: Prominent left thyroid, as before Cholecystectomy Dictated by: Triston vIory M.D. on 12/07/2024 at 11:16 Approved by: Triston Ivory M.D. on 12/07/2024 at 11:18
[2024-12-07] MEDS: SODIUM CHLORIDE 0.9% 500 ML 1000 ML IV (12:00)
[2024-12-07 12:33] LABS: Culture Indicated Urine Cult Not Indicated
--- NOTE | 2024-12-07 12:43 | PC.NURSE ---
pt arrived to ed today because she has been having several syncopal episodes. Pt states that she was having dinner with her on thursday and passed out at the end of the meal. States that she woke up and EMS was standing around her and cleared her to go home. Pt states over the last year she has been seen multiple times for the same issues. states that she does not want to wait for results and wants to leave. RN discussed the risks involved with leaving before work-up is complete and pt states I want to go home. Dr Garcia notifed.
== END 2024-12-07 12:56 | disposition left against medical advice (07) ==
LOC: ED 10:24
PROVIDERS: Emergency Provider Emergency Medicine; PCP Family Medicine
DX: R55 Syncope and collapse (principal); R07.9 Chest pain, unspecified; R51.9 Headache, unspecified; R00.2 Palpitations; R06.02 Shortness of breath
CPT/HCPCS: 70450; 71045; 71275; 80053; 81003; 81015; 82550; 83735; 84484; 85025; 85379; 85610; 85730; 93005; 96360; 99283; 99284; Q9967

== ENCOUNTER 2025-02-20 09:28 | Emergency (ER) | payer MEDICARE, OTHER, SELFPAY ==
[2024-11-29 09:50] VITALS: BMI 17.1
[2025-02-20 09:50] VITALS: BP 141/73; PULSE 89; RESP 16; TEMP 36.7; O2SAT 99; BMI 18.7
[2025-02-20 12:22] LABS: Add Manual Diff / Slide Review NO; Hematocrit 38.1 % (36-46); Hemoglobin 12.5 g/dL (12.0-16.0); Lymphocytes Absolute Auto 1500 /uL (1100-4500); Mean Corpuscular HGB Conc 32.8 % (30-36); Mean Corpuscular Hemoglobin 29.5 PG (26-34); Mean Corpuscular Volume 90.1 fL (80-100); Platelet Count 286 X10^3/uL (150-400)
--- NOTE | 2025-02-20 12:23 | DI.US.S_ITS ---
PROCEDURE: US PERIPH VENOUS LOW EXTREM BI INDICATIONS: bilateral swelling worse on right TECHNIQUE: Real-time imaging, as well as color and pulse Doppler interrogation, were performed of the deep veins of both legs from the inguinal ligament to the popliteal fossa, with documentation of the visualized calf veins. COMPARISON: None. FINDINGS: Right: The common femoral, femoral, popliteal, and the visualized calf veins are normally compressible, and free of intraluminal thrombus. Color and pulse Doppler demonstrate normal phasic intravascular flow. There is normal augmentation response to distal compression maneuver. Left: The common femoral, femoral, popliteal, and the visualized calf veins are normally compressible, and free of intraluminal thrombus. Color and pulse Doppler demonstrate normal phasic intravascular flow. There is normal augmentation response to distal compression maneuver. IMPRESSION: No findings of deep venous thrombosis in either lower extremity. Dictated by: Stephen Zendejas M.D. on 02/20/2025 at 13:10 Approved by: Stephen Zendejas M.D. on 02/20/2025 at 13:10
--- NOTE | 2025-02-20 12:35 | ED.EXTPRO ---
HPI - Extremity Problem General Chief complaint: Extremity Problem,Nontraumatic Stated complaint: severe Edema Time Seen by Provider: 02/20/25 11:33 Source: patient Mode of arrival: Ambulatory History of Present Illness HPI Narrative: Patient is a 79-year-old female history of hypertension presenting today with lower extremity edema. She reports that she has had edema ongoing for the last 1 month she is on furosemide but reports today that is just getting worse. Her right leg is more swollen than her left leg. She denies any chest pain any shortness of breath. She is not on any anticoagulation. She denies any fever or chills. They are red and appear bruised. Related Data Home Medications ?Medication ?Instructions ?Recorded ?Confirmed ropinirole 1 mg tablet 3 mg PO DAILY 03/20/21 02/02/25 furosemide 20 mg tablet 20 mg PO DAILY PRN swelling 08/15/24 02/02/25 gabapentin 300 mg capsule 1,200 mg PO BEDTIME 08/15/24 02/02/25 methimazole 5 mg tablet 5 mg PO DAILY 08/15/24 02/02/25 benzonatate 200 mg capsule 200 mg PO 3XD PRN cough 11/07/24 02/02/25 mirtazapine 7.5 mg tablet 7.5 mg PO ONCE PM 11/07/24 02/02/25 pantoprazole 40 mg tablet,delayed 40 mg PO QPM 11/07/24 02/02/25 release Previous Rx's ?Medication ?Instructions ?Recorded fluticasone propionate 50 1 spray intranasal DAILY #16 grams 10/25/24 mcg/actuation nasal spray,suspension (Flonase Allergy Relief) cefuroxime axetil 500 mg tablet 500 mg PO Q12H #20 tabs 11/09/24 metoprolol tartrate 25 mg tablet 25 mg PO TID #60 tabs 11/09/24 oxycodone 5 mg tablet 5 mg PO Q4HR PRN Pain, Moderate 11/09/24 (4-6) #10 tabs ondansetron 4 mg disintegrating 4 mg PO Q8H PRN nausea and 12/22/24 tablet vomiting #12 tabs Allergies Allergy/AdvReac Type Severity Reaction Status Date / Time Penicillins Allergy Unknown Rash Verified 02/20/25 09:51 Patient History Medical History Obstructive sleep apnea of adult PVCs (premature ventricular contractions) Urinary frequency Nocturia Overactive bladder Arthritis Surgical History History of colon surgery Hx of appendectomy Hx of colonoscopy Hx of cholecystectomy Hx of shoulder surgery Hx of arthroscopic knee surgery History of knee replacement Social History marital status: number of children: 2 household members: spouse 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 HEENT: Head atraumatic,EOMI, pupils reactive, face symmetric, moist mucous membranes CARDIOVASCULAR: Regular rate and rhythm without murmurs, rubs or gallops. RESPIRATORY: Breath sounds equal bilaterally, no wheezes rales or rhonchi. ABDOMEN: Soft, nontender. Normoactive bowel sounds all 4 quadrants. No guarding or rebound. EXTREMITIES: Normal range of motion, no clubbing. + 2-3 pitting edema bilaterally right greater than. Neurovascularly intact NEUROLOGICAL: Alert and oriented x4.Normal gait and speech. Cranial nerves II through XII grossly intact. SKIN: Erythema lower extremitys blanchable right greater than left. Course Orders Ordered: ED Orders 02/20/25 12:11 EKG-12 Lead Stat 02/20/25 12:15 BNP [NT-proBNP (BNP-Adult 18+)] Stat CBC Auto Diff [Complete Blood Count AUTO DIFF] Stat CMP [Comprehensive Metabolic Panel] Stat Trop I [Troponin I] Stat 02/20/25 12:23 US periph venous low extrem bi Stat Vital Signs Vital signs: Vital Signs - 8 hr 02/20/25 09:50 02/20/25 14:05 Temperature 98.1 F Pulse Rate 89 88 Respiratory Rate 16 16 Blood Pressure 141/73 H 149/64 H Pulse Oximetry 99 95 Oxygen Delivery Method Room Air Room Air MDM - Extremity (Nontraumatic) Lab Data 02/20/25 12:15 02/20/25 12:15 Labs: Lab Results 02/20/25 Range/Units 12:15 WBC 4.7 (4.5-11.0) X10^3/uL RBC 4.23 (4.0-5.2) X10^6/uL Hgb 12.5 (12.0-16.0) g/dL Hct 38.1 (36-46) % MCV 90.1 (80-100) fL MCH 29.5 (26-34) PG MCHC 32.8 (30-36) % RDW 18.8 H (11.6-14.8) % Plt Count 286 (150-400) X10^3/uL Neut % (Auto) 54.0 (50-75) % Lymph % (Auto) 31.8 (25-40) % [place] % (Auto) 8.6 (3-14) % Eos % (Auto) 4.9 H (2-4) % Baso % (Auto) 0.7 (0-2) % Neut # (Auto) 2600 (4393-6808) /uL Lymph # (Auto) 1500 (9475-4861) /uL [place] # (Auto) 400 (0-900) /uL Eos # (Auto) 200 (0-450) /uL Baso # (Auto) 0 (0-100) /uL Sodium 139 (137-145) mmol/L Potassium 3.8 (3.4-5.1) mmol/L Chloride 104 (98-107) mmol/L Carbon Dioxide 26 (22-32) mmol/L BUN 29 H (7-17) mg/dL Creatinine 0.62 (0.52-1.04) mg/dL Estimated GFR > 60 (>60) mL/min BUN/Creatinine Ratio 46.8 H (6-22) Glucose 150 H (70-99) mg/dL Calcium 8.7 (8.4-10.2) mg/dL Total Bilirubin 0.2 (0.2-1.3) mg/dL AST 34 (14-36) IU/L ALT 22 (<35) IU/L Alkaline Phosphatase 89 (38-126) U/L Troponin I < 0.012 (0.01-0.034) ng/mL NT-Pro-B Natriuret Pep 170 (<450) pg/mL Total Protein 7.3 (6.3-8.2) g/dL Albumin 4.3 (3.5-5.0) g/dL Globulin 3.0 (1.7-4.1) g/dL Albumin/Globulin Ratio 1.4 (1.0-2.8) Imaging Data US - DVT: Radiologist's Impression: PROCEDURE: US PERIPH VENOUS LOW EXTREM BI INDICATIONS: bilateral swelling worse on right TECHNIQUE: Real-time imaging, as well as color and pulse Doppler interrogation, were performed of the deep veins of both legs from the inguinal ligament to the popliteal fossa, with documentation of the visualized calf veins. COMPARISON: None. FINDINGS: Right: The common femoral, femoral, popliteal, and the visualized calf veins are normally compressible, and free of intraluminal thrombus. Color and pulse Doppler demonstrate normal phasic intravascular flow. There is normal augmentation response to distal compression maneuver. Left: The common femoral, femoral, popliteal, and the visualized calf veins are normally compressible, and free of intraluminal thrombus. Color and pulse Doppler demonstrate normal phasic intravascular flow. There is normal augmentation response to distal compression maneuver. IMPRESSION: No findings of deep venous thrombosis in either lower extremity. Dictated by: Stephen Zendejas M.D. on 02/20/2025 at 13:10 MDM Narrative Medical decision making narrative: MDM CC: Lower extremity swelling Complicating co-morbidities: Healthy hypothyroid Data collected from: Patient Medical records reviewed: Admission in November for bilateral pneumonia ED visit in December for fall Differential considered: DVT, cellulitis congestive heart failure Exam documented above, pertinent findings include: Bilateral lower extremity edema right leg has more erythema also pillars contused strong distal pedal pulses felt bilaterally Lab Test results independently reviewed as above. Pertinent findings: CBC healed leukocytosis no anemia Electrolytes within normal limits no MARY glucose 160 BNP is 170 troponin negative Independently reviewed EKG as above Imaging studies independently reviewed: Ultrasound negative for DVT Consultations: none Treatments: none Re-evaluations: [ ] Discussion: Patient 78-year-old female presenting today with lower extremity edema right leg does appear to be mildly erythematous no leukocytosis no fever no evidence of sepsis. I would hold off antibiotics for now. She is taking Lasix once daily already. Ultrasound is negative for DVT. Recommend compression socks increasing Lasix. She also has an appointment with her PCP tomorrow. Abdomen is soft nontender nondistended do not suspect obstruction proximally. Discharge Plan Departure Patient Disposition: Home Clinical Impression: Edema of both lower legs Instructions: DI for Peripheral Edema -- Bilateral Activity Restrictions/Additional Instructions: *You have been diagnosed with peripheral edema *What to do: At this time I recommend compression [id number] compression, talk with your primary care provider about increasing your Lasix to twice daily for a couple of days *Continue to take medications as directed *Follow up with your primary care provider in 2-3 days or call [phone] *Return to ER if you should have increasing pain shortness of breath weakness [or] any new, worsening or concerning symptoms Prescriptions: No Action gabapentin 300 mg capsule 1,200 mg PO BEDTIME furosemide 20 mg tablet 20 mg PO DAILY PRN (Reason: swelling) methimazole 5 mg tablet 5 mg PO DAILY benzonatate 200 mg capsule 200 mg PO 3XD PRN (Reason: cough) pantoprazole 40 mg tablet,delayed release (DR/EC) 40 mg PO QPM mirtazapine 7.5 mg tablet 7.5 mg PO ONCE PM metoprolol tartrate 25 mg Tablet 25 mg PO TID Qty: 60 0RF oxycodone 5 mg Tablet 5 mg PO Q4HR PRN (Reason: Pain, Moderate (4-6)) Qty: 10 0RF cefuroxime axetil 500 mg tablet 500 mg PO Q12H Qty: 20 0RF ondansetron 4 mg tablet,disintegrating 4 mg PO Q8H PRN (Reason: nausea and vomiting) Qty: 12 0RF fluticasone propionate [Flonase Allergy Relief] 50 mcg/actuation spray,suspension 1 spray intranasal DAILY Qty: 16 2RF Rx Instructions: administer into each nostril in the evening prior to CPAP machine use ropinirole 1 mg tablet 3 mg PO DAILY Rx Instructions: take at 1800 Referrals: Rom Mast MD [Primary Care Provider, Family Practice] Stand Alone Forms: Patient Portal/API
[2025-02-20 12:49] LABS: Alanine Aminotransferase 22 IU/L (<35); Albumin 4.3 g/dL (3.5-5.0); Albumin Globulin Ratio 1.4 (1.0-2.8); Alkaline Phosphatase 89 U/L (38-126); Blood Urea Nitrogen 29 mg/dL (7-17); Calcium 8.7 mg/dL (8.4-10.2); Carbon Dioxide 26 mmol/L (22-32); Chloride 104 mmol/L (98-107); Estimated Glomerular Filt Rate > 60 mL/min (>60); Globulin 3.0 g/dL (1.7-4.1); Glucose 150 mg/dL (70-99); HEMOLYSIS 15 (0-50); Potassium 3.8 mmol/L (3.4-5.1); Sodium 139 mmol/L (137-145); Total Protein 7.3 g/dL (6.3-8.2)
[2025-02-20 12:57] LABS: NT-proBNP (BNP-Adult 18+) 170 pg/mL (<450)
[2025-02-20 13:00] LABS: Troponin I < 0.012 ng/mL (0.01-0.034)
[2025-02-20 14:05] VITALS: BP 149/64; PULSE 88; RESP 16; O2SAT 95
== END 2025-02-20 14:06 | disposition home or self-care (01) ==
PROVIDERS: Physician Assistant; Emergency Provider Emergency Medicine; PCP Family Medicine
DX: R60.0 Localized edema (principal); E03.9 Hypothyroidism, unspecified
CPT/HCPCS: 36415; 80053; 83880; 84484; 85025; 93970; 99281; 99284

== ENCOUNTER → 2025-02-21 08:56 | Outpatient (CLI) | payer MEDICARE, OTHER, SELFPAY ==
[2024-11-29 09:50] VITALS: BMI 17.1
--- NOTE | 2025-02-21 08:59 | DI.RAD.S_ITS ---
PROCEDURE: XR ABDOMEN 1V INDICATIONS: Constipation, unspecified TECHNIQUE: One view of the abdomen acquired. COMPARISON: [facility], CR, XR ABDOMEN MIN 2V, 08/17/2024, 11:03. [facility], CR, XR ABDOMEN MIN 2V, 12/27/2021, 9:47. FINDINGS: Surgical changes and devices: None. Bowel: Moderate volume stool. No dilated small bowel or large bowel. Soft tissues: No suspicious abdominal calcifications. Visualized solid organ contours appear normal in size. Cholecystectomy clips are noted in the right upper quadrant of the abdomen. Bones: No suspicious bony lesions. IMPRESSION: No acute abnormality. Dictated by: Opal Cronin M.D. on 02/21/2025 at 12:11 Approved by: Opal Cronin M.D. on 02/21/2025 at 12:12
== END ==
PROVIDERS: PCP Family Medicine; Referring Provider Family Medicine; Visit Provider Family Medicine
DX: K59.00 Constipation, unspecified (principal)
CPT/HCPCS: 74018

== ENCOUNTER → 2025-04-08 10:12 | Outpatient (CLI) | payer MEDICARE, OTHER, SELFPAY ==
[2024-11-29 09:50] VITALS: BMI 17.1
--- NOTE | 2025-04-08 10:22 | DI.RAD.S_ITS ---
1PROCEDURE: XR KNEE RT 3V INDICATIONS: XR Right Knee Pain TECHNIQUE: 3 views of the knee were acquired. COMPARISON: [facility], [place], XR KNEE RT 3V, 04/18/2024, 12:47. [facility], [place], KNEE 3V RIGHT, 09/08/2016, 10:27. FINDINGS: Bones: Changes of right total knee arthroplasty without acute hardware complication. No fracture or dislocation Soft tissues: No joint effusion. No suspicious soft tissue calcifications. IMPRESSION: Changes of right total knee arthroplasty without acute hardware complication. Dictated by: Shady Harrison M.D. on 04/08/2025 at 10:49 Approved by: Sahdy Harrison M.D. on 04/08/2025 at 10:50
== END ==
PROVIDERS: PCP Family Medicine; Referring Provider Internal Medicine; Visit Provider Internal Medicine
DX: M25.561 Pain in right knee (principal); Z96.651 Presence of right artificial knee joint
CPT/HCPCS: 73562

== ENCOUNTER 2025-04-10 13:19 | Emergency (ER) | payer MEDICARE, OTHER, SELFPAY ==
[2024-11-29 09:50] VITALS: BMI 17.1
[2025-04-10 13:24] VITALS: BP 159/65; PULSE 97; RESP 17; TEMP 36.6; O2SAT 99; BMI 20.3
--- NOTE | 2025-04-10 13:39 | EKG_ITS ---
[facility] [address] [place] [address] Test Date: 2025-04-10 Pat Name: Mery Reed Department: [facility] Room: Gender: Female [place]: CHUCK : 1945 Requested By: Order Number: [id number] Reading MD: Frantz Cronin Measurements Intervals [place] Rate: 91 P: 82 NE: 132 QRS: 62 QRSD: 74 T: 76 QT: 380 QTc: 467 Interpretive Statements Normal sinus rhythm Possible Left atrial enlargement Electronically Signed On 04-15-2025 12:24:42 PST by Frantz Cronin
[2025-04-10 14:14] LABS: Add Manual Diff / Slide Review NO; Hematocrit 38.7 % (36-46); Hemoglobin 12.8 g/dL (12.0-16.0); Lymphocytes Absolute Auto 1600 /uL (1100-4500); Mean Corpuscular HGB Conc 33.2 % (30-36); Mean Corpuscular Hemoglobin 29.6 PG (26-34); Mean Corpuscular Volume 89.3 fL (80-100); Platelet Count 269 X10^3/uL (150-400)
[2025-04-10 14:22] LABS: Alanine Aminotransferase 15 IU/L (<35); Albumin 4.6 g/dL (3.5-5.0); Albumin Globulin Ratio 1.5 (1.0-2.8); Alkaline Phosphatase 88 U/L (38-126); Blood Urea Nitrogen 30 mg/dL (7-17); Calcium 8.7 mg/dL (8.4-10.2); Carbon Dioxide 27 mmol/L (22-32); Chloride 102 mmol/L (98-107); Estimated Glomerular Filt Rate > 60 mL/min (>60); Globulin 3.1 g/dL (1.7-4.1); Glucose 103 mg/dL (70-99); HEMOLYSIS < 15 (0-50); Lipase 163 U/L (23-300); Potassium 4.2 mmol/L (3.4-5.1); Sodium 137 mmol/L (137-145); Total Protein 7.7 g/dL (6.3-8.2)
[2025-04-10 15:03] VITALS: BP 150/77; PULSE 92; RESP 17; O2SAT 97
[2025-04-10 16:31] LABS: Culture Indicated Urine Specimen Cultured
--- NOTE | 2025-04-10 16:33 | DI.RAD.S_ITS ---
PROCEDURE: XR ACUTE ABDOMEN SERIES INDICATIONS: constipation TECHNIQUE: One view chest and two views of the abdomen were acquired. COMPARISON: [facility], , XR ACUTE ABDOMEN SERIES, 10/13/2022, 16:07. FINDINGS: Surgical changes and devices: None. Chest: Lungs are clear. Heart size is normal. No pleural effusions. No pneumoperitoneum. Abdomen: Bowel gas pattern is normal. Large diffuse fecal load. No suspicious calcifications. Visualized solid organ contours appear normal. Bones: No suspicious bony lesions. IMPRESSION: Constipation. No acute process in the chest and abdomen. Dictated by: Jp Disla M.D. on 04/10/2025 at 17:13 Approved by: Jp Disla M.D. on 04/10/2025 at 17:14
--- NOTE | 2025-04-10 17:14 | ED.ABDPAIN ---
HPI - Abdominal Pain <Caron Rome PA-C - Last Filed: 04/10/25 17:34> General Chief Complaint: Abdominal Pain Stated Complaint: Rectal prolapse Time Seen by Provider: 04/10/25 15:36 Source: patient Mode of arrival: Ambulatory History of Present Illness HPI narrative: 79-year-old female with past medical history rectal prolapse, urinary incontinence, constipation, obstructive sleep apnea presents to the ED with abdominal discomfort secondary to constipation. Patient states that she has been chronically constipated, took some MiraLax yesterday, following which she had some watery stool and stool leakage. Patient states that her abdomen feels uncomfortable, that she needs to have a bowel movement. No fever, chills, nausea, vomiting, dysuria, lightheadedness, dizziness, syncope. Related Data Home Medications ?Medication ?Instructions ?Recorded ?Confirmed ropinirole 1 mg tablet 3 mg PO DAILY 03/20/21 02/02/25 furosemide 20 mg tablet 20 mg PO DAILY PRN swelling 08/15/24 02/02/25 gabapentin 300 mg capsule 1,200 mg PO BEDTIME 08/15/24 02/02/25 methimazole 5 mg tablet 5 mg PO DAILY 08/15/24 02/02/25 benzonatate 200 mg capsule 200 mg PO 3XD PRN cough 11/07/24 02/02/25 mirtazapine 7.5 mg tablet 7.5 mg PO ONCE PM 11/07/24 02/02/25 pantoprazole 40 mg tablet,delayed 40 mg PO QPM 11/07/24 02/02/25 release Previous Rx's ?Medication ?Instructions ?Recorded fluticasone propionate 50 1 spray intranasal DAILY #16 grams 10/25/24 mcg/actuation nasal spray,suspension (Flonase Allergy Relief) cefuroxime axetil 500 mg tablet 500 mg PO Q12H #20 tabs 11/09/24 metoprolol tartrate 25 mg tablet 25 mg PO TID #60 tabs 11/09/24 oxycodone 5 mg tablet 5 mg PO Q4HR PRN Pain, Moderate 11/09/24 (4-6) #10 tabs ondansetron 4 mg disintegrating 4 mg PO Q8H PRN nausea and 12/22/24 tablet vomiting #12 tabs Allergies Allergy/AdvReac Type Severity Reaction Status Date / Time Penicillins Allergy Unknown Rash Verified 04/10/25 13:24 Review of Systems <Caron Rome PA-C - Last Filed: 04/10/25 17:34> Constitutional Constitutional: Denies chills, Denies fatigue, Denies fever(s), Denies frequent falls, Denies lethargy and Denies weakness Eyes Eyes: Denies change in vision, Denies eye discharge, Denies irritation and Denies loss of vision ENT Ears, Nose, Mouth, and Throat: Denies change in voice, Denies dizziness, Denies neck pain, Denies sore throat and Denies throat swelling Cardiovascular Cardiovascular: Denies chest pain, Denies irregular heart rhythm, Denies lightheadedness, Denies palpitations, Denies dyspnea, Denies dyspnea on exertion and Denies orthopnea Respiratory Respiratory: Denies cough, Denies dyspnea, Denies dyspnea on exertion and Denies wheezing Gastrointestinal Gastrointestinal: Reports abdominal pain, Denies change in bowel habits, Reports constipation, Denies diarrhea, Denies nausea and Denies vomiting Musculoskeletal Musculoskeletal: Denies neck pain and Denies numbness Integumentary/Breasts Skin/Breast: Denies pruritus, Denies erythema, Denies rash and Denies wounds Neurologic Neurologic: Denies behavioral changes, Denies confusion, Denies dizziness, Denies frequent falls, Denies loss of vision, Denies numbness and Denies weakness Psychiatric Psychiatric: Denies anxiety, Denies behavioral changes, Denies confusion, Denies depression, Denies homicidal ideation and Denies suicidal ideation Endocrine Endocrine: Denies fatigue, Denies flushing and Denies palpitations Hematologic/Lymphatic Hematologic/Lymphatic: Denies easy bruising Allergic/Immunologic Allergic/Immunologic: Denies urticaria, Denies throat swelling and Denies wheezing Patient History <Caron Rome PA-C - Last Filed: 04/10/25 17:34> Medical History Obstructive sleep apnea of adult PVCs (premature ventricular contractions) Urinary frequency Nocturia Overactive bladder Arthritis Surgical History History of colon surgery Hx of appendectomy Hx of colonoscopy Hx of cholecystectomy Hx of shoulder surgery Hx of arthroscopic knee surgery History of knee replacement Social History marital status: number of children: 2 household members: spouse 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 Status: Never smoker alcohol intake: former caffeine: Yes Type(s) of exercise: walking and regular exercise frequency: daily Smoking Status: Never smoker alcohol intake frequency: 0-2 drinks per day Alcohol type: wine and hard liquor Exam <Caron Rome PA-C - Last Filed: 04/10/25 17:34> Narrative Exam Narrative: Const General:?cooperative, healthy appearing and comfortable [facility] Head:?normal to inspection Ears:?hearing grossly normal bilaterally Nose:?external nose normal Face and sinus:?normal facial exam and sinuses nontender Mouth:?oral mucosae normal Throat:?posterior oropharynx normal Eyes General:?appearance normal, both eyes and all related structures Neck Neck:?normal visual inspection and no lymphadenopathy noted Resp Effort & Inspection:?normal respiratory effort Auscultation:?clear to auscultation bilaterally Cardio Rate:?regular rate Rhythm:?regular rhythm GI Abdomen is soft, nondistended. Generalized mild tenderness to palpation. Neuro General:?patient alert, patient awake and patient oriented x3 Initial Vital Signs Initial Vital Signs: Vital Signs Temperature 98 F 04/10/25 13:24 Pulse Rate 97 H 04/10/25 13:24 Respiratory Rate 17 04/10/25 13:24 Blood Pressure 159/65 H 04/10/25 13:24 Pulse Oximetry 99 04/10/25 13:24 Oxygen Delivery Method Room Air 04/10/25 13:24 <Vadim Garcia MD - Last Filed: 04/11/25 08:12> Initial Vital Signs Initial Vital Signs: Vital Signs Temperature 98 F 04/10/25 13:24 Pulse Rate 97 H 04/10/25 13:24 Respiratory Rate 17 04/10/25 13:24 Blood Pressure 159/65 H 04/10/25 13:24 Pulse Oximetry 99 04/10/25 13:24 Oxygen Delivery Method Room Air 04/10/25 13:24 Course <Caron Rome PA-C - Last Filed: 04/10/25 17:34> Orders Ordered: Discontinued Medications Ondansetron HCl (Ondansetron 4 Mg/2 Ml Inj) 4 mg IV NOW PRN PRN Reason: Nausea And Vomiting Ondansetron HCl (Ondansetron 4 Mg Odt) 4 mg PO NOW PRN PRN Reason: Nausea And Vomiting Vital Signs Vital signs: Vital Signs - 8 hr 04/10/25 13:24 04/10/25 15:03 Temperature 98 F Pulse Rate 97 H 92 H Respiratory Rate 17 17 Blood Pressure 159/65 H 150/77 H Pulse Oximetry 99 97 Oxygen Delivery Method Room Air Room Air <Vadim Garcia MD - Last Filed: 04/11/25 08:12> Orders Ordered: Discontinued Medications Ondansetron HCl (Ondansetron 4 Mg/2 Ml Inj) 4 mg IV NOW PRN PRN Reason: Nausea And Vomiting Ondansetron HCl (Ondansetron 4 Mg Odt) 4 mg PO NOW PRN PRN Reason: Nausea And Vomiting Vital Signs Vital signs: Vital Signs - 8 hr 04/10/25 13:24 04/10/25 15:03 Temperature 98 F Pulse Rate 97 H 92 H Respiratory Rate 17 17 Blood Pressure 159/65 H 150/77 H Pulse Oximetry 99 97 Oxygen Delivery Method Room Air Room Air MDM - Abdominal Pain <Caron Rome PA-C - Last Filed: 04/10/25 17:34> Lab Data 04/10/25 14:00 04/10/25 14:00 Labs: Lab Results 04/10/25 04/10/25 Range/Units 14:00 16:08 WBC 9.3 (4.5-11.0) X10^3/uL RBC 4.33 (4.0-5.2) X10^6/uL Hgb 12.8 (12.0-16.0) g/dL Hct 38.7 (36-46) % MCV 89.3 (80-100) fL MCH 29.6 (26-34) PG MCHC 33.2 (30-36) % RDW 15.4 H (11.6-14.8) % Plt Count 269 (150-400) X10^3/uL Neut % (Auto) 69.8 (50-75) % Lymph % (Auto) 17.6 L (25-40) % [place] % (Auto) 11.6 (3-14) % Eos % (Auto) 0.6 L (2-4) % Baso % (Auto) 0.4 (0-2) % Neut # (Auto) 6500 (7812-4822) /uL Lymph # (Auto) 1600 (6610-9676) /uL [place] # (Auto) 1100 H (0-900) /uL Eos # (Auto) 100 (0-450) /uL Baso # (Auto) 0 (0-100) /uL Sodium 137 (137-145) mmol/L Potassium 4.2 (3.4-5.1) mmol/L Chloride 102 (98-107) mmol/L Carbon Dioxide 27 (22-32) mmol/L BUN 30 H (7-17) mg/dL Creatinine 0.71 (0.52-1.04) mg/dL Estimated GFR > 60 (>60) mL/min BUN/Creatinine Ratio 42.3 H (6-22) Glucose 103 H (70-99) mg/dL Calcium 8.7 (8.4-10.2) mg/dL Total Bilirubin 0.5 (0.2-1.3) mg/dL AST 24 (14-36) IU/L ALT 15 (<35) IU/L Alkaline Phosphatase 88 (38-126) U/L Total Protein 7.7 (6.3-8.2) g/dL Albumin 4.6 (3.5-5.0) g/dL Globulin 3.1 (1.7-4.1) g/dL Albumin/Globulin Ratio 1.5 (1.0-2.8) Lipase 163 (23-300) U/L Urine RBC 10-30/hpf H (0-5/HPF) Urine WBC 1-5/hpf (0-5/HPF) Ur Squamous Epith Cells 0-1 /hpf (0-5/HPF) Urine Bacteria None seen (None) Ur Culture Indicated? Specimen cultured Vol Urine Centrifuged 10ml (spun) Point of care testing: Urine Dip Bedside Urine Glucose Negative Bedside Urine Bilirubin - Negative Bedside Urine Ketone - Negative Urine Specific [place] 1.015 Bedside Urine Occult Blood +++ Bedside Urine pH 5.5 Bedside Urine Protein +/- 15 Bedside Urine Urobilinogen - Negative Bedside Urine Nitrite - Negative Bedside Urine Leukocytes + 70 Esterase MDM Narrative Medical decision making narrative: 79-year-old female with past medical history rectal prolapse, urinary incontinence, constipation, obstructive sleep apnea presents to the ED with abdominal discomfort secondary to constipation. Concern for bowel obstruction versus constipation versus other. Obtained abdominal x-ray which shows constipation, large diffuse fecal load. No acute process in the chest and abdomen. Discussed findings with patient. Recommend continuing MiraLax, senna, magnesium citrate, plenty of hydration. Recommend follow-up with PCP as soon as possible. ED return precautions discussed with patient. Patient verbalized understanding. Medical records reviewed: Yes <Vadim Garcia MD - Last Filed: 04/11/25 08:12> Lab Data Labs: Lab Results 04/10/25 04/10/25 Range/Units 14:00 16:08 WBC 9.3 (4.5-11.0) X10^3/uL RBC 4.33 (4.0-5.2) X10^6/uL Hgb 12.8 (12.0-16.0) g/dL Hct 38.7 (36-46) % MCV 89.3 (80-100) fL MCH 29.6 (26-34) PG MCHC 33.2 (30-36) % RDW 15.4 H (11.6-14.8) % Plt Count 269 (150-400) X10^3/uL Neut % (Auto) 69.8 (50-75) % Lymph % (Auto) 17.6 L (25-40) % [place] % (Auto) 11.6 (3-14) % Eos % (Auto) 0.6 L (2-4) % Baso % (Auto) 0.4 (0-2) % Neut # (Auto) 6500 (1261-0188) /uL Lymph # (Auto) 1600 (2905-8591) /uL [place] # (Auto) 1100 H (0-900) /uL Eos # (Auto) 100 (0-450) /uL Baso # (Auto) 0 (0-100) /uL Sodium 137 (137-145) mmol/L Potassium 4.2 (3.4-5.1) mmol/L Chloride 102 (98-107) mmol/L Carbon Dioxide 27 (22-32) mmol/L BUN 30 H (7-17) mg/dL Creatinine 0.71 (0.52-1.04) mg/dL Estimated GFR > 60 (>60) mL/min BUN/Creatinine Ratio 42.3 H (6-22) Glucose 103 H (70-99) mg/dL Calcium 8.7 (8.4-10.2) mg/dL Total Bilirubin 0.5 (0.2-1.3) mg/dL AST 24 (14-36) IU/L ALT 15 (<35) IU/L Alkaline Phosphatase 88 (38-126) U/L Total Protein 7.7 (6.3-8.2) g/dL Albumin 4.6 (3.5-5.0) g/dL Globulin 3.1 (1.7-4.1) g/dL Albumin/Globulin Ratio 1.5 (1.0-2.8) Lipase 163 (23-300) U/L Urine RBC 10-30/hpf H (0-5/HPF) Urine WBC 1-5/hpf (0-5/HPF) Ur Squamous Epith Cells 0-1 /hpf (0-5/HPF) Urine Bacteria None seen (None) Ur Culture Indicated? Specimen cultured Vol Urine Centrifuged 10ml (spun) Point of care testing: Urine Dip Bedside Urine Glucose Negative Bedside Urine Bilirubin - Negative Bedside Urine Ketone - Negative Urine Specific [place] 1.015 Bedside Urine Occult Blood +++ Bedside Urine pH 5.5 Bedside Urine Protein +/- 15 Bedside Urine Urobilinogen - Negative Bedside Urine Nitrite - Negative Bedside Urine Leukocytes + 70 Esterase Discharge Plan Departure Patient Disposition: Home Clinical Impression: Constipation Qualifiers: Constipation type: unspecified constipation type Qualified Code(s): K59.00 - Constipation, unspecified Instructions: DI for Constipation Activity Restrictions/Additional Instructions: You were evaluated in the ED today for abdominal discomfort due to constipation. The abdominal x-ray shows a large amount of stool but no other abnormalities. Your labs were normal as well. Please continue taking MiraLax, senna, magnesium citrate for the constipation. Please stay by the bathroom when taking magnesium citrate, since it can act quite quickly. Please follow-up with your PCP as soon as possible for further evaluation. Return to the ED if you have worsening symptoms. Prescriptions: No Action gabapentin 300 mg capsule 1,200 mg PO BEDTIME furosemide 20 mg tablet 20 mg PO DAILY PRN (Reason: swelling) methimazole 5 mg tablet 5 mg PO DAILY benzonatate 200 mg capsule 200 mg PO 3XD PRN (Reason: cough) pantoprazole 40 mg tablet,delayed release (DR/EC) 40 mg PO QPM mirtazapine 7.5 mg tablet 7.5 mg PO ONCE PM metoprolol tartrate 25 mg Tablet 25 mg PO TID Qty: 60 0RF oxycodone 5 mg Tablet 5 mg PO Q4HR PRN (Reason: Pain, Moderate (4-6)) Qty: 10 0RF cefuroxime axetil 500 mg tablet 500 mg PO Q12H Qty: 20 0RF ondansetron 4 mg tablet,disintegrating 4 mg PO Q8H PRN (Reason: nausea and vomiting) Qty: 12 0RF fluticasone propionate [Flonase Allergy Relief] 50 mcg/actuation spray,suspension 1 spray intranasal DAILY Qty: 16 2RF Rx Instructions: administer into each nostril in the evening prior to CPAP machine use ropinirole 1 mg tablet 3 mg PO DAILY Rx Instructions: take at 1800 Referrals: Rom Mast MD [Primary Care Provider, Family Practice] Stand Alone Forms: Patient Portal/API ED Sign-out <Vadim Garcia MD - Last Filed: 04/11/25 08:12> Cosign ED Attending Cosignature Attestation: I was immediately available in the department for consultation. ?This documentation has been reviewed and I agree with assessment and plan. Supervised by Vadim Garcia MD
[2025-04-10 17:41] VITALS: BP 145/91; PULSE 97; RESP 16; O2SAT 98
== END 2025-04-10 17:42 | disposition home or self-care (01) ==
PROVIDERS: Emergency Medicine; Emergency Provider Student in an Organized Health Care Education/Training Program; PCP Family Medicine
DX: K59.00 Constipation, unspecified (principal)
CPT/HCPCS: 36415; 74022; 80053; 81003; 81015; 83690; 85025; 87086; 93005; 99283; 99284

== ENCOUNTER 2025-04-21 20:19 | Emergency (ER) | payer MEDICARE, OTHER, SELFPAY ==
[2024-11-29 09:50] VITALS: BMI 17.1
[2025-04-21 20:33] VITALS: BP 140/66; PULSE 96; RESP 16; TEMP 36.7; O2SAT 99; BMI 20.3
--- NOTE | 2025-04-21 20:36 | ED.ABDPAIN ---
HPI - Abdominal Pain <Juan Jose Ryan MD - Last Filed: 04/21/25 23:37> General Chief Complaint: Urogenital-Female Stated Complaint: Rectal prolapse, can not use restroom. Time Seen by Provider: 04/21/25 20:35 History of Present Illness HPI narrative: 79-year-old female patient with a history of MACO, overactive bladder and recently diagnosed rectal prolapse 2 weeks ago. She has been able to reduce the prolapse but today she was not able to. She has prolapse and which has interfered with her bowel movement and her urination. She feels fullness in the abdomen. Related Data Home Medications ?Medication ?Instructions ?Recorded ?Confirmed ropinirole 1 mg tablet 3 mg PO DAILY 03/20/21 02/02/25 furosemide 20 mg tablet 20 mg PO DAILY PRN swelling 08/15/24 02/02/25 gabapentin 300 mg capsule 1,200 mg PO BEDTIME 08/15/24 02/02/25 methimazole 5 mg tablet 5 mg PO DAILY 08/15/24 02/02/25 benzonatate 200 mg capsule 200 mg PO 3XD PRN cough 11/07/24 02/02/25 mirtazapine 7.5 mg tablet 7.5 mg PO ONCE PM 11/07/24 02/02/25 pantoprazole 40 mg tablet,delayed 40 mg PO QPM 11/07/24 02/02/25 release Previous Rx's ?Medication ?Instructions ?Recorded fluticasone propionate 50 1 spray intranasal DAILY #16 grams 10/25/24 mcg/actuation nasal spray,suspension (Flonase Allergy Relief) cefuroxime axetil 500 mg tablet 500 mg PO Q12H #20 tabs 11/09/24 metoprolol tartrate 25 mg tablet 25 mg PO TID #60 tabs 11/09/24 oxycodone 5 mg tablet 5 mg PO Q4HR PRN Pain, Moderate 11/09/24 (4-6) #10 tabs ondansetron 4 mg disintegrating 4 mg PO Q8H PRN nausea and 12/22/24 tablet vomiting #12 tabs cefdinir 300 mg capsule 300 mg PO BID 7 days #14 caps 04/22/25 Allergies Allergy/AdvReac Type Severity Reaction Status Date / Time Penicillins Allergy Unknown Rash Verified 04/21/25 20:37 Review of Systems <Juan Jose Ryan MD - Last Filed: 04/21/25 23:37> Review of Systems ROS Unobtainable: All systems reviewed & are unremarkable except as noted in HPI and below Gastrointestinal Gastrointestinal: Reports as per HPI Genitourinary Genitourinary: Reports as per HPI Patient History <Juan Jose Ryan MD - Last Filed: 04/21/25 23:37> Medical History Obstructive sleep apnea of adult PVCs (premature ventricular contractions) Urinary frequency Nocturia Overactive bladder Arthritis Surgical History History of colon surgery Hx of appendectomy Hx of colonoscopy Hx of cholecystectomy Hx of shoulder surgery Hx of arthroscopic knee surgery History of knee replacement Social History marital status: number of children: 2 household members: spouse 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 [id number] distress. Appears well nourished and well hydrated Craniofacial: No evidence of trauma. Nontender and no swelling. Lungs: Clear to auscultation with good air movement. No wheezing, rales or rhonchi. No respiratory distress Cardiac: Regular rate and rhythm with no appreciable murmur or gallop Abdomen: Soft, mild diffuse tenderness. With no distention or masses. Normal bowel sounds. No rebound or guarding Rectal: No prolapse evident. Minimal tenderness. No impaction. Musculoskeletal: Exam of the extremities, axial spine and ribcage reveals no deformity, bony tenderness or swelling. Range of motion intact Neuro: Alert and oriented. Cranial nerves, motor, sensory and cerebellar all grossly intact. No focal deficit Skin: Warm and normal color. No rashes Psychological: Normal affect and interaction. No evidence of delusion or psychosis. Normal mood. Initial Vital Signs Initial Vital Signs: Vital Signs Temperature 98.1 F 04/21/25 20:33 Pulse Rate 96 H 04/21/25 20:33 Respiratory Rate 16 04/21/25 20:33 Blood Pressure 140/66 04/21/25 20:33 Pulse Oximetry 99 04/21/25 20:33 Oxygen Delivery Method Room Air 04/21/25 20:33 <Miguel A Gonzalez MD - Last Filed: 04/22/25 03:46> Initial Vital Signs Initial Vital Signs: Vital Signs Temperature 98.1 F 04/21/25 20:33 Pulse Rate 96 H 04/21/25 20:33 Respiratory Rate 16 04/21/25 20:33 Blood Pressure 140/66 04/21/25 20:33 Pulse Oximetry 99 04/21/25 20:33 Oxygen Delivery Method Room Air 04/21/25 20:33 Course <Juan Jose Ryan MD - Last Filed: 04/21/25 23:37> Orders Ordered: ED Orders 04/21/25 21:50 CBC Auto Diff [Complete Blood Count AUTO DIFF] Stat CMP [Comprehensive Metabolic Panel] Stat 04/21/25 23:50 Urinalysis and Microscopic Stat Urine Culture Stat Discontinued Medications Ceftriaxone Sodium 1,000 mg/ (Sodium Chloride) 100 mls @ 200 mls/hr IV NOW ONE Stop: 04/22/25 00:35 Last Infusion: 04/22/25 01:43 Dose: Infused Documented By: Admin: 04/22/25 00:47 Dose: 200 mls/hr Documented By: Sodium Biphosphate/Sodium Phosphate (Fleets Enema) 1 each WA NOW ONE Stop: 04/21/25 22:52 Last Admin: 04/21/25 23:49 Dose: 1 each Documented By: BARRINGTON Tramadol HCl (Tramadol 50 Mg Prepack) 1 bottle MISC DIRECTED ONE Stop: 04/22/25 02:00 Last Admin: 04/22/25 02:04 Dose: 1 bottle Documented By: BARRINGTON Tramadol HCl (Tramadol 50 Mg Tablet) 50 mg PO NOW ONE Stop: 04/22/25 02:00 Last Admin: 04/22/25 02:04 Dose: 50 mg Documented By: BARRINGTON Vital Signs Vital signs: Vital Signs - 8 hr 04/21/25 20:33 04/22/25 02:14 Temperature 98.1 F Pulse Rate 96 H 94 H Respiratory Rate 16 16 Blood Pressure 140/66 142/65 H Pulse Oximetry 99 98 Oxygen Delivery Method Room Air Room Air <Miguel A Gonzalez MD - Last Filed: 04/22/25 03:46> Orders Ordered: ED Orders 04/21/25 21:50 CBC Auto Diff [Complete Blood Count AUTO DIFF] Stat CMP [Comprehensive Metabolic Panel] Stat 04/21/25 23:50 Urinalysis and Microscopic Stat Urine Culture Stat Discontinued Medications Ceftriaxone Sodium 1,000 mg/ (Sodium Chloride) 100 mls @ 200 mls/hr IV NOW ONE Stop: 04/22/25 00:35 Last Infusion: 04/22/25 01:43 Dose: Infused Documented By: Admin: 04/22/25 00:47 Dose: 200 mls/hr Documented By: Sodium Biphosphate/Sodium Phosphate (Fleets Enema) 1 each WA NOW ONE Stop: 04/21/25 22:52 Last Admin: 04/21/25 23:49 Dose: 1 each Documented By: BARRINGTON Tramadol HCl (Tramadol 50 Mg Prepack) 1 bottle MISC DIRECTED ONE Stop: 04/22/25 02:00 Last Admin: 04/22/25 02:04 Dose: 1 bottle Documented By: BARRINGTON Tramadol HCl (Tramadol 50 Mg Tablet) 50 mg PO NOW ONE Stop: 04/22/25 02:00 Last Admin: 04/22/25 02:04 Dose: 50 mg Documented By: BARRINGTON Vital Signs Vital signs: Vital Signs - 8 hr 04/21/25 20:33 04/22/25 02:14 Temperature 98.1 F Pulse Rate 96 H 94 H Respiratory Rate 16 16 Blood Pressure 140/66 142/65 H Pulse Oximetry 99 98 Oxygen Delivery Method Room Air Room Air MDM - Abdominal Pain <Juan Jose Ryan MD - Last Filed: 04/21/25 23:37> Differential Diagnosis Differential diagnosis: Likely abdominal pain, constipation, gastroenteritis and small bowel obstruction Lab Data Attestation: I reviewed the patient's lab results. 04/21/25 21:50 04/21/25 21:50 Labs: Lab Results 04/21/25 04/21/25 Range/Units 21:50 23:50 WBC 6.2 (4.5-11.0) X10^3/uL RBC 4.24 (4.0-5.2) X10^6/uL Hgb 12.7 (12.0-16.0) g/dL Hct 37.8 (36-46) % MCV 89.1 (80-100) fL MCH 30.0 (26-34) PG MCHC 33.7 (30-36) % RDW 14.7 (11.6-14.8) % Plt Count 252 (150-400) X10^3/uL Neut % (Auto) 59.6 (50-75) % Lymph % (Auto) 21.6 L (25-40) % Mccreary % (Auto) 12.4 (3-14) % Eos % (Auto) 5.7 H (2-4) % Baso % (Auto) 0.7 (0-2) % Neut # (Auto) 3700 (3930-2740) /uL Lymph # (Auto) 1300 (1244-4301) /uL Mccreary # (Auto) 800 (0-900) /uL Eos # (Auto) 400 (0-450) /uL Baso # (Auto) 0 (0-100) /uL Sodium 141 (137-145) mmol/L Potassium 3.5 (3.4-5.1) mmol/L Chloride 103 (98-107) mmol/L Carbon Dioxide 29 (22-32) mmol/L BUN 28 H (7-17) mg/dL Creatinine 0.67 (0.52-1.04) mg/dL Estimated GFR > 60 (>60) mL/min BUN/Creatinine Ratio 41.8 H (6-22) Glucose 113 H (70-99) mg/dL Calcium 9.0 (8.4-10.2) mg/dL Total Bilirubin 0.2 (0.2-1.3) mg/dL AST 25 (14-36) IU/L ALT 15 (<35) IU/L Alkaline Phosphatase 78 (38-126) U/L Total Protein 7.2 (6.3-8.2) g/dL Albumin 4.2 (3.5-5.0) g/dL Globulin 3.0 (1.7-4.1) g/dL Albumin/Globulin Ratio 1.4 (1.0-2.8) Urine Color Yellow Urine Appearance Sl cloudy Urine pH 5.5 (4.5-8.0) Ur Specific [place] 1.020 (1.000-1.035) Urine Protein Negative (Negative) Urine Glucose (UA) Negative (Negative) g/dL Urine Ketones Negative (NEGATIVE) Urine Occult Blood 2+ H (Negative) Urine Nitrate Negative (Negative) Urine Bilirubin Negative (NEGATIVE) Urine Urobilinogen 0.2 (0.2) E.U./dL Ur Leukocyte Esterase 1+ H (NEGATIVE) Urine RBC 0-1/hpf D (0-5/HPF) Urine WBC 5-10/hpf H (0-5/HPF) Ur Squamous Epith Cells 0-1 /hpf (0-5/HPF) Amorphous Sediment 1+ Urine Bacteria Moderate (10-30) H (None) Hyaline Casts 1-5/lpf (None) Ur Culture Indicated? Specimen cultured Vol Urine Centrifuged 10ml (spun) MDM Narrative Medical decision making narrative: Patient currently has no bowel prolapse on exam. She can not urinate and her bladder scan revealed 350 mL of urine so we will place Owens catheter for now. And check her urinalysis. She also feels she needs to have a bowel movement and can not we will try a Fleet's enema. 23:00 Patient care signed out to Dr. Gonzalez at change of shift with urinalysis and response to Fleet's enema pending. <Miguel A Gonzalez MD - Last Filed: 04/22/25 03:46> Lab Data Lab results narrative: White blood cell count 6200, hemoglobin 12.7, platelets adequate. Glucose 113. BUN 28 mildly increased, normal creatinine 0.62, normal serum CO2, normal electrolytes. Normal liver functions. Labs: Lab Results 04/21/25 04/21/25 Range/Units 21:50 23:50 WBC 6.2 (4.5-11.0) X10^3/uL RBC 4.24 (4.0-5.2) X10^6/uL Hgb 12.7 (12.0-16.0) g/dL Hct 37.8 (36-46) % MCV 89.1 (80-100) fL MCH 30.0 (26-34) PG MCHC 33.7 (30-36) % RDW 14.7 (11.6-14.8) % Plt Count 252 (150-400) X10^3/uL Neut % (Auto) 59.6 (50-75) % Lymph % (Auto) 21.6 L (25-40) % Mccreary % (Auto) 12.4 (3-14) % Eos % (Auto) 5.7 H (2-4) % Baso % (Auto) 0.7 (0-2) % Neut # (Auto) 3700 (9486-9447) /uL Lymph # (Auto) 1300 (3230-3273) /uL Mccreary # (Auto) 800 (0-900) /uL Eos # (Auto) 400 (0-450) /uL Baso # (Auto) 0 (0-100) /uL Sodium 141 (137-145) mmol/L Potassium 3.5 (3.4-5.1) mmol/L Chloride 103 (98-107) mmol/L Carbon Dioxide 29 (22-32) mmol/L BUN 28 H (7-17) mg/dL Creatinine 0.67 (0.52-1.04) mg/dL Estimated GFR > 60 (>60) mL/min BUN/Creatinine Ratio 41.8 H (6-22) Glucose 113 H (70-99) mg/dL Calcium 9.0 (8.4-10.2) mg/dL Total Bilirubin 0.2 (0.2-1.3) mg/dL AST 25 (14-36) IU/L ALT 15 (<35) IU/L Alkaline Phosphatase 78 (38-126) U/L Total Protein 7.2 (6.3-8.2) g/dL Albumin 4.2 (3.5-5.0) g/dL Globulin 3.0 (1.7-4.1) g/dL Albumin/Globulin Ratio 1.4 (1.0-2.8) Urine Color Yellow Urine Appearance Sl cloudy Urine pH 5.5 (4.5-8.0) Ur Specific [place] 1.020 (1.000-1.035) Urine Protein Negative (Negative) Urine Glucose (UA) Negative (Negative) g/dL Urine Ketones Negative (NEGATIVE) Urine Occult Blood 2+ H (Negative) Urine Nitrate Negative (Negative) Urine Bilirubin Negative (NEGATIVE) Urine Urobilinogen 0.2 (0.2) E.U./dL Ur Leukocyte Esterase 1+ H (NEGATIVE) Urine RBC 0-1/hpf D (0-5/HPF) Urine WBC 5-10/hpf H (0-5/HPF) Ur Squamous Epith Cells 0-1 /hpf (0-5/HPF) Amorphous Sediment 1+ Urine Bacteria Moderate (10-30) H (None) Hyaline Casts 1-5/lpf (None) Ur Culture Indicated? Specimen cultured Vol Urine Centrifuged 10ml (spun) MDM Narrative Medical decision making narrative: Patient currently has no bowel prolapse on exam. She can not urinate and her bladder scan revealed 350 mL of urine so we will place Owens catheter for now. And check her urinalysis. She also feels she needs to have a bowel movement and can not we will try a Fleet's enema. 23:00 Patient care signed out to Dr. Gonzalez at change of shift with urinalysis and response to Fleet's enema pending. 04/21/25, 2300, Carlos. Signout from Dr Ryan. 79-year-old female with reported history of rectal prolapse, concerned that she may have prolapse rectum but on examination this was not confirmed, did have urinary retention by bladder scan PVR, Owens to be placed, enema to be administered, urinalysis pending. Assumed care. Lab data: White blood cell count 6200, hemoglobin 12.7, platelets adequate. Glucose 113. BUN 28 mildly increased, normal creatinine 0.62, normal serum CO2, normal electrolytes. Normal liver functions. Urinalysis pending. Urinalysis does show some inflammatory changes in moderate bacteria, urine culture triggered. History of penicillin allergy, but has been prescribed cefuroxime in the past, we will give IV ceftriaxone, prescription for cefdinir for discharge. Discharged home, came to drive her home. Follow up with PCP early next week. Return precautions discussed. Discharge Plan Departure Patient Disposition: Home Clinical Impression: Urinary tract infection, History of rectal prolapse Activity Restrictions/Additional Instructions: Concern for rectal prolapse which she has had in the past, on examination by initial treating physician here there was no rectal prolapse on examination at that time. Enema was given, with some results. Urinalysis eventually was obtained, suspicious for infection, urine culture pending. IV ceftriaxone antibiotic given. Prescription sent for cefdinir antibiotic, history of penicillin allergy known but you have had cephalosporin antibiotics in the past, cefdinir as a cephalosporin antibiotic which should be helpful for urinary tract infection if your urine culture should in fact to be positive. Check symptoms with your regular doctor early next week. You mentioned that you will be seeing a surgeon at some point, for consultation for possible elective repair of reported recurrent rectal prolapse symptoms. Return to this/nearest emergency department for any change worsening symptoms or any concerns prior. Prescriptions: New cefdinir 300 mg capsule 300 mg PO BID 7 Days Qty: 14 0RF No Action gabapentin 300 mg capsule 1,200 mg PO BEDTIME furosemide 20 mg tablet 20 mg PO DAILY PRN (Reason: swelling) methimazole 5 mg tablet 5 mg PO DAILY benzonatate 200 mg capsule 200 mg PO 3XD PRN (Reason: cough) pantoprazole 40 mg tablet,delayed release (DR/EC) 40 mg PO QPM mirtazapine 7.5 mg tablet 7.5 mg PO ONCE PM metoprolol tartrate 25 mg Tablet 25 mg PO TID Qty: 60 0RF oxycodone 5 mg Tablet 5 mg PO Q4HR PRN (Reason: Pain, Moderate (4-6)) Qty: 10 0RF cefuroxime axetil 500 mg tablet 500 mg PO Q12H Qty: 20 0RF ondansetron 4 mg tablet,disintegrating 4 mg PO Q8H PRN (Reason: nausea and vomiting) Qty: 12 0RF fluticasone propionate [Flonase Allergy Relief] 50 mcg/actuation spray,suspension 1 spray intranasal DAILY Qty: 16 2RF Rx Instructions: administer into each nostril in the evening prior to CPAP machine use ropinirole 1 mg tablet 3 mg PO DAILY Rx Instructions: take at 1800 Referrals: Rom Mast MD [Primary Care Provider, Family Practice] Stand Alone Forms: Patient Portal/API
[2025-04-21 22:02] LABS: Add Manual Diff / Slide Review NO; Hematocrit 37.8 % (36-46); Hemoglobin 12.7 g/dL (12.0-16.0); Lymphocytes Absolute Auto 1300 /uL (1100-4500); Mean Corpuscular HGB Conc 33.7 % (30-36); Mean Corpuscular Hemoglobin 30.0 PG (26-34); Mean Corpuscular Volume 89.1 fL (80-100); Platelet Count 252 X10^3/uL (150-400)
[2025-04-21 22:21] LABS: Albumin 4.2 g/dL (3.5-5.0); Albumin Globulin Ratio 1.4 (1.0-2.8); Alkaline Phosphatase 78 U/L (38-126); Blood Urea Nitrogen 28 mg/dL (7-17); Carbon Dioxide 29 mmol/L (22-32); Chloride 103 mmol/L (98-107); Estimated Glomerular Filt Rate > 60 mL/min (>60); Globulin 3.0 g/dL (1.7-4.1); Potassium 3.5 mmol/L (3.4-5.1); Sodium 141 mmol/L (137-145); Total Protein 7.2 g/dL (6.3-8.2)
[2025-04-21 22:22] LABS: Alanine Aminotransferase 15 IU/L (<35); Calcium 9.0 mg/dL (8.4-10.2); Glucose 113 mg/dL (70-99); HEMOLYSIS 21 (0-50)
[2025-04-21] MEDS: FLEETS ENEMA 1 EACH PR (23:49)
[2025-04-22 00:13] LABS: Appearance Urine UA SL CLOUDY; Bilirubin Urine UA NEGATIVE (NEGATIVE); Color Urine UA YELLOW; Glucose Urine UA NEGATIVE (Negative); Ketones Urine UA NEGATIVE (NEGATIVE); Leukocyte Esterase Urine UA 1+ (NEGATIVE); Nitrite Urine UA NEGATIVE (Negative); Occult Blood Urine UA 2+ (Negative); Protein Urine UA NEGATIVE (Negative); Specific Gravity Urine UA 1.020 (1.000-1.035); Urobilinogen Urine UA 0.2 E.U./dL (0.2)
[2025-04-22 00:22] LABS: pH Urine UA 5.5 (4.5-8.0)
[2025-04-22 00:24] LABS: Culture Indicated Urine Specimen Cultured
[2025-04-22 02:14] VITALS: BP 142/65; PULSE 94; RESP 16; O2SAT 98
== END 2025-04-22 02:15 | disposition home or self-care (01) ==
PROVIDERS: Emergency Medicine; Emergency Provider Emergency Medicine; PCP Family Medicine
DX: N39.0 Urinary tract infection, site not specified (principal); K62.3 Rectal prolapse
CPT/HCPCS: 36415; 51798; 80053; 81001; 85025; 87086; 96365; 99284; J0696; J7050

== ENCOUNTER 2025-04-24 15:35 | Observation (INO) | payer MEDICARE, OTHER, SELFPAY ==
[2024-11-29 09:50] VITALS: BMI 17.1
[2025-04-24] VITALS (10 sets, daily range): BP systolic 114–174; BP diastolic 62–86; PULSE 83–100; RESP 16–23; TEMP 36.9–37.1; O2SAT 94–99; BMI 20.3
--- NOTE | 2025-04-24 15:48 | ED_ITS ---
HPI - General Adult General Chief complaint: Urogenital-Female Stated complaint: rectal prolapse during urination, painful Time Seen by Provider: 04/24/25 15:47 History of Present Illness HPI narrative: 79-year-old woman with significant rectal prolapse every time she voids she has increasing pain, she has been having difficulty peeing and stooling and sleeping because of the pain. Was recently diagnosed with a urinary tract infection, consultation for rectal prolapse reconstruction in 4 days, physician at [facility] in [place]. Patient does not recall the last time she either voided or bowel movement. She complains of significant pain in sitting comfortably in triage tear with no overt pain behaviors Related Data Home Medications ?Medication ?Instructions ?Recorded ?Confirmed ropinirole 1 mg tablet 3 mg PO DAILY 03/20/2102/02 furosemide 20 mg tablet 20 mg PO DAILY PRN swelling 08/15/24 02/02/25 gabapentin 300 mg capsule 1,200 mg PO BEDTIME 08/15/24 02/02/25 methimazole 5 mg tablet 5 mg PO DAILY 08/15/2402/02 benzonatate 200 mg capsule 200 mg PO 3XD PRN cough 02/02/25 mirtazapine 7.5 mg tablet 7.5 mg PO ONCE PM 11/07/24 0 02/02/25 pantoprazole 40 mg tablet,delayed 40 mg PO QPM 5 02/02/25 release Previous Rx's ?Medication ?Instructions ?Recorded fluticasone propionate 50 1 spray intranasal DAILY #16 grams 10/25/24 mcg/actuation nasal spray,suspension (Flonase Allergy Relief) cefuroxime axetil 500 mg tablet 500 mg PO Q12H #20 tab s 11/09/24 metoprolol tartrate 25 mg tablet 25 mg PO TID #60 tabs 11/09/24 oxycodone 5 mg tablet 5 mg PO Q4HR PRN Pain, Moder ate 11/09/24 (4-6) #10 tabs ondansetron 4 mg disintegrating 4 mg PO Q8H PRN nausea and 12/22/24 tablet vomiting #12 tabs cefdinir 300 mg capsule 300 mg PO BID 7 days #14 cap s 04/22/25 Allergies Allergy/AdvReac Type Severity Reaction Status Date / Time Penicillins AdvReac Unknown Rash Verified 04/24/25 15:47 Review of Systems Review of Systems Narrative: Pertinent positive and negative findings as per HPI Patient History Medical History Obstructive sleep apnea of adult PVCs (premature ventricular contractions) Urinary frequency Nocturia Overactive bladder Arthritis Surgical History History of colon surgery Hx of appendectomy Hx of colonoscopy Hx of cholecystectomy Hx of shoulder surgery Hx of arthroscopic knee surgery History of knee replacement Social History marital status: number of children: 2 household members: spouse 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 Details of history are somewhat convoluted HEENT: Moist mucous membranes, normal sclera with reactive pupils, Respiratory: Lungs are clear to auscultation, no wheezing no rales no rhonchi. Full and symmetrical air movement Cardiac: Regular rate and rhythm no murmurs Abdomen: Soft, nontender, no rebound or guarding, no flank pain : Atrophic vaginal mucosa and vaginal opening. Slight amount of cystocele with pressure. Her rectum and anus appear entirely normal externally. There is no prolapse appreciated with Valsalva maneuver while she is supine. Neurologic: Grossly neurologically intact with no obvious asymmetries or abnormalities Psych: Cooperative, slight memory/cognitive issues, fluent speech Course Orders Ordered: ED Orders 04/24/25 15:53 CT abdomen pelvis w con Stat 04/24/25 15:56 Complete Blood Count AUTO DIFF Stat Comprehensive Metabolic Panel Stat 04/24/25 18:40 UA Complete [Urinalysis and Microscopic] Stat Discontinued Medications Sodium Chloride (Normal Saline 0.9%) 1,000 mls @ 1,000 mls/hr IV BOLUS ONE Stop: 04/24/25 17:38 Last Infusion: 04/24/25 18:39 Dose: Infused Documented By: Admin: 04/24/25 17:20 Dose: 1,000 mls/hr Documented By: MINERVA Polyethylene Glycol/Electrolytes ([id number]/Sod Sulf,Bicarb,Cl/Kcl 4,000 Ml Solution) 2,000 ml PO NOW ONE Stop: 04/24/25 18:46 Ropinirole HCl (Ropinirole 1 Mg Tablet) 3 mg PO NOW ONE Stop: 04/24/25 16:40 Last Admin: 04/24/25 17:20 Dose: 3 mg Documented By: MINERVA Vital Signs Vital signs: Vital Signs - 8 hr 04/24/25 15:47 04/24/25 16:31 04/24/25 16:32 Temperature 98.4 F Pulse Rate 100 H 96 H Respiratory Rate 18 22 Blood Pressure 160/78 H 167/76 H Pulse Oximetry 99 94 Oxygen Delivery Method Room Air 04/24/25 16:32 04/24/25 17:00 04/24/25 17:00 Temperature Pulse Rate 94 H Respiratory Rate Blood Pressure 162/79 H 151/72 H Pulse Oximetry 99 Oxygen Delivery Method 04/24/25 17:10 04/24/25 17:10 04/24/25 17:30 Temperature Pulse Rate 99 H 94 H Respiratory Rate 23 23 Blood Pressure 174/86 H Pulse Oximetry 96 Oxygen Delivery Method 04/24/25 17:30 04/24/25 18:00 04/24/25 18:00 Temperature Pulse Rate 96 H Respiratory Rate Blood Pressure 162/76 H 154/79 H Pulse Oximetry 97 Oxygen Delivery Method 04/24/25 18:30 04/24/25 18:30 04/24/25 19:00 Temperature Pulse Rate 91 H 87 Respiratory Rate 16 16 Blood Pressure 170/76 H Pulse Oximetry Oxygen Delivery Method 04/24/25 19:00 Temperature Pulse Rate Respiratory Rate Blood Pressure 167/73 H Pulse Oximetry Oxygen Delivery Method Medical Decision Making Lab Data 04/24/25 15:56 04/24/25 15:56 Labs: Lab Results 04/24/25 04/24/25 Range/Units 15:56 18:40 WBC 8.8 (4.5-11.0) X10^3/uL RBC 4.27 (4.0-5.2) X10^6/uL Hgb 12.9 (12.0-16.0) g/dL Hct 38.4 (36-46) % MCV 89.9 (80-100) fL MCH 30.3 (26-34) PG MCHC 33.7 (30-36) % RDW 14.1 (11.6-14.8) % Plt Count 299 (150-400) X10^3/uL Neut % (Auto) 70.3 (50-75) % Lymph % (Auto) 16.0 L (25-40) % [place] % (Auto) 10.3 (3-14) % Eos % (Auto) 2.8 (2-4) % Baso % (Auto) 0.6 (0-2) % Neut # (Auto) 6200 (8364-2233) /uL Lymph # (Auto) 1400 (9820-2179) /uL [place] # (Auto) 900 (0-900) /uL Eos # (Auto) 200 (0-450) /uL Baso # (Auto) 0 (0-100) /uL Sodium 138 (137-145) mmol/L Potassium 3.9 (3.4-5.1) mmol/L Chloride 102 (98-107) mmol/L Carbon Dioxide 25 (22-32) mmol/L BUN 34 H (7-17) mg/dL Creatinine 1.12 H (0.52-1.04) mg/dL Estimated GFR 50 L (>60) mL/min BUN/Creatinine Ratio 30.4 H (6-22) Glucose 123 H (70-99) mg/dL Calcium 9.2 (8.4-10.2) mg/dL Total Bilirubin 0.2 (0.2-1.3) mg/dL AST 28 (14-36) IU/L ALT 17 (<35) IU/L Alkaline Phosphatase 89 (38-126) U/L Total Protein 7.6 (6.3-8.2) g/dL Albumin 4.3 (3.5-5.0) g/dL Globulin 3.3 (1.7-4.1) g/dL Albumin/Globulin Ratio 1.3 (1.0-2.8) Urine Color Yellow Urine Appearance Clear Urine pH 5.5 (4.5-8.0) Ur Specific [place] 1.010 (1.000-1.035) Urine Protein Negative (Negative) Urine Glucose (UA) Negative (Negative) g/dL Urine Ketones Negative (NEGATIVE) Urine Occult Blood Negative (Negative) Urine Nitrate Negative (Negative) Urine Bilirubin Negative (NEGATIVE) Urine Urobilinogen 0.2 (0.2) E.U./dL Ur Leukocyte Esterase Negative (NEGATIVE) Urine RBC 0-1/hpf (0-5/HPF) Urine WBC 1-5/hpf (0-5/HPF) Ur Squamous Epith Cells None seen (0-5/HPF) Urine Bacteria None seen (None) Ur Culture Indicated? Cult not indicated Vol Urine Centrifuged 10ml (spun) Urine Dip Bedside Urine Glucose Negative Bedside Urine Bilirubin - Negative Bedside Urine Ketone - Negative Urine Specific [place] 1.01 Bedside Urine Occult Blood - Negative Bedside Urine pH 6.0 Bedside Urine Protein +/- 15 Bedside Urine Urobilinogen - Negative Bedside Urine Nitrite - Negative Bedside Urine Leukocytes - Negative Esterase Point of care testing: Urine Dip Bedside Urine Glucose Negative Bedside Urine Bilirubin - Negative Bedside Urine Ketone - Negative Urine Specific [place] 1.01 Bedside Urine Occult Blood - Negative Bedside Urine pH 6.0 Bedside Urine Protein +/- 15 Bedside Urine Urobilinogen - Negative Bedside Urine Nitrite - Negative Bedside Urine Leukocytes - Negative Esterase Imaging Data CT scan - abdomen/pelvis: Radiologist's Impression: [place] [address] CT Scan Report Signed Patient: Mery Reed MR#: [id number] : 1945 Acct:[id number] Age/Sex: 79 / F Date of Service: 04/24/25 Loc: ED Accession Number: [id number] Procedure: CT abdomen pelvis w con Ordering Provider: Zuleima Hodge MD PROCEDURE: CT ABDOMEN PELVIS W CON INDICATIONS: pelvic pain, unable to void or stool TECHNIQUE: After the administration of intravenous contrast, axial sections acquired from the lung bases to the pubic symphysis. Coronal and sagittal reformats were performed. For radiation dose reduction, the following was used: automated exposure control, adjustment of mA and/or kV according to patient size. COMPARISON: [facility], CT, CT CHEST ABD PEL W CON, 11/07/2024, 9:57. [facility], CT, CT ABDOMEN PELVIS W CON, 01/26/2023, 12:28. FINDINGS: Image quality: Diagnostic. Lower Chest: Right basilar atelectasis. ABDOMEN: Liver: No solid mass. Gallbladder: Surgically absent. Biliary ducts: No biliary dilation. Pancreas: No ductal dilation. Spleen: Size is within normal limits. Adrenal Glands: No adrenal nodules. Kidneys and Ureters: Bilateral nonobstructing renal calcifications, largest measuring 4 mm on the right No hydronephrosis. No solid mass. No complex renal cystic lesion which requires follow up. Stomach and Bowel: Wall thickening of the distal sigmoid colon and rectum, underlying lesion cannot be excluded. Diverticulosis without evidence of acute diverticulitis. Large stool burden. No small bowel obstruction. Peritoneum: No abnormal intraperitoneal fluid. No free air. Ventral Wall: No significant ventral hernia. Abdominal Nodes: No retroperitoneal or mesenteric adenopathy by size criteria. Vessels: Aorta and inferior vena cava are normal in size. Atherosclerotic vascular calcifications. PELVIS: Pelvic Organs: Unremarkable. Bladder: No bladder wall thickening, accounting for underdistention. Pelvic Nodes: No enlarged lymph nodes. Miscellaneous: No inguinal hernias are seen. Bones: No aggressive osseous abnormality. Degenerative changes of the spine. Decreased osseous mineralization. IMPRESSION: 1. Wall thickening of the distal sigmoid colon and rectum. Proctocolitis in the differential. Underlying mass cannot be excluded. Recommend clinical correlation and direct visualization as clinically indicated. 2. Diverticulosis without evidence of acute diverticulitis. 3. Large stool burden. 4. Nonobstructing bilateral renal stones measuring up to 4 mm. Dictated by: Tristan Flowers M.D. on 04/24/2025 at 16:38 MDM Narrative Medical decision making narrative: CC: Difficulty with voiding and stooling secondary to ?guts falling out? Complicating co-morbidities: Recent colonoscopy with diagnosis of rectal prolapse, surgical consultation for such coming up on Thursday Data collected from: patient Medical records reviewed: Colonoscopy April 18 for chronic rectal prolapse which revealed chronic rectal prolapse. with gen surg at [facility] Differential considered: Complete rectal prolapse, urinary tract infection, acute urinary retention, pelvic pathology to be further determined Exam documented above, pertinent findings include: Patient complains of severe pain with calm and collected affect. She has some mild suprapubic tenderness, postvoid residual is 350 cc at the time of exam, she has mild cystocele, atrophic vagina, anus is unremarkable with no obvious prolapse on exam today Lab Test results independently reviewed as above. Pertinent findings: CBC is unremarkable, no suggestion of infection Chemistries show acute kidney injury with creatinine jumping from 0.6-1.2 over the last 3 days Catheter collected urinalysis is absolutely normal, no concerns for urinary tract infection Independently reviewed EKG: Imaging studies independently reviewed: CT scan of the abdomen and pelvis is done does not appear that anything has been done within the last 6 months or with her worsening acute findings. Notable wall thickening of the distal sigmoid colon and rectum with colonoscopy done just weeks ago and rectal prolapse as a current issue that is seems to be explained. Significantly large stool burden no other significant intra abdominal pelvic pathology appreciated Treatments: Fluids, her evening ropinirole and bowel prep with 2000 mL of GoLYTELY solution have been started Discussion: 79-year-old woman with enough rectal prolapse that it is causing her to be unable to pass a bowel movement and is also causing acute urinary retention with acute kidney injury. Owens catheter is placed she does seem a bit more comfortable. Rehydration is started. Imaging of the abdomen and pelvis does not show any new findings. On physical exam she does not have overt rectal prolapse. I believe she does need her bowels cleaned out and have started a bowel prep. She will likely need assistance with pain control and getting up to the commode. Findings reviewed with the hospitalist service and patient will be admitted for treatment of her acute kidney injury, acute urinary retention and severe constipation secondary to pain from her rectal prolapse without external prolapse appreciated on exam this evening. Discharge Plan Departure Patient Disposition: Admitted as Observation Clinical Impression: Acute urinary retention, Acute kidney injury, Rectal prolapse, Constipation, Uncontrolled pain Admit Date/Time: 04/24/25 19:49
--- NOTE | 2025-04-24 15:53 | DI.CT.S_ITS ---
PROCEDURE: CT ABDOMEN PELVIS W CON INDICATIONS: pelvic pain, unable to void or stool TECHNIQUE: After the administration of intravenous contrast, axial sections acquired from the lung bases to the pubic symphysis. Coronal and sagittal reformats were performed. For radiation dose reduction, the following was used: automated exposure control, adjustment of mA and/or kV according to patient size. COMPARISON: [facility], CT, CT CHEST ABD PEL W CON, 11/07/2024, 9:57. [facility], CT, CT ABDOMEN PELVIS W CON, 01/26/2023, 12:28. FINDINGS: Image quality: Diagnostic. Lower Chest: Right basilar atelectasis. ABDOMEN: Liver: No solid mass. Gallbladder: Surgically absent. Biliary ducts: No biliary dilation. Pancreas: No ductal dilation. Spleen: Size is within normal limits. Adrenal Glands: No adrenal nodules. Kidneys and Ureters: Bilateral nonobstructing renal calcifications, largest measuring 4 mm on the right No hydronephrosis. No solid mass. No complex renal cystic lesion which requires follow up. Stomach and Bowel: Wall thickening of the distal sigmoid colon and rectum, underlying lesion cannot be excluded. Diverticulosis without evidence of acute diverticulitis. Large stool burden. No small bowel obstruction. Peritoneum: No abnormal intraperitoneal fluid. No free air. Ventral Wall: No significant ventral hernia. Abdominal Nodes: No retroperitoneal or mesenteric adenopathy by size criteria. Vessels: Aorta and inferior vena cava are normal in size. Atherosclerotic vascular calcifications. PELVIS: Pelvic Organs: Unremarkable. Bladder: No bladder wall thickening, accounting for underdistention. Pelvic Nodes: No enlarged lymph nodes. Miscellaneous: No inguinal hernias are seen. Bones: No aggressive osseous abnormality. Degenerative changes of the spine. Decreased osseous mineralization. IMPRESSION: 1. Wall thickening of the distal sigmoid colon and rectum. Proctocolitis in the differential. Underlying mass cannot be excluded. Recommend clinical correlation and direct visualization as clinically indicated. 2. Diverticulosis without evidence of acute diverticulitis. 3. Large stool burden. 4. Nonobstructing bilateral renal stones measuring up to 4 mm. Dictated by: Tristan Flowers M.D. on 04/24/2025 at 16:38 Approved by: Tristan Flowers M.D. on 04/24/2025 at 16:44
[2025-04-24 16:05] LABS: Add Manual Diff / Slide Review NO; Hematocrit 38.4 % (36-46); Hemoglobin 12.9 g/dL (12.0-16.0); Lymphocytes Absolute Auto 1400 /uL (1100-4500); Mean Corpuscular HGB Conc 33.7 % (30-36); Mean Corpuscular Hemoglobin 30.3 PG (26-34); Mean Corpuscular Volume 89.9 fL (80-100); Platelet Count 299 X10^3/uL (150-400)
[2025-04-24 16:15] LABS: Alanine Aminotransferase 17 IU/L (<35); Albumin 4.3 g/dL (3.5-5.0); Albumin Globulin Ratio 1.3 (1.0-2.8); Alkaline Phosphatase 89 U/L (38-126); Blood Urea Nitrogen 34 mg/dL (7-17); Calcium 9.2 mg/dL (8.4-10.2); Carbon Dioxide 25 mmol/L (22-32); Chloride 102 mmol/L (98-107); Estimated Glomerular Filt Rate 50 mL/min (>60); Globulin 3.3 g/dL (1.7-4.1); Glucose 123 mg/dL (70-99); HEMOLYSIS < 15 (0-50); Potassium 3.9 mmol/L (3.4-5.1); Sodium 138 mmol/L (137-145); Total Protein 7.6 g/dL (6.3-8.2)
[2025-04-24] MEDS: SODIUM CHLORIDE 0.9% 1,000 ML 1000 ML IV (17:20)
[2025-04-24 18:51] LABS: Appearance Urine UA CLEAR; Bilirubin Urine UA NEGATIVE (NEGATIVE); Color Urine UA YELLOW; Glucose Urine UA NEGATIVE (Negative); Ketones Urine UA NEGATIVE (NEGATIVE); Leukocyte Esterase Urine UA NEGATIVE (NEGATIVE); Nitrite Urine UA NEGATIVE (Negative); Occult Blood Urine UA NEGATIVE (Negative); Protein Urine UA NEGATIVE (Negative); Specific Gravity Urine UA 1.010 (1.000-1.035); Urobilinogen Urine UA 0.2 E.U./dL (0.2)
[2025-04-24 19:26] LABS: Culture Indicated Urine Cult Not Indicated; pH Urine UA 5.5 (4.5-8.0)
[2025-04-24] MEDS: PEG3350/SOD SULF,BICARB,CL/KCL 4,000 ML SOLUTION 2000 ML PO (20:37)
[2025-04-24] MEDS: SODIUM CHLORIDE 0.9% 1,000 ML 100 ML IV (20:37)
--- NOTE | 2025-04-24 21:42 | PM.HP.1 ---
History of Present Illness History of Present Illness Chief complaint: rectal prolapse during urination, painful Narrative: 79 years old female with history of obstructive sleep apnea, urinary frequency, overreactive bladder, 80s, presented to the ER with concern for rectal prolapse. Every time when she voids she has increased pain, having difficulty urinates and having bowel movements, unable to sleep. The patient was diagnosed with UTI and currently on antibiotics. She had colonoscopy week ago and there was no any prolapse or hemorrhoids at that time. She is scheduled appointment to see surgery on Thursday for rectal prolapse. CT scan of the abdomen shows wall thickening of distal sigmoid colon and rectum proctocolitis in the differential. Diverticulosis without evidence of diverticulitis. Large stool burden. Nonobstructive bilateral renal stones measuring up to 4 mm. Laboratory was unremarkable except mild increase in creatinine from 0.7-1.12. Glucose 123. UA negative for UTI. 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 Type(s) of exercise: walking and regular exercise frequency: daily Meds Home Medications and Allergies Home Medications ?Medication ?Instructions ?Recorded ?Confirmed ?Type ropinirole 1 mg tablet 3 mg PO DAILY 03/20/21 02/02/25 History furosemide 20 mg tablet 20 mg PO DAILY PRN swelling 08/15/24 02/02/25 History gabapentin 300 mg capsule 1,200 mg PO BEDTIME 08/15/24 02/02/25 History methimazole 5 mg tablet 5 mg PO DAILY 08/15/24 02/02/25 History fluticasone propionate 50 1 spray intranasal DAILY #16 grams 10/25/24 02/02/25 Rx mcg/actuation nasal spray,suspension (Flonase Allergy Relief) benzonatate 200 mg capsule 200 mg PO 3XD PRN cough 11/07/24 02/02/25 History mirtazapine 7.5 mg tablet 7.5 mg PO ONCE PM 11/07/24 02/02/25 History pantoprazole 40 mg tablet,delayed 40 mg PO QPM 11/07/24 02/02/25 History release cefuroxime axetil 500 mg tablet 500 mg PO Q12H #20 tabs 11/09/24 02/02/25 Rx metoprolol tartrate 25 mg tablet 25 mg PO TID #60 tabs 11/09/24 02/02/25 Rx oxycodone 5 mg tablet 5 mg PO Q4HR PRN Pain, Moderate 11/09/24 02/02/25 Rx (4-6) #10 tabs ondansetron 4 mg disintegrating 4 mg PO Q8H PRN nausea and 12/22/24 02/02/25 Rx tablet vomiting #12 tabs cefdinir 300 mg capsule 300 mg PO BID 7 days #14 caps 04/22/25 Rx Allergies Allergy/AdvReac Type Severity Reaction Status Date / Time Penicillins AdvReac Unknown Rash Verified 04/24/25 15:47 Review of Systems Review of Systems ROS: Yes All systems reviewed with the patient and are negative except as otherwise documented Constitutional Constitutional: Reports as per HPI and Reports system reviewed and no additional complaints, except as documented Eyes Eyes: Reports as per HPI and Reports system reviewed and no additional complaints, except as documented ENT Ears, Nose, Mouth, and Throat: Yes as per HPI and Yes system reviewed and no additional complaints, except as documented Cardiovascular Cardiovascular: Reports system reviewed and no additional complaints, except as documented Respiratory Respiratory: Reports system reviewed and no additional complaints, except as documented Gastrointestinal Gastrointestinal: Reports system reviewed and no additional complaints, except as documented Genitourinary Genitourinary: Reports system reviewed and no additional complaints, except as documented Musculoskeletal Musculoskeletal: Reports system reviewed and no additional complaints, except as documented, Reports abnormal gait and Reports numbness Neurologic Neurologic: Reports system reviewed and no additional complaints, except as documented, Reports abnormal gait, Reports confusion and Reports numbness Psychiatric Psychiatric: Reports system reviewed and no additional complaints, except as documented and Reports confusion Exam Vital Signs (past 8 hours): - 04/24/25 15:47 04/24/25 16:31 04/24/25 16:32 Temperature 98.4 F Pulse Rate 100 H 96 H Respiratory Rate 18 22 Blood Pressure 160/78 H 167/76 H Pulse Oximetry 99 94 Oxygen Delivery Method Room Air 04/24/25 16:32 04/24/25 17:00 04/24/25 17:00 Temperature Pulse Rate 94 H Respiratory Rate Blood Pressure 162/79 H 151/72 H Pulse Oximetry 99 Oxygen Delivery Method 04/24/25 17:10 04/24/25 17:10 04/24/25 17:30 Temperature Pulse Rate 99 H 94 H Respiratory Rate 23 23 Blood Pressure 174/86 H Pulse Oximetry 96 Oxygen Delivery Method 04/24/25 17:30 04/24/25 18:00 04/24/25 18:00 Temperature Pulse Rate 96 H Respiratory Rate Blood Pressure 162/76 H 154/79 H Pulse Oximetry 97 Oxygen Delivery Method 04/24/25 18:30 04/24/25 18:30 04/24/25 19:00 Temperature Pulse Rate 91 H 87 Respiratory Rate 16 16 Blood Pressure 170/76 H Pulse Oximetry Oxygen Delivery Method 04/24/25 19:00 Temperature Pulse Rate Respiratory Rate Blood Pressure 167/73 H Pulse Oximetry Oxygen Delivery Method Oxygen Delivery Method Room Air Const General: cooperative, comfortable and well developed Orientation: alert and oriented x3 HENMT Head: normal to inspection, normocephalic and atraumatic Face and sinus: normal facial exam Mouth: oral mucosae normal and moist mucous membranes Throat: posterior oropharynx normal Eyes General: appearance normal, both eyes and all related structures Pupils: PERRL EOM: EOM intact bilaterally Neck Neck: normal visual inspection and full ROM Chest Chest: normal inspection of the chest Resp Effort & Inspection: normal respiratory effort and able to speak in complete sentences Auscultation: clear to auscultation bilaterally Cardio Palpation: normal PMI Rate: regular rate Rhythm: regular rhythm Heart Sounds: S1 normal and S2 normal GI Inspection: normal to inspection Palpation: soft and no hepatosplenomegaly Auscultation: normal bowel sounds Skin General: no rashes or lesions noted Lesions: no lesions Rashes: no rashes Trauma: no lacerations or abrasions Neuro General: patient alert, patient awake, patient oriented x3 and no focal motor deficits Cranial Nerves: CN's II-XI intact bilaterally Cognition: normal cognition Speech: speech normal Gait: normal gait Motor: muscle tone normal throughout Sensory Exam: no sensory deficits noted Extrem General: full ROM and no calf tenderness Psych Appearance: grossly normal Mental Status: mental status grossly normal Speech and Movement: speech and movement normal Objective Labs 04/24/25 15:56 04/24/25 15:56 Labs: Laboratory Results - last 24 hr 04/24/25 04/24/25 15:56 18:40 WBC 8.8 RBC 4.27 Hgb 12.9 Hct 38.4 MCV 89.9 MCH 30.3 MCHC 33.7 RDW 14.1 Plt Count 299 Neut % (Auto) 70.3 Lymph % (Auto) 16.0 L [place] % (Auto) 10.3 Eos % (Auto) 2.8 Baso % (Auto) 0.6 Neut # (Auto) 6200 Lymph # (Auto) 1400 [place] # (Auto) 900 Eos # (Auto) 200 Baso # (Auto) 0 Sodium 138 Potassium 3.9 Chloride 102 Carbon Dioxide 25 BUN 34 H Creatinine 1.12 H Estimated GFR 50 L BUN/Creatinine Ratio 30.4 H Glucose 123 H Calcium 9.2 Total Bilirubin 0.2 AST 28 ALT 17 Alkaline Phosphatase 89 Total Protein 7.6 Albumin 4.3 Globulin 3.3 Albumin/Globulin Ratio 1.3 Urine Color Yellow Urine Appearance Clear Urine pH 5.5 Ur Specific [place] 1.010 Urine Protein Negative Urine Glucose (UA) Negative Urine Ketones Negative Urine Occult Blood Negative Urine Nitrate Negative Urine Bilirubin Negative Urine Urobilinogen 0.2 Ur Leukocyte Esterase Negative Urine RBC 0-1/hpf Urine WBC 1-5/hpf Ur Squamous Epith Cells None seen Urine Bacteria None seen Ur Culture Indicated? Cult not indicated Vol Urine Centrifuged 10ml (spun) Assessment & Plan Assessment & Plan narrative: Rectal prolapse with significant pain. Unable to defecate. Per ED exam no prolapse. Suspect psychological and constipation. -Admit for observation - Laxatives as needed including GoLytely prep, senna, and Fleet enema as needed - Pain medications as needed - Consider surgical consult if symptoms persist. - Hold any antibiotics for now. Acute kidney, most likely due to dehydration. CT scan negative for hydronephrosis. -continue with IV fluid hydration. -hold diuretics for now -monitor UOP. -daily BMP -Avoid any nephrotoxic agents, including NSAIDs - Continue Owens catheter placed in the ED for now due to urinary retention -Dose all medications according pt's current eGFR GERD. Restart Protonix Recent UTI. Continue antibiotics. Follow-up on the urine culture. Depression. Restart mirtazapine Hyperthyroidism. Restart methimazole and check TSH I performed this consultation using real-time telehealth tools, including a live video connection between my location and the patient's location. As the provider for this telehealth service, I attest that I introduced myself to the patient, provided my credentials, disclosed my location, and determined that, based on a review of the patients chart and/or a discussion with members of the patient's treatment team, telemedicine via a real-time, two-way, interactive audio and video platform is an appropriate and effective means of providing this service. The patient and I mutually agree that this visit is appropriate for telemedicine as well. Disclaimer Note: To increase efficiency, your provider may have prepared this document using voice recognition technology. In that case, if a word or phrase is confusing, or does not make sense, this is likely due to a recognition error within the program which was not discovered during the provider?s review. If you believe an error has occurred, please notify your provider?s office at your earliest convenience, so we can correct any mistakes. Time-Based Coding :: 55 min spent with patient and on the chart (including review of chart, obtaining history, exam, reviewing outside data, placing orders, documenting exam and treatment plan, and counseling patient) on 04/24/2025. Quality VTE Deep Vein Thrombosis/Pulmonary Embolism Present on Admission: No MIPS - Admit I confirm the patient?s Advance Care Plan is present, Code status is documented, Surrogate decision maker is in patient?s record [If Yes, STOP here]: Yes MIPS - Meds 'Current medications' to include all prescriptions, [id number] products, herbals, cannabis/cannabidiol products, and vitamin/mineral/dietary (nutritional) supplements. I have utilized all available resources to obtain, update, or review the patient?s current medications. [If Yes, STOP here]: Yes
[2025-04-24 23:52] LABS: Thyroid Stimulating Hormone 0.827 uIU/mL (0.47-4.68)
[2025-04-25] VITALS: BP 121/42; PULSE 92; RESP 20; TEMP 36.7; O2SAT 95
[2025-04-25 07:15] LABS: Alanine Aminotransferase 13 IU/L (<35); Albumin 3.4 g/dL (3.5-5.0); Albumin Globulin Ratio 1.3 (1.0-2.8); Alkaline Phosphatase 78 U/L (38-126); Blood Urea Nitrogen 19 mg/dL (7-17); Calcium 8.1 mg/dL (8.4-10.2); Carbon Dioxide 23 mmol/L (22-32); Chloride 107 mmol/L (98-107); Estimated Glomerular Filt Rate > 60 mL/min (>60); Globulin 2.6 g/dL (1.7-4.1); Glucose 87 mg/dL (70-99); HEMOLYSIS < 15 (0-50); Magnesium 2.2 mg/dL (1.6-2.3); Potassium 3.4 mmol/L (3.4-5.1); Sodium 137 mmol/L (137-145); Total Protein 6.0 g/dL (6.3-8.2)
[2025-04-25] MEDS: POTASSIUM CHLORIDE 20 MEQ TAB 40 MEQ PO (08:38)
[2025-04-25] MEDS: CEFDINIR 300 MG CAPSULE PO (08:39)
[2025-04-25] MEDS: SODIUM CHLORIDE 0.9% 1,000 ML 100 ML IV (08:43)
[2025-04-25 09:00] VITALS: BP 131/59; PULSE 101; RESP 16; TEMP 37.8; O2SAT 95
--- NOTE | 2025-04-25 09:27 | PM.PN.1 ---
Subjective Subjective Date Patient Seen: 04/25/25 Exam Vital Signs (past 8 hours): Oxygen Delivery Method Room Air Oxygen Flow Rate 0 Objective Labs 04/24/25 15:56 04/25/25 06:19 Labs: Laboratory Results - last 24 hr 04/24/25 04/24/25 04/25/25 15:56 18:40 06:19 WBC 8.8 RBC 4.27 Hgb 12.9 Hct 38.4 MCV 89.9 MCH 30.3 MCHC 33.7 RDW 14.1 Plt Count 299 Neut % (Auto) 70.3 Lymph % (Auto) 16.0 L [place] % (Auto) 10.3 Eos % (Auto) 2.8 Baso % (Auto) 0.6 Neut # (Auto) 6200 Lymph # (Auto) 1400 [place] # (Auto) 900 Eos # (Auto) 200 Baso # (Auto) 0 Sodium 138 137 Potassium 3.9 3.4 Chloride 102 107 Carbon Dioxide 25 23 BUN 34 H 19 H Creatinine 1.12 H 0.55 Estimated GFR 50 L > 60 BUN/Creatinine Ratio 30.4 H 34.5 H Glucose 123 H 87 Calcium 9.2 8.1 L Magnesium 2.2 Total Bilirubin 0.2 0.6 AST 28 22 ALT 17 13 Alkaline Phosphatase 89 78 Total Protein 7.6 6.0 L Albumin 4.3 3.4 L Globulin 3.3 2.6 Albumin/Globulin Ratio 1.3 1.3 TSH 0.827 Urine Color Yellow Urine Appearance Clear Urine pH 5.5 Ur Specific [employer] 1.010 Urine Protein Negative Urine Glucose (UA) Negative Urine Ketones Negative Urine Occult Blood Negative Urine Nitrate Negative Urine Bilirubin Negative Urine Urobilinogen 0.2 Ur Leukocyte Esterase Negative Urine RBC 0-1/hpf Urine WBC 1-5/hpf Ur Squamous Epith Cells None seen Urine Bacteria None seen Ur Culture Indicated? 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 Quality VTE Deep Vein Thrombosis/Pulmonary Embolism Present on Admission: No
[2025-04-25 11:30] VITALS: TEMP 37
--- NOTE | 2025-04-25 11:53 | P.DS_ITS ---
History of Present Illness History of Present Illness Date Patient Seen: 04/25/25 Time Patient Seen: 11:53 Chief complaint: rectal prolapse during urination, painful Narrative: 79 years old female with history of obstructive sleep apnea, urinary frequency, overreactive bladder, 80s, presented to the ER with concern for rectal prolapse. Every time when she voids she has increased pain, having difficulty urinates and having bowel movements, unable to sleep. The patient was diagnosed with UTI and currently on antibiotics. She had colonoscopy week ago and there was no any prolapse or hemorrhoids at that time. She is scheduled appointment to see surgery on Thursday for rectal prolapse. CT scan of the abdomen shows wall thickening of distal sigmoid colon and rectum proctocolitis in the differential. Diverticulosis without evidence of diverticulitis. Large stool burden. Nonobstructive bilateral renal stones measuring up to 4 mm. Laboratory was unremarkable except mild increase in creatinine from 0.7-1.12. Glucose 123. UA negative for UTI. Discharge Providers Provider Date of admission: 04/24/25 19:49 Discharge Date: 04/25/25 Primary care physician: Rom Mast MD Discharge provider: Clarence Mack MD Summary Hospital Course Hospital Course: Rectal prolapse with significant pain. Unable to defecate. Successful treatment with Liquid stool passed after Golytely - Laxatives including GoLytely prep, senna, and Fleet enema as needed -follow-up in 3 days with Colorectal surgery in [place] as planned. Acute kidney, most likely due to dehydration. CT scan negative for hydronephrosis. -IV fluid hydration. -Continue home Owens catheter placed in the ED. 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 GERD. Protonix Recent UTI. Mixed gram positive marlys. No antibiotics indicated. Depression. Restart mirtazapine Hyperthyroidism. Restart methimazole, TSH 0.827. Restless leg syndrome. Continue ropinirole. Recommend neurological consultation due to localizing tremor of the right foot. Rule out Parkinson's. Status at Discharge Cognitive/behavioral status at discharge: at baseline, oriented Functional status at discharge: uses cane/walker Overall status at discharge: patient is not back to baseline Time Spent with Patient Time spent: Greater than 30 minutes Exam Vital Signs (past 8 hours): Oxygen Delivery Method Room Air Oxygen Flow Rate 0 Narrative Exam Narrative: Alert and oriented x3. No apparent distress. Very interactive. Heart is regular rate and rhythm without murmur. Lungs are clear to auscultation bilaterally. Extremities have no ankle edema. Abdomen is distended, nontender, bowel sounds active. No organomegaly. Repetitive myoclonic type tremoring of the right foot. Objective Labs 04/24/25 15:56 04/25/25 06:19 Labs: Laboratory Results - last 24 hr 04/24/25 04/24/25 04/25/25 15:56 18:40 06:19 WBC 8.8 RBC 4.27 Hgb 12.9 Hct 38.4 MCV 89.9 MCH 30.3 MCHC 33.7 RDW 14.1 Plt Count 299 Neut % (Auto) 70.3 Lymph % (Auto) 16.0 L [place] % (Auto) 10.3 Eos % (Auto) 2.8 Baso % (Auto) 0.6 Neut # (Auto) 6200 Lymph # (Auto) 1400 [place] # (Auto) 900 Eos # (Auto) 200 Baso # (Auto) 0 Sodium 138 137 Potassium 3.9 3.4 Chloride 102 107 Carbon Dioxide 25 23 BUN 34 H 19 H Creatinine 1.12 H 0.55 Estimated GFR 50 L > 60 BUN/Creatinine Ratio 30.4 H 34.5 H Glucose 123 H 87 Calcium 9.2 8.1 L Magnesium 2.2 Total Bilirubin 0.2 0.6 AST 28 22 ALT 17 13 Alkaline Phosphatase 89 78 Total Protein 7.6 6.0 L Albumin 4.3 3.4 L Globulin 3.3 2.6 Albumin/Globulin Ratio 1.3 1.3 TSH 0.827 Urine Color Yellow Urine Appearance Clear Urine pH 5.5 Ur Specific [place] 1.010 Urine Protein Negative Urine Glucose (UA) Negative Urine Ketones Negative Urine Occult Blood Negative Urine Nitrate Negative Urine Bilirubin Negative Urine Urobilinogen 0.2 Ur Leukocyte Esterase Negative Urine RBC 0-1/hpf Urine WBC 1-5/hpf Ur Squamous Epith Cells None seen Urine Bacteria None seen Ur Culture Indicated? 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 Mast in one week. Follow up with Colorectal surgeon in 4 days. Nursing Discharge Comment: Continue Owens catheter Discharge orders & Medications Prescriptions: Continued fluticasone propionate 50 mcg/actuation spray,suspension 1 spray intranasal QPM Qty: 16 3RF gabapentin 300 mg capsule 1,200 mg PO BEDTIME furosemide 20 mg tablet 20 mg PO DAILY PRN (Reason: swelling) methimazole 5 mg tablet 5 mg PO DAILY benzonatate 200 mg capsule 200 mg PO 3XD PRN (Reason: cough) pantoprazole 40 mg tablet,delayed release (DR/EC) 40 mg PO QPM oxycodone 5 mg Tablet 5 mg PO Q4HR PRN (Reason: Pain, Moderate (4-6)) Qty: 10 0RF ondansetron 4 mg tablet,disintegrating 4 mg PO Q8H PRN (Reason: nausea and vomiting) Qty: 12 0RF ropinirole 1 mg tablet 3 mg PO DAILY Rx Instructions: take at 1800 Discontinued mirtazapine 7.5 mg tablet 7.5 mg PO ONCE PM metoprolol tartrate 25 mg Tablet 25 mg PO TID Qty: 60 0RF cefuroxime axetil 500 mg tablet 500 mg PO Q12H Qty: 20 0RF cefdinir 300 mg capsule 300 mg PO BID 7 Days Qty: 14 0RF Follow up/Referrals: Rom Mast MD [Primary Care Provider, Family Practice] Diet/Activity/Treatments Catheter: 2-way Owens Visit Report/Discharge Packet Instructions: How to Care for Your Owens Catheter -- Female, DI for Rectal Prolapse, DI for Acute Kidney Injury Stand Alone Forms: [employer], Patient Portal/API, Stroke Signs & Symptoms, Influenza Vaccine Info, Notice of Privacy Practices, Inpatient vs Outpatient, Pneumococcal Vaccine Info, Pt. Rights & Responsibilities Discharge Data Primary Care Provider: Rom Mast Attending Provider: Jacob Joy Admit Date/Time: 04/24/25 19:49 Quality VTE Deep Vein Thrombosis/Pulmonary Embolism Present on Admission: No
--- NOTE | 2025-04-25 12:40 | CM.DANOTE ---
DCP Assessment Note: Pt is a 79yo female, resident of [place], is admitted for rectal prolapse, MARY, UTI. Pt lives in a house with her spouse, Magno. Pt's Primary Care Provider is Dr. Rom Mast MD and insurance is Medicare and [employer]. Reviewed chart and discussed with multidisciplinary team pt's medical status and initial discharge needs. Per hospitalist, after IV fluid and catheter placement, pt to discharge home with spouse support. Will follow up with surgery via outpatient. Per RN, pt to discharge home with indwelling catheter and will follow up with surgery this Thursday, 04/28. DCP met w/patient at bedside; introduced self and role. Patient was found in bed, alert and oriented, cooperative with assessment. Pt confirmed living situation and good support in . Pt expressed preference in discharge home with home health. Pt has a hx of [facility] in 11/2024 and no SNF Rehab. WASH MILL OPERATOR discussed home health with pt, she is agreeable. She stated preference for [facility] since she has worked with them in the past - requests only RN and HH aide at this time. Provided [facility] contact information to pt again for reference. WASH MILL OPERATOR sent referral to [facility] via secure email, sent with signed MD orders. Will need dc summary sent when available. Plan: Anticipating discharge home with spouse to transport on 04/25 or when medically cleared. CM team will follow closely for coordination of discharge plans. LOGAN Ellison Discharge Planning/Care Management CM Discharge Assessment Start: 04/24/25 21:42 Freq: Status: Active Protocol: Document 04/25/25 12:37 MW (Rec: 04/25/25 12:40 MW [id number]) Discharge Planning Assessment Assigned Discharge PRATIMA Ernandez [employer] Provider Dr. Rom Mast MD Insurance Medicare,[facility] DPOA/Assigned Magno Ferris, Spouse Designee Name Contact Information [phone] Advance Directives? Yes Advance Directives No on File History Provided By Patient,Medical Record Prior Living House Arrangements Household Members spouse Type of Relies on Others transporation used prior to admit Independent with ADL Yes 's Is patient alert and Yes oriented? Patient/Family Home with Home Health Preference Discharge Plan Home Transportation Spouse Arrangement Referrals Initiated Home Health If patient plan is Yes home with home health: Has signed face to face form been completed? Medicare Choice List Yes Provided Medicare choice list patient reviewed on electronic tablet with SNF/HH Preference [facility] Has Agency SNF been Yes contacted Review Status In Process Please Provide Date 04/25/25 Initial DC Assessment Was Performed Next Review Type Continued Stay Review
[2025-04-25 13:51] VITALS: BP 117/51; PULSE 101; RESP 16; TEMP 37.2; O2SAT 96
== END 2025-04-25 15:52 | disposition home or self-care (01) ==
LOC: ED 19:49 → AC 19:49
PROVIDERS: Admitting Provider Internal Medicine; Emergency Provider Emergency Medicine; PCP Family Medicine; Visit Provider Internal Medicine
DX: K62.3 Rectal prolapse (principal); N17.9 Acute kidney failure, unspecified; K21.9 Gastro-esophageal reflux disease without esophagitis; F32.A Depression, unspecified; E03.9 Hypothyroidism, unspecified; G25.81 Restless legs syndrome; Z87.440 Personal history of urinary (tract) infections
CPT/HCPCS: 36415; 51798; 74177; 80053; 81001; 81003; 83735; 84443; 85025; 96360; 96361; 99284; G0378; J7030; Q9967

== ENCOUNTER 2025-04-26 19:02 | Emergency (ER) | payer MEDICARE, OTHER, SELFPAY ==
[2025-04-24 21:42] VITALS: BMI 20.3
[2025-04-26] VITALS (11 sets, daily range): BP systolic 122–154; BP diastolic 59–70; PULSE 77–91; RESP 16; TEMP 36.9; O2SAT 96–98; BMI 20.3
--- OUTSIDE RECORDS SUMMARY | 2025-04-26 19:19 | XMS_ITS | Encounter Summary ---
Author Organization [facility] Address [address] [address] Care Team Providers Care Compliance Spec Name Role Phone Unavailable Primary Care Provider Unavailabl e Encounter Details Date Type Department Care Team (Late st Contact Info) Description 04/26/2025 Abstract GENERAL SURGERY - [place], [place] [address] [place] [phone] Roxanna Chadwick MA Social History Tobacco Use Types Packs/Day Years Used Date Smoking Tobacco: Never Assessed Comments Unknown Sex and Gender Information Value Date Recorded Sex Assigned at Not on file Legal Sex Female 10:05 AM PST Gender Identity Not on file Sexual Orientation Not on file documented as of this encounter Plan of Treatment Upcoming Encounters Date Type Department Care Team (Late st Contact Info) Description 04/28/2025 2:00 PM PST Initial consult GENERAL SURGERY - [place], [place] [address] [place] [phone] Vadim Lema MD [id number] [facility], [address] [place], [place] [phone] documented as of this encounter Visit Diagnoses Not on filedocumented in this encounter
--- NOTE | 2025-04-26 22:50 | ED.ABDPAIN ---
HPI - Abdominal Pain <Harjeet Hay, DO - Last Filed: 04/27/25 01:31> General Chief Complaint: Abdominal Pain Stated Complaint: RUQ abd pain Time Seen by Provider: 04/26/25 19:11 Source: EMS Mode of arrival: EMS History of Present Illness HPI narrative: 79-year-old female history of obstructive sleep apnea recently admitted and discharged on 04/25/[address] scan showed wall thickening of the distal sigmoid colon rectal proctocolitis in the differential and diverticulosis without evidence of diverticulitis and large stool burden along with nonobstructive bilateral renal stones measuring up to 4 mm presents tonight with right-sided abdominal pain and decreased appetite for which she states she has not ate anything since she was discharged. Patient denies any chest pain, sob, cough, fever, chills, body aches, nausea, vomiting, diarrhea, constipation, rectal bleeding, or any urinary complaints. Other than what is stated 14 point review system is negative. Related Data Home Medications ?Medication ?Instructions ?Recorded ?Confirmed ropinirole 1 mg tablet 3 mg PO DAILY 03/20/21 02/02/25 furosemide 20 mg tablet 20 mg PO DAILY PRN swelling 08/15/24 02/02/25 gabapentin 300 mg capsule 1,200 mg PO BEDTIME 08/15/24 02/02/25 methimazole 5 mg tablet 5 mg PO DAILY 08/15/24 02/02/25 benzonatate 200 mg capsule 200 mg PO 3XD PRN cough 11/07/24 02/02/25 pantoprazole 40 mg tablet,delayed 40 mg PO QPM 11/07/24 02/02/25 release Previous Rx's ?Medication ?Instructions ?Recorded oxycodone 5 mg tablet 5 mg PO Q4HR PRN Pain, Moderate 11/09/24 (4-6) #10 tabs ondansetron 4 mg disintegrating 4 mg PO Q8H PRN nausea and 12/22/24 tablet vomiting #12 tabs fluticasone propionate 50 1 spray intranasal QPM #16 grams 04/25/25 mcg/actuation nasal spray,suspension tramadol 50 mg tablet 50 mg PO Q6H PRN pain #14 tabs 04/27/25 Allergies Allergy/AdvReac Type Severity Reaction Status Date / Time Penicillins Allergy Unknown Rash Verified 04/26/25 19:18 Review of Systems <Harjeet Hay, - Last Filed: 04/27/25 01:31> Review of Systems ROS Unobtainable: All systems reviewed & are unremarkable except as noted in HPI and below Patient History <Harjeet Hay DO - Last Filed: 04/27/25 01:31> Medical History Obstructive sleep apnea of adult PVCs (premature ventricular contractions) Urinary frequency Nocturia Overactive bladder Arthritis Surgical History History of colon surgery Hx of appendectomy Hx of colonoscopy Hx of cholecystectomy Hx of shoulder surgery Hx of arthroscopic knee surgery History of knee replacement Social History marital status: number of children: 2 household members: spouse 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 Well-developed patient, in mild distress. HEAD: Atraumatic. Normocephalic. EYES: Pupils equal round and reactive. Extraocular motions intact. No scleral icterus. No injection or drainage. ENT: Nose without bleeding, purulent drainage. Throat without erythema, tonsillar hypertrophy or exudate. Airway patent. NECK: Trachea midline. Non tender CARDIOVASCULAR: Regular rate and rhythm without murmurs, gallops, or rubs. RESPIRATORY: Clear to auscultation. Breath sounds equal bilaterally. No wheezes, rales, or rhonchi. GASTROINTESTINAL: Abdomen soft, RUQ TTP no r/r/g EXTREMITIES: No edema or joint tenderness. BACK: Nontender without deformity or crepitance. No flank tenderness. NEURO: AOx3. SKIN: No rash or erythema of visible areas Initial Vital Signs Initial Vital Signs: Vital Signs Temperature 98.5 F 04/26/25 19:19 Pulse Rate 80 04/26/25 19:19 Respiratory Rate 16 12/17/25 19:19 Blood Pressure 145/64 H 04/26/25 19:19 Pulse Oximetry 97 04/26/25 19:19 Oxygen Delivery Method Room Air 04/26/25 19:19 <Emmy Chand, DO - Last Filed: 04/27/25 11:18> Initial Vital Signs Initial Vital Signs: Vital Signs Temperature 98.5 F 04/26/25 19:19 Pulse Rate 80 04/26/25 19:19 Respiratory Rate 16 04/26/25 19:19 Blood Pressure 145/64 H 04/26/25 19:19 Pulse Oximetry 97 04/26/25 19:19 Oxygen Delivery Method Room Air 04/26/25 19:19 Course <Harjeet Hya, DO - Last Filed: 04/27/25 01:31> Orders Ordered: ED Orders 04/27/25 05:42 Consult to GAME MODERATOR - [employer] Checker Stat Discontinued Medications Gabapentin (Gabapentin 300 Mg Capsule) 300 mg PO NOW ONE Stop: 04/27/25 03:17 Last Admin: 04/27/25 04:03 Dose: 300 mg Documented By: CONOR Lactated Ringer's (Lactated Ringers) 1,000 mls @ 1,000 mls/hr IV BOLUS ONE Stop: 04/27/25 00:23 Last Infusion: 04/27/25 01:00 Dose: Infused Documented By: Admin: 04/26/25 23:59 Dose: 1,000 mls/hr Documented By: CONOR Ketorolac Tromethamine (Ketorolac 30 Mg/Ml Vial) 15 mg IV NOW ONE Stop: 04/26/25 23:25 Last Admin: 04/27/25 04:03 Dose: 15 mg Documented By: CONOR Non-Formulary Medication (Doxepin) 6 mg PO NOW ONE Stop: 04/27/25 03:20 Last Admin: 04/27/25 04:31 Dose: Not Given Documented By: Ondansetron HCl (Ondansetron 4 Mg/2 Ml Inj) 4 mg IV NOW PRN PRN Reason: Nausea And Vomiting Ondansetron HCl (Ondansetron 4 Mg Odt) 4 mg PO NOW PRN PRN Reason: Nausea And Vomiting Potassium Chloride (Potassium Chloride 20 Meq/15 Ml Udc) 40 meq PO NOW ONE Stop: 04/27/25 01:31 Last Admin: 04/27/25 04:03 Dose: 40 meq Documented By: CONOR Ropinirole HCl (Ropinirole 1 Mg Tablet) 3 mg PO NOW ONE Stop: 04/27/25 03:17 Last Admin: 04/27/25 04:31 Dose: Not Given Documented By: Trazodone HCl (Trazodone 50 Mg Tablet) 50 mg PO NOW ONE Stop: 04/27/25 03:18 Last Admin: 04/27/25 04:02 Dose: 50 mg Documented By: CONOR Vital Signs Vital signs: Vital Signs - 8 hr 04/27/25 10:54 Pulse Rate 96 H Respiratory Rate 16 Blood Pressure 143/67 H Pulse Oximetry 96 Oxygen Delivery Method Room Air <Emmy Chand, - Last Filed: 04/27/25 11:18> Orders Ordered: ED Orders 04/27/25 05:42 Consult to GAME MODERATOR - Bakery Products Checker Stat Discontinued Medications Gabapentin (Gabapentin 300 Mg Capsule) 300 mg PO NOW ONE Stop: 04/27/25 03:17 Last Admin: 04/27/25 04:03 Dose: 300 mg Documented By: CONOR Lactated Ringer's (Lactated Ringers) 1,000 mls @ 1,000 mls/hr IV BOLUS ONE Stop: 04/27/25 00:23 Last Infusion: 04/27/25 01:00 Dose: Infused Documented By: Admin: 04/26/25 23:59 Dose: 1,000 mls/hr Documented By: CONOR Ketorolac Tromethamine (Ketorolac 30 Mg/Ml Vial) 15 mg IV NOW ONE Stop: 04/26/25 23:25 Last Admin: 04/27/25 04:03 Dose: 15 mg Documented By: CONOR Non-Formulary Medication (Doxepin) 6 mg PO NOW ONE Stop: 04/27/25 03:20 Last Admin: 04/27/25 04:31 Dose: Not Given Documented By: Ondansetron HCl (Ondansetron 4 Mg/2 Ml Inj) 4 mg IV NOW PRN PRN Reason: Nausea And Vomiting Ondansetron HCl (Ondansetron 4 Mg Odt) 4 mg PO NOW PRN PRN Reason: Nausea And Vomiting Potassium Chloride (Potassium Chloride 20 Meq/15 Ml Udc) 40 meq PO NOW ONE Stop: 04/27/25 01:31 Last Admin: 04/27/25 04:03 Dose: 40 meq Documented By: CONOR Ropinirole HCl (Ropinirole 1 Mg Tablet) 3 mg PO NOW ONE Stop: 04/27/25 03:17 Last Admin: 04/27/25 04:31 Dose: Not Given Documented By: Trazodone HCl (Trazodone 50 Mg Tablet) 50 mg PO NOW ONE Stop: 04/27/25 03:18 Last Admin: 04/27/25 04:02 Dose: 50 mg Documented By: CONOR Vital Signs Vital signs: Vital Signs - 8 hr 04/27/25 10:54 Pulse Rate 96 H Respiratory Rate 16 Blood Pressure 143/67 H Pulse Oximetry 96 Oxygen Delivery Method Room Air MDM - Abdominal Pain <Harjeet Hay DO - Last Filed: 04/27/25 01:31> Lab Data 04/26/25 23:45 04/26/25 23:45 Labs: Lab Results 04/26/25 04/27/25 Range/Units 23:45 01:40 WBC 7.3 (4.5-11.0) X10^3/uL RBC 3.94 L (4.0-5.2) X10^6/uL Hgb 11.8 L (12.0-16.0) g/dL Hct 35.2 L (36-46) % MCV 89.5 (80-100) fL MCH 30.0 (26-34) PG MCHC 33.6 (30-36) % RDW 14.5 (11.6-14.8) % Plt Count 249 (150-400) X10^3/uL Neut % (Auto) 71.9 (50-75) % Lymph % (Auto) 18.4 L (25-40) % [place] % (Auto) 8.9 (3-14) % Eos % (Auto) 0.4 L (2-4) % Baso % (Auto) 0.4 (0-2) % Neut # (Auto) 5200 (0381-1742) /uL Lymph # (Auto) 1300 (8547-2735) /uL [facility] [place] # (Auto) 600 (0-900) /uL Eos # (Auto) 0 (0-450) /uL Baso # (Auto) 0 (0-100) /uL Sodium 138 (137-145) mmol/L Potassium 3.0 L (3.4-5.1) mmol/L Chloride 103 (98-107) mmol/L Carbon Dioxide 28 (22-32) mmol/L BUN 14 (7-17) mg/dL Creatinine 0.58 (0.52-1.04) mg/dL Estimated GFR > 60 (>60) mL/min BUN/Creatinine Ratio 24.1 H (6-22) Glucose 109 H (70-99) mg/dL Lactate 1.1 (0.7-2.1) mmol/L Calcium 8.3 L (8.4-10.2) mg/dL Magnesium 1.7 (1.6-2.3) mg/dL Total Bilirubin 0.4 (0.2-1.3) mg/dL AST 27 (14-36) IU/L ALT 17 (<35) IU/L Alkaline Phosphatase 78 (38-126) U/L Total Protein 6.4 (6.3-8.2) g/dL Albumin 3.7 (3.5-5.0) g/dL Globulin 2.7 (1.7-4.1) g/dL Albumin/Globulin Ratio 1.4 (1.0-2.8) Lipase 44 (23-300) U/L Urine RBC 0-1/hpf (0-5/HPF) Urine WBC 0-1/hpf (0-5/HPF) Ur Squamous Epith Cells 0-1 /hpf (0-5/HPF) Urine Bacteria Occasional (0-1) (None) Ur Culture Indicated? TNP Vol Urine Centrifuged 10ml (spun) Point of care testing: Urine Dip Bedside Urine Glucose Negative Bedside Urine Bilirubin - Negative Bedside Urine Ketone - Negative Urine Specific [place] 1.015 Bedside Urine Occult Blood +/- Bedside Urine pH 5.5 Bedside Urine Protein - Negative Bedside Urine Urobilinogen - Negative Bedside Urine Nitrite - Negative Bedside Urine Leukocytes - Negative Esterase Imaging Data CT scan - abdomen/pelvis: Radiologist's Impression: [address] [address] [address] Scan Report Signed Patient: Mery Reed MR#: [id number] : 1945 Acct:[id number] Age/Sex: 79 / F Date of Service: 04/26/25 Loc: ED Accession Number: [id number] Procedure: CT abdomen pelvis w con Ordering Provider: Harjeet Hay D.O. PROCEDURE: CT ABDOMEN PELVIS W CON INDICATIONS: R sided abd pain. ORAL AND IV CONTRAST PLEASE TECHNIQUE: After the administration of intravenous contrast, axial sections acquired from the lung bases to the pubic symphysis. Coronal and sagittal reformats were performed. For radiation dose reduction, the following was used: automated exposure control, adjustment of mA and/or kV according to patient size. COMPARISON: [facility], CT, CT ABDOMEN PELVIS W [facility], 04/24/2025, 15:56. FINDINGS: Image quality: Diagnostic. Lower Chest: Bibasilar atelectasis. ABDOMEN: Liver: No solid mass. Gallbladder: Post cholecystectomy. Biliary ducts: No biliary dilation. Pancreas: No ductal dilation. Spleen: Size is within normal limits. Adrenal Glands: No adrenal nodules. Kidneys and Ureters: No hydronephrosis. No solid mass. No complex renal cystic lesion which requires follow up. Multiple punctate nonobstructing stones in the bilateral kidneys, measuring up to 4 mm in the right lower pole. Stomach and Bowel: Prominent edema, hyperenhancement , and wall thickening of the proximal duodenum, with prominent adjacent free fluid in the right upper quadrant. Colonic diverticulosis without evidence of acute diverticulitis. The remaining small and large bowel appear unremarkable. Peritoneum: Small volume right upper quadrant free fluid adjacent to the duodenum as above. No free air. No organized fluid collection. Ventral Wall: No significant ventral hernia. Abdominal Nodes: No retroperitoneal or mesenteric adenopathy by size criteria. Vessels: Aorta and inferior vena cava are normal in size. PELVIS: Pelvic Organs: Unremarkable. Bladder: Decompressed around a Owens catheter. Pelvic Nodes: No enlarged lymph nodes. Miscellaneous: No inguinal hernias are seen. Bones: No aggressive osseous abnormality. IMPRESSION: Prominent edema, hyperenhancement, and wall thickening of the proximal duodenum suggestive of duodenitis. There is prominent adjacent free fluid. Although not discretely visualized, perforated duodenal ulcer cannot be excluded. Recommend correlation with clinical picture and further evaluation with enteric contrast enhanced upper GI study to evaluate for perforation (CT or fluoroscopy). Dictated by: Anthony Griffin M.D. on 04/27/2025 at 0:35 Approved by: Anthony Griffin M.D. on 04/27/2025 at 0:44 ECG Data Interpretation: Sinus Rhythm with PVC HR 87 GA 124 QRS [address]-t wave change Unchangecd from 04/10/25 MDM Narrative Medical decision making narrative: All labwork, vital signs, masking machine feeder note, med list, previous ER visits and all imaging studies reviewed. CT scan Prominent edema, hyperenhancement, and wall thickening of the proximal duodenum suggestive of duodenitis. There is prominent adjacent free fluid. Although not discretely visualized, perforated duodenal ulcer cannot be excluded. Recommend correlation with clinical picture and further evaluation with enteric contrast enhanced upper GI study to evaluate for perforation (CT or fluoroscopy). WBC 7.3 hg 11.8 K 3.0 given 40mEQ po liquid. LFTS and lipase nml. UA nml. Case d/w Surgeon cast iron drain pipe layer he will come in and evaluate pt in the morning at 8am. <Emmy Chand, - Last Filed: 04/27/25 11:18> Lab Data Labs: Lab Results 04/26/25 04/27/25 Range/Units 23:45 01:40 WBC 7.3 (4.5-11.0) X10^3/uL RBC 3.94 L (4.0-5.2) X10^6/uL Hgb 11.8 L (12.0-16.0) g/dL Hct 35.2 L (36-46) % MCV 89.5 (80-100) fL MCH 30.0 (26-34) PG MCHC 33.6 (30-36) % RDW 14.5 (11.6-14.8) % Plt Count 249 (150-400) X10^3/uL Neut % (Auto) 71.9 (50-75) % Lymph % (Auto) 18.4 L (25-40) % [place] % (Auto) 8.9 (3-14) % Eos % (Auto) 0.4 L (2-4) % Baso % (Auto) 0.4 (0-2) % Neut # (Auto) 5200 (5637-5296) /uL Lymph # (Auto) 1300 (4155-7466) /uL [facility] # (Auto) 600 (0-900) /uL Eos # (Auto) 0 (0-450) /uL Baso # (Auto) 0 (0-100) /uL Sodium 138 (137-145) mmol/L Potassium 3.0 L (3.4-5.1) mmol/L Chloride 103 (98-107) mmol/L Carbon Dioxide 28 (22-32) mmol/L BUN 14 (7-17) mg/dL Creatinine 0.58 (0.52-1.04) mg/dL Estimated GFR > 60 (>60) mL/min BUN/Creatinine Ratio 24.1 H (6-22) Glucose 109 H (70-99) mg/dL Lactate 1.1 (0.7-2.1) mmol/L Calcium 8.3 L (8.4-10.2) mg/dL Magnesium 1.7 (1.6-2.3) mg/dL Total Bilirubin 0.4 (0.2-1.3) mg/dL AST 27 (14-36) IU/L ALT 17 (<35) IU/L Alkaline Phosphatase 78 (38-126) U/L Total Protein 6.4 (6.3-8.2) g/dL Albumin 3.7 (3.5-5.0) g/dL Globulin 2.7 (1.7-4.1) g/dL Albumin/Globulin Ratio 1.4 (1.0-2.8) Lipase 44 (23-300) U/L Urine RBC 0-1/hpf (0-5/HPF) Urine WBC 0-1/hpf (0-5/HPF) Ur Squamous Epith Cells 0-1 /hpf (0-5/HPF) Urine Bacteria Occasional (0-1) (None) Ur Culture Indicated? TNP Vol Urine Centrifuged 10ml (spun) Point of care testing: Urine Dip Bedside Urine Glucose Negative Bedside Urine Bilirubin - Negative Bedside Urine Ketone - Negative Urine Specific [place] 1.015 Bedside Urine Occult Blood +/- Bedside Urine pH 5.5 Bedside Urine Protein - Negative Bedside Urine Urobilinogen - Negative Bedside Urine Nitrite - Negative Bedside Urine Leukocytes - Negative Esterase MDM Narrative Medical decision making narrative: All labwork, vital signs, masking machine feeder note, med list, previous ER visits and all imaging studies reviewed. CT scan Prominent edema, hyperenhancement, and wall thickening of the proximal duodenum suggestive of duodenitis. There is prominent adjacent free fluid. Although not discretely visualized, perforated duodenal ulcer cannot be excluded. Recommend correlation with clinical picture and further evaluation with enteric contrast enhanced upper GI study to evaluate for perforation (CT or fluoroscopy). WBC 7.3 hg 11.8 K 3.0 given 40mEQ po liquid. LFTS and lipase nml. UA nml. Case d/w Surgeon cast iron drain pipe layer he will come in and evaluate pt in the morning at 8am. [id number] Kirkcata patient is signed out to me by Dr. Hay seen evaluated patient myself. She is currently eating. Dr. Malik surgery has been in to evaluate. States that patient can go home she has an appointment with her PCP today request that outpatient H pylori be tested. Patient is sitting up appears well nontoxic reports that she has taken tramadol in the past for pain she took 1 last night it did not really help so we discussed pain management we will write her per new prescription for tramadol. Discharge Plan Departure Patient Disposition: Home Clinical Impression: Duodenitis Instructions: DI for Duodenitis Activity Restrictions/Additional Instructions: *You have been diagnosed with duodenitis *What to do: Please follow up with your PCP today. You will need an outpatient H pylori test you will need to be off of your pantoprazole for 2 weeks before this test can be done this will need to be through your PCP *Continue to take medications as directed Tramadol 1-2 tablets every 6 hours if needed for pain *Follow up with your primary care provider in 2-3 days or call [phone] *Return to ER if you should have increasing pain bloody stools fever [or] any new, worsening or concerning symptoms CONTROLLED SUBSTANCE DISCHARGE (Narcotoic/benzodiazepine/Flexeril/Phenergan) 1. You have been prescribed narcotic medications, it does have acetaminophen/Tylenol/paracetamol in it, DO NOT TAKE MORE THAN 4,00mg in 24 hours of Tylenol. TRAMADOL DOES NOT CONTAIN TYLENOL 2. Please understand that we cannot provide further refills of narcotics, benzodiazepines or controlled substances through the ED and her pain management will need to be through your provider. 3. While on these medications you cannot drive or operate heavy machinery. 4. You cannot sign legal documents or perform any duties such as this. 5. As long as you're taking opiate pain medications he should also be taking a stool softener such as Colace, Dulcolax, MiraLAX or prune juice, to help avoid constipation. Prescriptions: New tramadol 50 mg tablet 50 mg PO Q6H PRN (Reason: pain) Qty: 14 0RF Rx Instructions: 1-2 tablets every 6 hours if needed for severe pain No Action fluticasone propionate 50 mcg/actuation spray,suspension 1 spray intranasal QPM Qty: 16 3RF gabapentin 300 mg capsule 1,200 mg PO BEDTIME furosemide 20 mg tablet 20 mg PO DAILY PRN (Reason: swelling) methimazole 5 mg tablet 5 mg PO DAILY benzonatate 200 mg capsule 200 mg PO 3XD PRN (Reason: cough) pantoprazole 40 mg tablet,delayed release (DR/EC) 40 mg PO QPM oxycodone 5 mg Tablet 5 mg PO Q4HR PRN (Reason: Pain, Moderate (4-6)) Qty: 10 0RF ondansetron 4 mg tablet,disintegrating 4 mg PO Q8H PRN (Reason: nausea and vomiting) Qty: 12 0RF ropinirole 1 mg tablet 3 mg PO DAILY Rx Instructions: take at 1800 Referrals: Rom Mast MD [Primary Care Provider, Family Practice] Stand Alone Forms: Patient Portal/API
--- NOTE | 2025-04-26 23:23 | EKG_ITS ---
[address] [address] Test Date: 2025-04-26 Pat Name: Mery Reed Department: [facility] Room: Gender: Female Overnight Caregiver: ALEKS : 1945 Requested By: Order Number: [id number] Reading MD: Harjeet Lobato MD Measurements Intervals [place] Rate: 87 P: 82 [place]: 124 QRS: 64 QRSD: 78 T: 72 QT: 384 QTc: 462 Interpretive Statements Sinus rhythm with occasional premature ventricular complexes Electronically Signed On 04-27-2025 7:18:14 PST by Harjeet Lobato MD
--- NOTE | 2025-04-26 23:23 | DI.CT.S_ITS ---
PROCEDURE: CT ABDOMEN PELVIS W CON INDICATIONS: R sided abd pain. ORAL AND IV CONTRAST PLEASE TECHNIQUE: After the administration of intravenous contrast, axial sections acquired from the lung bases to the pubic symphysis. Coronal and sagittal reformats were performed. For radiation dose reduction, the following was used: automated exposure control, adjustment of mA and/or kV according to patient size. COMPARISON: [facility], CT, CT ABDOMEN PELVIS W CON, 04/24/2025, 15:56. FINDINGS: Image quality: Diagnostic. Lower Chest: Bibasilar atelectasis. ABDOMEN: Liver: No solid mass. Gallbladder: Post cholecystectomy. Biliary ducts: No biliary dilation. Pancreas: No ductal dilation. Spleen: Size is within normal limits. Adrenal Glands: No adrenal nodules. Kidneys and Ureters: No hydronephrosis. No solid mass. No complex renal cystic lesion which requires follow up. Multiple punctate nonobstructing stones in the bilateral kidneys, measuring up to 4 mm in the right lower pole. Stomach and Bowel: Prominent edema, hyperenhancement , and wall thickening of the proximal duodenum, with prominent adjacent free fluid in the right upper quadrant. Colonic diverticulosis without evidence of acute diverticulitis. The remaining small and large bowel appear unremarkable. Peritoneum: Small volume right upper quadrant free fluid adjacent to the duodenum as above. No free air. No organized fluid collection. Ventral Wall: No significant ventral hernia. Abdominal Nodes: No retroperitoneal or mesenteric adenopathy by size criteria. Vessels: Aorta and inferior vena cava are normal in size. PELVIS: Pelvic Organs: Unremarkable. Bladder: Decompressed around a Owens catheter. Pelvic Nodes: No enlarged lymph nodes. Miscellaneous: No inguinal hernias are seen. Bones: No aggressive osseous abnormality. IMPRESSION: Prominent edema, hyperenhancement, and wall thickening of the proximal duodenum suggestive of duodenitis. There is prominent adjacent free fluid. Although not discretely visualized, perforated duodenal ulcer cannot be excluded. Recommend correlation with clinical picture and further evaluation with enteric contrast enhanced upper GI study to evaluate for perforation (CT or fluoroscopy). Dictated by: Anthony Griffin M.D. on 04/27/2025 at 0:35 Approved by: Anthony Griffin M.D. on 04/27/2025 at 0:44
[2025-04-26 23:58] LABS: Add Manual Diff / Slide Review NO; Hematocrit 35.2 % (36-46); Hemoglobin 11.8 g/dL (12.0-16.0); Lymphocytes Absolute Auto 1300 /uL (1100-4500); Mean Corpuscular HGB Conc 33.6 % (30-36); Mean Corpuscular Hemoglobin 30.0 PG (26-34); Mean Corpuscular Volume 89.5 fL (80-100); Platelet Count 249 X10^3/uL (150-400)
[2025-04-26] MEDS: LACTATED RINGERS 1,000 ML 1000 ML IV (23:59)
[2025-04-27 00:12] LABS: Alanine Aminotransferase 17 IU/L (<35); Albumin 3.7 g/dL (3.5-5.0); Alkaline Phosphatase 78 U/L (38-126); Blood Urea Nitrogen 14 mg/dL (7-17); Calcium 8.3 mg/dL (8.4-10.2); Carbon Dioxide 28 mmol/L (22-32); Chloride 103 mmol/L (98-107); Estimated Glomerular Filt Rate > 60 mL/min (>60); Glucose 109 mg/dL (70-99); HEMOLYSIS < 15 (0-50); Potassium 3.0 mmol/L (3.4-5.1); Sodium 138 mmol/L (137-145); Total Protein 6.4 g/dL (6.3-8.2)
[2025-04-27 00:13] LABS: Albumin Globulin Ratio 1.4 (1.0-2.8); Globulin 2.7 g/dL (1.7-4.1); Lipase 44 U/L (23-300)
[2025-04-27 02:14] LABS: Magnesium 1.7 mg/dL (1.6-2.3)
[2025-04-27 02:15] LABS: Lactate (Lactic Acid) 1.1 mmol/L (0.7-2.1)
[2025-04-27] MEDS: GABAPENTIN 300 MG CAPSULE PO (04:03)
[2025-04-27] MEDS: POTASSIUM CHLORIDE 20 MEQ/15 ML UDC 40 MEQ PO (04:03)
[2025-04-27] MEDS: KETOROLAC 30 MG/ML VIAL 15 MG IV (04:03)
--- NOTE | 2025-04-27 07:21 | PC.NURSE ---
Report given to DRAKE Ontiveros
--- NOTE | 2025-04-27 09:52 | PM.HP.IH.1 ---
History of Present Illness History of Present Illness Date Patient Seen: 04/27/25 Chief complaint: RUQ abd pain Narrative: The patient is a 79-year-old female who presents about a 48 hour history of right lower quadrant abdominal pain. She is vague about the character of the pain. There are no relieving or exacerbating factors. She denies any nausea or vomiting. She denies hematemesis, melena, hematochezia. Of note, she had her appendix removed previously. During her evaluation last night a CT scan was done which revealed thickening of the 1st portion of the duodenum with per duodenal fluid. Upon seeing her this morning, she was ready to have breakfast in his anxious to eat. 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 Status: Never smoker alcohol intake: former caffeine: Yes Type(s) of exercise: walking and regular exercise frequency: daily Meds Home Medications and Allergies Home Medications ?Medication ?Instructions ?Recorded ?Confirmed ?Type ropinirole 1 mg tablet 3 mg PO DAILY 03/20/21 02/02/25 History furosemide 20 mg tablet 20 mg PO DAILY PRN swelling 08/15/24 02/02/25 History gabapentin 300 mg capsule 1,200 mg PO BEDTIME 08/15/24 02/02/25 History methimazole 5 mg tablet 5 mg PO DAILY 08/15/24 02/02/25 History benzonatate 200 mg capsule 200 mg PO 3XD PRN cough 11/07/24 02/02/25 History pantoprazole 40 mg tablet,delayed 40 mg PO QPM 11/07/24 02/02/25 History release oxycodone 5 mg tablet 5 mg PO Q4HR PRN Pain, Moderate 11/09/24 02/02/25 Rx (4-6) #10 tabs ondansetron 4 mg disintegrating 4 mg PO Q8H PRN nausea and 12/22/24 02/02/25 Rx tablet vomiting #12 tabs fluticasone propionate 50 1 spray intranasal QPM #16 grams 04/25/25 Rx mcg/actuation nasal spray,suspension Allergies Allergy/AdvReac Type Severity Reaction Status Date / Time Penicillins Allergy Unknown Rash Verified 04/26/25 19:18 Review of Systems Review of Systems ROS: Yes All systems reviewed with the patient and are negative except as otherwise documented Exam Vital Signs (past 8 hours): Oxygen Delivery Method Room Air Narrative Exam Narrative: The patient is alert and oriented and appears to be in no acute distress Lungs are clear to auscultation bilaterally Cardiac reveals a regular to irregular rhythm with extrasystoles. There are no murmurs rubs or gallops Abdomen is soft, nontender, with active bowel sounds. Extremities reveal full range of motion Neuro is grossly intact Objective Imaging CT scan - abdomen: Radiologist's impression: PROCEDURE: CT ABDOMEN PELVIS W CON INDICATIONS: R sided abd pain. ORAL AND IV CONTRAST PLEASE TECHNIQUE: After the administration of intravenous contrast, axial sections acquired from the lung bases to the pubic symphysis. Coronal and sagittal reformats were performed. For radiation dose reduction, the following was used: automated exposure control, adjustment of mA and/or kV according to patient size. COMPARISON: [facility], CT, CT ABDOMEN PELVIS W CON, 04/24/2025, 15:56. FINDINGS: Image quality: Diagnostic. Lower Chest: Bibasilar atelectasis. ABDOMEN: Liver: No solid mass. Gallbladder: Post cholecystectomy. Biliary ducts: No biliary dilation. Pancreas: No ductal dilation. Spleen: Size is within normal limits. Adrenal Glands: No adrenal nodules. Kidneys and Ureters: No hydronephrosis. No solid mass. No complex renal cystic lesion which requires follow up. Multiple punctate nonobstructing stones in the bilateral kidneys, measuring up to 4 mm in the right lower pole. Stomach and Bowel: Prominent edema, hyperenhancement , and wall thickening of the proximal duodenum, with prominent adjacent free fluid in the right upper quadrant. Colonic diverticulosis without evidence of acute diverticulitis. The remaining small and large bowel appear unremarkable. Peritoneum: Small volume right upper quadrant free fluid adjacent to the duodenum as above. No free air. No organized fluid collection. Ventral Wall: No significant ventral hernia. Abdominal Nodes: No retroperitoneal or mesenteric adenopathy by size criteria. Vessels: Aorta and inferior vena cava are normal in size. PELVIS: Pelvic Organs: Unremarkable. Bladder: Decompressed around a Owens catheter. Pelvic Nodes: No enlarged lymph nodes. Miscellaneous: No inguinal hernias are seen. Bones: No aggressive osseous abnormality. IMPRESSION: Prominent edema, hyperenhancement, and wall thickening of the proximal duodenum suggestive of duodenitis. There is prominent adjacent free fluid. Although not discretely visualized, perforated duodenal ulcer cannot be excluded. Recommend correlation with clinical picture and further evaluation with enteric contrast enhanced upper GI study to evaluate for perforation (CT or fluoroscopy). Dictated by: Anthony Griffin M.D. on 04/27/2025 at 0:35 Approved by: Anthony Griffin M.D. on 04/27/2025 at 0:44 Labs 04/26/25 23:45 04/26/25 23:45 Labs: Laboratory Results - last 24 hr 04/26/25 04/27/25 23:45 01:40 WBC 7.3 RBC 3.94 L Hgb 11.8 L Hct 35.2 L MCV 89.5 MCH 30.0 MCHC 33.6 RDW 14.5 Plt Count 249 Neut % (Auto) 71.9 Lymph % (Auto) 18.4 L [place] % (Auto) 8.9 Eos % (Auto) 0.4 L Baso % (Auto) 0.4 Neut # (Auto) 5200 Lymph # (Auto) 1300 [place] # (Auto) 600 Eos # (Auto) 0 Baso # (Auto) 0 Sodium 138 Potassium 3.0 L Chloride 103 Carbon Dioxide 28 BUN 14 Creatinine 0.58 Estimated GFR > 60 BUN/Creatinine Ratio 24.1 H Glucose 109 H Lactate 1.1 Calcium 8.3 L Magnesium 1.7 Total Bilirubin 0.4 AST 27 ALT 17 Alkaline Phosphatase 78 Total Protein 6.4 Albumin 3.7 Globulin 2.7 Albumin/Globulin Ratio 1.4 Lipase 44 Urine RBC 0-1/hpf Urine WBC 0-1/hpf Ur Squamous Epith Cells 0-1 /hpf Urine Bacteria Occasional (0-1) Ur Culture Indicated? TNP Vol Urine Centrifuged 10ml (spun) Assessment & Plan Assessment and plan (1) Right lower quadrant pain: Status: Acute (2) Duodenitis: Status: Acute Plan Patient presented with right lower quadrant abdominal pain. On CT scan, she showed thickening of the 1st portion of duodenum consistent with duodenitis. At the time I saw her, she looked very comfortable. Her exam is completely unremarkable. She was getting ready to eat breakfast prior to me coming in and seeing her. White count is normal lactate is 1.1. I believe she is safe to discharge. She tells me she is going to see her primary care at 1:30 a.m. today and I recommended that she discuss a workup for Helicobacter pylori as potential source for the duodenitis seen on CT scan. Time-Based Coding :: [TOTAL MINUTES] spent with patient and on the chart (including review of chart, obtaining history, exam, reviewing outside data, placing orders, documenting exam and treatment plan, and counseling patient) on [DATE]. PROFEE Photographic Editor Document charge(s): Yes
--- NOTE | 2025-04-27 10:16 | PC.NURSE ---
Prior to General Surgeon going into patient room to assess the patient I assisted the patient with changing her undergarments. Patient was fully able to doff pants and undergarments and step into undergarments and pants without any assistance needed by this roll picker
--- NOTE | 2025-04-27 10:19 | PC.NURSE ---
1020: Call to , Magno, advsd pt is being discharged and pt will need a ride home. He states Ill grab my coffee and I'm coming from [facility].
[2025-04-27 10:54] VITALS: BP 143/67; PULSE 96; RESP 16; O2SAT 96
== END 2025-04-27 10:56 | disposition home or self-care (01) ==
PROVIDERS: Family Medicine; Emergency Provider Emergency Medicine; PCP Family Medicine
DX: T83.098A Other mechanical complication of other urinary catheter, initial encounter (principal); K62.3 Rectal prolapse; K29.80 Duodenitis without bleeding
CPT/HCPCS: 36415; 74177; 80053; 81003; 81015; 83605; 83690; 83735; 85025; 87040; 87086; 93005; 93010; 96361; 96374; 99284; J1885; J7120; Q9967

== ENCOUNTER 2025-04-27 15:40 | Emergency (ER) | payer MEDICARE, OTHER, SELFPAY ==
[2025-04-24 21:42] VITALS: BMI 20.3
[2025-04-27 15:55] VITALS: BP 125/58; PULSE 107; RESP 18; TEMP 37.2; O2SAT 98
--- NOTE | 2025-04-27 15:55 | ED.FEMALEGU ---
HPI - Female Genitourinary General Chief complaint: Urogenital-Female Stated complaint: Needs Hardware on Urine Bag Fixed Time Seen by Provider: 04/27/25 15:42 History of Present Illness HPI Narrative: Patient 79-year-old female presenting today for Owens catheter problem. She was seen evaluated last night diagnosed with duodenitis has a chronic indwelling Owens catheter. Today a piece of the catheter bag fell off. Nursing has already replaced it she has no other complaint. She has a chronic indwelling Owens catheter for rectal prolapse Related Data Home Medications ?Medication ?Instructions ?Recorded ?Confirmed ropinirole 1 mg tablet 3 mg PO DAILY 03/20/21 02/02/25 furosemide 20 mg tablet 20 mg PO DAILY PRN swelling 08/15/24 02/02/25 gabapentin 300 mg capsule 1,200 mg PO BEDTIME 08/15/24 02/02/25 methimazole 5 mg tablet 5 mg PO DAILY 08/15/24 02/02/25 benzonatate 200 mg capsule 200 mg PO 3XD PRN cough 11/07/24 02/02/25 pantoprazole 40 mg tablet,delayed 40 mg PO QPM 11/07/24 02/02/25 release Previous Rx's ?Medication ?Instructions ?Recorded oxycodone 5 mg tablet 5 mg PO Q4HR PRN Pain, Moderate 11/09/24 (4-6) #10 tabs ondansetron 4 mg disintegrating 4 mg PO Q8H PRN nausea and 12/22/24 tablet vomiting #12 tabs fluticasone propionate 50 1 spray intranasal QPM #16 grams 04/25/25 mcg/actuation nasal spray,suspension tramadol 50 mg tablet 50 mg PO Q6H PRN pain #14 tabs 04/27/25 Allergies Allergy/AdvReac Type Severity Reaction Status Date / Time Penicillins Allergy Unknown Rash Verified 04/26/25 19:18 Patient History Medical History Obstructive sleep apnea of adult PVCs (premature ventricular contractions) Urinary frequency Nocturia Overactive bladder Arthritis Surgical History History of colon surgery Hx of appendectomy Hx of colonoscopy Hx of cholecystectomy Hx of shoulder surgery Hx of arthroscopic knee surgery History of knee replacement Alcohol type: wine and hard liquor Exam Initial Vital Signs Initial Vital Signs: Vital Signs Temperature 98.9 F 04/27/25 15:55 Pulse Rate 107 H 04/27/25 15:55 Respiratory Rate 18 04/27/25 15:55 Blood Pressure 125/58 L 04/27/25 15:55 Pulse Oximetry 98 04/27/25 15:55 Oxygen Delivery Method Room Air 04/27/25 15:55 GENERAL: Well-appearing, well-nourished and in no acute distress. CARDIOVASCULAR: peripheral pulses in tact, cap refill <2 sec RESPIRATORY: No respiratory distress, speaks in full sentences without difficulty : Owens in place EXTREMITIES: Normal range of motion, no clubbing or edema. Neurovascularly intact NEUROLOGICAL: Cranial nerves II through XII grossly intact. Normal gait and speech. SKIN: Warm, dry, no petechiae, no rashes or lesions. Course Vital Signs Vital signs: Vital Signs - 8 hr 04/27/25 15:55 Temperature 98.9 F Pulse Rate 107 H Respiratory Rate 18 Blood Pressure 125/58 L Pulse Oximetry 98 Oxygen Delivery Method Room Air MDM - Female Genitourinary MDM Narrative Medical decision making narrative: Patient 79-year-old female with chronic indwelling Owens catheter due to rectal prolapse presents today with a bad complication. It is draining easily it is not clotted there is no blood. She was just here and discharge no need for any workup Discharge Plan Departure Patient Disposition: Home Clinical Impression: Complication of Owens catheter Activity Restrictions/Additional Instructions: *You have been diagnosed with Owens catheter problem *What to do: Follow up with Urology in regards to Owens catheter *Continue to take medications as directed *Follow up with your primary care provider in 2-3 days or call [phone] *Return to ER if you should have leakage not draining blood in urine or any new, worsening or concerning symptoms Prescriptions: No Action fluticasone propionate 50 mcg/actuation spray,suspension 1 spray intranasal QPM Qty: 16 3RF gabapentin 300 mg capsule 1,200 mg PO BEDTIME furosemide 20 mg tablet 20 mg PO DAILY PRN (Reason: swelling) methimazole 5 mg tablet 5 mg PO DAILY tramadol 50 mg tablet 50 mg PO Q6H PRN (Reason: pain) Qty: 14 0RF Rx Instructions: 1-2 tablets every 6 hours if needed for severe pain benzonatate 200 mg capsule 200 mg PO 3XD PRN (Reason: cough) pantoprazole 40 mg tablet,delayed release (DR/EC) 40 mg PO QPM oxycodone 5 mg Tablet 5 mg PO Q4HR PRN (Reason: Pain, Moderate (4-6)) Qty: 10 0RF ondansetron 4 mg tablet,disintegrating 4 mg PO Q8H PRN (Reason: nausea and vomiting) Qty: 12 0RF ropinirole 1 mg tablet 3 mg PO DAILY Rx Instructions: take at 1800 Referrals: Rom Mast MD [Primary Care Provider, Family Practice] Stand Alone Forms: Patient Portal/API
== END 2025-04-27 16:38 | disposition home or self-care (01) ==
LOC: ED 16:37
PROVIDERS: Emergency Provider Emergency Medicine; PCP Family Medicine
DX: T83.098A Other mechanical complication of other urinary catheter, initial encounter (principal); K62.3 Rectal prolapse
CPT/HCPCS: 99281

== ENCOUNTER 2025-04-28 20:56 | Emergency (ER) | payer MEDICARE, OTHER, SELFPAY ==
[2025-04-24 21:42] VITALS: BMI 20.3
--- OUTSIDE RECORDS SUMMARY | 2025-04-28 21:00 | XMS_ITS | Encounter Summary ---
Author Organization [facility] Address [address] [address] Care Team Providers Care Inspector Of Weights And Measures Name Role Phone Unavailable Primary Care Provider Unavailabl e Encounter Details Date Type Department Care Team (Late st Contact Info) Description 04/26/2025 Abstract GENERAL [place]ERY - [place], [place] [address] [facility] [address] [place] [id number] Roxanna Chadwick, JEREMÍAS Social History Tobacco Use Types Packs/Day Years Used Date Smoking Tobacco: Never Assessed Comments Unknown Sex and Gender Information Value Date Recorded Sex Assigned at Not on file Legal Sex Female 10:05 AM PST Gender Identity Not on file Sexual Orientation Not on file documented as of this encounter Plan of Treatment Not on file documented as of this encounter Visit Diagnoses Not on filedocumented in this encounter
[2025-04-28 21:01] VITALS: BP 151/66; PULSE 88; O2SAT 94
[2025-04-28 21:04] VITALS: BP 151/66; PULSE 97; RESP 16; TEMP 36.5; O2SAT 94
--- NOTE | 2025-04-28 21:08 | ED.FALL ---
HPI - Fall General Chief Complaint: Fall Stated Complaint: fall knee pain Time Seen by Provider: 04/28/25 21:03 History of Present Illness HPI Narrative: 79-year-old female patient with a history of MACO and overactive bladder who claims that she has had multiple ?fainting episodes? for years. She crumpled to the ground earlier tonight and says she may have fainted. She could not get up because of pain in her right lower extremity, she points to the lateral thigh, knee and lower leg. No other injury. Related Data Home Medications ?Medication ?Instructions ?Recorded ?Confirmed ropinirole 1 mg tablet 3 mg PO DAILY 03/20/21 02/02/25 furosemide 20 mg tablet 20 mg PO DAILY PRN swelling 08/15/24 02/02/25 gabapentin 300 mg capsule 1,200 mg PO BEDTIME 08/15/24 02/02/25 methimazole 5 mg tablet 5 mg PO DAILY 08/15/24 02/02/25 benzonatate 200 mg capsule 200 mg PO 3XD PRN cough 11/07/24 02/02/25 pantoprazole 40 mg tablet,delayed 40 mg PO QPM 11/07/24 02/02/25 release Previous Rx's ?Medication ?Instructions ?Recorded oxycodone 5 mg tablet 5 mg PO Q4HR PRN Pain, Moderate 11/09/24 (4-6) #10 tabs ondansetron 4 mg disintegrating 4 mg PO Q8H PRN nausea and 12/22/24 tablet vomiting #12 tabs fluticasone propionate 50 1 spray intranasal QPM #16 grams 04/25/25 mcg/actuation nasal spray,suspension tramadol 50 mg tablet 50 mg PO Q6H PRN pain #14 tabs 04/27/25 potassium chloride 20 mEq 20 meq PO DAILY 5 days #5 tabs 04/28/25 tablet,extended release Allergies Allergy/AdvReac Type Severity Reaction Status Date / Time Penicillins Allergy Unknown Rash Verified 04/28/25 21:04 Review of Systems Review of Systems ROS Unobtainable: All systems reviewed & are unremarkable except as noted in HPI and below Cardiovascular Cardiovascular: Reports as per HPI Musculoskeletal Musculoskeletal: Reports as per HPI Patient History Medical History Obstructive sleep apnea of adult PVCs (premature ventricular contractions) Urinary frequency Nocturia Overactive bladder Arthritis Surgical History History of colon surgery Hx of appendectomy Hx of colonoscopy Hx of cholecystectomy Hx of shoulder surgery Hx of arthroscopic knee surgery History of knee replacement Social History marital status: number of children: 2 household members: spouse 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 No distress. Appears well nourished and well hydrated Craniofacial: No evidence of trauma. Nontender and no swelling. Eyes: PERRLA EOMI conjunctiva clear HEENT: Oropharynx clear with no swelling, exudate or asymmetry of the pharynx. Nares clear. No sinus tenderness Lungs: Clear to auscultation with good air movement. No wheezing, rales or rhonchi. No respiratory distress Cardiac: Regular rate and rhythm with no appreciable murmur or gallop Musculoskeletal: Tenderness of the anterior tibia and lateral proximal fibula. No bony tenderness of the knee with no effusion. Passive range of motion intact. There is mild tenderness of the soft tissue of the right lateral thigh but no tenderness of palpation or range of motion of the femur. Otherwise Exam of the extremities, axial spine and ribcage reveals no deformity, bony tenderness or swelling. Range of motion intact Neuro: Alert and oriented. Cranial nerves, motor, sensory and cerebellar all grossly intact. No focal deficit Skin: Warm and normal color. No rashes Psychological: Normal affect and interaction. No evidence of delusion or psychosis. Normal mood. Initial Vital Signs Initial Vital Signs: Vital Signs Temperature 97.7 F 04/28/25 21:04 Pulse Rate 97 H 04/28/25 21:04 Respiratory Rate 16 04/28/25 21:04 Blood Pressure 151/66 H 04/28/25 21:04 Pulse Oximetry 94 04/28/25 21:04 Oxygen Delivery Method Room Air 04/28/25 21:04 Course Orders Ordered: ED Orders 04/28/25 21:13 XR tibia fibula RT 2V Stat 04/28/25 21:14 EKG-12 Lead Stat 04/28/25 21:45 CBC Auto Diff [Complete Blood Count AUTO DIFF] Stat CMP [Comprehensive Metabolic Panel] Stat Discontinued Medications Potassium Chloride (Potassium Chloride 20 Meq Tab) 20 meq PO NOW ONE Stop: 04/28/25 22:16 Last Admin: 04/28/25 22:20 Dose: 20 meq Documented By: MICHELLE Vital Signs Vital signs: Vital Signs - 8 hr 04/28/25 21:04 Temperature 97.7 F Pulse Rate 97 H Respiratory Rate 16 Blood Pressure 151/66 H Pulse Oximetry 94 Oxygen Delivery Method Room Air MDM - Fall Lab Data Attestation: I reviewed the patient's lab results. Lab results narrative: Potassium 3.2 04/28/25 21:45 04/28/25 21:45 Labs: Lab Results 04/28/25 Range/Units 21:45 WBC 8.9 (4.5-11.0) X10^3/uL RBC 3.82 L (4.0-5.2) X10^6/uL Hgb 11.5 L (12.0-16.0) g/dL Hct 34.3 L (36-46) % MCV 89.8 (80-100) fL MCH 30.1 (26-34) PG MCHC 33.5 (30-36) % RDW 13.6 (11.6-14.8) % Plt Count 245 (150-400) X10^3/uL Neut % (Auto) 83.4 H (50-75) % Lymph % (Auto) 8.4 L (25-40) % [place] % (Auto) 7.5 (3-14) % Eos % (Auto) 0.4 L (2-4) % Baso % (Auto) 0.3 (0-2) % Neut # (Auto) 7400 H (9942-2673) /uL Lymph # (Auto) 700 L (7008-4395) /uL [place] # (Auto) 700 (0-900) /uL Eos # (Auto) 0 (0-450) /uL Baso # (Auto) 0 (0-100) /uL Sodium 137 (137-145) mmol/L Potassium 3.2 L (3.4-5.1) mmol/L Chloride 99 (98-107) mmol/L Carbon Dioxide 33 H (22-32) mmol/L BUN 21 H (7-17) mg/dL Creatinine 0.67 (0.52-1.04) mg/dL Estimated GFR > 60 (>60) mL/min BUN/Creatinine Ratio 31.3 H (6-22) Glucose 139 H (70-99) mg/dL Calcium 9.0 (8.4-10.2) mg/dL Total Bilirubin 0.3 (0.2-1.3) mg/dL AST 26 (14-36) IU/L ALT 21 (<35) IU/L Alkaline Phosphatase 76 (38-126) U/L Total Protein 6.8 (6.3-8.2) g/dL Albumin 3.9 (3.5-5.0) g/dL Globulin 2.9 (1.7-4.1) g/dL Albumin/Globulin Ratio 1.3 (1.0-2.8) Imaging Data Extremity x-ray #1: Attestation: I personally reviewed and interpreted this imaging study as follows: My Impression: Right Tib-fib: No fracture or malalignment ECG Data Attestation: I personally reviewed and interpreted this ECG as follows: (Normal sinus rhythm with rate of 81. Normal axis and intervals with no ischemic changes. ) MDM Narrative Medical decision making narrative: Patient with frequent ER visits for somatic complaints and now complains of collapsing or ?fainting? and injuring her right lower extremity. She claims to have been fainting frequently for years but has not had any workup from her doctor for this. I am not sure if this is true or not. I do not see visits in the ER for syncope. Her EKGs reassuring as well as her lab work. Mild hypokalemia for which I prescribed a supplement of potassium chloride. Otherwise follow up with her doctor for any further management of her right leg pain and also to discuss what she is alleging his chronic problems with syncope. Discharge Plan Departure Patient Disposition: Home Clinical Impression: Knee sprain, Contusion of right lower leg, Collapse, Hypokalemia Instructions: DI for Syncope in Adults (Fainting), DI for Knee Sprain, DI for Hypokalemia Activity Restrictions/Additional Instructions: Assessment: Collapse/possible syncope with soft tissue injury to the right lower extremity a possible knee sprain and contusion of the lower leg. No fractures. Mild hypokalemia Plan: Hydration, rest and supportive care with [id number] medicine as needed. Potassium supplement prescription. Follow up with your doctor within the next 5 days for reassessment and to discuss these episodes which have occurred for years. Recheck potassium Prescriptions: New potassium chloride 20 mEq tablet extended release 20 meq PO DAILY 5 Days Qty: 5 0RF No Action fluticasone propionate 50 mcg/actuation spray,suspension 1 spray intranasal QPM Qty: 16 3RF gabapentin 300 mg capsule 1,200 mg PO BEDTIME furosemide 20 mg tablet 20 mg PO DAILY PRN (Reason: swelling) methimazole 5 mg tablet 5 mg PO DAILY tramadol 50 mg tablet 50 mg PO Q6H PRN (Reason: pain) Qty: 14 0RF Rx Instructions: 1-2 tablets every 6 hours if needed for severe pain benzonatate 200 mg capsule 200 mg PO 3XD PRN (Reason: cough) pantoprazole 40 mg tablet,delayed release (DR/EC) 40 mg PO QPM oxycodone 5 mg Tablet 5 mg PO Q4HR PRN (Reason: Pain, Moderate (4-6)) Qty: 10 0RF ondansetron 4 mg tablet,disintegrating 4 mg PO Q8H PRN (Reason: nausea and vomiting) Qty: 12 0RF ropinirole 1 mg tablet 3 mg PO DAILY Rx Instructions: take at 1800 Referrals: Rom Mast MD [Primary Care Provider, Family Practice] Stand Alone Forms: Patient Portal/API
--- NOTE | 2025-04-28 21:13 | DI.RAD.S_ITS ---
PROCEDURE: XR TIBIA FUBULA RT 2V INDICATIONS: Trauma TECHNIQUE: 4 views of the tibia and fibula were acquired. COMPARISON: None. FINDINGS: Bones: Bones are demineralized. Status post right hip arthroplasty with prosthetic elements in appropriate position. No evidence of hardware complication. Status post fixation of posterior calcaneus and midfoot using partially threaded screws without evidence of complication. No acute fractures or dislocations. No suspicious bony lesions. Soft tissues: No suspicious soft tissue calcifications or masses. IMPRESSION: No acute bony abnormality. Approved by: Izzy Galvan M.D.,Ph.D. on 04/28/2025 at 21:49
--- NOTE | 2025-04-28 21:14 | EKG_ITS ---
[address] [address] Test Date: 2025-04-28 Pat Name: Mery Reed Department: Room: Gender: Female Rn Primary Care: UMESH : 1945 Requested By: Order Number: [id number] Reading MD: Harjeet Lobato MD Measurements Intervals [place] Rate: 81 P: 70 [place]: 126 QRS: 60 QRSD: 78 T: 72 QT: 380 QTc: 441 Interpretive Statements Normal sinus rhythm Electronically Signed On 04-29-2025 9:34:34 PST by Harjeet Lobato MD
[2025-04-28 21:30] VITALS: BP 150/67; PULSE 84; O2SAT 98
[2025-04-28 21:54] LABS: Add Manual Diff / Slide Review NO; Hematocrit 34.3 % (36-46); Hemoglobin 11.5 g/dL (12.0-16.0); Lymphocytes Absolute Auto 700 /uL (1100-4500); Mean Corpuscular HGB Conc 33.5 % (30-36); Mean Corpuscular Hemoglobin 30.1 PG (26-34); Mean Corpuscular Volume 89.8 fL (80-100); Platelet Count 245 X10^3/uL (150-400)
[2025-04-28 22:00] VITALS: BP 139/65; PULSE 90; RESP 16; O2SAT 95
[2025-04-28 22:08] LABS: Alanine Aminotransferase 21 IU/L (<35); Albumin 3.9 g/dL (3.5-5.0); Albumin Globulin Ratio 1.3 (1.0-2.8); Alkaline Phosphatase 76 U/L (38-126); Blood Urea Nitrogen 21 mg/dL (7-17); Calcium 9.0 mg/dL (8.4-10.2); Carbon Dioxide 33 mmol/L (22-32); Chloride 99 mmol/L (98-107); Estimated Glomerular Filt Rate > 60 mL/min (>60); Globulin 2.9 g/dL (1.7-4.1); Glucose 139 mg/dL (70-99); HEMOLYSIS < 15 (0-50); Potassium 3.2 mmol/L (3.4-5.1); Sodium 137 mmol/L (137-145); Total Protein 6.8 g/dL (6.3-8.2)
[2025-04-28] MEDS: POTASSIUM CHLORIDE 20 MEQ TAB PO (22:20)
[2025-04-28] MEDS: IBUPROFEN 400 MG TABLET PO (22:25)
--- NOTE | 2025-04-28 22:38 | PC.NURSE ---
pt c/o difficulty walking d/t pain in knee, given walker and with instructions on using walker, discussed with pt the need to call her pcp and arrange physical therapy
== END 2025-04-28 23:22 | disposition home or self-care (01) ==
PROVIDERS: Emergency Provider Emergency Medicine; PCP Family Medicine
DX: S83.91XA Sprain of unspecified site of right knee, initial encounter (principal); S80.11XA Contusion of right lower leg, initial encounter; R55 Syncope and collapse; E87.6 Hypokalemia; W19.XXXA Unspecified fall, initial encounter
CPT/HCPCS: 36415; 73590; 80053; 85025; 93005; 93010; 99283; 99284

== ENCOUNTER 2025-05-05 11:56 | Inpatient (IN) | payer MEDICARE, OTHER, SELFPAY ==
[2025-04-24 21:42] VITALS: BMI 20.3
[2025-05-05 12:45] VITALS: BP 160/72; PULSE 98; RESP 18; TEMP 36.5; O2SAT 98; BMI 19.8
--- NOTE | 2025-05-05 12:51 | DI.RAD.S_ITS ---
PROCEDURE: XR FEMUR RT MIN 2V INDICATIONS: fall 1 week ago and still having pain TECHNIQUE: 2 views of the femur were acquired. COMPARISON: [facility], CT, CT ABDOMEN PELVIS W CON, 04/26/2025, 23:24. FINDINGS: Bones: Angulated mildly displaced femoral neck fracture with varus angulation. No suspicious bony lesions. Soft tissues: No suspicious soft tissue calcifications or masses. IMPRESSION: Right femoral neck fracture. Dictated by: Jp Disla M.D. on 05/05/2025 at 13:36 Approved by: Jp Disla M.D. on 05/05/2025 at 13:37
--- NOTE | 2025-05-05 12:51 | DI.RAD.S_ITS ---
PROCEDURE: XR TIBIA FUBULA RT 2V INDICATIONS: fall 1 week ago and still having pain TECHNIQUE: 2 views of the tibia and fibula were acquired. COMPARISON: [facility], CR, XR TIBIA FIBULA RT 2V, 04/28/2025, 21:07. FINDINGS: Bones: Expected appearance total right knee arthroplasty. No fractures or dislocations. No suspicious bony lesions. Soft tissues: No suspicious soft tissue calcifications or masses. IMPRESSION: No acute bony abnormality. Dictated by: Jp Disla M.D. on 05/05/2025 at 13:34 Approved by: Jp Disla M.D. on 05/05/2025 at 13:36
--- NOTE | 2025-05-05 13:29 | ED.LOWEXIN ---
HPI - Extremity Injury (Lower) General Chief Complaint: Extremity Injury, Lower Stated Complaint: returning, trouble walking, R leg pain, wants MRI Time Seen by Provider: 05/05/25 12:01 Source: patient Mode of arrival: Wheelchair History of Present Illness HPI Narrative: 79-year-old female history MACO overactive bladder presents with right hip pain x1 week unable to bear weight this time. She was seen on 04/28 4 multiple fainting episodes for which a tib-fib x-ray showed no acute process at that time. Patient denies headache, dizziness, chest pain, shortness of breath, back pain, neck pain, abdominal pain, numbness, tingling down the leg. Other than what is stated 14 point review of system is negative. Related Data Home Medications ?Medication ?Instructions ?Recorded ?Confirmed ropinirole 1 mg tablet 3 mg PO DAILY 03/20/21 02/02/25 furosemide 20 mg tablet 20 mg PO DAILY PRN swelling 08/15/24 02/02/25 gabapentin 300 mg capsule 1,200 mg PO BEDTIME 08/15/24 02/02/25 methimazole 5 mg tablet 5 mg PO DAILY 08/15/24 02/02/25 benzonatate 200 mg capsule 200 mg PO 3XD PRN cough 11/07/24 02/02/25 pantoprazole 40 mg tablet,delayed 40 mg PO QPM 11/07/24 02/02/25 release Previous Rx's ?Medication ?Instructions ?Recorded oxycodone 5 mg tablet 5 mg PO Q4HR PRN Pain, Moderate 11/09/24 (4-6) #10 tabs ondansetron 4 mg disintegrating 4 mg PO Q8H PRN nausea and 12/22/24 tablet vomiting #12 tabs fluticasone propionate 50 1 spray intranasal QPM #16 grams 04/25/25 mcg/actuation nasal spray,suspension tramadol 50 mg tablet 50 mg PO Q6H PRN pain #14 tabs 04/27/25 Allergies Allergy/AdvReac Type Severity Reaction Status Date / Time gabapentin Allergy Unknown Verified 05/05/25 12:45 Penicillins Allergy Unknown Rash Verified 05/05/25 12:45 Review of Systems Review of Systems ROS Unobtainable: All systems reviewed & are unremarkable except as noted in HPI and below Patient History Medical History Obstructive sleep apnea of adult PVCs (premature ventricular contractions) Urinary frequency Nocturia Overactive bladder Arthritis Surgical History History of colon surgery Hx of appendectomy Hx of colonoscopy Hx of cholecystectomy Hx of shoulder surgery Hx of arthroscopic knee surgery History of knee replacement Social History marital status: number of children: 2 household members: spouse 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 Well-developed patient, in mild distress. HEAD: Atraumatic. Normocephalic. EYES: Pupils equal round and reactive. Extraocular motions intact. No scleral icterus. No injection or drainage. ENT: Nose without bleeding, purulent drainage. Throat without erythema, tonsillar hypertrophy or exudate. Airway patent. NECK: Trachea midline. Non tender CARDIOVASCULAR: Regular rate and rhythm without murmurs, gallops, or rubs. RESPIRATORY: Clear to auscultation. Breath sounds equal bilaterally. No wheezes, rales, or rhonchi. GASTROINTESTINAL: Abdomen soft, non-tender, nondistended. EXTREMITIES: Right hip short externally rotated motor sensory intact +2 DP +2 PT cap refill less than 2 seconds BACK: Nontender without deformity or crepitance. No flank tenderness. NEURO: AOx3. SKIN: No rash or erythema of visible areas Initial Vital Signs Initial Vital Signs: Vital Signs Temperature 97.7 F 05/05/25 12:45 Pulse Rate 98 H 05/05/25 12:45 Respiratory Rate 18 05/05/25 12:45 Blood Pressure 160/72 H 05/05/25 12:45 Pulse Oximetry 98 05/05/25 12:45 Oxygen Delivery Method Room Air 05/05/25 12:45 Course Orders Ordered: ED Orders 05/05/25 12:51 XR femur RT min 2V Stat XR tibia fibula RT 2V Stat Vital Signs Vital signs: Vital Signs - 8 hr 05/05/25 12:45 Temperature 97.7 F Pulse Rate 98 H Respiratory Rate 18 Blood Pressure 160/72 H Pulse Oximetry 98 Oxygen Delivery Method Room Air MDM - Extremity Injury (Lower) Imaging Data Extremity x-ray #1: Radiologist's Impression: [address] [address] XRay Report Signed Patient: Mery Reed MR#: [id number] : 1945 Acct:[id number] Age/Sex: 79 / F Date of Service: 05/05/25 Loc: ED Accession Number: [id number] Procedure: XR femur RT min 2V Ordering Provider: Harjeet Hay D.O. PROCEDURE: XR FEMUR RT MIN 2V INDICATIONS: fall 1 week ago and still having pain TECHNIQUE: 2 views of the femur were acquired. COMPARISON: [facility], CT, CT ABDOMEN PELVIS W CON, 04/26/2025, 23:24. FINDINGS: Bones: Angulated mildly displaced femoral neck fracture with varus angulation. No suspicious bony lesions. Soft tissues: No suspicious soft tissue calcifications or masses. IMPRESSION: Right femoral neck fracture. MDM Narrative Medical decision making narrative: All labwork, vital signs, personal banking assistant note, medication list, previous ER visits and all imaging studies reviewed. R femur xray shows R fem neck fracture. Case d/w Dr. Gould admit to hospitalist service and surgery tommorow. Differential diagnosis fracture dislocation contusion Discharge Plan Departure Patient Disposition: Admitted As Inpatient Clinical Impression: Femoral neck fracture
--- NOTE | 2025-05-05 13:41 | EKG_ITS ---
[address] [address] Test Date: 2025-05-05 Pat Name: Mery Reed Department: [facility] Room: Gender: Female Hoist Operator: EVANS : 1945 Requested By: Order Number: [id number] Reading MD: Harjeet Lobato MD Measurements Intervals [place] Rate: 90 P: 84 NC: 130 QRS: 73 QRSD: 68 T: 73 QT: 354 QTc: 433 Interpretive Statements Normal sinus rhythm Electronically Signed On 05-05-2025 15:59:18 PST by Harjeet Lobato MD
--- NOTE | 2025-05-05 13:41 | DI.RAD.S_ITS ---
PROCEDURE: XR CHEST 1V INDICATIONS: Chest Pain TECHNIQUE: One view of the chest was acquired. COMPARISON: [facility], CR, XR CHEST 1V, 12/22/2024, 13:42. FINDINGS: Surgical changes and devices: None. Lungs and pleura: Lungs are clear. No pleural effusions or pneumothorax. Mediastinum: Mediastinal contours appear normal. Heart size is normal. Bones and chest wall: No suspicious bony lesions. Overlying soft tissues appear unremarkable. IMPRESSION: No acute cardiopulmonary abnormality is seen. Dictated by: Jp Disla M.D. on 05/05/2025 at 14:25 Approved by: Jp Disla M.D. on 05/05/2025 at 14:25
[2025-05-05] MEDS: MORPHINE 2 MG/ML INJ IV (14:01)
[2025-05-05 14:06] LABS: Add Manual Diff / Slide Review NO; Hematocrit 39.1 % (36-46); Hemoglobin 13.3 g/dL (12.0-16.0); Lymphocytes Absolute Auto 1100 /uL (1100-4500); Mean Corpuscular HGB Conc 33.9 % (30-36); Mean Corpuscular Hemoglobin 30.4 PG (26-34); Mean Corpuscular Volume 89.6 fL (80-100); Platelet Count 322 X10^3/uL (150-400)
[2025-05-05 14:09] LABS: INR 1.0 (0.9-1.3); Prothrombin Time 11.2 SECONDS (9.4-12.5)
[2025-05-05 14:11] LABS: PTT Partial Thromboplastin Tim 29 SECONDS (25.1-36.5)
[2025-05-05 14:14] LABS: Alanine Aminotransferase 20 IU/L (<35); Albumin 4.3 g/dL (3.5-5.0); Albumin Globulin Ratio 1.2 (1.0-2.8); Alkaline Phosphatase 97 U/L (38-126); Blood Urea Nitrogen 19 mg/dL (7-17); Calcium 9.2 mg/dL (8.4-10.2); Carbon Dioxide 26 mmol/L (22-32); Chloride 104 mmol/L (98-107); Creatine Kinase < 20 U/L (30-135); Estimated Glomerular Filt Rate > 60 mL/min (>60); Globulin 3.5 g/dL (1.7-4.1); Glucose 116 mg/dL (70-99); Lipase 106 U/L (23-300); Magnesium 2.4 mg/dL (1.6-2.3); Potassium 4.6 mmol/L (3.4-5.1); Sodium 138 mmol/L (137-145); Total Protein 7.8 g/dL (6.3-8.2)
[2025-05-05 14:24] LABS: NT-proBNP (BNP-Adult 18+) 78 pg/mL (<450)
[2025-05-05 14:27] LABS: HEMOLYSIS 18 (0-50); Troponin I < 0.012 ng/mL (0.01-0.034)
--- NOTE | 2025-05-05 14:32 | PC.NURSE ---
Pt contacted to relay that the Pt has a femoral neck fracture and will be admitted to our hospital for ortho to see.
--- NOTE | 2025-05-05 14:59 | CM.IDA ---
Initial DCP Assessment Note Patient is 79 y/o female who presents to ED via private vehicle due to concern for increased pain on right side and leg since GLF last week, difficulty standing and walking. Patient was admitted 04/24/25-04/25/25 due to concern for MARY, urinary retention, rectal prolapse and uncontrolled pain, recent ED presentations due to concern for fainting episodes and pinedo issues. Patient's PCP is Dr. Rom Mast, Patient has [facility] and [facility] insurance. Patient has been admitted by hospitalist due to concern for right femoral neck fracture. CAR BLOCKER enters room to meet with patient, patient presents as A/Ox4. Patient endorses that she just moved to [facility] with assisted living services on Thursday. Patient endorses that she has been struggling with ADLs and ambulation in the last week due to pain. Patient's spouse resides in [place]. Patient has current referral with [facility] from recent admission, patient reports they have only been out to meet with her once. Patient endorses preference for SNF rehab at [facility] upon d/c. CAR BLOCKER calls [facility] to report patient's presentation to the ED and admission to acute care, they confirm that they have only met with patient once prior to her move to [facility]. Patient pending surgery tomorrow, patient would benefit from PT eval post surgery. Plan: patient admitted for further treatment and evaluation, pending surgery, patient preference for SNF rehab at [facility]. LOGAN Padilla Discharge Planning/Care Management CM Discharge Assessment Start: 05/05/25 14:50 Freq: Status: Active Protocol: Document 05/05/25 14:54 LN (Rec: 05/05/25 14:59 LN [id number]) Discharge Planning Assessment Assigned Discharge LOGAN Cabrera Vending Machine Repairer Provider Dr. Rom Mast MD Insurance Medicare,[facility] DPOA/Assigned Magno Ferris/Spouse Designee Name Contact Information [phone] Advance Directives? Yes Advance Directives No on File History Provided By Patient,Medical Record Has Patient been Yes admitted in last 30 days? Comment Admitted from 04/24/25-04/25/25 for MARY, Urinary retention, constipation, rectal prolapse and uncontrolled pain Prior Living Assisted Living Arrangements Type of Relies on Others transporation used prior to admit Facility Name [facility] Admitted From: Willing to Return to Preference for SNF rehab upon d/c Facility? Independent with ADL No 's Is patient alert and Yes oriented? Needs Assistance Bathing,Grooming,Meal Prep,Toileting,Managing With Medications,Home Chores / Shopping Caregiver for No Another Comment Patient has current [facility] referral for RN and HH aide Patient/Family Intermediate Facility Preference Comment [facility] If patient plan is Yes home with home health: Has signed face to face form been completed?
[2025-05-05 15:05] VITALS: BP 147/62; PULSE 94; RESP 17; TEMP 36.8; O2SAT 99
[2025-05-05 15:16] VITALS: BMI 20.5
--- NOTE | 2025-05-05 16:19 | P.CONS_ITS ---
History of Present Illness Consult details Date Patient Seen: 05/05/25 Time Patient Seen: 16:19 Chief complaint: returning, trouble walking, R leg pain, wants MRI Reason for consult: Right hip fracture Requesting provider: Harjeet Hay Narrative: Mery is a 79-year-old female who fainted and fell earlier today with difficulty ambulating afterwards. She came to the emergency room and x-rays revealed a fracture of her right femoral neck. Orthopedic consult was requested. She reports no substantial pain in the right hip prior to this injury. She does have history of a right total knee arthroplasty. Meds Home Medications and Allergies Home Medications ?Medication ?Instructions ?Recorded ?Confirmed ?Type ropinirole 1 mg tablet 3 mg PO DAILY 03/20/2105/05 History methimazole 5 mg tablet 5 mg PO DAILY 08/15/2405/05 History benzonatate 200 mg capsule 200 mg PO 3XD PRN cough 05/05/25 History ondansetron 4 mg disintegrating 4 mg PO Q8H PRN nausea and 12/22/24 05/05/25 Rx tablet vomiting #12 tabs fluticasone propionate 50 1 spray intranasal QPM #16 g ramesh 04/25/25 05/05/25 Rx mcg/actuation nasal spray,suspension tramadol 50 mg tablet 50 mg PO Q6H PRN pain #14 ta bs 04/27/25 05/05/25 Rx Allergies Allergy/AdvReac Type Severity Reaction Status Date / Time gabapentin Allergy Unknown Verified 05/05/25 12:45 Penicillins Allergy Unknown Rash Verified 05/05/25 12:45 Review of Systems Review of Systems ROS: Yes All systems reviewed with the patient and are negative except as otherwise documented Exam Vital Signs (past 8 hours): - 05/05/25 12:45 05/05/25 15:05 Temperature 97.7 F 98.3 F Pulse Rate 98 H 94 H Respiratory Rate 18 17 Blood Pressure 160/72 H 147/62 H Pulse Oximetry 98 99 Oxygen Delivery Method Room Air Oxygen Delivery Method Room Air Narrative Exam Narrative: Right lower extremity is without gross deformity but it is held in a slightly internally rotated position. There is tenderness around the right hip. Log roll is positive. Distal motor and sensory exams are intact. Objective Imaging Right femur films: My impression: Two images for AP of the femur and a lateral of the right hip are personally assessed. There is a displaced fracture of the right femoral neck present. No other acute osseous abnormalities are noted. Labs 05/05/25 13:54 05/05/25 13:54 Labs: Laboratory Results - last 24 hr 05/05/25 13:54 WBC 8.7 RBC 4.37 Hgb 13.3 Hct 39.1 MCV 89.6 MCH 30.4 MCHC 33.9 RDW 13.4 Plt Count 322 Neut % (Auto) 74.8 Lymph % (Auto) 12.3 L Aiken % (Auto) 10.5 Eos % (Auto) 1.5 L Baso % (Auto) 0.9 Neut # (Auto) 6500 Lymph # (Auto) 1100 Aiken # (Auto) 900 Eos # (Auto) 100 Baso # (Auto) 100 PT 11.2 INR 1.0 APTT 29 Sodium 138 Potassium 4.6 D Chloride 104 Carbon Dioxide 26 BUN 19 H Creatinine 0.67 Estimated GFR > 60 BUN/Creatinine Ratio 28.4 H Glucose 116 H Calcium 9.2 Magnesium 2.4 H Total Bilirubin 0.5 AST 28 ALT 20 Alkaline Phosphatase 97 Total Creatine Kinase < 20 L Troponin I < 0.012 NT-Pro-B Natriuret Pep 78 Total Protein 7.8 Albumin 4.3 Globulin 3.5 Albumin/Globulin Ratio 1.2 Lipase 106 D PFSH Medical History Obstructive sleep apnea of adult PVCs (premature ventricular contractions) Urinary frequency Nocturia Overactive bladder Arthritis Surgical History History of colon surgery Hx of appendectomy Hx of colonoscopy Hx of cholecystectomy Hx of shoulder surgery Hx of arthroscopic knee surgery History of knee replacement Social History marital status: number of children: 2 household members: spouse 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 We discussed the particular diagnosis as well as the implications of nonoperative care. Surgical treatment is considered standard of care for this in healthy active individuals such as herself. Performing open reduction internal fixation in the attempt to try to fix the fracture we will be associated with elevated risks of avascular necrosis given the severe displacement. As a result, the optimal surgical procedure would be for arthroplasty. In this case a hemiarthroplasty is acceptable as there is no substantial arthritic change of the hip joint. This was explained to her and her and they are in agreement with this recommendation. Risks of surgery were also discussed today. These included, but were not limited to: Bleeding, infection, drug reactions, neurovascular injury, incomplete pain relief, stiffness, arthritis of the [place] acetabulum, need for revision surgery, periprosthetic fracture, periprosthetic infection, DVT, PE, and . Patient voiced understanding acceptance of the risks. She has been cleared by Medicine for surgery tomorrow. We will plan for right hip hemiarthroplasty tomorrow morning. Time-Based Coding :: [TOTAL MINUTES] spent with patient and on the chart (including review of chart, obtaining history, exam, reviewing outside data, placing orders, documenting exam and treatment plan, and counseling patient) on [DATE]. PROFEE Charge Codes Inpatient or Observation consultation: 82520
[2025-05-05] MEDS: ACETAMINOPHEN 325 MG TABLET 650 MG PO (17:16)
[2025-05-05] MEDS: SODIUM CHLORIDE 0.9% 1,000 ML 75 ML IV (17:17)
--- NOTE | 2025-05-05 17:22 | DI.ECHO.S_ITS ---
[facility] : : [address] : : [place] : : [id number] : : Phone: [phone] Echocardiogram Report + + :Name: ROSE MARIE MATIAS Study Date: 05/06/2025 Height: 68 in : :[facility] ReadingLocation: Weight: 135 lb : : Gender: Female BSA: 1.7 m2 : :: 1945 Age: 79 yrs BP: 118/51 mmHg: :Reason For Study: Syncope : :Ordering Physician: ROSA : :ALIE Performed By: Chivo Cooley : :Referring: ALIE LEE : + + Interpretation Summary Normal sinus rhythm. Normal LV size and mild concentric LVH. Normal wall motion and LV systolic function. Ejection fraction is 60-65%. Stage I diastolic dysfunction. Normal chamber sizes. No significant valve abnormalities. Compared to prior echo 12/06/2021 no changes have occurred. Procedure: A two-dimensional transthoracic echocardiogram with color flow Doppler was performed. The study quality was technically adequate. Comparison is made with the echocardiogram of 12/06/2021. The patient was in normal sinus rhythm during the exam. Left Ventricle: The left ventricle is normal in size. Left ventricular wall thickness is mildly increased. Overall left ventricular systolic function is preserved. The ejection fraction is estimated to be 60-65%. Grade I diastolic dysfunction with normal left atrial pressure. Right Ventricle: The right ventricle is normal in size and function. Atria: The left atrial size is normal. Right atrial size is normal. There is no Doppler evidence for an interatrial shunt. Mitral Valve: There is moderate mitral annular calcification. The mitral valve leaflets appear mildly thickened. There is no mitral valve stenosis. There is mild mitral regurgitation. Aortic Valve: The aortic valve is trileaflet. There is mild aortic valve sclerosis. There is no aortic valve stenosis. No aortic regurgitation is present. Tricuspid Valve: The tricuspid valve leaflets are thin and pliable. There is mild tricuspid regurgitation. The right ventricular systolic pressure is estimated to be at least 30 mmHg based on an estimated right atrial pressure of 3 mm Hg. Pulmonic Valve: The pulmonic valve is not well seen, but is grossly normal. There is trace pulmonic regurgitation. Great Vessels: The aortic root is normal size. The ascending aorta could not be visualized. The aortic arch could not be visualized. The pulmonary is not well visualized. The IVC is of normal diameter and collapses greater than 50% with a sniff. This suggests a low right atrial pressure of 3 mm Hg. Pericardium/ Pleura There is no pericardial effusion. MMode/2D Measurements & Calculations LVIDd: 4.0 cm LVOT diam: 2.0 cm LVIDs: 2.3 cm Ao root diam: 3.1 cm FS: 41.8 % IVSd: 1.2 cm LVPWd: 1.2 cm LV sanchez. diameter/BSA (cm/m^2): 2.3 LV sys. diameter/BSA (cm/m^2): 1.4 LA A2 area: 15.5 cm2 RA long axis: 4.6 cm LA A4 area: 17.4 cm2 RA area: 10.1 cm2 LA length (vol): 5.9 cm RA vol: 18.7 ml LA vol: 38.7 ml RA : 10.8 ml/m2 LA vol index: 22.4 ml/m2 IVC diam: 1.5 cm RVD1 (basal): 2.8 cm RVD2 (mid): 2.1 cm TAPSE: 2.1 cm Doppler Measurements & Calculations Ao V2 max: 150.8 cm/sec LVOT Max Matty: 109.4 cm/sec Ao V2 mean: 114.1 cm/sec LV V1 max P.8 mmHg Ao max P.1 mmHg LV V1 VTI: 20.5 cm Ao mean P.6 mmHg ROVERTO(I,D): 2.3 cm2 Ao V2 VTI: 29.0 cm ROVERTO(V,D): 2.4 cm2 sev ratio: 0.71 ROVERTO indexed to BSA (cm^2/m^2): 1.3 MV E max matty: 85.3 cm/sec TR max matty: 257.6 cm/sec MV A max matty: 105.0 cm/sec TR max P.6 mmHg MV E/A: 0.81 PA V2 max: 112.1 cm/sec Med Peak E' Matty: 7.0 cm/sec PA V2 mean: 72.3 cm/sec E/E' med: 12.2 PA mean P.5 mmHg Lat Peak E' Matty: 7.4 cm/sec PA pr(Accel): 26.3 mmHg E/E' lat: 11.5 E/e' average: 11.9 MV dec time: 0.16 sec SV(LVOT): 67.6 ml Electronically signed by: Sandra Hays M.D. on Reading Physician:05/06/2025 02:52 PM
--- NOTE | 2025-05-05 17:27 | P.HP_ITS ---
History of Present Illness History of Present Illness Date Patient Seen: 05/05/25 Time Patient Seen: 17:27 Chief complaint: returning, trouble walking, R leg pain, wants MRI Narrative: Chief complaint: Syncope with a right leg pain with subcapital right hip fracture History of present illness: 05/05: Patient had syncopal episode in her home 04/28 with severe right leg pain was brought to the emergency room evaluated with x-ray of the distal right femur in lower leg were unrevealing for acute pathology. She has no no prodrome or warning that she was going to have syncope episode Patient was discharged home but could not bear weight. Patient returned to the emergency room 05/05 workup demonstrated subcapital right hip fracture. Other findings in the emergency room: Hemogram, comprehensive metabolic, PT PTT, EKG, chest x-ray were all unremarkable Patient has had 6 or 7 syncopal episodes in the past 6 years. This has not been worked up She has no past medical history of cardiac disease diabetes hypertension she has thyroid disease Review of systems: As mentioned above No chest pain palpitations shortness for breath No fever or chills rigors No nausea vomiting diarrhea No paresthesia paresis Physical examination: Cogent elderly female in no acute distress HEENT unremarkable Neck bilateral systolic murmur 3/6 systolic murmur loudest at the right sternal border Diastolic opening snap at the apex Lungs clear Pulses palpable in dorsalis pedis right lower extremity 2nd capillary refill of the toes Assessment and plan: Full syncopal episode with fall 1 week ago with a history of syncopal episodes 6 or 7 times in the last 6 years with no workup * Echocardiogram and carotid Doppler to evaluate for aortic stenosis and carotid stenosis * Cardiac telemetry * Consultation with Cardiology Right subcapital hip fracture * Surgical repair once perioperative cardiac risk assessment is performed likely Monday 05/07 DVT prophylaxis: * Lovenox Code status: * Full code blue Disposition: * Inpatient but may take 3 days because of workup of syncope prior to hip surgery Time based billing: * 75 minutes were involved in evaluation of this patient including [id number] evaluation physical examination of the patient discussion of the patient's history review of previous medical records discussion with other providers discussion with patient care team [facility] Medical History Obstructive sleep apnea of adult PVCs (premature ventricular contractions) Urinary frequency Nocturia Overactive bladder Arthritis Surgical History History of colon surgery Hx of appendectomy Hx of colonoscopy Hx of cholecystectomy Hx of shoulder surgery Hx of arthroscopic knee surgery History of knee replacement Social History marital status: number of children: 2 household members: spouse 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 Status: Never smoker alcohol intake: former caffeine: Yes Type(s) of exercise: walking and regular exercise frequency: daily Meds Home Medications and Allergies Home Medications ?Medication ?Instructions ?Recorded ?Confirmed ?Type ropinirole 1 mg tablet 3 mg PO DAILY 03/20/2105/05 History methimazole 5 mg tablet 5 mg PO DAILY 08/15/2405/05 History benzonatate 200 mg capsule 200 mg PO 3XD PRN cough 05/05/25 History ondansetron 4 mg disintegrating 4 mg PO Q8H PRN nausea and 12/22/24 05/05/25 Rx tablet vomiting #12 tabs fluticasone propionate 50 1 spray intranasal QPM #16 g ramesh 04/25/25 05/05/25 Rx mcg/actuation nasal spray,suspension tramadol 50 mg tablet 50 mg PO Q6H PRN pain #14 ta bs 04/27/25 05/05/25 Rx Allergies Allergy/AdvReac Type Severity Reaction Status Date / Time gabapentin Allergy Unknown Verified 05/05/25 12:45 Penicillins Allergy Unknown Rash Verified 05/05/25 12:45 Exam Vital Signs (past 8 hours): - 05/05/25 12:45 05/05/25 15:05 Temperature 97.7 F 98.3 F Pulse Rate 98 H 94 H Respiratory Rate 18 17 Blood Pressure 160/72 H 147/62 H Pulse Oximetry 98 99 Oxygen Delivery Method Room Air Oxygen Delivery Method Room Air Objective Labs 05/05/25 13:54 05/05/25 13:54 Labs: Laboratory Results - last 24 hr 05/05/25 13:54 WBC 8.7 RBC 4.37 Hgb 13.3 Hct 39.1 MCV 89.6 MCH 30.4 MCHC 33.9 RDW 13.4 Plt Count 322 Neut % (Auto) 74.8 Lymph % (Auto) 12.3 L [place] % (Auto) 10.5 Eos % (Auto) 1.5 L Baso % (Auto) 0.9 Neut # (Auto) 6500 Lymph # (Auto) 1100 [place] # (Auto) 900 Eos # (Auto) 100 Baso # (Auto) 100 PT 11.2 INR 1.0 APTT 29 Sodium 138 Potassium 4.6 D Chloride 104 Carbon Dioxide 26 BUN 19 H Creatinine 0.67 Estimated GFR > 60 BUN/Creatinine Ratio 28.4 H Glucose 116 H Calcium 9.2 Magnesium 2.4 H Total Bilirubin 0.5 AST 28 ALT 20 Alkaline Phosphatase 97 Total Creatine Kinase < 20 L Troponin I < 0.012 NT-Pro-B Natriuret Pep 78 Total Protein 7.8 Albumin 4.3 Globulin 3.5 Albumin/Globulin Ratio 1.2 Lipase 106 D Assessment & Plan Time-Based Coding :: [TOTAL MINUTES] spent with patient and on the chart (including review of chart, obtaining history, exam, reviewing outside data, placing orders, documenting exam and treatment plan, and counseling patient) on [DATE]. Quality VTE Deep Vein Thrombosis/Pulmonary Embolism Present on Admission: No
[2025-05-05 18:00] VITALS: BP 150/63; PULSE 103; RESP 16; TEMP 37.6; O2SAT 97
[2025-05-05 18:53] LABS: Appearance Urine UA SL CLOUDY; Bilirubin Urine UA NEGATIVE (NEGATIVE); Color Urine UA YELLOW; Glucose Urine UA NEGATIVE (Negative); Ketones Urine UA NEGATIVE (NEGATIVE); Leukocyte Esterase Urine UA 1+ (NEGATIVE); Nitrite Urine UA POSITIVE (Negative); Occult Blood Urine UA TRACE-INTACT (Negative); Protein Urine UA TRACE (Negative); Specific Gravity Urine UA 1.015 (1.000-1.035); Urobilinogen Urine UA 0.2 E.U./dL (0.2)
[2025-05-05 18:55] LABS: pH Urine UA 7.5 (4.5-8.0)
[2025-05-05 19:00] LABS: Culture Indicated Urine Specimen Cultured
--- NOTE | 2025-05-05 19:02 | PC.NURSE ---
Pt arrived from ED at 1458, transferred to bed via slider board. A&Ox4, VSS on RA, no c/o pain if not moving. Lungs CTA, bowel sounds present, UE CMS+ bilaterally, sensation intact bilaterally LE but pt hesitant/unable to really move RLE. Tele placed and fluids started per MD orders. Pt oriented to room and call light. Bed in low position, call light within reach, bed alarm activated.
[2025-05-05 20:00] VITALS: BP 137/52; PULSE 86; RESP 16; TEMP 37.1; O2SAT 96
[2025-05-06] VITALS (7 sets, daily range): BP systolic 115–140; BP diastolic 51–62; PULSE 82–94; RESP 16–20; TEMP 36.4–37.1; O2SAT 96–100
[2025-05-06] MEDS: ACETAMINOPHEN 325 MG TABLET 650 MG PO (04:06)
[2025-05-06 05:05] LABS: Add Manual Diff / Slide Review NO; Hematocrit 35.0 % (36-46); Hemoglobin 11.7 g/dL (12.0-16.0); Lymphocytes Absolute Auto 1500 /uL (1100-4500); Mean Corpuscular HGB Conc 33.6 % (30-36); Mean Corpuscular Hemoglobin 30.1 PG (26-34); Mean Corpuscular Volume 89.6 fL (80-100); Platelet Count 298 X10^3/uL (150-400)
[2025-05-06 05:31] LABS: Blood Urea Nitrogen 16 mg/dL (7-17); Calcium 8.7 mg/dL (8.4-10.2); Carbon Dioxide 23 mmol/L (22-32); Chloride 105 mmol/L (98-107); Estimated Glomerular Filt Rate > 60 mL/min (>60); Glucose 105 mg/dL (70-99); HEMOLYSIS < 15 (0-50); Potassium 4.2 mmol/L (3.4-5.1); Sodium 134 mmol/L (137-145)
[2025-05-06] MEDS: SODIUM CHLORIDE 0.9% 1,000 ML 75 ML IV ×2 (06:21→19:18)
--- NOTE | 2025-05-06 06:59 | PC.NURSE ---
@0538 pt had an 8 beat run of vtach, provider notified. Pt asymptomatic, BP 116/88, HR 92, O2 96% RA.
--- NOTE | 2025-05-06 14:30 | P.PN_ITS ---
Subjective Subjective Date Patient Seen: 05/06/25 Time Patient Seen: 14:30 Interval history: Patient reports continued pain in the right hip. No new complaints. Exam Vital Signs (past 8 hours): - 05/06/25 08:00 05/06/25 12:00 Temperature 97.6 F 98.8 F Pulse Rate 85 86 Respiratory Rate 19 17 Blood Pressure 118/51 L 122/54 L Pulse Oximetry 100 98 Oxygen Delivery Method Room Air Oxygen Flow Rate 0 Narrative Exam Narrative: Right lower extremity has continued tenderness over the hip region. Logroll is positive. Distal motor and sensory exams are intact. Objective Labs 05/06/25 04:30 05/06/25 04:30 Labs: Laboratory Results - last 24 hr 05/05/25 05/05/25 05/06/25 13:54 18:30 04:30 WBC 7.5 RBC 3.90 L Hgb 11.7 L Hct 35.0 L MCV 89.6 MCH 30.1 MCHC 33.6 RDW 13.3 Plt Count 298 Neut % (Auto) 66.2 Lymph % (Auto) 19.4 L [place] % (Auto) 11.0 Eos % (Auto) 2.7 Baso % (Auto) 0.7 Neut # (Auto) 5000 Lymph # (Auto) 1500 [place] # (Auto) 800 Eos # (Auto) 200 Baso # (Auto) 0 Sodium 138 134 L Potassium 4.6 D 4.2 Chloride 104 105 Carbon Dioxide 26 23 BUN 19 H 16 Creatinine 0.67 0.56 Estimated GFR > 60 > 60 BUN/Creatinine Ratio 28.4 H 28.6 H Glucose 116 H 105 H Calcium 9.2 8.7 Magnesium 2.4 H Total Bilirubin 0.5 AST 28 ALT 20 Alkaline Phosphatase 97 Total Creatine Kinase < 20 L Troponin I < 0.012 NT-Pro-B Natriuret Pep 78 Total Protein 7.8 Albumin 4.3 Globulin 3.5 Albumin/Globulin Ratio 1.2 Lipase 106 D Urine Color Yellow Urine Appearance Sl cloudy Urine pH 7.5 Ur Specific [place] 1.015 Urine Protein Trace H Urine Glucose (UA) Negative Urine Ketones Negative Urine Occult Blood Trace-intact Urine Nitrate Positive H Urine Bilirubin Negative Urine Urobilinogen 0.2 Ur Leukocyte Esterase 1+ H Urine RBC 0-1/hpf Urine WBC 1-5/hpf Ur Squamous Epith Cells 0-1 /hpf Amorphous Sediment 1+ Urine Bacteria Many (>30) H Ur Culture Indicated? 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 Medical clearance has been obtained now that the echocardiogram was performed today and report shows no concerns for significant cardiac abnormalities leading to her syncopal events. Planned for surgery tomorrow for hemiarthroplasty. Patient is in agreement with this. NPO after midnight. Time-Based Coding :: [TOTAL MINUTES] spent with patient and on the chart (including review of chart, obtaining history, exam, reviewing outside data, placing orders, documenting exam and treatment plan, and counseling patient) on [DATE]. Quality VTE Deep Vein Thrombosis/Pulmonary Embolism Present on Admission: No [facility] Document charge(s): Yes Charge Codes Subsequent inpatient/observation care: 96026
--- NOTE | 2025-05-06 16:50 | PM.PN.1 ---
Subjective Subjective Date Patient Seen: 05/06/25 Time Patient Seen: 16:50 Interval history: Syncope with a right leg pain with subcapital right hip fracture History of present illness: 05/05: Patient had syncopal episode in her home 04/28 with severe right leg pain was brought to the emergency room evaluated with x-ray of the distal right femur in lower leg were unrevealing for acute pathology. She has no no prodrome or warning that she was going to have syncope episode Patient was discharged home but could not bear weight. Patient returned to the emergency room 05/05 workup demonstrated subcapital right hip fracture. Other findings in the emergency room: Hemogram, comprehensive metabolic, PT PTT, EKG, chest x-ray were all unremarkable Patient has had 6 or 7 syncopal episodes in the past 6 years. This has not been worked up She has no past medical history of cardiac disease diabetes hypertension she has thyroid disease Hospital course: 05/06: No new complaints echocardiogram shows no aortic stenosis just some diastolic dysfunction which is likely the cause of the heart sounds on auscultation nothing to prohibit surgery Review of systems: As mentioned above No chest pain palpitations shortness for breath No fever or chills rigors No nausea vomiting diarrhea No paresthesia paresis Physical examination: Cogent elderly female in no acute distress HEENT unremarkable Neck bilateral systolic murmur 3/6 systolic murmur loudest at the right sternal border Diastolic opening snap at the apex Lungs clear Pulses palpable in dorsalis pedis right lower extremity 2nd capillary refill of the toes Assessment and plan: Full syncopal episode with fall 1 week ago with a history of syncopal episodes 6 or 7 times echocardiogram without Echocardiogram without aortic stenosis Cardiac telemetry Medically cleared for surgery Right subcapital hip fracture Surgical repair scheduled Monday 05/07 DVT prophylaxis: Lovenox Code status: Full code blue Disposition: Cleared for surgery in a 05/07 Time based billin minutes were involved in evaluation of this patient including [id number] evaluation physical examination of the patient discussion of the patient's history review of previous medical records discussion with other providers discussion with patient care team Exam Vital Signs (past 8 hours): - 05/06/25 12:00 05/06/25 16:00 Temperature 98.8 F 97.6 F Pulse Rate 86 82 Respiratory Rate 17 16 Blood Pressure 122/54 L 140/58 L Pulse Oximetry 98 100 Oxygen Delivery Method Room Air Oxygen Flow Rate 0 Objective Labs 05/06/25 04:30 05/06/25 04:30 Labs: Laboratory Results - last 24 hr 05/05/25 05/06/25 18:30 04:30 WBC 7.5 RBC 3.90 L Hgb 11.7 L Hct 35.0 L MCV 89.6 MCH 30.1 MCHC 33.6 RDW 13.3 Plt Count 298 Neut % (Auto) 66.2 Lymph % (Auto) 19.4 L [place] % (Auto) 11.0 Eos % (Auto) 2.7 Baso % (Auto) 0.7 Neut # (Auto) 5000 Lymph # (Auto) 1500 [place] # (Auto) 800 Eos # (Auto) 200 Baso # (Auto) 0 Sodium 134 L Potassium 4.2 Chloride 105 Carbon Dioxide 23 BUN 16 Creatinine 0.56 Estimated GFR > 60 BUN/Creatinine Ratio 28.6 H Glucose 105 H Calcium 8.7 Urine Color Yellow Urine Appearance Sl cloudy Urine pH 7.5 Ur Specific [place] 1.015 Urine Protein Trace H Urine Glucose (UA) Negative Urine Ketones Negative Urine Occult Blood Trace-intact Urine Nitrate Positive H Urine Bilirubin Negative Urine Urobilinogen 0.2 Ur Leukocyte Esterase 1+ H Urine RBC 0-1/hpf Urine WBC 1-5/hpf Ur Squamous Epith Cells 0-1 /hpf Amorphous Sediment 1+ Urine Bacteria Many (>30) H Ur Culture Indicated? 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 Quality VTE Deep Vein Thrombosis/Pulmonary Embolism Present on Admission: No
[2025-05-07] VITALS (13 sets, daily range): BP systolic 116–145; BP diastolic 53–63; PULSE 78–117; RESP 16–26; TEMP 36.6–37.7; O2SAT 93–98
[2025-05-07] MEDS: SODIUM CHLORIDE 0.9% 1,000 ML 75 ML IV (07:25)
--- NOTE | 2025-05-07 08:20 | PC.NURSE ---
Patient is alert and oriented but forgetful. She will be going to surgery for femur fx at 0900. She is resting now and remains npo.
[2025-05-07] MEDS: levoFLOXacin 500 MG/100 ML PIGGYBACK 100 MG IV (09:14)
[2025-05-07] MEDS: ACETAMINOPHEN IV 1,000 MG/100 ML VIAL 400 MG IV (10:23)
--- NOTE | 2025-05-07 11:05 | PC.NURSE ---
Pt stable this AM, NPO and just brought down to the OR for surgery on R femoral neck fx. Calmly complains of 10/10 R foot pain, specifically to top of foot and outer foot, requesting IV dilaudid; medicated with 10mg oxycodone and scheduled IV acetaminophen. Requested ice pack which was provided but stated it wasn't cold, requesting cool wash cloth instead over top of R foot, no c/o R hip pain. States she feels very anxious for surgery, will continue to monitor.
[2025-05-07] MEDS: LACTATED RINGERS 1,000 ML 42 ML IV ×2 (11:10→11:58)
[2025-05-07] MEDS: TRANEXAMIC ACID 1,000 MG VIAL 2000 MG INJ ×2 (12:05→13:18)
--- NOTE | 2025-05-07 12:07 | SUR.OPER ---
Lateral on padded OR bed. Gel axillary roll. Arms secured on padded armboard with pillow supporting top arm. Padded hip positioner braces x4 - anterior and posterior chest and pelvis, skin protective measures utilized. Gel pad under bottom leg from knee to foot and secured with tape over pillow. Existing pinedo catheter moved out of surgical area and assessed; draining well. To be monitored by anesthesia during procedure. Surgeon approved final position prior to start of procedure.
--- NOTE | 2025-05-07 13:13 | CM.DPC ---
DCP Cont: Per MD and Ortho, plan of surgery today for her femur fx and then plan of PT/OT likely tomorrow 05/08/25 to determine HH vs SNF. Per MD, pt is hopeful to d/c back to [facility] with HH. Plan: SW to follow closely for PT/OT recommendations after eval to determine discharge planning needs. PRATIMA Larsen
--- NOTE | 2025-05-07 14:23 | P.OP_ITS ---
Operative Date/Time/Diagnoses Date of procedure: 05/07/25 Time of procedure: 14:23 Pre-op diagnosis: Displaced right femoral neck fracture Post-op diagnosis: same Procedure & Clinicians Procedure: Right hip hemiarthroplasty for fracture (CPT - 72731) Partial excision of bone, right femur (CPT - 04753) Same procedure(s) as scheduled: Yes Indications: Displaced right femoral neck fracture Surgeon: Ezra Gould Assisted?: No Anesthesia Type: General Operative Notes Findings: Displaced right femoral neck fracture Closure Type: primary Specimen(s): none sent Prosthetic devices, grafts, tissues, transplants, or devices: [employer] Synergy size 14, 160 mm, 14 mm, 12/14 taper porous femoral stem Ref: [id number]: [id number] 28 mm internal diameter, 45 mm outer diameter, Tandem Bipolar head Ref: [id number] Lot: [id number] 28 mm outer diameter +4 12/14 taper femoral head Ref: [id number] Lot: [id number] Applied: none Estimated Blood Loss (mL): 150 Blood products transfused: none Procedure in detail: Patient presented to the emergency room following a fall and was diagnosed with a displaced femoral neck fracture. She was admitted to the hospital and receive d medical clearance. Management options were discussed with her and her . Recommendation was made to proceed with right hip hemiarthroplasty. Risks and benefits of the procedure were discussed at length yesterday and patient was in agreement with proceeding with surgery. Patient was seen in the holding area and the surgical site was marked. She was then taken to the operating room. General anesthesia was induced and the airway was secured while the patient was on his hospital bed. She was then transferred to the operating table and placed in lateral decubitus position with all bony prominences appropriately padded. Lateral positioning devices were used to help support her in the lateral position. The right lower extremity was then prepped out with ChloraPrep and draped out in the standard sterile fashion. A posterior approach was performed. A slight curvilinear posterior incision was made centralized over the posterior aspect of the greater trochanter. Incision was carried down through the skin and subcutaneous tissues to the fascia. The fascia was then incised in line with the skin incision and the fibers of the gluteus rita were bluntly dissected using finger dissection proximally. Anterior and posterior flaps were then developed. A Charnley retractor was then placed to retract the fascial layer. The sciatic nerve was identified deep within this plane below the tensor fascia. The short external rotators were exposed. The piriformis tendon was then released from the greater trochanter using Bovie electrocautery and tagged with a 2 FiberWire. The remaining short external rotators were also identified, tagged, and released. This exposed the posterior hip joint. Retractors were placed anteriorly and posteriorly to the femoral neck and a T shaped capsular incision was made using Bovie. Fracture was identified in the hematoma was evacuated. Hohmann retractors were placed above and below the neck after identifying the lesser trochanter. The femoral neck was then cut after assessing with the template using a sagittal saw and fragments were removed. The femoral head was then removed and measured to a size 45 mm. A trial femoral head was then used to assess the fit within the acetabulum and 45 mm was selected. The leg was then abducted and internally rotated 90?. The box osteotome was then used to open the proximal femur. In the femoral canal was entered using a straight awl and then reamed to a size 13. Broaches were then used to broach the proximal femur until appropriate fit was achieved. The trial head and neck components were then fitted and the hip was reduced. Several rounds of assessing the hip stability and tissue tension were performed to assess the proper combination of components. A standard neck component was then selected. The trial components were removed and the hip hip joint and surrounding incision site were copiously irrigated. The final Press-Fit stem was then inserted and impacted into place in line with the calcar. There was no evidence of any femoral fracture after impaction. The component was found to be stable to rotational and longitudinal forces. The trial head was then again used to assess the tissue tension and final components for the head were selected. The head component was then assembled on the back table and then impacted onto the stem. The hip was then reduced and tissue tension stability were again assessed and found to be appropriate. There was no gross instability within physiologic ranges of motion. Limb length was grossly equivalent. The hip was again copiously irrigated and the posterior capsule was repaired with #2 FiberWire sutures. The capsule, piriformis, and short external rotators were then repaired down to the greater trochanter through drill holes using the previously placed #2 Fiber wires. The tensor fascia was then closed with 0 Vicryl interrupted sutures. Skin was anesthetized with 0.5% Marcaine with epinephrine. Skin was then closed in layers with 2-0 Vicryl buried interrupted sutures in the dermis followed by a running 4-0 Monocryl subcuticular stitch. The incision line was then dressed with Dermabond, Telfa, and Tegaderm dressing. Complications: none Post-operative Condition: stable Disposition: Acute Care Plan for aftercare: Weightbear as tolerated on right lower extremity. Hip precautions, right lower extremity.
[2025-05-07] MEDS: ONDANSETRON 4 MG/2 ML INJ IV (14:39)
--- NOTE | 2025-05-07 14:42 | DI.RAD.S_ITS ---
PROCEDURE: XR HIP RT 2V INDICATIONS: Right total hip arthroplasty TECHNIQUE: 2 view(s) of the hip acquired. COMPARISON: None. FINDINGS: Bones: Patient is status post right hip arthroplasty, with hardware components in expected positions. The hip joint appears congruent. The visualized bony structures appear intact. Soft tissues: Overlying postoperative changes are noted. No suspicious soft tissue densities. IMPRESSION: Expected post-operative appearance of a hip arthroplasty. Dictated by: Ryan Frey M.D. on 05/07/2025 at 13:54 Approved by: Ryan Frey M.D. on 05/07/2025 at 13:54
--- NOTE | 2025-05-07 15:06 | P.PN_ITS ---
Subjective Subjective Date Patient Seen: 05/07/25 Time Patient Seen: 08:30 Interval history: Syncope with a right leg pain with subcapital right hip fracture History of present illness: 05/05: Patient had syncopal episode in her home 04/28 with severe right leg pain was brought to the emergency room evaluated with x-ray of the distal right femur in lower leg were unrevealing for acute pathology. She has no no prodrome or warning that she was going to have syncope episode Patient was discharged home but could not bear weight. Patient returned to the emergency room 05/05 workup demonstrated subcapital right hip fracture. Other findings in the emergency room: Hemogram, comprehensive metabolic, PT PTT, EKG, chest x-ray were all unremarkable Patient has had 6 or 7 syncopal episodes in the past 6 years. This has not been worked up She has no past medical history of cardiac disease diabetes hypertension she has thyroid disease Hospital course: 05/06: No new complaints echocardiogram shows no aortic stenosis just some diastolic dysfunction which is likely the cause of the heart sounds on auscultation nothing to prohibit surgery 05/07: No new complaint NPO for surgery Review of systems: As mentioned above No chest pain palpitations shortness for breath No fever or chills rigors No nausea vomiting diarrhea No paresthesia paresis Physical examination: Cogent elderly female in no acute distress HEENT unremarkable Neck bilateral systolic murmur 3/6 systolic murmur loudest at the right sternal border Diastolic opening snap at the apex Lungs clear Pulses palpable in dorsalis pedis right lower extremity 2nd capillary refill of the toes Assessment and plan: Full syncopal episode with fall 1 week ago with a history of syncopal episodes 6 or 7 times echocardiogram without * Echocardiogram without aortic stenosis * Cardiac telemetry * Medically cleared for surgery Right subcapital hip fracture * Surgical repair scheduled Monday 05/07 DVT prophylaxis: * Lovenox Code status: * Full code blue Disposition: * Went to surgery today 05/07 Time based billing: * 35 minutes were involved in evaluation of this patient including [id number] evaluation physical examination of the patient discussion of the patient's history review of previous medical records discussion with other providers discussion with patient care team Exam Vital Signs (past 8 hours): - 05/07/25 07:56 05/07/25 10:56 05/07/25 14:23 Temperature 98.2 F 99.8 F H 98.5 F Pulse Rate 88 87 117 H Respiratory Rate 16 16 22 Blood Pressure 127/62 119/63 127/59 L Pulse Oximetry 97 98 98 Oxygen Delivery Method Room Air Room Air 05/07/25 14:25 05/07/25 14:30 05/07/25 14:42 Temperature Pulse Rate 110 H 106 H 102 H Respiratory Rate 20 26 H 24 Blood Pressure 124/60 121/60 140/63 Pulse Oximetry 97 98 98 Oxygen Delivery Method Room Air Room Air Room Air 05/07/25 14:52 Temperature Pulse Rate 96 H Respiratory Rate 18 Blood Pressure 136/63 Pulse Oximetry 93 Oxygen Delivery Method Room Air Oxygen Delivery Method Room Air Oxygen Flow Rate 0 Objective Labs 05/06/25 04:30 05/06/25 04:30 PFSH Medical History Obstructive sleep apnea of adult PVCs (premature ventricular contractions) Urinary frequency Nocturia Overactive bladder Arthritis Surgical History History of colon surgery Hx of appendectomy Hx of colonoscopy Hx of cholecystectomy Hx of shoulder surgery Hx of arthroscopic knee surgery History of knee replacement Social History marital status: number of children: 2 household members: spouse 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 Quality VTE Deep Vein Thrombosis/Pulmonary Embolism Present on Admission: No
--- NOTE | 2025-05-07 15:36 | PT-IP ANOTE ---
Pt fatigued after AM surgery. Pt is planning to stay the night, will perform PT evaluation in the AM.
[2025-05-07] MEDS: LACTATED RINGERS 1,000 ML 100 ML IV (16:20)
--- NOTE | 2025-05-07 18:11 | PC.NURSE ---
Patient back from surgery earlier. Dressing to r.hip/femur area is cdi. Patient is forgetful, given oxycodone for pain and helpful. She has LR at 100cc/hr infusing.
[2025-05-07] MEDS: ACETAMINOPHEN 325 MG TABLET 650 MG PO (20:52)
[2025-05-08] MEDS: LACTATED RINGERS 1,000 ML 100 ML IV (02:25)
[2025-05-08 03:00] VITALS: BP 123/56; PULSE 81; RESP 20; TEMP 36.9; O2SAT 97
[2025-05-08 05:22] LABS: Add Manual Diff / Slide Review NO; Hematocrit 30.5 % (36-46); Hemoglobin 10.4 g/dL (12.0-16.0); Lymphocytes Absolute Auto 900 /uL (1100-4500); Mean Corpuscular HGB Conc 34.1 % (30-36); Mean Corpuscular Hemoglobin 30.3 PG (26-34); Mean Corpuscular Volume 88.9 fL (80-100); Platelet Count 273 X10^3/uL (150-400)
[2025-05-08 05:35] LABS: Blood Urea Nitrogen 17 mg/dL (7-17); Calcium 8.8 mg/dL (8.4-10.2); Carbon Dioxide 28 mmol/L (22-32); Chloride 104 mmol/L (98-107); Estimated Glomerular Filt Rate > 60 mL/min (>60); Glucose 102 mg/dL (70-99); HEMOLYSIS < 15 (0-50); Potassium 4.0 mmol/L (3.4-5.1); Sodium 135 mmol/L (137-145)
[2025-05-08 07:00] VITALS: BP 131/54; PULSE 94; RESP 22; TEMP 37.6
[2025-05-08] MEDS: ACETAMINOPHEN 325 MG TABLET 650 MG PO ×3 (08:34→21:37)
--- NOTE | 2025-05-08 08:41 | PC.NURSE ---
Pt eating breakfast in bed. Requested pain meds before working with PT, states her hip doesn't hurt but an old bruise on her R knee is in 8/10 pain, medicated with scheduled acetaminophen and 5mg oxycodone. LR running 100ml/hr. Will continue to monitor.
--- NOTE | 2025-05-08 10:09 | PC.NURSE ---
Patient given oxycodone and tylenol for complaints of discomfort to r.hip. Dressing is cdi, patient will be getting up and working with PT soon. She has been pleasant thus far. CMS intact and ppx2
--- NOTE | 2025-05-08 11:32 | PM.PN.IH.1 ---
Subjective Subjective Date Patient Seen: 05/08/25 Time Patient Seen: 11:32 Interval history: Patient doing well. She reports no significant problems. Pain is controlled on current medications. Exam Vital Signs (past 8 hours): - 05/08/25 07:00 Temperature 99.6 F Pulse Rate 94 H Respiratory Rate 22 Blood Pressure 131/54 L Oxygen Delivery Method Room Air Oxygen Flow Rate 0 Narrative Exam Narrative: Right hip dressing is clean, dry, and intact. Distal motor and sensory exams are intact. There is no substantial swelling distally. Posterior tibialis is 2+. Objective Labs 05/08/25 04:35 05/08/25 04:35 Labs: Laboratory Results - last 24 hr 05/08/25 04:35 WBC 7.7 RBC 3.43 L Hgb 10.4 L Hct 30.5 L MCV 88.9 MCH 30.3 MCHC 34.1 RDW 12.8 Plt Count 273 Neut % (Auto) 74.2 Lymph % (Auto) 11.8 L [place] % (Auto) 13.7 Eos % (Auto) 0.2 L Baso % (Auto) 0.1 Neut # (Auto) 5700 Lymph # (Auto) 900 L [place] # (Auto) 1100 H Eos # (Auto) 0 Baso # (Auto) 0 Sodium 135 L Potassium 4.0 Chloride 104 Carbon Dioxide 28 BUN 17 Creatinine 0.61 Estimated GFR > 60 BUN/Creatinine Ratio 27.9 H Glucose 102 H Calcium 8.8 PFSH Medical History Obstructive sleep apnea of adult PVCs (premature ventricular contractions) Urinary frequency Nocturia Overactive bladder Arthritis Surgical History History of colon surgery Hx of appendectomy Hx of colonoscopy Hx of cholecystectomy Hx of shoulder surgery Hx of arthroscopic knee surgery History of knee replacement Social History marital status: number of children: 2 household members: spouse 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 Doing well. Complete antibiotics today. Pain control per hospitalist team. May begin DVT chemoprophylaxis per hospitalist team. PT/OT/case management evaluations. Weightbear as tolerated on right lower extremity. Posterior hip precautions. Leave dressing on as long as that remains clean and dry. We will need follow up with orthopedics in 10-14 days after surgery, please call clinic for scheduling. Time-Based Coding :: [TOTAL MINUTES] spent with patient and on the chart (including review of chart, obtaining history, exam, reviewing outside data, placing orders, documenting exam and treatment plan, and counseling patient) on [DATE]. Quality VTE Deep Vein Thrombosis/Pulmonary Embolism Present on Admission: No [facility] PROFEE Foreign Correspondent Document charge(s): Yes Charge Codes Subsequent inpatient/observation care: [id number]
[2025-05-08 11:35] VITALS: BP 139/60; PULSE 104; RESP 22; TEMP 37.4; O2SAT 95
--- NOTE | 2025-05-08 11:35 | PT.IIE ---
Current Diagnoses Unspecified intracapsular fracture of right femur, initial encounter for closed fracture (05/05/25) Surgery Performed Operation Date: 05/07/25 12:00 Actual Procedures p Hip Hemiarthroplasty(Right) - Ezra Gould MD Surgical History (Last Reviewed 04/27/25 @ 15:56 by Emmy Chand DO) History of colon surgery History of knee replacement Hx of appendectomy Hx of arthroscopic knee surgery Hx of cholecystectomy Hx of colonoscopy Hx of shoulder surgery Medical History (Last Reviewed 04/27/25 @ 15:56 by Emmy Chand DO) Arthritis Nocturia Obstructive sleep apnea of adult Overactive bladder PVCs (premature ventricular contractions) Urinary frequency Physical Therapy Inpatient Evaluation/Re-Eval M1 PT IP Prior Functional Status Start: 05/08/25 12:51 Freq: Status: Active Protocol: Document 05/08/25 12:52 NW (Rec: 05/08/25 13:06 NW [id number]) Medical Review Prior Functional Status Communication Able to express needs Mobility and Gait Prior to falls > 1 week ago ambulated at will with no AD in home and community. Prior Functional Since fall and fx moved to correction facility for Level (Other details assistance as is unable to care ) Social History Household Members spouse Living Arrangements Assisted Facility Number of Floors ( One Floor Floors) Number of Stairs To 0 Enter/Railing? Home Equipment Front Wheel Walker,Four Wheel Walker,Manual Wheelchair Additional Social Only moved into correction facility secondary to History Comment increased assistance required post falls and R femur fracture. M2 PT-IP Current Condition Start: 05/08/25 12:51 Freq: Status: Active Protocol: Document 05/08/25 12:52 NW (Rec: 05/08/25 13:06 NW [id number]) Physical Therapy Current Condition Current Condition Evaluation Date 05/08/25 Treatment Diagnosis GLF, R BLAYNE Posterior Onset Date 05/07/25 M3 PT-IP Subjective Start: 05/08/25 12:51 Freq: Status: Active Protocol: Document 05/08/25 12:52 NW (Rec: 05/08/25 13:06 NW [id number]) Subjective Physical Therapy Visit Type Type Initial Evaluation Visit Start Time 10:59 Visit Stop Time 11:35 Number of SOYFREEZE OPERATOR Visits 0 Physical Therapy Visit Comments Patient Comments Pt is agreeable to PT evaluation. Patient Goals To walk. Therapy Pain Assessment Location Right leg Intensity 6 Scale Used Numeric (0 - 10) Description Aching,Sharp Pain Behaviors Wincing Pain Management Modification of Treatment,Timing of Activity with Techniques Medications M4 PT-IP Mobility and Gait Start: 05/08/25 12:51 Freq: Status: Active Protocol: Document 05/08/25 12:52 NW (Rec: 05/08/25 13:06 NW [id number]) PT-Bed Mobility Assessment Supine to Sit Supine to Sit Minimal Assistance,1 Person Assistance,Head of Bed Elevated Scooting Scooting to Edge of Contact Guard Assistance Bed PT-Transfer Assessment Sit to and From Stand Sit to and from Contact Guard Assistance,1 Person Assistance,Use of Stand Upper Extremities Equipment Transfer Assistive Gait Belt,Front Wheeled Walker Device Transfers Transfer Destination Bed,Chair Transfer Technique Stand Step Pivot Transfer Ability Level of Assist Contact Guard Assistance Comments Mobility Comments Requires step by step cues to maintain posterior hip precautions. Adequate power production and balance upon stance with FWW. Utilizes bilateral UE support to push up from surface. Fair eccentric control with use of UE . Heavy weight shift onto LLE. Gait Assessment Gait Gait Assistance Contact Guard Assist Required: Distance (Feet) 5 Assistive Devices Assistive Device Gait Belt,Front Wheeled Walker Gait Deviations General Gait Pattern Antalgic,Decreased Stride Length,Decreased Feet Clearance,Step-to Gait,Wide Based Gait Factors Limiting Gait Function Factors Limiting Decreased Strength,Pain,Poor Balance Gait Function Comments Gait Comments Requires step by step cues for AD management and LE sequence. Poor foot clearance resulting in sliding R foot across floor with no heel to toe progression, improved with cues to utilize UE to offload RLE. Extra time required with turning. PT-Balance Assessment Sitting Balance and Reactions Static Sitting Normal Balance Ability Dynamic Sitting Good Balance Ability Standing Balance and Reactions Static Standing Fair Balance Ability Dynamic Standing Poor Balance Ability Device Used FWW M5 PT-IP Objective Assessments Start: 05/08/25 12:51 Freq: Status: Active Protocol: Document 05/08/25 12:52 NW (Rec: 05/08/25 13:06 NW [id number]) Orientation Orientation/Cognition Level of Alertness Alert Orientation Name,Date,Place,Situation Language Function No Deficits Noted Ability Safety Awareness Understands Safety Issues Memory Description No Deficits Noted Comments States understands precautions and then with mobility requires step by step cues/ sequence. Gross Range of Motion Lower Extremity ROM Assessment Right Impaired Impairments WFL ankle and knee Strength Lower Extremity Strength Assessment Right Impaired Hip DNT due to surgery Knee 3/5 Ankle WFL Sensation Assessment Sensation Gross Sensation WNL Sensation Hyperesthesia Description Comments Sensation Comments R ankle. Symmetrical edema with no additional concern for DVT M6 PT-IP Treatment Start: 05/08/25 12:51 Freq: Status: Active Protocol: Document 05/08/25 12:52 NW (Rec: 05/08/25 13:06 NW [id number]) Physical Therapy Treatment Exercises Exercises Ankle Pumps Education Education Provided Precautions,Weight Bearing Status,Post-Op Packet,Safety Other Treatments Other Treatment Education on importance of increased time out of bed to Performed maintain strength and short frequent distance ambulation. M7 PT-IP Assessment and Plan Start: 05/08/25 12:51 Freq: Status: Active Protocol: Document 05/08/25 12:52 NW (Rec: 05/08/25 13:06 NW [id number]) PT Summary Assessment and Plan Potential Rehabilitation Good Potential Status of Condition Stable at Evaluation Summary Impairments Pain,ROM,Strength,Balance,Sensation,Bed Mobility, Transfers,Gait,Activity Tolerance Progress Towards Progressing Toward Goals Goals Assessment Summary Mery is a 79 yr old female admitted after a GLF > 1 week prior resulting in R femoral neck fracture requiring R BLAYNE with a posterior approach on 05/07/25. Pt did come to the hospital with no findings on x-ray when the fall first happened. Pt at baseline prior to the fall was independent for all mobility without an AD and since has moved into a correction assisted living as the required assistance was to great for spouse to perform. Today pt requires Chriss for bed mobility, CGA with heavy step by step cues to maintain precautions with transfers, and gait with FWW. Pt has WNL for vitals and low activity tolerance as she is only able to ambulate 5 ft. She states increased swelling in R foot, symmetrical pitting edema and hyperalgesia of R ankle with no other DVT s/s. RN notified. Recommending SNF to assist pt back to functional baseline. Goals Bed Mobility Goal Standby Assistance Transfer Goal Standby Assistance Gait Goal Standby Assistance Gait Distance 50 Days to Meet Goals 5 Frequency of Treatment Frequency Of Once a Day Treatment Treatment Plan Physical Therapy Bed Mobility Training,Transfer Training,Gait Training, Treatment Plan Therapeutic Exercise,Balance Retraining,Post Op Education,Discharge Planning,Neuromuscular Re-ed Other Progress gait distance and transfers Recommendations and Next Treatment Focus Precautions Posterior Hip No Hip Flexion > 90 degrees,No Hip Internal Rotation,No Precautions Hip Adduction Weight Bearing Status Weight Bearing Weight Bear as Tolerated Status Recommendations To Nursing Amount of Assist 1 Person Assist Needed Discharge Recommendations PT Discharge SNF Rehab Recommendations Transportation Needs Wheelchair/Cabulance at Discharge - PT assist 1
--- NOTE | 2025-05-08 13:18 | OT.IP.EVAL ---
Current Diagnoses Unspecified intracapsular fracture of right femur, initial encounter for closed fracture (05/05/25) Surgery Performed Operation Date: 05/07/25 12:00 Actual Procedures p Hip Hemiarthroplasty(Right) - Ezra Gould MD Past Medical History (Last Reviewed 04/27/25 @ 15:56 by Emmy Chand DO) Arthritis Nocturia Obstructive sleep apnea of adult Overactive bladder PVCs (premature ventricular contractions) Urinary frequency Surgical History (Last Reviewed 04/27/25 @ 15:56 by Emmy Chand DO) History of colon surgery History of knee replacement Hx of appendectomy Hx of arthroscopic knee surgery Hx of cholecystectomy Hx of colonoscopy Hx of shoulder surgery Occupational Therapy Inpatient Evaluation/Re-Eval M1 OT IP Prior Functional Status Start: 05/08/25 12:58 Freq: Status: Active Protocol: Document 05/08/25 11:00 PROMISE (Rec: 05/08/25 13:18 [facility]) Medical Review Prior Functional Status Medical History Yes Reviewed Communication Pt able to make needs known. Pt asks for clarification and benefits from step by step instructions at times. Mobility and Gait Pt was amb with AD prior to fall on 04/28. Pt has been residing at [facility] for approximately 1 week and has been assisted by staff for stand pivot tfs . Activities of Daily Pt was I with BADLs and IADLs prior to fall on 04/28 Living and IADL's Social History Household Members spouse,none Living Arrangements Residential Facility Home Equipment Front Wheel Walker,Four Wheel Walker,Bedside Commode Additional Social Pt reports she will dc to [facility] and not History Comment home with spouse. Pt reports she did not use the bathroom in the facility and is unable to state the available set up. She sleeps in a non adjustable bed. M2 OT-IP Current Condition Start: 05/08/25 12:58 Freq: Status: Active Protocol: Document 05/08/25 11:00 PROMISE (Rec: 05/08/25 13:18 [facility] Desktop) Occupational Therapy Current Condition Current Condition Evaluation Date 05/08/25 Treatment Diagnosis s/p R hemiarthroplasty Diagnosis Onset Date 05/05/25 Post Operative Precautions Posterior Hip No Hip Flexion > 90 degrees,No Hip Internal Rotation,No Precautions Hip Adduction Weight Bearing Status Weight Bearing Full Weight Bearing Status M3 OT- IP Subjective and Pain Start: 12/29/25 12:58 Freq: Status: Active Protocol: Document 05/08/25 11:00 TJGANSTON (Rec: 05/08/25 13:18 [facility] Desktop) OT- Subjective Occupational Therapy Visit Type Type Initial Evaluation Visit Start Time 11:00 Visit Stop Time 11:49 Notes OT/PT co-eval Occupational Therapy Visit Comments Patient Comments Pt agreeable to participating in OT eval. Patient/Caregiver To get better Goals OT Pain Assessment Pain When Pain Assessed During Mobility Pain Present Pain Present Pain Reported Location Right leg Scale Used did not rate Description Tender,With Movement Pain Behaviors Wincing Management Re-positioning Techniques M4 OT- IP ADL's Start: 05/08/25 12:58 Freq: Status: Active Protocol: Document 05/08/25 11:00 [facility] (Rec: 05/08/25 13:18 [facility] Desktop) OT [id number] Comments OT Self-Feeding not a meal time Comments OT ADL-Grooming Comments OT Grooming Comments pt declined all offers of grooming at time of eval OT ADL-Oral Care Comments Oral Care Comments pt declined, not observed OT ADL-Dressing General Eval Upper Body Dressing Minimal Assistance Ability Lower Body Dressing Moderate Assistance,Maximum Assistance Ability Areas Needing Pants/Shorts,Shoes Assistance Comments OT Dressing Comments OT educated pt on use of LB AE (vehicle body builder) for don/doff pants. Pt reports that at baseline she does not wear socks, instead she uses her crocks. Pt wears pull up style pants. Pt required mod A with vehicle body builder to don pants following education. Will continue to review. Pt was able to don L shoe with S and R with max A OT ADL-Toileting General Evaluation Toileting Ability Total Assistance Areas Needing Empty Catheter or Colostomy Assistance Comments OT Toileting Pt reports she has had a catheter in place for ~ 1 Comments month. Would benefit from use of BSC or elevated commode due to hip precautions. OT ADL-Bathing Comments OT Bathing Comments not observed, needs education on restrictions with hip precautions M5 OT- IP IADL's Start: 05/08/25 12:58 Freq: Status: Active Protocol: Document 05/08/25 11:00 TJOHNSTON (Rec: 05/08/25 [facility]-Instrumental Activities of Daily Living Deficits IADL Deficits No Deficits Identified Home Safety Awareness Awareness of Need Good Awareness for Assistance at Home Ability to Problem Unable to Problem Solve Solve Emergency Situations Medication Management Medication Caregiver Provides Supervision Management Money Management Money Management Caregiver Provides Assistance Meal Preparation Meal Preparation Caregiver Provides Assist Literacy Teacher Literacy Teacher Caregiver Provides Assist Driving Driving Caregiver Provides Assist M6 OT- IP Functional Cognition Start: 05/08/25 12:58 Freq: Status: Active Protocol: Document 05/08/25 11:00 [facility] (Rec: 05/08/25 13:18 [facility]) Cognitive Factors Limiting Selfcare Function Cognitive Ability Level of Alertness Alert Patient Orientation Name,Place,Situation Attention Span Capable of Focused Attention,Capable of Sustained Ability Attention Ability to Follow Able to Follow One Step Commands with Increased Time, Commands Able to Follow One Step Commands with Repetition Memory Description Short Term Intact,Scrap Piler Intact Safety Awareness Decreased Recall of Precautions,Decreased Ability to Apply Precautions Cognitive Comments Cognitive Assessment Pt unable to state her hip precautions, will continue Comments to review. Pt needs step by step instructions often. OT- Vision and Hearing OT- Hearing Assessment OT- Hearing WFL Assessment OT- Vision Assessment Visual Acuity WFL M7 OT- IP Mobility and Balance Start: 05/08/25 12:58 Freq: Status: Active Protocol: Document 05/08/25 [facility]:00 [facility] (Rec: 05/08/25 13:18 [facility]) OT- Bed Mobility Assessment Supine to Sit Supine to Sit Assist Contact Guard Assistance Scooting Scooting to Edge of Contact Guard Assistance Bed OT-Transfer Assessment Sit to and From Stand Sit to and from Contact Guard Assistance Stand Transfers Transfer Ability Contact Guard Assistance Technique Transfer Destination Chair Devices Transfer Assistive Gait Belt,Front Wheeled Walker Devices Comments Mobility Comments see PT note for details. BP supine 125/55, sitting 138/ 50, standing 139/60 OT- Gait Assessment Gait Gait Assistance Contact Guard Assist Required: Assistive Devices Assistive Device Gait Belt,Front Wheeled Walker Comments Gait Ability See PT note for details Comments OT- Balance Assessment Sitting Balance and Reactions Static Sitting Normal Balance Ability Dynamic Sitting Fair Balance Ability Standing Balance and Reactions Static Standing Fair Balance Ability Dynamic Standing Fair Balance Ability M8 OT- IP Objective Assessments Start: 05/08/25 12:58 Freq: Status: Active Protocol: Document 05/08/25 11:00 [facility] (Rec: 05/08/25 13:18 [facility]) OT Gross Range of Motion Upper Extremity Range of Motion Assessment Within Functional Limits OT Strength Upper Extremity Strength Assessment Right Impaired Shoulder R 3+ Hand Credentialing Analyst Strength Hand Dominance Right Comments Strength Comments All UE strength 4/5 except for R shoulder which is 3+/5 OT-Muscle Tone Assessment Muscle Tone WNL Yes OT Sensation Assessment Comments Summary Comments no sensory deficits noted UE Edema Edema Present Edema Comments B feet with pitting, equally M9 OT- IP Assessment and Plan Start: 05/08/25 12:58 Freq: Status: Active Protocol: Document 05/08/25 11:00 [facility] (Rec: 05/08/25 13[facility]18 [facility]) OT Summary Assessment and Plan Potential Rehabilitation Good Potential Analytic Complexity Low at Evaluation Summary OT Impairments Pain,Strength,Balance,Functional Cognition,Functional Mobility,Grooming,Dressing,Toileting,Bathing,Toilet Transfers,Shower Transfers,Activity Tolerance Progress Towards Progressing Toward Goals Goals Goals Grooming Goal Independent Dressing Goal Independent,Long Handled Shoe Horn,Casing Splitter,Sock Aid Toileting Goal Independent Bathing Goal Independent,Grab Bars Toilet Transfer Goal Independent,Raised Toilet Seat With Rails,Bedside Commode Shower Transfer Goal Independent,Shower Chair Days to Meet Goals 10 Frequency of Treatment Other frequency 5x/wk Treatment Plan OT Treatment Plan ADL Training,Functional Mobility,Therapeutic Exercises, Patient/Family Education,Discharge Planning Other Treatment LB AE education, ADLs Recommendations and Next Treatment Focus Discharge Recommendations OT Discharge SNF Rehab Recommendations Transportation Needs Private Vehicle at Discharge
--- NOTE | 2025-05-08 13:44 | CM.DPNOTE ---
DCP note BODY SERVICE TEAM MEMBER reviewed EMR per provider cleared to dc to SNF when able. per PT/OT rec SNF. BODY SERVICE TEAM MEMBER met with pt in room. reviewed DCP recs/options. pref SNF at . understanding that she may dc tomorrow. BODY SERVICE TEAM MEMBER completed MD WILL signature needed. BODY SERVICE TEAM MEMBER updated provider. P: Dc tomorrow to time pending. will continue to follow closely for DCP Coordination PRATIMA Cervantes
[2025-05-08 16:40] VITALS: BP 120/46; PULSE 107; RESP 19; TEMP 37.9; O2SAT 98
[2025-05-08 16:50] VITALS: BP 120/46; PULSE 107; RESP 19; TEMP 37.9; O2SAT 98
--- NOTE | 2025-05-08 19:23 | PC.NURSE ---
Just went into see patient as she put on her callbell. This RN found a trazadone bottle in her bed. Not sure if she had planned to take more trazadone than what she has ordered as she has an order for 50mg here at the hospital. Her orders from home medications states that she can take an extra one if she wakes up in the middle of the night but this has not been ordered for her. Patient has been taking oxycodone for discomfort which already makes her comfortable and tylenol for her r.hip pain. She states that her pain is an 8/10 or 10/10 when she is in a very relaxed state. Nursing judgement, patient has had 5mg of oxycodone and this has been effective for pain control. She is resting comfortably and wants to talk to RN about getting more Trazadone, she made a fuss about this last night. Unsure of where the Trazadone came from, this is the first time that staff has seen this in her room. This was taken to the pharmacy and she can get it when she discharges.
[2025-05-08 19:45] VITALS: BP 126/49; PULSE 97; RESP 16; TEMP 36.7; O2SAT 100
[2025-05-09] MEDS: ACETAMINOPHEN 325 MG TABLET 650 MG PO ×2 (02:10→09:11)
[2025-05-09 05:00] VITALS: BP 108/48; PULSE 92; RESP 16; TEMP 36.7; O2SAT 96
--- NOTE | 2025-05-09 06:59 | P.PN_ITS ---
Subjective Subjective Date Patient Seen: 05/09/25 Time Patient Seen: 06:59 Interval history: Patient doing well overall. She reports some discomfort in the hip still. She was able work with physical therapy yesterday and did fairly well. She reports that she is to transfer to a facility later today. Exam Vital Signs (past 8 hours): - 05/09/25 05:00 Temperature 98.1 F Pulse Rate 92 H Respiratory Rate 16 Blood Pressure 108/48 L Pulse Oximetry 96 Oxygen Delivery Method Room Air Oxygen Flow Rate 0 Narrative Exam Narrative: Right hip dressing is clean, dry, and intact. Distal motor and sensory exam is intact. There is some minimal pedal edema. Posterior tibialis is 2+. 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 Doing well. Continue DVT prophylaxis after discharge per hospitalist team recommendations. Weightbear as tolerated on right lower extremity. Posterior hip precautions. Recommend follow up with [facility] office 10-14 days after surgery. Please contact office to schedule. Time-Based Coding :: [TOTAL MINUTES] spent with patient and on the chart (including review of chart, obtaining history, exam, reviewing outside data, placing orders, documenting exam and treatment plan, and counseling patient) on [DATE]. 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
[2025-05-09 08:08] VITALS: BP 116/55; PULSE 89; RESP 16; TEMP 36.6; O2SAT 97
--- NOTE | 2025-05-09 08:30 | P.DS_ITS ---
History of Present Illness History of Present Illness Chief complaint: returning, trouble walking, R leg pain, wants MRI Narrative: Syncope with a right leg pain with subcapital right hip fracture History of present illness: 05/05: Patient had syncopal episode in her home 04/28 with severe right leg pain was brought to the emergency room evaluated with x-ray of the distal right femur in lower leg were unrevealing for acute pathology. She has no no prodrome or warning that she was going to have syncope episode Patient was discharged home but could not bear weight. Patient returned to the emergency room 05/05 workup demonstrated subcapital right hip fracture. Other findings in the emergency room: Hemogram, comprehensive metabolic, PT PTT, EKG, chest x-ray were all unremarkable Patient has had 6 or 7 syncopal episodes in the past 6 years. This has not been worked up She has no past medical history of cardiac disease diabetes hypertension she has thyroid disease Hospital course: 05/06: No new complaints echocardiogram shows no aortic stenosis just some diastolic dysfunction which is likely the cause of the heart sounds on auscultation nothing to prohibit surgery 05/07: No new complaint NPO for surgery 05/08: Doing well postop no complaints 05/09: Recovery is brisk at fdc level and will be transported for acute rehab Review of systems: As mentioned above No chest pain palpitations shortness for breath No fever or chills rigors No nausea vomiting diarrhea No paresthesia paresis Physical examination: Cogent elderly female in no acute distress HEENT unremarkable Neck bilateral systolic murmur 3/6 systolic murmur loudest at the right sternal border Diastolic opening snap at the apex Lungs clear Pulses palpable in dorsalis pedis right lower extremity 2nd capillary refill of the toes Assessment and plan: Full syncopal episode with fall 1 week ago with a history of syncopal episodes 6 or 7 times echocardiogram without * Echocardiogram without aortic stenosis * Cardiac telemetry * Medically cleared for surgery Right subcapital hip fracture * Surgical repair scheduled Monday 05/07 DVT prophylaxis: * Lovenox Code status: * Full code blue Disposition: * Went to surgery today 05/07 Time based billing: * 35 minutes were involved in evaluation of this patient including [id number] evaluation physical examination of the patient discussion of the patient's history review of previous medical records discussion with other providers discussion with patient care team Discharge Providers Provider Date of admission: 05/05/25 14:36 Discharge Date: 05/09/25 Primary care physician: Rom Mast MD Consults: 05/07/25 14:56 Consult to Discharge Planning Routine Comment: Consult to Occupational Therapy Evaluate & Treat Comment: Physician Instructions: Evaluate and treat Consult to Physical Therapy Evaluate & Treat Comment: Physician Instructions: Evaluate and Treat Discharge provider: Braulio Burns MD Exam Vital Signs (past 8 hours): - 05/09/25 05:00 05/09/25 08:08 Temperature 98.1 F 97.8 F Pulse Rate 92 H 89 Respiratory Rate 16 16 Blood Pressure 108/48 L 116/55 L Pulse Oximetry 96 97 Oxygen Flow Rate 0 Oxygen Delivery Method Room Air Oxygen Flow Rate 0 Objective Labs 05/08/25 04:35 05/08/25 04:35 PFSH Medical History Obstructive sleep apnea of adult PVCs (premature ventricular contractions) Urinary frequency Nocturia Overactive bladder Arthritis Surgical History History of colon surgery Hx of appendectomy Hx of colonoscopy Hx of cholecystectomy Hx of shoulder surgery Hx of arthroscopic knee surgery History of knee replacement Social History marital status: number of children: 2 household members: spouse 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 Status: Never smoker alcohol intake: former caffeine: Yes Type(s) of exercise: walking and regular exercise frequency: daily Discharge Plan Discharge Plan Patient Disposition: SNF Discharge orders & Medications Prescriptions: New acetaminophen 325 mg Tablet 650 mg PO Q6H Qty: 10 0RF tramadol 50 mg Tablet 50 mg PO Q6H PRN (Reason: pain) Qty: 10 0RF pantoprazole 40 mg Tablet,Delayed Release (Dr/Ec) 40 mg PO 1700 Qty: 30 0RF oxycodone 5 mg Tablet 5 mg PO Q3H PRN (Reason: Pain, Moderate (4-6)) Qty: 10 0RF enoxaparin [Lovenox] 40 mg/0.4 mL Syringe 40 mg SUBCUT DAILY Qty: 28 0RF Continued fluticasone propionate 50 mcg/actuation spray,suspension 1 spray intranasal QPM Qty: 16 3RF methimazole 5 mg tablet 5 mg PO DAILY tramadol 50 mg tablet 50 mg PO Q6H PRN (Reason: pain) Qty: 14 0RF Rx Instructions: 1-2 tablets every 6 hours if needed for severe pain trazodone 50 mg tablet 50 mg PO ONCE PM Patient Comments: pt says she normally takes one pill at bedtime around 11pm and another when she wakes up in the middle of the night benzonatate 200 mg capsule 200 mg PO 3XD PRN (Reason: cough) ondansetron 4 mg tablet,disintegrating 4 mg PO Q8H PRN (Reason: nausea and vomiting) Qty: 12 0RF ropinirole 1 mg tablet 3 mg PO DAILY Rx Instructions: take at 1800 Follow up/Referrals: Rom Mast MD [Primary Care Provider, Family Practice] Visit Report/Discharge Packet Stand Alone Forms: [employer], Patient Portal/API, Stroke Signs & Symptoms, Influenza Vaccine Info, Notice of Privacy Practices, Inpatient vs Outpatient, Pneumococcal Vaccine Info, Pt. Rights & Responsibilities Discharge Data Primary Care Provider: Rom Mast Quality VTE Deep Vein Thrombosis/Pulmonary Embolism Present on Admission: No
[2025-05-09] MEDS: ENOXAPARIN 40 MG/0.4 ML SYRINGE SUBCUT (09:11)
--- NOTE | 2025-05-09 10:52 | CM.DPNOTE ---
DCP Note ANGIOGRAPHY TECHNOLOGIST reviewed EMR per provider cleared to DC today to . per Анна at , confirmed can take transport at 1130. ANGIOGRAPHY TECHNOLOGIST updated provider/RN/LAYOUT MECHANIC. gave RN report number. ANGIOGRAPHY TECHNOLOGIST met with pt in room. updated on plan. in agreement. declines questions at this time. ANGIOGRAPHY TECHNOLOGIST emailed Анна from [facility], med list, scripts, and PASRR. placed in chart. P: Dc today to at 1130. no further CM needs at this time. will continue to follow as needed in case any additional DCP needs should arise PRATIMA Cervantes
--- NOTE | 2025-05-09 10:57 | PC.NURSE ---
D/c packet assembled. IV removed. Report given to Jeyson at [facility] at 1056.
== END 2025-05-09 11:46 | DRG 522 ==
LOC: ED 13:49 → AC 14:38
PROVIDERS: Orthopaedic Surgery; Admitting Provider Internal Medicine; Emergency Provider Family Medicine; PCP Family Medicine; Referring Provider Family Medicine; Visit Provider Internal Medicine
PROC: 0SRR0JZ Replacement of Right Hip Joint, Femoral Surface with Synthetic Substitute, Open Approach (ICD-10-PCS; CPT 27125; principal; 2025-05-07 12:00)
DX: S72.011A Unspecified intracapsular fracture of right femur, initial encounter for closed fracture (principal); R55 Syncope and collapse; E07.9 Disorder of thyroid, unspecified; W19.XXXA Unspecified fall, initial encounter
CPT/HCPCS: 36415; 71045; 73502; 73552; 73590; 80048; 80053; 81001; 82550; 83690; 83735; 83880; 84484; 85025; 85610; 85730; 87077; 87086; 87186; 93005; 93306; 96374; 97161; 97165; 97530; 97535; 99284; C1776; C1713; J0131; J0687; J0689; J1100; J1171; J1650; J1885; J1956; J2270; J2405; J2704; J3010; J7030; J7050; J7120